=== PATIENT | female | born 1965 | race American Indian/Alaskan Native ===

== ENCOUNTER 2018-07-25 11:00 | Inpatient (IN) | payer MEDICAID ==
[2018-07-25] MEDS ORDERED: Sodium Chloride 0.9% 1,000 ML IV ONE (11:22)
[2018-07-25] MEDS ORDERED: Piperacillin/Tazobact 3.375 GM in Sodium Chloride 100 ML IVPB STA (12:41)
[2018-07-25 12:50] LABS: VENOUS BLOOD GAS BASE EXCESS -8.4 mmol/L (0.0-2.0); VENOUS BLOOD GAS PCO2 31 mmHg (40-60); VENOUS BLOOD GAS PO2 57 mm/Hg (30-55); VENOUS BLOOD PH 7.33 (7.32-7.43)
[2018-07-25 13:03] LABS: BASO % 0.2 % (0.0-2.0); EOS % 0.2 % (0.0-4.0); HEMOGLOBIN 9.3 g/dL (11.0-16.0); LYMPH # 0.3 K/uL (1.0-4.3); LYMPH % 4.2 % (20.0-40.0); MEAN CORPUSCULAR HEMOGLOBIN 27.7 pg (27.0-31.0); MEAN CORPUSCULAR HGB CONC 32.6 g/dL (33.0-37.0); MEAN PLATELET VOLUME 8.9 fL (7.2-11.7); MONO # 0.2 K/uL (0.0-0.8); MONO % 2.6 % (0.0-10.0); NEUT # 6.1 K/uL (1.8-7.0); NEUT % 92.8 % (50.0-75.0); NRBC % 0.1 % (0.0-2.0); PLATELET COUNT 266 K/uL (130-400); RBC 3.33 Mil/uL (3.80-5.20); RED CELL DISTRIBUTION WIDTH 15.1 % (11.5-14.5); WHITE BLOOD COUNT 6.5 K/uL (4.8-10.8)
--- NOTE | 2018-07-25 13:04 | C.PDOC ---
History Of Present Illness 52 yo female w/PMHx of uncontrolled DM, PVD, diabetic neuropathy, Left foot toe amputation, chr. foot diabetic ulcer BIBA for evaluation of cold sx associated with dry cough, fever, increase pain in left foot developed for past few days. Pt is poor historian, unable to give more info on current illness. Pt sts, " supposed to be in [place] in [facility], had recently Left foot surgery, but decided to try to live with my daughter here in [place]". Pt unable to recall hx of med. allergy " I dont remember". AT present time, pt appears not in any apparent distress, occasional dry cough noted Time Seen by Provider: 07/25/18 11:11 Chief Complaint (Nursing): Abnormal Skin Integrity History Per: Patient, EMS Past Medical History Reviewed: Historical Data, Nursing Documentation, Vital Signs Vital Signs: Last Vital Signs Temp 101.6 F H 07/25/18 11:20 Pulse 120 H 07/25/18 11:20 Resp 18 07/25/18 11:20 BP 149/54 L 07/25/18 11:20 Pulse Ox 98 07/25/18 11:20 - Medical History PMH: CHF, Diabetes, HTN Other PMH: Obese, PVD, diabtic neuropathy Family History: States: No Known Family Hx - Social History Hx Alcohol Use: No Hx Substance Use: No - Immunization History Hx Tetanus Toxoid Vaccination: No Hx Influenza Vaccination: No Hx Pneumococcal Vaccination: No Review Of Systems Except As Marked, All Systems Reviewed And Found Negative. Constitutional: Positive for: Fever, Malaise ENT: Positive for: Nose Discharge, Nose Congestion Cardiovascular: Negative for: Chest Pain Respiratory: Positive for: Cough. Negative for: Shortness of Breath, Wheezing Gastrointestinal: Negative for: Nausea, Vomiting, Abdominal Pain, Diarrhea Musculoskeletal: Positive for: Foot Pain Skin: Positive for: Lesions Neurological: Negative for: Altered Mental Status Physical Exam - Physical Exam Appears: Non-toxic, Other (in pain, occasional dry cough noted) Skin: Normal Color, Warm, Dry, No Rash Eye(s): bilateral: PERRL Nose: No Flaring, No Discharge Oral Mucosa: Moist, No Drooling Throat: No Erythema Neck: Trachea Midline, Supple Cardiovascular: No Murmur, No JVD Respiratory: No Decreased Breath Sounds, No Accessory Muscle Use, No Stridor, No Wheezing Gastrointestinal/Abdominal: Soft, No Tenderness, No Distention, No Guarding Back: No CVA Tenderness Extremity: Tenderness (B/L lower legs), Calf Tenderness (L>R), Other (Left foot: 1st toe amputation with open wound, (+) odor, purulent discahrge. Mod diffuse edema around medial aspect foot.) Neurological/Psych: Oriented x3, Normal Speech ED Course And Treatment - Laboratory Results Result Diagrams: 07/25/18 12:54 07/25/18 12:54 Lab Results: pO2 57 mm/Hg (30-55) H 07/25/18 12:40 VBG pH 7.33 (7.32-7.43) 07/25/18 12:40 VBG pCO2 31 mmHg (40-60) L 07/25/18 12:40 VBG HCO3 18.1 mmol/L 07/25/18 12:40 VBG Total CO2 17.3 mmol/L (22-28) L 07/25/18 12:40 VBG O2 Sat (Calc) 89.9 % (40-65) H 07/25/18 12:40 VBG Base Excess -8.4 mmol/L (0.0-2.0) L 07/25/18 12:40 VBG Potassium 3.7 mmol/L (3.6-5.2) 07/25/18 12:40 Sodium 139.0 mmol/l (132-148) 07/25/18 12:40 Chloride 105.0 mmol/L (98-107) 07/25/18 12:40 Glucose 415 mg/dl (65-105) H* 07/25/18 12:40 Lactate 2.6 mmol/L (0.7-2.1) H 07/25/18 12:40 Crit Value Called To ponce Joyce 07/25/18 12:40 Crit Value Called By rt Kelly 07/25/18 12:40 Crit Value Read Back Y 07/25/18 12:40 Blood Gas Notified Time 1249 07/25/18 12:40 Lab Interpretation: Abnormal ECG: Interpreted By Me, Viewed By Me Interpretation Of ECG: SR@95/min, NAD, no acute T wave or ST-T changes O2 Sat by Pulse Oximetry: 98 Pulse Ox Interpretation: Normal - Radiology CXR: Read By Radiologist CXR Interpretation: Yes: Cardiomegaly Progress Note: At 12:41 code sepsis. After pt's med assessment, rosk and benefits review, Pt will not benefit from fluids loading as per sepsis protocol, pt has multiple comorbidities including CHF. Pt was eval by machine pecan picker , rec. tele admission. Podiatry consul called, pt was seen by resident, additional imagings ordered. Case discussed with , adission arranged. ID consults with . Pt remained stable during the ED evaluation Critical Care Time - Critical Care Note Total Time (in mins): 120 Documented critical care: time excludes all time spent performing seperately billable procedures. Disposition - Disposition Disposition: HOSPITALIZED Disposition Time: 15:30 Condition: SERIOUS - Clinical Impression Clinical Impression: Sepsis, Open wound, Cellulitis, Uncontrolled diabetes mellitus
[2018-07-25 13:12] LABS: INR 1.2; PROTHROMBIN TIME 13.6 SECONDS (9.7-12.2)
[2018-07-25 13:29] LABS: B-TYPE NATRIURETIC PEPTIDE 1560 pg/mL (0-900)
[2018-07-25 13:35] LABS: BANDS 19 % (0-2); LYMPHOCYTE 4 % (20-40); MONOCYTE 2 % (0-10); NEUTROPHIL 75 % (50-75); TOTAL CELLS COUNTED 100
[2018-07-25 13:35] LABS: ABG ALLEN TEST POS; ARTERIAL BLOOD GAS HCO3 17.2 mmol/L (21-28); ARTERIAL BLOOD GAS O2 SAT 98.9 % (95-98); ARTERIAL BLOOD GAS PCO2 24 mm/Hg (35-45); ARTERIAL BLOOD GAS PH 7.36 (7.35-7.45); ARTERIAL BLOOD GAS PO2 86 mm/Hg (80-100); ARTERIAL BLOOD GAS TCO2 14.3 mmol/L (22-28)
--- NOTE | 2018-07-25 13:35 | RAD ---
Date of service: 07/25/2018 HISTORY: Sepsis Patient COMPARISON: No prior. FINDINGS: LUNGS: No consolidation. PLEURA: No significant pleural effusion identified, no pneumothorax apparent. CARDIOVASCULAR: There is presence of aortic atherosclerotic faint calcification on x-ray. Mild cardiomegaly mild pulmonary vascular congestion-likely accentuated with shallow lung volumes. OSSEOUS STRUCTURES: Thoracic spondylosis. Bilateral shoulder arthrosis VISUALIZED UPPER ABDOMEN: Normal. OTHER FINDINGS: None. IMPRESSION: No consolidative infiltrate. Mild cardiomegaly and mild pulmonary venous congestion suspect
[2018-07-25 13:36] LABS: ANISOCYTOSIS SLIGHT; PLATELET ESTIMATE NORMAL (NORMAL)
[2018-07-25 13:37] LABS: GIANT PLATELETS PRESENT; HYPOCHROMIC SLIGHT; LARGE PLATELETS PRESENT
[2018-07-25 13:45] LABS: ALB/GLOB RATIO 0.8 (1.0-2.1); ALBUMIN 3.3 g/dL (3.5-5.0); ALT/SGPT 7 U/L (9-52); AST/SGOT 13 U/L (14-36); BLOOD UREA NITROGEN 15 mg/dL (7-17); CALCIUM 8.5 mg/dl (8.6-10.4); GFR NON-AFRICAN AMERICAN 58
--- NOTE | 2018-07-25 14:24 | CP.PCM.CON ---
<Brant Sofia - Last Filed: 07/25/18 16:01> History of Present Illness - History of Present Illness History of Present Illness: Podiatry Consult Note: Dr. Fox 52 year old female patient with PMHx of DM, HTN was seen and evaluated at bedside for left foot infected wound. Patient reports that she recently moved from [place] to [place] because her daughter bought a new house here. Patient states that she has been following up for the left foot infection at [facility] and in [facility] for many years. Patient reports that she was almost healed and was transferred to a fpc before she was asked to move to [place]. States that since then she lost to follow up and her foot became worst. Patient states that she was receiving abx at the fpc (Doxycycline) and was feeling a lot better at the time. Patient states that she decided to come to the ED today because she has been feeling very sick and nauseous. Patient states that she had vomiting episodes few times before coming to the hospital. Reports that she may have had a fever as well. Patient denies of having any pain but states that she noticed a lot of drainage from the foot and foul smell. Patient denies of having any other pedal complains at this time. PMHx: DM, HTN PSHx: Left hallux amputation Allergies: Vancomycin SHx: Denies smoking, EtOH or illicit drug usage Review of Systems - Constitutional Constitutional: As Per HPI Past Patient History - Infectious Disease Hx of Infectious Diseases: None - Past Social History Smoking Status: Never Smoked - CARDIAC Hx Hypertension: Yes - ENDOCRINE/METABOLIC Hx Diabetes Mellitus Type 2: Yes - PSYCHIATRIC Hx Substance Use: No - SURGICAL HISTORY Hx Surgeries: Yes Other/Comment: Left foot metatarsal amputatio one year ago from date 07/25/2018. Patient unable to provide all information. - ANESTHESIA Hx Anesthesia: Yes Hx Anesthesia Reactions: No Hx Malignant Hyperthermia: No Meds Allergies/Adverse Reactions: Allergies Allergy/AdvReac Type Severity Reaction Status Date / Time iodine Allergy Intermediate Verified 07/25/18 15:53 vancomycin Allergy Intermediate Verified 07/25/18 11:18 - Medications Medications: Current Medications Acetaminophen (Tylenol 325mg Tab) 975 mg PO ONCE PRN PRN Reason: Fever >100.4 F Last Admin: 07/25/18 11:31 Dose: 975 mg Physical Exam - Constitutional Appears: Well, Non-toxic, No Acute Distress - Extremities Exam Additional comments: Bilateral LE exam: VASC: DP/PT pulses are palpable 2/4, Cap refill time: < 3 sec to digit 4 and 5, Temp gradient: warm to cool from proximal to distal on the right and warm to warm on the left, diffuse non-pitting edema noticed distal to the mid leg on the left DERM: open fissure plantar medial aspect of the 2nd digit which probes down to the level of the bone, active purulent drainage with bubbles noted, senait-fissure maceration, open wound at the level of the PIPJ of the 2nd digit with grannular wound base, probe to bone, 2nd digit appears contracted, no active drainage from the 2nd digit wound, 2nd digit does not show sign of necrosis but shows maceration with non-pitting edema and localized erythema, severe malodor present from the site NEURO: Protective sensation grossly intact ORTHO: no pain on palpation of the wound, no pain on palpation during deep palpation, MMT: 5/5 in all 4 direction at the ankle joint - Neurological Exam Neurological exam: Alert, Oriented x3 - Psychiatric Exam Psychiatric exam: Normal Affect, Normal Mood Results - Vital Signs Recent Vital Signs: Last Vital Signs Temp 100.3 F H 07/25/18 13:54 Pulse 83 07/25/18 13:48 Resp 22 07/25/18 13:48 BP 108/63 07/25/18 13:48 Pulse Ox 97 07/25/18 13:48 - Labs Result Diagrams: 07/25/18 12:54 07/25/18 12:54 Labs: Laboratory Results - last 24 hr 07/25/18 07/25/18 07/25/18 11:14 11:53 12:40 WBC RBC Hgb Hct MCV MCH MCHC RDW Plt Count MPV Neut % (Auto) Lymph % (Auto) Dickenson % (Auto) Eos % (Auto) Baso % (Auto) Neut # (Auto) Lymph # (Auto) Dickenson # (Auto) Eos # (Auto) Baso # (Auto) Neutrophils % (Manual) Band Neutrophils % Lymphocytes % (Manual) Monocytes % (Manual) Platelet Estimate Plt Clumps, EDTA Large Platelets Giant Platelets Hypochromasia (manual) Anisocytosis (manual) PT INR APTT Puncture Site pCO2 pO2 57 H HCO3 ABG pH ABG Total CO2 ABG O2 Saturation ABG Base Excess Josias Test ABG Potassium VBG pH 7.33 VBG pCO2 31 L VBG HCO3 18.1 VBG Total CO2 17.3 L VBG O2 Sat (Calc) 89.9 H VBG Base Excess -8.4 L VBG Potassium 3.7 A-a O2 Difference Respiratory Index Sodium 139.0 Chloride 105.0 Glucose 415 H* Lactate 2.6 H FiO2 Crit Value Called To ponce Joyce Crit Value Called By Danielle finley rt Crit Value Read Back Y Blood Gas Notified Time 1249 Potassium Carbon Dioxide Anion Gap BUN Creatinine Est GFR ( Amer) Est GFR (Non-Af Amer) POC Glucose (mg/dL) > 500 H* Random Glucose Calcium Phosphorus Magnesium Total Bilirubin AST ALT Alkaline Phosphatase Troponin I NT-Pro-B Natriuret Pep Total Protein Albumin Globulin Albumin/Globulin Ratio Arterial Blood Potassium Venous Blood Potassium 3.7 Influenza Typ A,B (EIA) Negative for flu a/b 07/25/18 07/25/18 07/25/18 12:54 12:54 12:54 WBC 6.5 RBC 3.33 L Hgb 9.3 L Hct 28.3 L MCV 85.0 MCH 27.7 MCHC 32.6 L RDW 15.1 H Plt Count 266 MPV 8.9 Neut % (Auto) 92.8 H Lymph % (Auto) 4.2 L Dickenson % (Auto) 2.6 Eos % (Auto) 0.2 Baso % (Auto) 0.2 Neut # (Auto) 6.1 Lymph # (Auto) 0.3 L Dickenson # (Auto) 0.2 Eos # (Auto) 0.0 Baso # (Auto) 0.0 Neutrophils % (Manual) 75 Band Neutrophils % 19 H* Lymphocytes % (Manual) 4 L Monocytes % (Manual) 2 Platelet Estimate Normal Plt Clumps, EDTA Lobster Fisherman Large Platelets Present Giant Platelets Present Hypochromasia (manual) Slight Anisocytosis (manual) Slight PT 13.6 H INR 1.2 APTT 26 Puncture Site pCO2 pO2 HCO3 ABG pH ABG Total CO2 ABG O2 Saturation ABG Base Excess Josias Test ABG Potassium VBG pH VBG pCO2 VBG HCO3 VBG Total CO2 VBG O2 Sat (Calc) VBG Base Excess VBG Potassium A-a O2 Difference Respiratory Index Sodium 133 Chloride 99 Glucose Lactate FiO2 Crit Value Called To Crit Value Called By Crit Value Read Back Blood Gas Notified Time Potassium 3.7 Carbon Dioxide 19 L Anion Gap 18 BUN 15 Creatinine 1.0 Est GFR ( Amer) > 60 Est GFR (Non-Af Amer) 58 POC Glucose (mg/dL) Random Glucose 471 H* Calcium 8.5 L Phosphorus 2.9 Magnesium 1.4 L Total Bilirubin 0.5 AST 13 L ALT 7 L Alkaline Phosphatase 143 H Troponin I < 0.0120 NT-Pro-B Natriuret Pep 1560 H Total Protein 7.2 Albumin 3.3 L Globulin 3.9 Albumin/Globulin Ratio 0.8 L Arterial Blood Potassium Venous Blood Potassium Influenza Typ A,B (EIA) 07/25/18 13:30 WBC RBC Hgb Hct MCV MCH MCHC RDW Plt Count MPV Neut % (Auto) Lymph % (Auto) Dickenson % (Auto) Eos % (Auto) Baso % (Auto) Neut # (Auto) Lymph # (Auto) Dickenson # (Auto) Eos # (Auto) Baso # (Auto) Neutrophils % (Manual) Band Neutrophils % Lymphocytes % (Manual) Monocytes % (Manual) Platelet Estimate Plt Clumps, EDTA Large Platelets Giant Platelets Hypochromasia (manual) Anisocytosis (manual) PT INR APTT Puncture Site Rradial pCO2 24 L pO2 86 HCO3 17.2 L ABG pH 7.36 ABG Total CO2 14.3 L ABG O2 Saturation 98.9 H ABG Base Excess -9.9 L Josias Test Pos ABG Potassium 2.7 L VBG pH VBG pCO2 VBG HCO3 VBG Total CO2 VBG O2 Sat (Calc) VBG Base Excess VBG Potassium A-a O2 Difference 34.0 Respiratory Index 0.4 Sodium 142.0 Chloride 113.0 H Glucose 357 H Lactate 1.1 FiO2 21.0 Crit Value Called To Crit Value Called By Crit Value Read Back Blood Gas Notified Time Potassium Carbon Dioxide Anion Gap BUN Creatinine Est GFR ( Amer) Est GFR (Non-Af Amer) POC Glucose (mg/dL) Random Glucose Calcium Phosphorus Magnesium Total Bilirubin AST ALT Alkaline Phosphatase Troponin I NT-Pro-B Natriuret Pep Total Protein Albumin Globulin Albumin/Globulin Ratio Arterial Blood Potassium 2.7 L Venous Blood Potassium Influenza Typ A,B (EIA) Assessment & Plan - Assessment and Plan (Free Text) Assessment: 52 year old female with PMHx of DM, HTN was evaluated for left foot infected 2nd digit with possible underlying soft tissue emphysema and OM Plan: Patient seen and evaluated at bedside Discussed plan with attending Dr. Fox Labs vitals and charts reviewed - afebrile, positive leukocytosis - ESR, CRP - pending - meets SIRS criteria with possible sepsis Left foot, ankle and tib-fib x-rays ordered - pending Bedside I&D performed - expressed approx. 10 cc of purulent drainage, performed until fresh bleeding noted Wound dressed with betadine, DSD Wound culture taken - pending ID consult - Dr. Davila, recs appreciated - IV abx as per ID Pain management as per primary Podiatry plans for I&D of the left foot with possible 2nd ray amputation - tomorrow 7:30 am Please keep patient NPO starting midnight Hold anti-coag Thank you for the podiatry consult and allowing to take part in patient care Podiatry to follow patient while in-house - Date & Time Date: 07/25/18 Time: 14:42 <Eddy Fox - Last Filed: 07/25/18 22:07> Meds - Medications Medications: Current Medications Acetaminophen (Tylenol 325mg Tab) 975 mg PO ONCE PRN PRN Reason: Fever >100.4 F Last Admin: 07/25/18 11:31 Dose: 975 mg Acetaminophen (Tylenol 325mg Tab) 650 mg PO Q6 PRN PRN Reason: Fever >100.4 F Albuterol/Ipratropium (Duoneb 3 Mg/0.5 Mg (3 Ml) Ud) 3 ml INH RQ6 PRN PRN Reason: Shortness of Breath Dextrose (Dextrose 50% Inj) 0 ml IV STAT PRN; Protocol PRN Reason: Hypoglycemia Protocol Dextrose (Glutose 15) 0 gm PO ONCE PRN; Protocol PRN Reason: Hypoglycemia Protocol Furosemide (Lasix) 20 mg PO DAILY JAMAR Gabapentin (Neurontin) 300 mg PO BID JAMAR Last Admin: 07/25/18 21:08 Dose: Not Given Glucagon (Glucagen Diagnostic Kit) 0 mg IM STAT PRN; Protocol PRN Reason: Hypoglycemia Protocol Dextrose (Dextrose 5% In Water 1000 Ml) 1,000 mls @ 0 mls/hr IV .Q0M PRN; Protocol PRN Reason: Hypoglycemia Protocol Meropenem 1 gm/ Sodium (Chloride) 100 mls @ 100 mls/hr IVPB Q8H JAMAR; Protocol Doxycycline Hyclate 100 mg/ (Sodium Chloride) 100 mls @ 100 mls/hr IVPB Q12H JAMAR; Protocol Insulin Glargine (Lantus) 20 unit SC HS [facility] Last Admin: 07/25/18 22:03 Dose: 20 unit Insulin Human Regular (Novolin R) 0 unit SC ACHS JAMAR; Protocol Last Admin: 07/25/18 19:00 Dose: Not Given Lactobacillus Acidophilus (Lactobacillus) 1 cap PO TID [facility] Last Admin: 07/25/18 21:08 Dose: Not Given Lisinopril (Zestril) 5 mg PO DAILY [facility] Magnesium Hydroxide (Milk Of Magnesia) 30 ml PO ONCE ONE Stop: 07/25/18 21:53 Oxycodone/Acetaminophen (Percocet 5/325 Mg Tab) 1 tab PO Q6H PRN PRN Reason: Pain, severe (8-10) Stop: 07/28/18 18:15 Pneumococcal Polyvalent Vaccine (Pneumovax 23 Vaccine) 0.5 ml IM .ONCE ONE Stop: 07/27/18 19:13 Rosuvastatin Calcium (Crestor) 2.5 mg PO HS [facility] Results - Vital Signs Recent Vital Signs: Last Vital Signs Temp 99.8 F H 07/25/18 17:45 Pulse 92 H 07/25/18 17:45 Resp 20 07/25/18 17:45 BP 118/54 L 07/25/18 17:45 Pulse Ox 98 07/25/18 18:10 - Labs Result Diagrams: 07/25/18 12:54 07/25/18 12:54 Labs: Laboratory Results - last 24 hr 07/25/18 07/25/18 07/25/18 11:14 11:53 12:40 WBC RBC Hgb Hct MCV MCH MCHC RDW Plt Count MPV Neut % (Auto) Lymph % (Auto) Dickenson % (Auto) Eos % (Auto) Baso % (Auto) Neut # (Auto) Lymph # (Auto) Dickenson # (Auto) Eos # (Auto) Baso # (Auto) Neutrophils % (Manual) Band Neutrophils % Lymphocytes % (Manual) Monocytes % (Manual) Platelet Estimate Plt Clumps, EDTA Large Platelets Giant Platelets Hypochromasia (manual) Anisocytosis (manual) ESR PT INR APTT Puncture Site pCO2 pO2 57 H HCO3 ABG pH ABG Total CO2 ABG O2 Saturation ABG Base Excess Josias Test ABG Potassium VBG pH 7.33 VBG pCO2 31 L VBG HCO3 18.1 VBG Total CO2 17.3 L VBG O2 Sat (Calc) 89.9 H VBG Base Excess -8.4 L VBG Potassium 3.7 A-a O2 Difference Respiratory Index Sodium 139.0 Chloride 105.0 Glucose 415 H* Lactate 2.6 H FiO2 Crit Value Called To ponce Joyce Crit Value Called By rt Kelly Crit Value Read Back Y Blood Gas Notified Time 1249 Potassium Carbon Dioxide Anion Gap BUN Creatinine Est GFR ( Amer) Est GFR (Non-Af Amer) POC Glucose (mg/dL) > 500 H* Random Glucose Calcium Phosphorus Magnesium Total Bilirubin AST ALT Alkaline Phosphatase Troponin I C-Reactive Protein C-React Prot High Sens NT-Pro-B Natriuret Pep Total Protein Albumin Globulin Albumin/Globulin Ratio Procalcitonin Arterial Blood Potassium Venous Blood Potassium 3.7 Influenza Typ A,B (EIA) Negative for flu a/b 07/25/18 07/25/18 07/25/18 12:54 12:54 12:54 WBC 6.5 RBC 3.33 L Hgb 9.3 L Hct 28.3 L MCV 85.0 MCH 27.7 MCHC 32.6 L RDW 15.1 H Plt Count 266 MPV 8.9 Neut % (Auto) 92.8 H Lymph % (Auto) 4.2 L Dickenson % (Auto) 2.6 Eos % (Auto) 0.2 Baso % (Auto) 0.2 Neut # (Auto) 6.1 Lymph # (Auto) 0.3 L Dickenson # (Auto) 0.2 Eos # (Auto) 0.0 Baso # (Auto) 0.0 Neutrophils % (Manual) 75 Band Neutrophils % 19 H* Lymphocytes % (Manual) 4 L Monocytes % (Manual) 2 Platelet Estimate Normal Plt Clumps, EDTA L[place]ster Fisherman Large Platelets Present Giant Platelets Present Hypochromasia (manual) Slight Anisocytosis (manual) Slight ESR PT 13.6 H INR 1.2 APTT 26 Puncture Site pCO2 pO2 HCO3 ABG pH ABG Total CO2 ABG O2 Saturation ABG Base Excess Josias Test ABG Potassium VBG pH VBG pCO2 VBG HCO3 VBG Total CO2 VBG O2 Sat (Calc) VBG Base Excess VBG Potassium A-a O2 Difference Respiratory Index Sodium 133 Chloride 99 Glucose Lactate FiO2 Crit Value Called To Crit Value Called By Crit Value Read Back Blood Gas Notified Time Potassium 3.7 Carbon Dioxide 19 L Anion Gap 18 BUN 15 Creatinine 1.0 Est GFR ( Amer) > 60 Est GFR (Non-Af Amer) 58 POC Glucose (mg/dL) Random Glucose 471 H* Calcium 8.5 L Phosphorus 2.9 Magnesium 1.4 L Total Bilirubin 0.5 AST 13 L ALT 7 L Alkaline Phosphatase 143 H Troponin I < 0.0120 C-Reactive Protein C-React Prot High Sens NT-Pro-B Natriuret Pep 1560 H Total Protein 7.2 Albumin 3.3 L Globulin 3.9 Albumin/Globulin Ratio 0.8 L Procalcitonin Arterial Blood Potassium Venous Blood Potassium Influenza Typ A,B (EIA) 07/25/18 07/25/18 07/25/18 13:30 16:42 16:42 WBC RBC Hgb Hct MCV MCH MCHC RDW Plt Count MPV Neut % (Auto) Lymph % (Auto) Dickenson % (Auto) Eos % (Auto) Baso % (Auto) Neut # (Auto) Lymph # (Auto) Dickenson # (Auto) Eos # (Auto) Baso # (Auto) Neutrophils % (Manual) Band Neutrophils % Lymphocytes % (Manual) Monocytes % (Manual) Platelet Estimate Plt Clumps, EDTA Large Platelets Giant Platelets Hypochromasia (manual) Anisocytosis (manual) ESR 98 H PT INR APTT Puncture Site Rradial pCO2 24 L pO2 86 HCO3 17.2 L ABG pH 7.36 ABG Total CO2 14.3 L ABG O2 Saturation 98.9 H ABG Base Excess -9.9 L Josias Test Pos ABG Potassium 2.7 L VBG pH VBG pCO2 VBG HCO3 VBG Total CO2 VBG O2 Sat (Calc) VBG Base Excess VBG Potassium A-a O2 Difference 34.0 Respiratory Index 0.4 Sodium 142.0 Chloride 113.0 H Glucose 357 H Lactate 1.1 FiO2 21.0 Crit Value Called To Crit Value Called By Crit Value Read Back Blood Gas Notified Time Potassium Carbon Dioxide Anion Gap BUN Creatinine Est GFR ( Amer) Est GFR (Non-Af Amer) POC Glucose (mg/dL) Random Glucose Calcium Phosphorus Magnesium Total Bilirubin AST ALT Alkaline Phosphatase Troponin I C-Reactive Protein C-React Prot High Sens NT-Pro-B Natriuret Pep Total Protein Albumin Globulin Albumin/Globulin Ratio Procalcitonin 167.52 H Arterial Blood Potassium 2.7 L Venous Blood Potassium Influenza Typ A,B (EIA) 07/25/18 07/25/18 07/25/18 16:42 16:42 18:35 WBC RBC Hgb Hct MCV MCH MCHC RDW Plt Count MPV Neut % (Auto) Lymph % (Auto) Dickenson % (Auto) Eos % (Auto) Baso % (Auto) Neut # (Auto) Lymph # (Auto) Dickenson # (Auto) Eos # (Auto) Baso # (Auto) Neutrophils % (Manual) Band Neutrophils % Lymphocytes % (Manual) Monocytes % (Manual) Platelet Estimate Plt Clumps, EDTA Large Platelets Giant Platelets Hypochromasia (manual) Anisocytosis (manual) ESR PT INR APTT Puncture Site pCO2 pO2 HCO3 ABG pH ABG Total CO2 ABG O2 Saturation ABG Base Excess Josias Test ABG Potassium VBG pH VBG pCO2 VBG HCO3 VBG Total CO2 VBG O2 Sat (Calc) VBG Base Excess VBG Potassium A-a O2 Difference Respiratory Index Sodium Chloride Glucose Lactate FiO2 Crit Value Called To Crit Value Called By Crit Value Read Back Blood Gas Notified Time Potassium Carbon Dioxide Anion Gap BUN Creatinine Est GFR ( Amer) Est GFR (Non-Af Amer) POC Glucose (mg/dL) > 500 H* Random Glucose Calcium Phosphorus Magnesium Total Bilirubin AST ALT Alkaline Phosphatase Troponin I C-Reactive Protein 218.80 H C-React Prot High Sens > 15.00 H NT-Pro-B Natriuret Pep Total Protein Albumin Globulin Albumin/Globulin Ratio Procalcitonin Arterial Blood Potassium Venous Blood Potassium Influenza Typ A,B (EIA) 07/25/18 07/25/18 18:37 21:21 WBC RBC Hgb Hct MCV MCH MCHC RDW Plt Count MPV Neut % (Auto) Lymph % (Auto) Dickenson % (Auto) Eos % (Auto) Baso % (Auto) Neut # (Auto) Lymph # (Auto) Dickenson # (Auto) Eos # (Auto) Baso # (Auto) Neutrophils % (Manual) Band Neutrophils % Lymphocytes % (Manual) Monocytes % (Manual) Platelet Estimate Plt Clumps, EDTA Large Platelets Giant Platelets Hypochromasia (manual) Anisocytosis (manual) ESR PT INR APTT Puncture Site pCO2 pO2 HCO3 ABG pH ABG Total CO2 ABG O2 Saturation ABG Base Excess Josias Test ABG Potassium VBG pH VBG pCO2 VBG HCO3 VBG Total CO2 VBG O2 Sat (Calc) VBG Base Excess VBG Potassium A-a O2 Difference Respiratory Index Sodium Chloride Glucose Lactate FiO2 Crit Value Called To Crit Value Called By Crit Value Read Back Blood Gas Notified Time Potassium Carbon Dioxide Anion Gap BUN Creatinine Est GFR ( Amer) Est GFR (Non-Af Amer) POC Glucose (mg/dL) > 500 H* 459 H* Random Glucose Calcium Phosphorus Magnesium Total Bilirubin AST ALT Alkaline Phosphatase Troponin I C-Reactive Protein C-React Prot High Sens NT-Pro-B Natriuret Pep Total Protein Albumin Globulin Albumin/Globulin Ratio Procalcitonin Arterial Blood Potassium Venous Blood Potassium Influenza Typ A,B (EIA) Assessment & Plan - Assessment and Plan (Free Text) Plan: seen at bedside this PM .discussed need for amputation of toe 2 left with wale dailey of infection . /Dr Marky Fox
--- NOTE | 2018-07-25 15:10 | RAD ---
Date of service: 07/25/2018 PROCEDURE: Radiographs of the left tibia and fibula. HISTORY: pain, swelling COMPARISON: None available. TECHNIQUE: Frontal and lateral views obtained. FINDINGS: BONES: No fracture or destructive lesion. JOINT SPACES: Unremarkable. OTHER FINDINGS: None. IMPRESSION: Unremarkable radiographs of the left tibia and fibula.
--- NOTE | 2018-07-25 15:10 | RAD ---
Date of service: 07/25/2018 PROCEDURE: Left Foot Radiographs. HISTORY: edema, pain COMPARISON: None. FINDINGS: BONES: Findings related to prior resection distal 1st metatarsal. Amputation at the level of the proximal phalanx 5th digit. Ventral ulceration medial aspect of the left foot distally. Suggestion of air within the soft tissues. In the absence of recent surgical history gas-forming organism should be considered. JOINTS: Degenerative changes at the level of the tarsal bones. Small plantar calcaneal spur. Small talar exostosis. Degenerative changes talar calcaneal joint. SOFT TISSUES: Normal. OTHER FINDINGS: None. IMPRESSION: Soft tissue findings medial aspect of the left foot distally at the site of prior resection. Please see report for additional details, findings an observations.
--- NOTE | 2018-07-25 15:12 | RAD ---
Date of service: 07/25/2018 PROCEDURE: Left Ankle Radiographs. HISTORY: r/o gas COMPARISON: None available. FINDINGS: BONES: Cortical irregularity medial aspect of the left tibia midshaft region. The finding is marked on the study for review. This scalloped appearance suggests sequela of prior infection or trauma. No evidence of acute osteomyelitis. JOINTS: Normal. No osteoarthritis. Ankle mortise maintained. Talar dome intact SOFT TISSUES: Normal. OTHER FINDINGS: None. IMPRESSION: Presumed chronic changes midshaft left tibia.
[2018-07-25] MEDS ORDERED: Lactated Ringer's 1,000 ML ONE (15:28)
[2018-07-25] MEDS ORDERED: Sodium Chloride 0.9% 1,000 ML ONE (15:28)
[2018-07-25] MEDS ORDERED: Piperacillin/Tazobact 3.375 gm 100 ML IVPB ONE (15:29)
--- NOTE | 2018-07-25 15:52 | CP.PCM.CON ---
<William Mitchell - Last Filed: 07/25/18 18:23> History of Present Illness - History of Present Illness History of Present Illness: 52 year old female, with PMHx of HTN, IDDM, Diabetic retinopathy, and previous hx of toe amputation, who presented to the ED for complaint of fever, chills, diarrhea, nausea, and vomiting for the past five days.Patient also complains of a cough but unable to produce sputum. Symptoms have been persistent for the past several days. Patient states she came to the ED because she could no longer take it. Patient states she recently moved in with her daughter in [place] after living in an assisted living facility. When discussing her insulin, patient states "I have been guessing" how much insulin she draws from syringe because she is unable to see. Patient denies chest pain or abdominal pain, SOB. Patient states she is producing urine & bowel movements without any issues PMHx: IDDM, Diabetic Retinopathy, HTN PSHx: Left toe amputation Allergies: Vancomycin, iodine Medications: per EMR Social Hx: Patient denies alcohol, tobacco, or illicit drug use. Patient now lives with daughter in [place]. Patient previously lived in assisted living facility in [place] prior to moving to [place]. Review of Systems - Constitutional Constitutional: Chills, Fever. absent: Fatigue, Headache - EENT Ears: absent: Decreased Hearing, Dizziness Nose/Mouth/Throat: absent: Dysphagia - Cardiovascular Cardiovascular: absent: Chest Pain, Chest Pain at Rest - Respiratory Respiratory: absent: Dyspnea, Hemoptysis, Stridor - Gastrointestinal Gastrointestinal: absent: Belching, Bloating - Genitourinary Genitourinary: absent: Hematuria, Pyuria, Nocturia - Neurological Neurological: absent: Abnormal Hearing, Behavioral Changes - Psychiatric Psychiatric: absent: Confusion, Depression Past Patient History - Infectious Disease Hx of Infectious Diseases: None - Past Social History Smoking Status: Never Smoked - CARDIAC Hx Hypertension: Yes - ENDOCRINE/METABOLIC Hx Diabetes Mellitus Type 2: Yes - PSYCHIATRIC Hx Substance Use: No - SURGICAL HISTORY Hx Surgeries: Yes Other/Comment: Left foot metatarsal amputatio one year ago from date 07/25/2018. Patient unable to provide all information. - ANESTHESIA Hx Anesthesia: Yes Hx Anesthesia Reactions: No Hx Malignant Hyperthermia: No Meds Allergies/Adverse Reactions: Allergies Allergy/AdvReac Type Severity Reaction Status Date / Time iodine Allergy Intermediate Verified 07/25/18 15:53 vancomycin Allergy Intermediate Verified 07/25/18 11:18 - Medications Medications: Current Medications Acetaminophen (Tylenol 325mg Tab) 975 mg PO ONCE PRN PRN Reason: Fever >100.4 F Last Admin: 07/25/18 11:31 Dose: 975 mg Results - Vital Signs Recent Vital Signs: Last Vital Signs Temp 100.3 F H 07/25/18 13:54 Pulse 83 07/25/18 13:48 Resp 22 07/25/18 13:48 BP 108/63 07/25/18 13:48 Pulse Ox 97 07/25/18 13:48 - Labs Result Diagrams: 07/25/18 12:54 07/25/18 12:54 Labs: Laboratory Results - last 24 hr 07/25/18 07/25/18 07/25/18 11:14 11:53 12:40 WBC RBC Hgb Hct MCV MCH MCHC RDW Plt Count MPV Neut % (Auto) Lymph % (Auto) Weber % (Auto) Eos % (Auto) Baso % (Auto) Neut # (Auto) Lymph # (Auto) Weber # (Auto) Eos # (Auto) Baso # (Auto) Neutrophils % (Manual) Band Neutrophils % Lymphocytes % (Manual) Monocytes % (Manual) Platelet Estimate Plt Clumps, EDTA Large Platelets Giant Platelets Hypochromasia (manual) Anisocytosis (manual) PT INR APTT Puncture Site pCO2 pO2 57 H HCO3 ABG pH ABG Total CO2 ABG O2 Saturation ABG Base Excess Josias Test ABG Potassium VBG pH 7.33 VBG pCO2 31 L VBG HCO3 18.1 VBG Total CO2 17.3 L VBG O2 Sat (Calc) 89.9 H VBG Base Excess -8.4 L VBG Potassium 3.7 A-a O2 Difference Respiratory Index Sodium 139.0 Chloride 105.0 Glucose 415 H* Lactate 2.6 H FiO2 Crit Value Called To ponce Joyce Crit Value Called By Danielle finley rt Crit Value Read Back Y Blood Gas Notified Time 1249 Potassium Carbon Dioxide Anion Gap BUN Creatinine Est GFR ( Amer) Est GFR (Non-Af Amer) POC Glucose (mg/dL) > 500 H* Random Glucose Calcium Phosphorus Magnesium Total Bilirubin AST ALT Alkaline Phosphatase Troponin I NT-Pro-B Natriuret Pep Total Protein Albumin Globulin Albumin/Globulin Ratio Arterial Blood Potassium Venous Blood Potassium 3.7 Influenza Typ A,B (EIA) Negative for flu a/b 07/25/18 07/25/18 07/25/18 12:54 12:54 12:54 WBC 6.5 RBC 3.33 L Hgb 9.3 L Hct 28.3 L MCV 85.0 MCH 27.7 MCHC 32.6 L RDW 15.1 H Plt Count 266 MPV 8.9 Neut % (Auto) 92.8 H Lymph % (Auto) 4.2 L Weber % (Auto) 2.6 Eos % (Auto) 0.2 Baso % (Auto) 0.2 Neut # (Auto) 6.1 Lymph # (Auto) 0.3 L Weber # (Auto) 0.2 Eos # (Auto) 0.0 Baso # (Auto) 0.0 Neutrophils % (Manual) 75 Band Neutrophils % 19 H* Lymphocytes % (Manual) 4 L Monocytes % (Manual) 2 Platelet Estimate Normal Plt Clumps, EDTA [employer] Large Platelets Present Giant Platelets Present Hypochromasia (manual) Slight Anisocytosis (manual) Slight PT 13.6 H INR 1.2 APTT 26 Puncture Site pCO2 pO2 HCO3 ABG pH ABG Total CO2 ABG O2 Saturation ABG Base Excess Josias Test ABG Potassium VBG pH VBG pCO2 VBG HCO3 VBG Total CO2 VBG O2 Sat (Calc) VBG Base Excess VBG Potassium A-a O2 Difference Respiratory Index Sodium 133 Chloride 99 Glucose Lactate FiO2 Crit Value Called To Crit Value Called By Crit Value Read Back Blood Gas Notified Time Potassium 3.7 Carbon Dioxide 19 L Anion Gap 18 BUN 15 Creatinine 1.0 Est GFR ( Amer) > 60 Est GFR (Non-Af Amer) 58 POC Glucose (mg/dL) Random Glucose 471 H* Calcium 8.5 L Phosphorus 2.9 Magnesium 1.4 L Total Bilirubin 0.5 AST 13 L ALT 7 L Alkaline Phosphatase 143 H Troponin I < 0.0120 NT-Pro-B Natriuret Pep 1560 H Total Protein 7.2 Albumin 3.3 L Globulin 3.9 Albumin/Globulin Ratio 0.8 L Arterial Blood Potassium Venous Blood Potassium Influenza Typ A,B (EIA) 07/25/18 13:30 WBC RBC Hgb Hct MCV MCH MCHC RDW Plt Count MPV Neut % (Auto) Lymph % (Auto) Weber % (Auto) Eos % (Auto) Baso % (Auto) Neut # (Auto) Lymph # (Auto) Weber # (Auto) Eos # (Auto) Baso # (Auto) Neutrophils % (Manual) Band Neutrophils % Lymphocytes % (Manual) Monocytes % (Manual) Platelet Estimate Plt Clumps, EDTA Large Platelets Giant Platelets Hypochromasia (manual) Anisocytosis (manual) PT INR APTT Puncture Site Rradial pCO2 24 L pO2 86 HCO3 17.2 L ABG pH 7.36 ABG Total CO2 14.3 L ABG O2 Saturation 98.9 H ABG Base Excess -9.9 L Josias Test Pos ABG Potassium 2.7 L VBG pH VBG pCO2 VBG HCO3 VBG Total CO2 VBG O2 Sat (Calc) VBG Base Excess VBG Potassium A-a O2 Difference 34.0 Respiratory Index 0.4 Sodium 142.0 Chloride 113.0 H Glucose 357 H Lactate 1.1 FiO2 21.0 Crit Value Called To Crit Value Called By Crit Value Read Back Blood Gas Notified Time Potassium Carbon Dioxide Anion Gap BUN Creatinine Est GFR ( Amer) Est GFR (Non-Af Amer) POC Glucose (mg/dL) Random Glucose Calcium Phosphorus Magnesium Total Bilirubin AST ALT Alkaline Phosphatase Troponin I NT-Pro-B Natriuret Pep Total Protein Albumin Globulin Albumin/Globulin Ratio Arterial Blood Potassium 2.7 L Venous Blood Potassium Influenza Typ A,B (EIA) Assessment & Plan - Assessment and Plan (Free Text) Assessment: Patient is a 52 year old female, with PMHx of HTN, IDDM, Diabetic Retinopathy, and previous hx of toe amputation, who presented to the ED for complaints of fever, chills, diarrhea, nausea, and vomiting secondary to sepsis. Patient was evaluated for admission to ICU. Patient is resting comfortably and talking in complete sentences. Vitals remain stable in ED and lactate is down trending. - Patient is stable to be admitted to floor. - Please contact ICU if re-evaluation needed. Plan: - Patient is stable to be admitted to floor. - Please contact ICU if re-evaluation needed. <Azul Sofia - Last Filed: 07/26/18 06:13> Meds - Medications Medications: Current Medications Acetaminophen (Tylenol 325mg Tab) 975 mg PO ONCE PRN PRN Reason: Fever >100.4 F Last Admin: 07/25/18 11:31 Dose: 975 mg Acetaminophen (Tylenol 325mg Tab) 650 mg PO Q6 PRN PRN Reason: Fever >100.4 F Albuterol/Ipratropium (Duoneb 3 Mg/0.5 Mg (3 Ml) Ud) 3 ml INH RQ6 PRN PRN Reason: Shortness of Breath Dextrose (Dextrose 50% Inj) 0 ml IV STAT PRN; Protocol PRN Reason: Hypoglycemia Protocol Dextrose (Glutose 15) 0 gm PO ONCE PRN; Protocol PRN Reason: Hypoglycemia Protocol Furosemide (Lasix) 20 mg PO DAILY [facility] Gabapentin (Neurontin) 300 mg PO BID [facility] Last Admin: 07/25/18 21:08 Dose: Not Given Glucagon (Glucagen Diagnostic Kit) 0 mg IM STAT PRN; Protocol PRN Reason: Hypoglycemia Protocol Dextrose (Dextrose 5% In Water 1000 Ml) 1,000 mls @ 0 mls/hr IV .Q0M PRN; Protocol PRN Reason: Hypoglycemia Protocol Meropenem 1 gm/ Sodium (Chloride) 100 mls @ 100 mls/hr IVPB Q8H [facility]; Protocol Last Admin: 07/26/18 06:10 Dose: 100 mls/hr Doxycycline Hyclate 100 mg/ (Sodium Chloride) 100 mls @ 100 mls/hr IVPB Q12H [facility]; Protocol Last Admin: 07/26/18 00:05 Dose: 100 mls/hr Insulin Glargine (Lantus) 20 unit SC HS [facility] Last Admin: 07/25/18 22:03 Dose: 20 unit Insulin Human Regular (Novolin R) 0 unit SC ACHS [facility]; Protocol Last Admin: 07/25/18 22:06 Dose: 4 unit Lactobacillus Acidophilus (Lactobacillus) 1 cap PO TID [facility] Last Admin: 07/25/18 21:08 Dose: Not Given Lisinopril (Zestril) 5 mg PO DAILY [facility] Oxycodone/Acetaminophen (Percocet 5/325 Mg Tab) 1 tab PO Q6H PRN PRN Reason: Pain, severe (8-10) Stop: 07/28/18 18:15 Pneumococcal Polyvalent Vaccine (Pneumovax 23 Vaccine) 0.5 ml IM .ONCE ONE Stop: 07/27/18 19:13 Rosuvastatin Calcium (Crestor) 2.5 mg PO HS [facility] Last Admin: 07/25/18 22:55 Dose: Not Given Results - Vital Signs Recent Vital Signs: Last Vital Signs Temp 98.5 F 07/25/18 23:05 Pulse 79 07/26/18 01:00 Resp 20 07/25/18 23:05 BP 105/57 L 07/25/18 23:05 Pulse Ox 93 L 07/25/18 23:05 - Labs Result Diagrams: 07/25/18 12:54 07/25/18 12:54 Labs: Laboratory Results - last 24 hr 07/25/18 07/25/18 07/25/18 11:14 11:53 12:40 WBC RBC Hgb Hct MCV MCH MCHC RDW Plt Count MPV Neut % (Auto) Lymph % (Auto) Weber % (Auto) Eos % (Auto) Baso % (Auto) Neut # (Auto) Lymph # (Auto) Weber # (Auto) Eos # (Auto) Baso # (Auto) Neutrophils % (Manual) Band Neutrophils % Lymphocytes % (Manual) Monocytes % (Manual) Platelet Estimate Plt Clumps, EDTA Large Platelets Giant Platelets Hypochromasia (manual) Anisocytosis (manual) ESR PT INR APTT Puncture Site pCO2 pO2 57 H HCO3 ABG pH ABG Total CO2 ABG O2 Saturation ABG Base Excess Josias Test ABG Potassium VBG pH 7.33 VBG pCO2 31 L VBG HCO3 18.1 VBG Total CO2 17.3 L VBG O2 Sat (Calc) 89.9 H VBG Base Excess -8.4 L VBG Potassium 3.7 A-a O2 Difference Respiratory Index Sodium 139.0 Chloride 105.0 Glucose 415 H* Lactate 2.6 H FiO2 Crit Value Called To ponce Joyce Crit Value Called By rt Kelly Crit Value Read Back Y Blood Gas Notified Time 1249 Potassium Carbon Dioxide Anion Gap BUN Creatinine Est GFR ( Amer) Est GFR (Non-Af Amer) POC Glucose (mg/dL) > 500 H* Random Glucose Calcium Phosphorus Magnesium Total Bilirubin AST ALT Alkaline Phosphatase Troponin I C-Reactive Protein C-React Prot High Sens NT-Pro-B Natriuret Pep Total Protein Albumin Globulin Albumin/Globulin Ratio Procalcitonin Arterial Blood Potassium Venous Blood Potassium 3.7 Urine Color Urine Clarity Urine pH Ur Specific Loraine Urine Protein Urine Glucose (UA) Urine Ketones Urine Blood Urine Nitrate Urine Bilirubin Urine Urobilinogen Ur Leukocyte Esterase Urine WBC (Auto) Urine RBC (Auto) Ur Squamous Epith Cells Urine Bacteria Hyaline Casts Influenza Typ A,B (EIA) Negative for flu a/b 07/25/18 07/25/18 07/25/18 12:54 12:54 12:54 WBC 6.5 RBC 3.33 L Hgb 9.3 L Hct 28.3 L MCV 85.0 MCH 27.7 MCHC 32.6 L RDW 15.1 H Plt Count 266 MPV 8.9 Neut % (Auto) 92.8 H Lymph % (Auto) 4.2 L Weber % (Auto) 2.6 Eos % (Auto) 0.2 Baso % (Auto) 0.2 Neut # (Auto) 6.1 Lymph # (Auto) 0.3 L Weber # (Auto) 0.2 Eos # (Auto) 0.0 Baso # (Auto) 0.0 Neutrophils % (Manual) 75 Band Neutrophils % 19 H* Lymphocytes % (Manual) 4 L Monocytes % (Manual) 2 Platelet Estimate Normal Plt Clumps, EDTA [employer]er Large Platelets Present Giant Platelets Present Hypochromasia (manual) Slight Anisocytosis (manual) Slight ESR PT 13.6 H INR 1.2 APTT 26 Puncture Site pCO2 pO2 HCO3 ABG pH ABG Total CO2 ABG O2 Saturation ABG Base Excess Josias Test ABG Potassium VBG pH VBG pCO2 VBG HCO3 VBG Total CO2 VBG O2 Sat (Calc) VBG Base Excess VBG Potassium A-a O2 Difference Respiratory Index Sodium 133 Chloride 99 Glucose Lactate FiO2 Crit Value Called To Crit Value Called By Crit Value Read Back Blood Gas Notified Time Potassium 3.7 Carbon Dioxide 19 L Anion Gap 18 BUN 15 Creatinine 1.0 Est GFR ( Amer) > 60 Est GFR (Non-Af Amer) 58 POC Glucose (mg/dL) Random Glucose 471 H* Calcium 8.5 L Phosphorus 2.9 Magnesium 1.4 L Total Bilirubin 0.5 AST 13 L ALT 7 L Alkaline Phosphatase 143 H Troponin I < 0.0120 C-Reactive Protein C-React Prot High Sens NT-Pro-B Natriuret Pep 1560 H Total Protein 7.2 Albumin 3.3 L Globulin 3.9 Albumin/Globulin Ratio 0.8 L Procalcitonin Arterial Blood Potassium Venous Blood Potassium Urine Color Urine Clarity Urine pH Ur Specific Loraine Urine Protein Urine Glucose (UA) Urine Ketones Urine Blood Urine Nitrate Urine Bilirubin Urine Urobilinogen Ur Leukocyte Esterase Urine WBC (Auto) Urine RBC (Auto) Ur Squamous Epith Cells Urine Bacteria Hyaline Casts Influenza Typ A,B (EIA) 07/25/18 07/25/18 07/25/18 13:30 16:42 16:42 WBC RBC Hgb Hct MCV MCH MCHC RDW Plt Count MPV Neut % (Auto) Lymph % (Auto) Weber % (Auto) Eos % (Auto) Baso % (Auto) Neut # (Auto) Lymph # (Auto) Weber # (Auto) Eos # (Auto) Baso # (Auto) Neutrophils % (Manual) Band Neutrophils % Lymphocytes % (Manual) Monocytes % (Manual) Platelet Estimate Plt Clumps, EDTA Large Platelets Giant Platelets Hypochromasia (manual) Anisocytosis (manual) ESR 98 H PT INR APTT Puncture Site Rradial pCO2 24 L pO2 86 HCO3 17.2 L ABG pH 7.36 ABG Total CO2 14.3 L ABG O2 Saturation 98.9 H ABG Base Excess -9.9 L Josias Test Pos ABG Potassium 2.7 L VBG pH VBG pCO2 VBG HCO3 VBG Total CO2 VBG O2 Sat (Calc) VBG Base Excess VBG Potassium A-a O2 Difference 34.0 Respiratory Index 0.4 Sodium 142.0 Chloride 113.0 H Glucose 357 H Lactate 1.1 FiO2 21.0 Crit Value Called To Crit Value Called By Crit Value Read Back Blood Gas Notified Time Potassium Carbon Dioxide Anion Gap BUN Creatinine Est GFR ( Amer) Est GFR (Non-Af Amer) POC Glucose (mg/dL) Random Glucose Calcium Phosphorus Magnesium Total Bilirubin AST ALT Alkaline Phosphatase Troponin I C-Reactive Protein C-React Prot High Sens NT-Pro-B Natriuret Pep Total Protein Albumin Globulin Albumin/Globulin Ratio Procalcitonin 167.52 H Arterial Blood Potassium 2.7 L Venous Blood Potassium Urine Color Urine Clarity Urine pH Ur Specific Loraine Urine Protein Urine Glucose (UA) Urine Ketones Urine Blood Urine Nitrate Urine Bilirubin Urine Urobilinogen Ur Leukocyte Esterase Urine WBC (Auto) Urine RBC (Auto) Ur Squamous Epith Cells Urine Bacteria Hyaline Casts Influenza Typ A,B (EIA) 07/25/18 07/25/18 07/25/18 16:42 16:42 18:35 WBC RBC Hgb Hct MCV MCH MCHC RDW Plt Count MPV Neut % (Auto) Lymph % (Auto) Weber % (Auto) Eos % (Auto) Baso % (Auto) Neut # (Auto) Lymph # (Auto) Weber # (Auto) Eos # (Auto) Baso # (Auto) Neutrophils % (Manual) Band Neutrophils % Lymphocytes % (Manual) Monocytes % (Manual) Platelet Estimate Plt Clumps, EDTA Large Platelets Giant Platelets Hypochromasia (manual) Anisocytosis (manual) ESR PT INR APTT Puncture Site pCO2 pO2 HCO3 ABG pH ABG Total CO2 ABG O2 Saturation ABG Base Excess Josias Test ABG Potassium VBG pH VBG pCO2 VBG HCO3 VBG Total CO2 VBG O2 Sat (Calc) VBG Base Excess VBG Potassium A-a O2 Difference Respiratory Index Sodium Chloride Glucose Lactate FiO2 Crit Value Called To Crit Value Called By Crit Value Read Back Blood Gas Notified Time Potassium Carbon Dioxide Anion Gap BUN Creatinine Est GFR ( Amer) Est GFR (Non-Af Amer) POC Glucose (mg/dL) > 500 H* Random Glucose Calcium Phosphorus Magnesium Total Bilirubin AST ALT Alkaline Phosphatase Troponin I C-Reactive Protein 218.80 H C-React Prot High Sens > 15.00 H NT-Pro-B Natriuret Pep Total Protein Albumin Globulin Albumin/Globulin Ratio Procalcitonin Arterial Blood Potassium Venous Blood Potassium Urine Color Urine Clarity Urine pH Ur Specific Loraine Urine Protein Urine Glucose (UA) Urine Ketones Urine Blood Urine Nitrate Urine Bilirubin Urine Urobilinogen Ur Leukocyte Esterase Urine WBC (Auto) Urine RBC (Auto) Ur Squamous Epith Cells Urine Bacteria Hyaline Casts Influenza Typ A,B (EIA) 07/25/18 07/25/18 07/25/18 18:37 21:21 22:55 WBC RBC Hgb Hct MCV MCH MCHC RDW Plt Count MPV Neut % (Auto) Lymph % (Auto) Weber % (Auto) Eos % (Auto) Baso % (Auto) Neut # (Auto) Lymph # (Auto) Weber # (Auto) Eos # (Auto) Baso # (Auto) Neutrophils % (Manual) Band Neutrophils % Lymphocytes % (Manual) Monocytes % (Manual) Platelet Estimate Plt Clumps, EDTA Large Platelets Giant Platelets Hypochromasia (manual) Anisocytosis (manual) ESR PT INR APTT Puncture Site pCO2 pO2 HCO3 ABG pH ABG Total CO2 ABG O2 Saturation ABG Base Excess Josias Test ABG Potassium VBG pH VBG pCO2 VBG HCO3 VBG Total CO2 VBG O2 Sat (Calc) VBG Base Excess VBG Potassium A-a O2 Difference Respiratory Index Sodium Chloride Glucose Lactate FiO2 Crit Value Called To Crit Value Called By Crit Value Read Back Blood Gas Notified Time Potassium Carbon Dioxide Anion Gap BUN Creatinine Est GFR ( Amer) Est GFR (Non-Af Amer) POC Glucose (mg/dL) > 500 H* 459 H* 484 H* Random Glucose Calcium Phosphorus Magnesium Total Bilirubin AST ALT Alkaline Phosphatase Troponin I C-Reactive Protein C-React Prot High Sens NT-Pro-B Natriuret Pep Total Protein Albumin Globulin Albumin/Globulin Ratio Procalcitonin Arterial Blood Potassium Venous Blood Potassium Urine Color Urine Clarity Urine pH Ur Specific Loraine Urine Protein Urine Glucose (UA) Urine Ketones Urine Blood Urine Nitrate Urine Bilirubin Urine Urobilinogen Ur Leukocyte Esterase Urine WBC (Auto) Urine RBC (Auto) Ur Squamous Epith Cells Urine Bacteria Hyaline Casts Influenza Typ A,B (EIA) 07/26/18 07/26/18 00:34 02:15 WBC RBC Hgb Hct MCV MCH MCHC RDW Plt Count MPV Neut % (Auto) Lymph % (Auto) Weber % (Auto) Eos % (Auto) Baso % (Auto) Neut # (Auto) Lymph # (Auto) Weber # (Auto) Eos # (Auto) Baso # (Auto) Neutrophils % (Manual) Band Neutrophils % Lymphocytes % (Manual) Monocytes % (Manual) Platelet Estimate Plt Clumps, EDTA Large Platelets Giant Platelets Hypochromasia (manual) Anisocytosis (manual) ESR PT INR APTT Puncture Site pCO2 pO2 HCO3 ABG pH ABG Total CO2 ABG O2 Saturation ABG Base Excess Josias Test ABG Potassium VBG pH VBG pCO2 VBG HCO3 VBG Total CO2 VBG O2 Sat (Calc) VBG Base Excess VBG Potassium A-a O2 Difference Respiratory Index Sodium Chloride Glucose Lactate FiO2 Crit Value Called To Crit Value Called By Crit Value Read Back Blood Gas Notified Time Potassium Carbon Dioxide Anion Gap BUN Creatinine Est GFR ( Amer) Est GFR (Non-Af Amer) POC Glucose (mg/dL) 458 H* Random Glucose Calcium Phosphorus Magnesium Total Bilirubin AST ALT Alkaline Phosphatase Troponin I C-Reactive Protein C-React Prot High Sens NT-Pro-B Natriuret Pep Total Protein Albumin Globulin Albumin/Globulin Ratio Procalcitonin Arterial Blood Potassium Venous Blood Potassium Urine Color Yellow Urine Clarity Hazy Urine pH 5.0 Ur Specific Loraine 1.020 Urine Protein 1+ H Urine Glucose (UA) 3+ H Urine Ketones 1+ H Urine Blood Negative Urine Nitrate Negative Urine Bilirubin Negative Urine Urobilinogen Normal Ur Leukocyte Esterase 1+ H Urine WBC (Auto) 11 H Urine RBC (Auto) 3 Ur Squamous Epith Cells 4 Urine Bacteria Rare Hyaline Casts 3-5 H Influenza Typ A,B (EIA) Assessment & Plan - Assessment and Plan (Free Text) Plan: -Severe advanced diabetic retinopathy -Diabetic neruopathy -LEft lower foot soft tissue infection/r/o osteo: continue abx as per ID -Lactic normalized -Patient remains hemodynamically stable -Please call ICU if patient's clinical status worsens. - Date & Time Date: 07/25/18 Time: 19:00
[2018-07-25] MEDS ORDERED: DiphenhydrAMINE 50 mg/ml Inj IVP STA (16:01)
[2018-07-25] MEDS ORDERED: DiphenhydrAMINE 50 mg/ml Inj ONE (16:32)
[2018-07-25] MEDS ORDERED: Dextrose 50% SYRINGE Inj (50 ml) IV PRN (16:57)
[2018-07-25] MEDS ORDERED: Glucagon Recombinant 1 mg Inj IM PRN (16:57)
[2018-07-25] MEDS ORDERED: Albuterol-Ipratrop 3 mg / 0.5 (3 ml) UD INH PRN (17:12)
--- NOTE | 2018-07-25 17:41 | CP.PCM.HP ---
History of Present Illness - History of Present Illness History of Present Illness: 52 year old female with past medical history of diabetes type II, HTN, blindness (complete - left eye; partial right eye) who presented to the ER for a left foot infection. Patient states she recently moved from [place] to [place] because her daughter bought a new house here. She was previously living in [place] where she was being treated for a left foot infection at [facility] and in [facility] for many years. Patient reports that she was almost healed and was transferred to a intermediate before she was asked to move to [place] by her daughter. States that since then she was lost to follow up and her foot became worst in the past 5 days. Patient states she was previously receiving Doxycycline at the intermediate and was feeling a lot better at the time. Patient states she decided to come to the ER today because she has been having fever, chills, nausea, vomiting and her foot was starting to smell and was starting to drain yellow fluid. P atient states it is hard for her to take care of herself as because she cannot see very well and her daughter is not home all the time to help her. 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 Patient states she is originally from [place] but has moved in with her daughter for the past 2 weeks. Present on Admission - Present on Admission Any Indicators Present on Admission: Yes History of Uncontrolled Diabetes: Yes Decubitus Ulcer Present: Yes Review of Systems - Constitutional Constitutional: Chills, Fever - Cardiovascular Cardiovascular: absent: Chest Pain, Dyspnea, Palpitations - Gastrointestinal Gastrointestinal: Nausea, Vomiting. absent: Abdominal Pain, Constipation, Diarrhea - Genitourinary Genitourinary: absent: Dysuria - Musculoskeletal Musculoskeletal: Other (left le pain ) Past Patient History - Infectious Disease Hx of Infectious Diseases: None - Past Social History Smoking Status: Never Smoked - CARDIAC Hx Congestive Heart Failure: Yes Hx Hypertension: Yes - ENDOCRINE/METABOLIC Hx Diabetes Mellitus Type 2: Yes - PSYCHIATRIC Hx Substance Use: No - SURGICAL HISTORY Hx Surgeries: Yes Other/Comment: Left foot metatarsal amputatio one year ago from date 07/25/2018. Patient unable to provide all information. - ANESTHESIA Hx Anesthesia: Yes Hx Anesthesia Reactions: No Hx Malignant Hyperthermia: No Meds Allergies/Adverse Reactions: Allergies Allergy/AdvReac Type Severity Reaction Status Date / Time iodine Allergy Intermediate Verified 07/25/18 15:53 vancomycin Allergy Intermediate Verified 07/25/18 11:18 Physical Exam - Constitutional Appears: No Acute Distress, Chronically Ill - Head Exam Head Exam: ATRAUMATIC, NORMAL INSPECTION - Eye Exam Additional comments: complete - left eye; partial right eye - Respiratory Exam Respiratory Exam: Clear to Auscultation Bilateral, NORMAL BREATHING PATTERN - Cardiovascular Exam Cardiovascular Exam: REGULAR RHYTHM, +S1, +S2 - GI/Abdominal Exam GI & Abdominal Exam: Normal Bowel Sounds, Soft. absent: Tenderness - Extremities Exam Additional comments: dressing clean/dry - left foot - Neurological Exam Neurological exam: Alert, Oriented x3 - Psychiatric Exam Psychiatric exam: Anxious Results - Vital Signs Recent Vital Signs: Last Vital Signs Temp 100.3 F H 07/25/18 13:54 Pulse 83 07/25/18 13:48 Resp 22 07/25/18 13:48 BP 108/63 07/25/18 13:48 Pulse Ox 98 07/25/18 17:37 - Labs Result Diagrams: 07/25/18 12:54 07/25/18 12:54 Labs: Laboratory Results - last 24 hr 07/25/18 07/25/18 07/25/18 11:14 11:53 12:40 WBC RBC Hgb Hct MCV MCH MCHC RDW Plt Count MPV Neut % (Auto) Lymph % (Auto) Bay % (Auto) Eos % (Auto) Baso % (Auto) Neut # (Auto) Lymph # (Auto) Bay # (Auto) Eos # (Auto) Baso # (Auto) Neutrophils % (Manual) Band Neutrophils % Lymphocytes % (Manual) Monocytes % (Manual) Platelet Estimate Plt Clumps, EDTA Large Platelets Giant Platelets Hypochromasia (manual) Anisocytosis (manual) PT INR APTT Puncture Site pCO2 pO2 57 H HCO3 ABG pH ABG Total CO2 ABG O2 Saturation ABG Base Excess Josias Test ABG Potassium VBG pH 7.33 VBG pCO2 31 L VBG HCO3 18.1 VBG Total CO2 17.3 L VBG O2 Sat (Calc) 89.9 H VBG Base Excess -8.4 L VBG Potassium 3.7 A-a O2 Difference Respiratory Index Sodium 139.0 Chloride 105.0 Glucose 415 H* Lactate 2.6 H FiO2 Crit Value Called To ponce Joyce Crit Value Called By Danielle finley rt Crit Value Read Back Y Blood Gas Notified Time 1249 Potassium Carbon Dioxide Anion Gap BUN Creatinine Est GFR ( Amer) Est GFR (Non-Af Amer) POC Glucose (mg/dL) > 500 H* Random Glucose Calcium Phosphorus Magnesium Total Bilirubin AST ALT Alkaline Phosphatase Troponin I C-React Prot High Sens NT-Pro-B Natriuret Pep Total Protein Albumin Globulin Albumin/Globulin Ratio Procalcitonin Arterial Blood Potassium Venous Blood Potassium 3.7 Influenza Typ A,B (EIA) Negative for flu a/b 07/25/18 07/25/18 07/25/18 12:54 12:54 12:54 WBC 6.5 RBC 3.33 L Hgb 9.3 L Hct 28.3 L MCV 85.0 MCH 27.7 MCHC 32.6 L RDW 15.1 H Plt Count 266 MPV 8.9 Neut % (Auto) 92.8 H Lymph % (Auto) 4.2 L Bay % (Auto) 2.6 Eos % (Auto) 0.2 Baso % (Auto) 0.2 Neut # (Auto) 6.1 Lymph # (Auto) 0.3 L Bay # (Auto) 0.2 Eos # (Auto) 0.0 Baso # (Auto) 0.0 Neutrophils % (Manual) 75 Band Neutrophils % 19 H* Lymphocytes % (Manual) 4 L Monocytes % (Manual) 2 Platelet Estimate Normal Plt Clumps, EDTA Seaming Machine Operator Large Platelets Present Giant Platelets Present Hypochromasia (manual) Slight Anisocytosis (manual) Slight PT 13.6 H INR 1.2 APTT 26 Puncture Site pCO2 pO2 HCO3 ABG pH ABG Total CO2 ABG O2 Saturation ABG Base Excess Josias Test ABG Potassium VBG pH VBG pCO2 VBG HCO3 VBG Total CO2 VBG O2 Sat (Calc) VBG Base Excess VBG Potassium A-a O2 Difference Respiratory Index Sodium 133 Chloride 99 Glucose Lactate FiO2 Crit Value Called To Crit Value Called By Crit Value Read Back Blood Gas Notified Time Potassium 3.7 Carbon Dioxide 19 L Anion Gap 18 BUN 15 Creatinine 1.0 Est GFR ( Amer) > 60 Est GFR (Non-Af Amer) 58 POC Glucose (mg/dL) Random Glucose 471 H* Calcium 8.5 L Phosphorus 2.9 Magnesium 1.4 L Total Bilirubin 0.5 AST 13 L ALT 7 L Alkaline Phosphatase 143 H Troponin I < 0.0120 C-React Prot High Sens NT-Pro-B Natriuret Pep 1560 H Total Protein 7.2 Albumin 3.3 L Globulin 3.9 Albumin/Globulin Ratio 0.8 L Procalcitonin Arterial Blood Potassium Venous Blood Potassium Influenza Typ A,B (EIA) 07/25/18 07/25/18 07/25/18 13:30 16:42 16:42 WBC RBC Hgb Hct MCV MCH MCHC RDW Plt Count MPV Neut % (Auto) Lymph % (Auto) Bay % (Auto) Eos % (Auto) Baso % (Auto) Neut # (Auto) Lymph # (Auto) Bay # (Auto) Eos # (Auto) Baso # (Auto) Neutrophils % (Manual) Band Neutrophils % Lymphocytes % (Manual) Monocytes % (Manual) Platelet Estimate Plt Clumps, EDTA Large Platelets Giant Platelets Hypochromasia (manual) Anisocytosis (manual) PT INR APTT Puncture Site Rradial pCO2 24 L pO2 86 HCO3 17.2 L ABG pH 7.36 ABG Total CO2 14.3 L ABG O2 Saturation 98.9 H ABG Base Excess -9.9 L Josias Test Pos ABG Potassium 2.7 L VBG pH VBG pCO2 VBG HCO3 VBG Total CO2 VBG O2 Sat (Calc) VBG Base Excess VBG Potassium A-a O2 Difference 34.0 Respiratory Index 0.4 Sodium 142.0 Chloride 113.0 H Glucose 357 H Lactate 1.1 FiO2 21.0 Crit Value Called To Crit Value Called By Crit Value Read Back Blood Gas Notified Time Potassium Carbon Dioxide Anion Gap BUN Creatinine Est GFR ( Amer) Est GFR (Non-Af Amer) POC Glucose (mg/dL) Random Glucose Calcium Phosphorus Magnesium Total Bilirubin AST ALT Alkaline Phosphatase Troponin I C-React Prot High Sens > 15.00 H NT-Pro-B Natriuret Pep Total Protein Albumin Globulin Albumin/Globulin Ratio Procalcitonin 167.52 H Arterial Blood Potassium 2.7 L Venous Blood Potassium Influenza Typ A,B (EIA) Assessment & Plan - Assessment and Plan (Free Text) Assessment: Left foot 2nd digit Infection/SIRS/Bandemia - Podiatry Consult: Dr. Fox --> help appreciated * bedside I & D was performed by podiatry * Podiatry plans for I&D of the left foot with possible 2nd ray amputation - tomorrow 7:30 am * Please keep patient NPO starting midnight - ID Consult: Dr. Davila --> help appreciated * Patient was given dose of Zosyn and Clindamycin in the ER * PICC line was placed 07/25/18 - ICU was consulted --> help appreciated - Bands 19; ESR 98; Lactate 2.6; Influenza negative - f/u wound, blood and urine culture - Medications * Tylenol prn - fever * Percocet q6prn for pain - Images: * Foot Xray: Findings related to prior resection distal 1st metatarsal. Amputation at the level of the proximal phalanx 5th digit. Ventral ulceration medial aspect of the left foot distally. Suggestion of air within the soft tissues. In the absence of recent surgical history gas-forming organism should be considered. * Ankle Xray: Presumed chronic changes midshaft left tibia. * Tibia/Fibula Xray: Unremarkable radiographs of the left tibia and fibula. * f/u LE venous doppler * f/u Lower Extremity MRI Elevated proBNP - proBNP: 1560 - Trop: negative - Chest Xray: No consolidative infiltrate. Mild cardiomegaly and mild pulmonary venous congestion suspect - f/u ECHO - Possible cardiac eval - Medications: * Lasix 20mg IV given once * Lasix 20mg po daily History of Diabetes - f/u hA1c and Lipid Panel - Medications: * ACHS - high * Lantus 20units SC HS * Lisinopril 5mg po daily * Crestor 2.5mg po HS - Hypoglycemia Protocol - Accuchecks History of HTN - Continue Lisinopril 5mg po daily History of Neuropathy - Continue Gabapentin 300mg po bid Prophylaxis - Physical Therapy - Anti-coagulation - hold - Podiatry plans for I&D of the left foot with possible 2nd ray amputation - tomorrow 7:30 am - Lactobacillus 1 cap po tid Case discussed with Dr. Kaushik Reyes PGY-2
[2018-07-25] MEDS ORDERED: Oxycodone/Acetaminophen 5/325 mg Tab PO PRN (18:14)
[2018-07-25] MEDS: (Novolin R) Insulin Human Regular 100 units/ml vial SC SCH ×3 (18:55→22:06)
--- NOTE | 2018-07-25 18:58 | CP.PCM.CON ---
History of Present Illness - History of Present Illness History of Present Illness: 52 year old female patient admitted for left foot infected wound s/p I & D in the ER by Dr Sofia Patient states that she has been following up for the left foot infection at [facility] and in [facility] for many years. Patient reports that she was almost healed and was transferred to a fpc before she was asked to move to [place]. States that since then she lost to follow up and her foot became worst. Patient states that she was receiving abx at the fpc (Doxycycline) She states that she noticed a lot of drainage from the foot and foul smell as well as nausea Referred for ID eval and antibiotic management PMHx: DM, HTN PSHx: Left hallux amputation ? OM left foot Allergies: Vancomycin SHx: Denies smoking, EtOH or illicit drug usage Review of Systems - Review of Systems All systems: reviewed and no additional remarkable complaints except - Constitutional Constitutional: As Per HPI - EENT Eyes: absent: As Per HPI, Blind Spots, Blurred Vision, Change in Vision, Decreased Night Vision, Diplopia, Discharge, Dry Eye, Exophthalmos, Floaters, Irritation, Itchy Eyes, Loss of Peripheral Vision, Pain, Photophobia, Requires Corrective Lenses, Sees Flashes, Spots in Vision, Tunnel Vision, Other Visual Disturbances, Loss of Vision, Other Ears: absent: As Per HPI, Decreased Hearing, Ear Discharge, Ear Pain, Tinnitus, Abnormal Hearing, Disequilibrium, Dizziness, Other Nose/Mouth/Throat: absent: As Per HPI, Epistaxis, Nasal Congestion, Nasal Discharge, Nasal Obstruction, Nasal Trauma, Nose Pain, Post Nasal Drip, Sinus Pain, Sinus Pressure, Bleeding Gums, Change in Voice, Dental Pain, Dry Mouth, Dysphagia, Halitosis, Hoarsness, Lip Swelling, Mouth Lesions, Mouth Pain, Odynophagia, Sore Throat, Throat Swelling, Tongue Swelling, Facial Pain, Neck Pain, Neck Mass, Other - Breasts Breasts: absent: As Per HPI, Change in Shape, Mass, Pain, Nipple Discharge, Nipple Inversion, Skin Changes, Swelling, Other - Cardiovascular Cardiovascular: absent: As Per HPI, Acrocyanosis, Chest Pain, Chest Pain at Rest, Chest Pain with Activity, Claudication, Diaphoresis, Dyspnea, Dyspnea on Exertion, Edema, Irregular Heart Rhythm, Pain Radiating to Arm/Neck/Jaw, Leg Edema, Leg Ulcers, Lightheadedness, Orthopnea, Palpitations, Paroxysmal Noct urnal Dyspnea, Pedal Edema, Radiating Pain, Rapid Heart Rate, Slow Heart Rate, Syncope, Other - Respiratory Respiratory: absent: As Per HPI, Cough, Dyspnea, Hemoptysis, Dyspnea on Exertion, Wheezing, Snoring, Stridor, Pain on Inspiration, Chest Congestion, Excessive Mucous Production, Change in Mucous Color, Pain with Coughing, Other - Gastrointestinal Gastrointestinal: As Per HPI - Genitourinary Genitourinary: absent: As Per HPI, Change in Urinary Stream, Difficulty Urinating, Dysuria, Flank Pain, Hematuria, Pyuria, Nocturia, Urinary Incontinence, Urinary Frequency, Urinary Hesitance, Urinary Urgency, Voiding Freq/Small Amts, Freq UTI, Hx Renal/Bladder Calculi, Hx /Renal Surgery, Bladder Distension, Other - Reproductive: Female Reproductive:Female: absent: As Per HPI, Amenorrhea, Amenorrhea/ Control, Currently Menstual, Cycle <21 Days, Cycle >35 Days, Cycle Variable, Menses 1-7 Days, Menses >/= 8 Days, Menses Variable, Cycle > 4 Weeks Between, No Menses for 6 Months, Heavy Menses, Light Menses, Normal Menses, Spotting Between Cycles, S/P Hysterectomy, Menopausal, Post Menopausal, Premenarche, Abnormal Vaginal Bleeding, Dysmenorrhea, Dyspareunia, Genital Lesions, Genital Pruritis, Pelvic Pain, Prolapse Symptoms, Sexual Dysfunction, Vaginal Discharge, Vaginal Dryness, Vaginal Odor, Vaginal Pruritis, Other - Menstruation Menstruation: absent: As Per HPI, Amenorrhea, Amenorrhea/ Control, Currently Menstual, Cycle <21 Days, Cycle >35 Days, Cycle Variable, Menses 1-7 Days, Menses >/= 8 Days, Menses Variable, Cycle > 4 Weeks Between, No Menses for 6 Months, Heavy Menses, Light Menses, Normal Menses, Spotting Between Cycles, S/P Hysterectomy, Menopausal, Post Menopausal, Premenarche, Abnormal Vaginal Bleeding, Dysmenorrhea, Other - Musculoskeletal Musculoskeletal: As Per HPI - Integumentary Integumentary: As Per HPI, Skin Pain, Wounds - Neurological Neurological: As Per HPI - Psychiatric Psychiatric: absent: As Per HPI, Abnormal Sleep Pattern, Anhedonia, Anxiety, Auditory Hallucinations, Behavioral Changes, Change in Appetite, Change in Libido, Confusion, Depression, Difficulty Concentrating, Hallucinations, Homicidal Ideation, Hopelessness, Irritability, Memory Loss, Mood Swings, Panic Attacks, Paranoia, Suicidal Ideation, Visual Hallucinations, Tactile Hallucinations, Other - Endocrine Endocrine: As Per HPI - Hematologic/Lymphatic Hematologic: absent: As Per HPI, Easy Bleeding, Easy Bruising, Lymphadenopathy, Other Past Patient History - Infectious Disease Hx of Infectious Diseases: None - Past Social History Smoking Status: Never Smoked - CARDIAC Hx Congestive Heart Failure: Yes Hx Hypertension: Yes - ENDOCRINE/METABOLIC Hx Diabetes Mellitus Type 2: Yes - PSYCHIATRIC Hx Substance Use: No - SURGICAL HISTORY Hx Surgeries: Yes Other/Comment: Left foot metatarsal amputatio one year ago from date 07/25/2018. Patient unable to provide all information. - ANESTHESIA Hx Anesthesia: Yes Hx Anesthesia Reactions: No Hx Malignant Hyperthermia: No Meds Allergies/Adverse Reactions: Allergies Allergy/AdvReac Type Severity Reaction Status Date / Time iodine Allergy Intermediate Verified 07/25/18 15:53 vancomycin Allergy Intermediate Verified 07/25/18 11:18 - Medications Medications: Current Medications Acetaminophen (Tylenol 325mg Tab) 975 mg PO ONCE PRN PRN Reason: Fever >100.4 F Last Admin: 07/25/18 11:31 Dose: 975 mg Acetaminophen (Tylenol 325mg Tab) 650 mg PO Q6 PRN PRN Reason: Fever >100.4 F Albuterol/Ipratropium (Duoneb 3 Mg/0.5 Mg (3 Ml) Ud) 3 ml INH RQ6 PRN PRN Reason: Shortness of Breath Dextrose (Dextrose 50% Inj) 0 ml IV STAT PRN; Protocol PRN Reason: Hypoglycemia Protocol Dextrose (Glutose 15) 0 gm PO ONCE PRN; Protocol PRN Reason: Hypoglycemia Protocol Furosemide (Lasix) 20 mg PO DAILY [facility] Gabapentin (Neurontin) 300 mg PO BID [facility] Glucagon (Glucagen Diagnostic Kit) 0 mg IM STAT PRN; Protocol PRN Reason: Hypoglycemia Protocol Dextrose (Dextrose 5% In Water 1000 Ml) 1,000 mls @ 0 mls/hr IV .Q0M PRN; Protocol PRN Reason: Hypoglycemia Protocol Magnesium Sulfate 1 gm/ Sodium (Chloride) 102 mls @ 204 mls/hr IV Q30M [facility] Stop: 07/25/18 18:59 Insulin Glargine (Lantus) 20 unit SC HS [facility] Insulin Human Regular (Novolin R) [address] [facility]; Protocol Lactobacillus Acidophilus (Lactobacillus) 1 cap PO TID [facility] Lisinopril (Zestril) 5 mg PO DAILY [facility] Oxycodone/Acetaminophen (Percocet 5/325 Mg Tab) 1 tab PO Q6H PRN PRN Reason: Pain, severe (8-10) Stop: 07/28/18 18:15 Rosuvastatin Calcium (Crestor) 2.5 mg PO HS [facility] Physical Exam - Constitutional Appears: No Acute Distress, Chronically Ill - Head Exam Head Exam: ATRAUMATIC, NORMAL INSPECTION, NORMOCEPHALIC - Eye Exam Eye Exam: EOMI, Normal appearance, PERRL Pupil Exam: NORMAL ACCOMODATION, PERRL - ENT Exam ENT Exam: Mucous Membranes Moist, Normal Exam - Neck Exam Neck exam: Positive for: Normal Inspection - Respiratory Exam Respiratory Exam: Clear to Auscultation Bilateral, NORMAL BREATHING PATTERN - Cardiovascular Exam Cardiovascular Exam: REGULAR RHYTHM - GI/Abdominal Exam GI & Abdominal Exam: Normal Bowel Sounds, Soft. absent: Tenderness - Rectal Exam Rectal Exam: Deferred - Exam Exam: NORMAL INSPECTION - Extremities Exam Extremities exam: Negative for: normal inspection Additional comments: Bilateral LE exam: VASC: DP/PT pulses are palpable 2/4, Cap refill time: < 3 sec to digit 4 and 5, Temp gradient: warm to cool from proximal to distal on the right and warm to warm on the left, diffuse non-pitting edema noticed distal to the mid leg on the left DERM: open fissure plantar medial aspect of the 2nd digit which probes down to the level of the bone, active purulent drainage with bubbles noted, senait-fissure maceration, open wound at the level of the PIPJ of the 2nd digit with grannular wound base, probe to bone, 2nd digit appears contracted, no active drainage from the 2nd digit wound, 2nd digit does not show sign of necrosis but shows maceration with non-pitting edema and localized erythema, severe malodor present from the site NEURO: Protective sensation grossly intact ORTHO: no pain on palpation of the wound, no pain on palpation during deep palpation, MMT: 5/5 in all 4 direction at the ankle joint - Back Exam Back exam: NORMAL INSPECTION - Neurological Exam Neurological exam: Alert, CN II-XII Intact, Normal Gait, Oriented x3, Reflexes Normal - Psychiatric Exam Psychiatric exam: Normal Affect, Normal Mood - Skin Skin Exam: Dry, Intact, Normal Color, Warm Results - Vital Signs Recent Vital Signs: Last Vital Signs Temp 100.3 F H 07/25/18 13:54 Pulse 92 H 07/25/18 17:45 Resp 20 07/25/18 17:45 BP 118/54 L 07/25/18 17:45 Pulse Ox 98 07/25/18 18:10 - Labs Result Diagrams: 07/25/18 12:54 07/25/18 12:54 Labs: Laboratory Results - last 24 hr 07/25/18 07/25/18 07/25/18 11:14 11:53 12:40 WBC RBC Hgb Hct MCV MCH MCHC RDW Plt Count MPV Neut % (Auto) Lymph % (Auto) Grant % (Auto) Eos % (Auto) Baso % (Auto) Neut # (Auto) Lymph # (Auto) Grant # (Auto) Eos # (Auto) Baso # (Auto) Neutrophils % (Manual) Band Neutrophils % Lymphocytes % (Manual) Monocytes % (Manual) Platelet Estimate Plt Clumps, EDTA Large Platelets Giant Platelets Hypochromasia (manual) Anisocytosis (manual) ESR PT INR APTT Puncture Site pCO2 pO2 57 H HCO3 ABG pH ABG Total CO2 ABG O2 Saturation ABG Base Excess Josias Test ABG Potassium VBG pH 7.33 VBG pCO2 31 L VBG HCO3 18.1 VBG Total CO2 17.3 L VBG O2 Sat (Calc) 89.9 H VBG Base Excess -8.4 L VBG Potassium 3.7 A-a O2 Difference Respiratory Index Sodium 139.0 Chloride 105.0 Glucose 415 H* Lactate 2.6 H FiO2 Crit Value Called To ponce Joyce Crit Value Called By Danielle finley rt Crit Value Read Back Y Blood Gas Notified Time 1249 Potassium Carbon Dioxide Anion Gap BUN Creatinine Est GFR ( Amer) Est GFR (Non-Af Amer) POC Glucose (mg/dL) > 500 H* Random Glucose Calcium Phosphorus Magnesium Total Bilirubin AST ALT Alkaline Phosphatase Troponin I C-Reactive Protein C-React Prot High Sens NT-Pro-B Natriuret Pep Total Protein Albumin Globulin Albumin/Globulin Ratio Procalcitonin Arterial Blood Potassium Venous Blood Potassium 3.7 Influenza Typ A,B (EIA) Negative for flu a/b 07/25/18 07/25/18 07/25/18 12:54 12:54 12:54 WBC 6.5 RBC 3.33 L Hgb 9.3 L Hct 28.3 L MCV 85.0 MCH 27.7 MCHC 32.6 L RDW 15.1 H Plt Count 266 MPV 8.9 Neut % (Auto) 92.8 H Lymph % (Auto) 4.2 L Grant % (Auto) 2.6 Eos % (Auto) 0.2 Baso % (Auto) 0.2 Neut # (Auto) 6.1 Lymph # (Auto) 0.3 L Grant # (Auto) 0.2 Eos # (Auto) 0.0 Baso # (Auto) 0.0 Neutrophils % (Manual) 75 Band Neutrophils % 19 H* Lymphocytes % (Manual) 4 L Monocytes % (Manual) 2 Platelet Estimate Normal Plt Clumps, EDTA Technical Maintenance Technician Large Platelets Present Giant Platelets Present Hypochromasia (manual) Slight Anisocytosis (manual) Slight ESR PT 13.6 H INR 1.2 APTT 26 Puncture Site pCO2 pO2 HCO3 ABG pH ABG Total CO2 ABG O2 Saturation ABG Base Excess Josias Test ABG Potassium VBG pH VBG pCO2 VBG HCO3 VBG Total CO2 VBG O2 Sat (Calc) VBG Base Excess VBG Potassium A-a O2 Difference Respiratory Index Sodium 133 Chloride 99 Glucose Lactate FiO2 Crit Value Called To Crit Value Called By Crit Value Read Back Blood Gas Notified Time Potassium 3.7 Carbon Dioxide 19 L Anion Gap 18 BUN 15 Creatinine 1.0 Est GFR ( Amer) > 60 Est GFR (Non-Af Amer) 58 POC Glucose (mg/dL) Random Glucose 471 H* Calcium 8.5 L Phosphorus 2.9 Magnesium 1.4 L Total Bilirubin 0.5 AST 13 L ALT 7 L Alkaline Phosphatase 143 H Troponin I < 0.0120 C-Reactive Protein C-React Prot High Sens NT-Pro-B Natriuret Pep 1560 H Total Protein 7.2 Albumin 3.3 L Globulin 3.9 Albumin/Globulin Ratio 0.8 L Procalcitonin Arterial Blood Potassium Venous Blood Potassium Influenza Typ A,B (EIA) 07/25/18 07/25/18 07/25/18 13:30 16:42 16:42 WBC RBC Hgb Hct MCV MCH MCHC RDW Plt Count MPV Neut % (Auto) Lymph % (Auto) Grant % (Auto) Eos % (Auto) Baso % (Auto) Neut # (Auto) Lymph # (Auto) Grant # (Auto) Eos # (Auto) Baso # (Auto) Neutrophils % (Manual) Band Neutrophils % Lymphocytes % (Manual) Monocytes % (Manual) Platelet Estimate Plt Clumps, EDTA Large Platelets Giant Platelets Hypochromasia (manual) Anisocytosis (manual) ESR 98 H PT INR APTT Puncture Site Rradial pCO2 24 L pO2 86 HCO3 17.2 L ABG pH 7.36 ABG Total CO2 14.3 L ABG O2 Saturation 98.9 H ABG Base Excess -9.9 L Josias Test Pos ABG Potassium 2.7 L VBG pH VBG pCO2 VBG HCO3 VBG Total CO2 VBG O2 Sat (Calc) VBG Base Excess VBG Potassium A-a O2 Difference 34.0 Respiratory Index 0.4 Sodium 142.0 Chloride 113.0 H Glucose 357 H Lactate 1.1 FiO2 21.0 Crit Value Called To Crit Value Called By Crit Value Read Back Blood Gas Notified Time Potassium Carbon Dioxide Anion Gap BUN Creatinine Est GFR ( Amer) Est GFR (Non-Af Amer) POC Glucose (mg/dL) Random Glucose Calcium Phosphorus Magnesium Total Bilirubin AST ALT Alkaline Phosphatase Troponin I C-Reactive Protein C-React Prot High Sens NT-Pro-B Natriuret Pep Total Protein Albumin Globulin Albumin/Globulin Ratio Procalcitonin 167.52 H Arterial Blood Potassium 2.7 L Venous Blood Potassium Influenza Typ A,B (EIA) 07/25/18 07/25/18 07/25/18 16:42 16:42 18:35 WBC RBC Hgb Hct MCV MCH MCHC RDW Plt Count MPV Neut % (Auto) Lymph % (Auto) Grant % (Auto) Eos % (Auto) Baso % (Auto) Neut # (Auto) Lymph # (Auto) Grant # (Auto) Eos # (Auto) Baso # (Auto) Neutrophils % (Manual) Band Neutrophils % Lymphocytes % (Manual) Monocytes % (Manual) Platelet Estimate Plt Clumps, EDTA Large Platelets Giant Platelets Hypochromasia (manual) Anisocytosis (manual) ESR PT INR APTT Puncture Site pCO2 pO2 HCO3 ABG pH ABG Total CO2 ABG O2 Saturation ABG Base Excess Josias Test ABG Potassium VBG pH VBG pCO2 VBG HCO3 VBG Total CO2 VBG O2 Sat (Calc) VBG Base Excess VBG Potassium A-a O2 Difference Respiratory Index Sodium Chloride Glucose Lactate FiO2 Crit Value Called To Crit Value Called By Crit Value Read Back Blood Gas Notified Time Potassium Carbon Dioxide Anion Gap BUN Creatinine Est GFR ( Amer) Est GFR (Non-Af Amer) POC Glucose (mg/dL) > 500 H* Random Glucose Calcium Phosphorus Magnesium Total Bilirubin AST ALT Alkaline Phosphatase Troponin I C-Reactive Protein 218.80 H C-React Prot High Sens > 15.00 H NT-Pro-B Natriuret Pep Total Protein Albumin Globulin Albumin/Globulin Ratio Procalcitonin Arterial Blood Potassium Venous Blood Potassium Influenza Typ A,B (EIA) 07/25/18 18:37 WBC RBC Hgb Hct MCV MCH MCHC RDW Plt Count MPV Neut % (Auto) Lymph % (Auto) Grant % (Auto) Eos % (Auto) Baso % (Auto) Neut # (Auto) Lymph # (Auto) Grant # (Auto) Eos # (Auto) Baso # (Auto) Neutrophils % (Manual) Band Neutrophils % Lymphocytes % (Manual) Monocytes % (Manual) Platelet Estimate Plt Clumps, EDTA Large Platelets Giant Platelets Hypochromasia (manual) Anisocytosis (manual) ESR PT INR APTT Puncture Site pCO2 pO2 HCO3 ABG pH ABG Total CO2 ABG O2 Saturation ABG Base Excess Josias Test ABG Potassium VBG pH VBG pCO2 VBG HCO3 VBG Total CO2 VBG O2 Sat (Calc) VBG Base Excess VBG Potassium A-a O2 Difference Respiratory Index Sodium Chloride Glucose Lactate FiO2 Crit Value Called To Crit Value Called By Crit Value Read Back Blood Gas Notified Time Potassium Carbon Dioxide Anion Gap BUN Creatinine Est GFR ( Amer) Est GFR (Non-Af Amer) POC Glucose (mg/dL) > 500 H* Random Glucose Calcium Phosphorus Magnesium Total Bilirubin AST ALT Alkaline Phosphatase Troponin I C-Reactive Protein C-React Prot High Sens NT-Pro-B Natriuret Pep Total Protein Albumin Globulin Albumin/Globulin Ratio Procalcitonin Arterial Blood Potassium Venous Blood Potassium Influenza Typ A,B (EIA) Assessment & Plan (1) Cellulitis Status: Acute (2) Open wound Status: Acute (3) Sepsis Status: Acute (4) Uncontrolled diabetes mellitus Status: Acute (5) Osteomyelitis of foot, left, acute Status: Acute (6) Osteomyelitis of foot Status: Acute (7) Osteomyelitis of left foot Status: Acute - Assessment and Plan (Free Text) Assessment: s/p I & D left foot wound probes to bone needs vascular eval , MRI, possible OR debridement cultures sent by Dr Chucho Sofia IV antibiotics started
[2018-07-25] MEDS ORDERED: Meropenem 1 GM in Sodium Chloride 0.9% 100 ML IVPB SCH (20:00)
[2018-07-25] MEDS: Lactobacillus Acidophilus 500 MU Cap PO SCH (21:08)
[2018-07-25] MEDS ORDERED: Magnesium Hydroxide Susp 30 ml UD PO ONE (21:52)
[2018-07-25] MEDS ORDERED: (Novolin R) Insulin Human Regular 100 units/ml vial SC SCH (22:00)
[2018-07-25] MEDS ORDERED: (Lantus) Insulin Glargine, Recombinant SC SCH (22:00)
[2018-07-25] MEDS: (Lantus) Insulin Glargine, Recombinant SC SCH (22:03)
--- NOTE | 2018-07-25 22:11 | CP.PCM.PN ---
Subjective - Date & Time of Evaluation Date of Evaluation: 07/25/18 Time of Evaluation: 22:07 - Subjective Subjective: Pt seen at bedside this PM . Foot evaluated and explained to patient need for amputation of toe 2 left with drainage of infection . Patient understands severity of condition . To OR in AM . Objective - Vital Signs/Intake and Output Vital Signs (last 24 hours): Temp Pulse Resp BP Pulse Ox 99.8 F H 92 H 20 118/54 L 98 07/25/18 17:45 07/25/18 17:45 07/25/18 17:45 07/25/18 17:45 07/25/18 18:10 - Medications Medications: Current Medications Acetaminophen (Tylenol 325mg Tab) 975 mg PO ONCE PRN PRN Reason: Fever >100.4 F Last Admin: 07/25/18 11:31 Dose: 975 mg Acetaminophen (Tylenol 325mg Tab) 650 mg PO Q6 PRN PRN Reason: Fever >100.4 F Albuterol/Ipratropium (Duoneb 3 Mg/0.5 Mg (3 Ml) Ud) 3 ml INH RQ6 PRN PRN Reason: Shortness of Breath Dextrose (Dextrose 50% Inj) 0 ml IV STAT PRN; Protocol PRN Reason: Hypoglycemia Protocol Dextrose (Glutose 15) 0 gm PO ONCE PRN; Protocol PRN Reason: Hypoglycemia Protocol Furosemide (Lasix) 20 mg PO DAILY [facility] Gabapentin (Neurontin) 300 mg PO BID [facility] Last Admin: 07/25/18 21:08 Dose: Not Given Glucagon (Glucagen Diagnostic Kit) 0 mg IM STAT PRN; Protocol PRN Reason: Hypoglycemia Protocol Dextrose (Dextrose 5% In Water 1000 Ml) 1,000 mls @ 0 mls/hr IV .Q0M PRN; Protocol PRN Reason: Hypoglycemia Protocol Meropenem 1 gm/ Sodium (Chloride) 100 mls @ 100 mls/hr IVPB Q8H [facility]; Protocol Doxycycline Hyclate 100 mg/ (Sodium Chloride) 100 mls @ 100 mls/hr IVPB Q12H [facility]; Protocol Insulin Glargine (Lantus) 20 unit SC HS [facility] Last Admin: 07/25/18 22:03 Dose: 20 unit Insulin Human Regular (Novolin R) 0 unit SC [facility]; Protocol Last Admin: 07/25/18 22:06 Dose: 4 unit Lactobacillus Acidophilus (Lactobacillus) 1 cap PO TID [facility] Last Admin: 07/25/18 21:08 Dose: Not Given Lisinopril (Zestril) 5 mg PO DAILY [facility] Magnesium Hydroxide (Milk Of Magnesia) 30 ml PO ONCE ONE Stop: 07/25/18 21:53 Oxycodone/Acetaminophen (Percocet 5/325 Mg Tab) 1 tab PO Q6H PRN PRN Reason: Pain, severe (8-10) Stop: 07/28/18 18:15 Pneumococcal Polyvalent Vaccine (Pneumovax 23 Vaccine) 0.5 ml IM .ONCE ONE Stop: 07/27/18 19:13 Rosuvastatin Calcium (Crestor) 2.5 mg PO HS [facility] - Labs Labs: 07/25/18 12:54 07/25/18 12:54 PT 13.6 SECONDS (9.7-12.2) H 07/25/18 12:54 INR 1.2 07/25/18 12:54 APTT 26 SECONDS (21-34) 07/25/18 12:54
[2018-07-25] MEDS: Rosuvastatin Calcium 2.5 mg Tab PO SCH ×2 (22:46→22:55)
[2018-07-25] MEDS: Meropenem 1 GM in Sodium Chloride 0.9% 100 ML IVPB SCH (23:05)
[2018-07-26 00:47] LABS: SQUAMOUS EPITHIAL 4 /hpf (0-5); URINE BACTERIA RARE (<OCC); URINE BILIRUBIN NEGATIVE (NEGATIVE); URINE BLOOD NEGATIVE (NEGATIVE); URINE CLARITY Hazy (Clear); URINE COLOR Yellow (YELLOW); URINE GLUCOSE (UA) 3+ mg/dL (Normal); URINE LEUKOCYTE ESTERASE 1+ Leu/uL (Negative); URINE PROTEIN 1+ mg/dL (NEGATIVE); URINE UROBILINOGEN NORMAL mg/dL (0.2-1.0)
[2018-07-26] MEDS ORDERED: (Novolog) Insulin Aspart, Recombinant 100 u/ml 10 ml vial SC ONE (02:52)
[2018-07-26] MEDS: Meropenem 1 GM in Sodium Chloride 0.9% 100 ML IVPB SCH ×3 (06:10→22:07)
[2018-07-26 06:43] LABS: ALB/GLOB RATIO 0.8 (1.0-2.1); ALBUMIN 2.8 g/dL (3.5-5.0); ALT/SGPT 7 U/L (9-52); AST/SGOT 13 U/L (14-36); BLOOD UREA NITROGEN 16 mg/dL (7-17); CALCIUM 8.1 mg/dl (8.6-10.4); GFR NON-AFRICAN AMERICAN 58; HDL CHOLESTEROL 16 mg/dL (30-70)
[2018-07-26 06:55] LABS: LDL CHOLESTEROL 62 mg/dL (0-129)
[2018-07-26 07:29] LABS: BASO # 0.1 K/uL (0.0-0.2); BASO % 0.9 % (0.0-2.0); EOS # 0.2 K/uL (0.0-0.7); EOS % 2.6 % (0.0-4.0); HEMOGLOBIN 8.7 g/dL (11.0-16.0); LYMPH # 1.3 K/uL (1.0-4.3); LYMPH % 17.7 % (20.0-40.0); MEAN CELL VOLUME 83.8 fL (81.0-99.0); MEAN CORPUSCULAR HEMOGLOBIN 26.8 pg (27.0-31.0); MEAN PLATELET VOLUME 9.1 fL (7.2-11.7); MONO # 0.8 K/uL (0.0-0.8); MONO % 10.7 % (0.0-10.0); NEUT % 68.1 % (50.0-75.0); RBC 3.25 Mil/uL (3.80-5.20); RED CELL DISTRIBUTION WIDTH 15.4 % (11.5-14.5); WHITE BLOOD COUNT 7.3 K/uL (4.8-10.8)
[2018-07-26] MEDS ORDERED: Lidocaine Hydrochloride 10 ML INJ ONE (07:40)
[2018-07-26] MEDS ORDERED: Bupivacaine HCl 0.5% PF (10 ml) Inj ONE (07:40)
[2018-07-26] MEDS ORDERED: ceFAZolin 1 gm in NS 0 GM/0 ML BAG IVPB ONE (07:40)
[2018-07-26] MEDS ORDERED: Propofol 10 mg/ml Inj (20 ML) ONE (07:41)
[2018-07-26] MEDS ORDERED: Midazolam 2 MG/2 ML VIAL ONE (07:41)
[2018-07-26] MEDS ORDERED: Bacitracin 500 Units/gm Oint Foilpak UD ONE (07:41)
[2018-07-26] MEDS ORDERED: Lidocaine Hydrochloride 5 ML INJ ONE (07:42)
[2018-07-26] MEDS: (Novolin R) Insulin Human Regular 100 units/ml vial SC SCH ×2 (07:53→13:28)
--- NOTE | 2018-07-26 08:38 | CP.PCM.PN ---
Subjective - Date & Time of Evaluation Date of Evaluation: 07/26/18 Time of Evaluation: 08:23 - Subjective Subjective: Podiatry Progress Note: Dr. Fox 52 year old female patient with PMHx of DM, HTN was seen and evaluated at bedside for left foot 2nd toe infected wound. Patient surgery postponed today because of high blood sugar. Patient states that yesterday night she was better and less sick. She denies any overnight acute events. She denies any other pedal complaint overnight. SHe denies any overnight F/N/V/C/CP or SOB Objective - Vital Signs/Intake and Output Vital Signs (last 24 hours): Temp Pulse Resp BP Pulse Ox 98.5 F 79 20 105/57 L 93 L 07/25/18 23:05 07/26/18 01:00 07/25/18 23:05 07/25/18 23:05 07/25/18 23:05 Intake and Output: 07/26/18 07/26/18 06:59 18:59 Intake Total 100 Balance 100 - Medications Medications: Current Medications Acetaminophen (Tylenol 325mg Tab) 975 mg PO ONCE PRN PRN Reason: Fever >100.4 F Last Admin: 07/25/18 11:31 Dose: 975 mg Acetaminophen (Tylenol 325mg Tab) 650 mg PO Q6 PRN PRN Reason: Fever >100.4 F Albuterol/Ipratropium (Duoneb 3 Mg/0.5 Mg (3 Ml) Ud) 3 ml INH RQ6 PRN PRN Reason: Shortness of Breath Dextrose (Dextrose 50% Inj) 0 ml IV STAT PRN; Protocol PRN Reason: Hypoglycemia Protocol Dextrose (Glutose 15) 0 gm PO ONCE PRN; Protocol PRN Reason: Hypoglycemia Protocol Furosemide (Lasix) 20 mg PO DAILY [facility] Gabapentin (Neurontin) 300 mg PO BID [facility] Last Admin: 07/25/18 21:08 Dose: Not Given Glucagon (Glucagen Diagnostic Kit) 0 mg IM STAT PRN; Protocol PRN Reason: Hypoglycemia Protocol Dextrose (Dextrose 5% In Water 1000 Ml) 1,000 mls @ 0 mls/hr IV .Q0M PRN; Protocol PRN Reason: Hypoglycemia Protocol Meropenem 1 gm/ Sodium (Chloride) 100 mls @ 100 mls/hr IVPB Q8H [facility]; Protocol Last Admin: 07/26/18 06:10 Dose: 100 mls/hr Doxycycline Hyclate 100 mg/ (Sodium Chloride) 100 mls @ 100 mls/hr IVPB Q12H [facility]; Protocol Last Admin: 07/26/18 00:05 Dose: 100 mls/hr Insulin Glargine (Lantus) 20 unit SC [facility] Last Admin: 07/25/18 22:03 Dose: 20 unit Insulin Human Regular (Novolin R) 0 unit SC ACHS [facility]; Protocol Last Admin: 07/26/18 07:53 Dose: 8 unit Lactobacillus Acidophilus (Lactobacillus) 1 cap PO TID [facility] Last Admin: 07/25/18 21:08 Dose: Not Given Lisinopril (Zestril) 5 mg PO DAILY [facility] Oxycodone/Acetaminophen (Percocet 5/325 Mg Tab) 1 tab PO Q6H PRN PRN Reason: Pain, severe (8-10) Stop: 07/28/18 18:15 Pneumococcal Polyvalent Vaccine (Pneumovax 23 Vaccine) 0.5 ml IM .ONCE ONE Stop: 07/27/18 19:13 Rosuvastatin Calcium (Crestor) 2.5 mg PO [facility] Last Admin: 07/25/18 22:55 Dose: Not Given - Labs Labs: 07/26/18 06:22 07/26/18 06:22 PT 13.6 SECONDS (9.7-12.2) H 07/25/18 12:54 INR 1.2 07/25/18 12:54 APTT 26 SECONDS (21-34) 07/25/18 12:54 - Head Exam Head Exam: ATRAUMATIC, NORMOCEPHALIC - Extremities Exam Additional comments: Bilateral LE exam: VASC: DP/PT pulses are palpable 2/4, Cap refill time: < 3 sec to digit 4 and 5, Temp gradient: warm to cool from proximal to distal on the right and warm to warm on the left, diffuse non-pitting edema noticed distal to the mid leg on the left DERM: open fissure plantar medial aspect of the 2nd digit which probes down to the level of the bone, active purulent drainage with bubbles noted, senait-fissure maceration, open wound at the level of the PIPJ of the 2nd digit with grannular wound base, probe to bone, 2nd digit appears contracted, no active drainage from the 2nd digit wound, 2nd digit does not show sign of necrosis but shows maceration with non-pitting edema and localized erythema, severe malodor present from the site NEURO: Protective sensation grossly intact ORTHO: no pain on palpation of the wound, no pain on palpation during deep palpation, MMT: 5/5 in all 4 direction at the ankle joint - Neurological Exam Neurological Exam: Alert, Awake, Oriented x3 Assessment and Plan - Assessment and Plan (Free Text) Assessment: 52 year old female patient seen and evaluated for left foot infected 2nd digit with possible underlying soft tissue emphysema and OM Plan: Patient seen and evaluated at bedside Discussed plan with attending Dr. Fox Labs vitals and charts reviewed - Afebrile, No leukocytosis - ESR: 98, CRP: 218 - Patient meets SIRS criteria with possible sepsis Left foot X-ray: 2nd digits soft tissue swelling and emphysema Left Ankle X-ray: NO OM, No gas in the tissues Left tib-fib X-rays: Unremarcable X-ray Wound dressed with xeroform, DSD Patient surgery postponed today because of high blood sugar and test. Wound culture taken - pending ID consult - Dr. Davila, recs appreciated - Continue IV abx as per ID Continue pain management as per primary Podiatry plans for I&D of the left foot with possible 2nd ray amputation - tomorrow 8:00 am Please keep patient NPO starting midnight Hold anti-coag Podiatry will continue to follow up the patient while in-house
--- NOTE | 2018-07-26 10:17 | CP.PCM.PN ---
Subjective - Date & Time of Evaluation Date of Evaluation: 07/26/18 Time of Evaluation: 10:15 - Subjective Subjective: Ramy Jacobsen PGY1 Progress Note for Dr. Faulkner Objective - Vital Signs/Intake and Output Vital Signs (last 24 hours): Temp Pulse Resp BP Pulse Ox 98.5 F 79 20 105/57 L 93 L 07/25/18 23:05 07/26/18 01:00 07/25/18 23:05 07/25/18 23:05 07/25/18 23:05 Intake and Output: 07/26/18 07/26/18 06:59 18:59 Intake Total 100 Balance 100 - Medications Medications: Current Medications Acetaminophen (Tylenol 325mg Tab) 975 mg PO ONCE PRN PRN Reason: Fever >100.4 F Last Admin: 07/25/18 11:31 Dose: 975 mg Acetaminophen (Tylenol 325mg Tab) 650 mg PO Q6 PRN PRN Reason: Fever >100.4 F Albuterol/Ipratropium (Duoneb 3 Mg/0.5 Mg (3 Ml) Ud) 3 ml INH RQ6 PRN PRN Reason: Shortness of Breath Dextrose (Dextrose 50% Inj) 0 ml IV STAT PRN; Protocol PRN Reason: Hypoglycemia Protocol Dextrose (Glutose 15) 0 gm PO ONCE PRN; Protocol PRN Reason: Hypoglycemia Protocol Furosemide (Lasix) 20 mg PO DAILY JAMAR Gabapentin (Neurontin) 300 mg PO BID JAMAR Last Admin: 07/25/18 21:08 Dose: Not Given Glucagon (Glucagen Diagnostic Kit) 0 mg IM STAT PRN; Protocol PRN Reason: Hypoglycemia Protocol Heparin Sodium (Porcine) (Heparin) 5,000 units SC Q12 JAMAR Stop: 07/26/18 22:00 Dextrose (Dextrose 5% In Water 1000 Ml) 1,000 mls @ 0 mls/hr IV .Q0M PRN; Protocol PRN Reason: Hypoglycemia Protocol Meropenem 1 gm/ Sodium (Chloride) 100 mls @ 100 mls/hr IVPB Q8H JAMAR; Protocol Last Admin: 07/26/18 06:10 Dose: 100 mls/hr Doxycycline Hyclate 100 mg/ (Sodium Chloride) 100 mls @ 100 mls/hr IVPB Q12H [facility]AM[facility]; Protocol Last Admin: 07/26/18 00:05 Dose: 100 mls/hr Insulin Glargine (Lantus) 20 unit SC [facility] Last Admin: 07/25/18 22:03 Dose: 20 unit Insulin Human Regular (Novolin R) 0 unit SC [facility]; Protocol Last Admin: 07/26/18 07:53 Dose: 8 unit Lactobacillus Acidophilus (Lactobacillus) 1 cap PO TID [facility] Last Admin: 07/25/18 21:08 Dose: Not Given Lisinopril (Zestril) 5 mg PO DAILY [facility] Oxycodone/Acetaminophen (Percocet 5/325 Mg Tab) 1 tab PO Q6H PRN PRN Reason: Pain, severe (8-10) Stop: 07/28/18 18:15 Pneumococcal Polyvalent Vaccine (Pneumovax 23 Vaccine) 0.5 ml IM .ONCE ONE Stop: 07/27/18 19:13 Rosuvastatin Calcium (Crestor) 2.5 mg PO [facility] Last Admin: 07/25/18 22:55 Dose: Not Given - Labs Labs: 07/26/18 06:22 07/26/18 06:22 PT 13.6 SECONDS (9.7-12.2) H 07/25/18 12:54 INR 1.2 07/25/18 12:54 APTT 26 SECONDS (21-34) 07/25/18 12:54 - Additional Findings Additional findings: - Constitutional Appears: No Acute Distress, Chronically Ill - Head Exam Head Exam: ATRAUMATIC, NORMAL INSPECTION - Eye Exam Additional comments: complete - left eye; partial right eye - Respiratory Exam Respiratory Exam: Clear to Auscultation Bilateral, NORMAL BREATHING PATTERN - Cardiovascular Exam Cardiovascular Exam: REGULAR RHYTHM, +S1, +S2 - GI/Abdominal Exam GI & Abdominal Exam: Normal Bowel Sounds, Soft. absent: Tenderness - Extremities Exam Additional comments: dressing clean/dry - left foot - Neurological Exam Neurological exam: Alert, Oriented x3 - Psychiatric Exam Psychiatric exam: Anxious Assessment and Plan - Assessment and Plan (Free Text) Plan: Left foot 2nd digit Infection/SIRS/Bandemia - Podiatry Consult: Dr. Fox --> help appreciated * bedside I & D was performed by podiatry * Podiatry plans for I&D of the left foot with possible 2nd ray amputation - tomorrow 8:30 am * Please keep patient NPO starting midnight - ID Consult: Dr. Mangia --> help appreciated * Merem 1g IV q8h * PICC line was placed 07/25/18 - ICU was consulted --> help appreciated - Bands 19; ESR 98; CRP 218; Lactate 2.6; Influenza negative - Wound Cx: Gram + cocci, Gram - kenyatta - BCx negative to date - UCx negative to date - Medications * Tylenol prn - fever * Percocet q6prn for pain - Images: * Foot Xray: Findings related to prior resection distal 1st metatarsal. Amputation at the level of the proximal phalanx 5th digit. Ventral ulceration medial aspect of the left foot distally. Suggestion of air within the soft tissues. In the absence of recent surgical history gas-forming organism should be considered. * Ankle Xray: Presumed chronic changes midshaft left tibia. * Tibia/Fibula Xray: Unremarkable radiographs of the left tibia and fibula. * LE venous doppler: pt refused * f/u Lower Extremity MRI Elevated proBNP - proBNP: 1560 - Trop: negative - Chest Xray: No consolidative infiltrate. Mild cardiomegaly and mild pulmonary venous congestion suspect - ECHO: mild concentric LVH with normal EF of 65-70%, mild TR - Medications: * Lasix 20mg po daily History of Diabetes - f/u hA1c - Lipid panel: elevated TG, low HDL - Medications: * Novolin 70/30u SC BID * Lantus 20units SC HS * Lisinopril 5mg po daily * Crestor 2.5mg po HS - Hypoglycemia Protocol - Accuchecks History of HTN - Continue Lisinopril 5mg po daily History of Neuropathy - Continue Gabapentin 300mg po bid Prophylaxis - Physical Therapy - Anti-coagulation - hold - Podiatry plans for I&D of the left foot with possible 2nd ray amputation - tomorrow 8:30 am - Lactobacillus 1 cap po tid Case discussed with Dr. Faulkner
--- NOTE | 2018-07-26 10:58 | CARD ---
APPROVED REPORT Date of service: 07/25/2018 EKG Measurement Heart [id number] <Conclusion> Normal sinus rhythm Normal ECG
--- NOTE | 2018-07-26 12:13 | CARD ---
APPROVED REPORT Date of service: 07/26/2018 EXAM: Two-dimensional and M-mode echocardiogram with Doppler and color Doppler. INDICATION fever RISK FACTORS Hypertension Diabetes 2D DIMENSIONS IVSd1.3 (0.7-1.1cm)LVDd3.2 (3.9-5.9cm) PWd1.1 (0.7-1.1cm)LVDs2.2 (2.5-4.0cm) FS (%) 33.4 %LVEF (%)63.4 (>50%) M-Mode DIMENSIONS Left Atrium (MM)3.31 (2.5-4.0cm)IVSd1.17 (0.7-1.1cm) Aortic Root2.84 (2.2-3.7cm)LVDd4.45 (4.0-5.6cm) Aortic Cusp Exc.1.97 (1.5-2.0cm)PWd0.78 (0.7-1.1cm) FS (%) 42 %LVDs2.58 (2.0-3.8cm) LVEF (%)73 (>50%) Mitral Valve MV E Hsorucjn15.4cm/sMV A Rxfnodnb28.9cm/sE/A ratio1.0 TDI Lateral E' Peak V7.13cm/sMedial E' Peak V7.97cm/sE/Lateral E'12.4 E/Medial E'11.1 Tricuspid Valve TR Peak Urvpqedd594vf/sTR Peak Gr.28vqJlTJJO50rjUw <Conclusion> tds. poor window. normal size la,lv & ra rv. mild concnetric lvh with normal lvef of 65-70%. normal diastolic function. normal aortic,mitral,tv & pv. mild tr with normal pulmonary systolic pressures of 24 mm of hg. small posterior pericardial effusion. normal size aortic root. normal size ivc.
[2018-07-26] MEDS: Lactobacillus Acidophilus 500 MU Cap PO SCH ×3 (12:35→17:46)
[2018-07-26] MEDS: (Novolin 70/30) NPH/Regular 70/30 Units/ml 10 ml vial SC SCH (17:43)
--- NOTE | 2018-07-26 17:55 | CP.PCM.PN ---
Subjective - Date & Time of Evaluation Date of Evaluation: 07/26/18 Time of Evaluation: 09:00 - Subjective Subjective: drainage less s/p I & D await cultures for OR in am Objective - Vital Signs/Intake and Output Vital Signs (last 24 hours): Temp Pulse Resp BP Pulse Ox 98.6 F 98 H 20 113/62 95 07/26/18 15:53 07/26/18 15:53 07/26/18 15:53 07/26/18 15:53 07/26/18 15:53 Intake and Output: 07/26/18 07/26/18 06:59 18:59 Intake Total 100 Balance 100 - Medications Medications: Current Medications Acetaminophen (Tylenol 325mg Tab) 975 mg PO ONCE PRN PRN Reason: Fever >100.4 F Last Admin: 07/25/18 11:31 Dose: 975 mg Acetaminophen (Tylenol 325mg Tab) 650 mg PO Q6 PRN PRN Reason: Fever >100.4 F Last Admin: 07/26/18 12:25 Dose: 650 mg Albuterol/Ipratropium (Duoneb 3 Mg/0.5 Mg (3 Ml) Ud) 3 ml INH RQ6 PRN PRN Reason: Shortness of Breath Dextrose (Dextrose 50% Inj) 0 ml IV STAT PRN; Protocol PRN Reason: Hypoglycemia Protocol Dextrose (Glutose 15) 0 gm PO ONCE PRN; Protocol PRN Reason: Hypoglycemia Protocol Furosemide (Lasix) 20 mg PO DAILY [facility] Last Admin: 07/26/18 12:38 Dose: Not Given Gabapentin (Neurontin) 300 mg PO BID JAMAR Last Admin: 07/26/18 17:43 Dose: 300 mg Glucagon (Glucagen Diagnostic Kit) 0 mg IM STAT PRN; Protocol PRN Reason: Hypoglycemia Protocol Heparin Sodium (Porcine) (Heparin) 5,000 units SC Q12 JAMAR Stop: 07/26/18 22:00 Last Admin: 07/26/18 12:35 Dose: Not Given Dextrose (Dextrose 5% In Water 1000 Ml) 1,000 mls @ 0 mls/hr IV .Q0M PRN; Protocol PRN Reason: Hypoglycemia Protocol Meropenem 1 gm/ Sodium (Chloride) 100 mls @ 100 mls/hr IVPB Q8H JAMAR; Protocol Last Admin: 07/26/18 14:13 Dose: 100 mls/hr Doxycycline Hyclate 100 mg/ (Sodium Chloride) 100 mls @ 100 mls/hr IVPB Q12H [facility]; Protocol Last Admin: 07/26/18 12:37 Dose: 100 mls/hr Insulin Glargine (Lantus) 20 unit SC HS [facility] Last Admin: 07/25/18 22:03 Dose: 20 unit Insulin Human Isoph/Insulin Regular (Novolin 70/30 (70/30 Units/Ml) 10 Ml) 20 units SC BIDAC [facility] Last Admin: 07/26/18 17:43 Dose: 20 units Lactobacillus Acidophilus (Lactobacillus) 1 cap PO TID [facility] Last Admin: 07/26/18 17:46 Dose: 1 cap Lisinopril (Zestril) 5 mg PO DAILY [facility] Last Admin: 07/26/18 12:36 Dose: Not Given Oxycodone/Acetaminophen (Percocet 5/325 Mg Tab) 1 tab PO Q6H PRN PRN Reason: Pain, severe (8-10) Stop: 07/28/18 18:15 Pneumococcal Polyvalent Vaccine (Pneumovax 23 Vaccine) 0.5 ml IM .ONCE ONE Stop: 07/27/18 19:13 Rosuvastatin Calcium (Crestor) 2.[address] [facility] Last Admin: 07/25/18 22:55 Dose: Not Given - Labs Labs: 07/26/18 06:22 07/26/18 06:22 PT 13.6 SECONDS (9.7-12.2) H 07/25/18 12:54 INR 1.2 07/25/18 12:54 APTT 26 SECONDS (21-34) 07/25/18 12:54 - Constitutional Appears: Non-toxic, Chronically Ill - Head Exam Head Exam: NORMOCEPHALIC - Eye Exam Eye Exam: absent: Scleral icterus - ENT Exam ENT Exam: Mucous Membranes Dry - Neck Exam Neck Exam: absent: Lymphadenopathy - Respiratory Exam Respiratory Exam: Decreased Breath Sounds, Clear to Ausculation Bilateral - Cardiovascular Exam Cardiovascular Exam: REGULAR RHYTHM - GI/Abdominal Exam GI & Abdominal Exam: Distended, Soft - Rectal Exam Rectal Exam: Deferred - Exam Exam: NORMAL INSPECTION - Extremities Exam Extremities Exam: Pedal Edema. absent: Calf Tenderness - Back Exam Back Exam: absent: CVA tenderness (L), CVA tenderness (R), paraspinal tenderness - Neurological Exam Neurological Exam: Alert, Awake, CN II-XII Intact, Oriented x3 - Psychiatric Exam Psychiatric exam: Normal Mood - Skin Skin Exam: Dry Assessment and Plan (1) Cellulitis Status: Acute (2) Open wound Status: Acute (3) Sepsis Status: Acute (4) Uncontrolled diabetes mellitus Status: Acute (5) Osteomyelitis of foot, left, acute Status: Acute (6) Osteomyelitis of foot Status: Acute (7) Osteomyelitis of left foot Status: Acute - Assessment and Plan (Free Text) Assessment: cont rx for OM
[2018-07-26] MEDS ORDERED: (Novolin 70/30) NPH/Regular 70/30 Units/ml 10 ml vial SC STA (21:31)
[2018-07-26] MEDS: (Lantus) Insulin Glargine, Recombinant SC SCH (22:04)
[2018-07-26] MEDS: Rosuvastatin Calcium 2.5 mg Tab PO SCH (22:08)
[2018-07-26] MEDS: Miconazole 100 MG Vaginal Supp VG SCH (22:36)
[2018-07-27] MEDS: Meropenem 1 GM in Sodium Chloride 0.9% 100 ML IVPB SCH ×3 (06:14→22:04)
--- NOTE | 2018-07-27 07:47 | CP.PCM.PN ---
Subjective - Date & Time of Evaluation Date of Evaluation: 07/27/18 Time of Evaluation: 13:38 - Subjective Subjective: PGY1 Medicine progress note for Dr. Quevedo's service Pt was seen and examined at bedside. Pt is resting comfortably, eating lunch. She continues to complain of vaginal itchiness and a cough nonproductive. She also complains of bilateral lower extremity itchiness. She is s/p Left second ray amputation this morning. She denies chest pain, abdominal pain, n/v/d. Pain is well controlled. Objective - Vital Signs/Intake and Output Vital Signs (last 24 hours): Temp Pulse Resp BP Pulse Ox 99.3 F 81 18 131/76 94 L 07/26/18 23:17 07/27/18 01:00 07/26/18 23:17 07/26/18 23:17 07/26/18 23:17 Intake and Output: 07/27/18 07/27/18 06:59 18:59 Intake Total 0 Balance 0 - Medications Medications: Current Medications Acetaminophen (Tylenol 325mg Tab) 975 mg PO ONCE PRN PRN Reason: Fever >100.4 F Last Admin: 07/25/18 11:31 Dose: 975 mg Acetaminophen (Tylenol 325mg Tab) 650 mg PO Q6 PRN PRN Reason: Fever >100.4 F Last Admin: 07/26/18 22:06 Dose: 650 mg Albuterol/Ipratropium (Duoneb 3 Mg/0.5 Mg (3 Ml) Ud) 3 ml INH RQ6 PRN PRN Reason: Shortness of Breath Dextrose (Dextrose 50% Inj) 0 ml IV STAT PRN; Protocol PRN Reason: Hypoglycemia Protocol Dextrose (Glutose 15) 0 gm PO ONCE PRN; Protocol PRN Reason: Hypoglycemia Protocol Furosemide (Lasix) 20 mg PO DAILY [facility] Last Admin: 07/26/18 12:38 Dose: Not Given Gabapentin (Neurontin) 300 mg PO BID [facility] Last Admin: 07/26/18 17:43 Dose: 300 mg Glucagon (Glucagen Diagnostic Kit) 0 mg IM STAT PRN; Protocol PRN Reason: Hypoglycemia Protocol Dextrose (Dextrose 5% In Water 1000 Ml) 1,000 mls @ 0 mls/hr IV .Q0M PRN; Protocol PRN Reason: Hypoglycemia Protocol Meropenem 1 gm/ Sodium (Chloride) 100 mls @ 100 mls/hr IVPB Q8H [facility]; Protocol Last Admin: 07/27/18 06:14 Dose: 100 mls/hr Doxycycline Hyclate 100 mg/ (Sodium Chloride) 100 mls @ 100 mls/hr IVPB Q12H [facility]; Protocol Last Admin: 07/27/18 00:24 Dose: 100 mls/hr Insulin Glargine (Lantus) 20 unit SC HS [facility] Last Admin: 07/26/18 22:04 Dose: 20 unit Insulin Human Isoph/Insulin Regular (Novolin 70/30 (70/30 Units/Ml) 10 Ml) 20 units SC BIDAC [facility] Last Admin: 07/26/18 17:43 Dose: 20 units Lactobacillus Acidophilus (Lactobacillus) 1 cap PO TID [facility] Last Admin: 07/26/18 17:46 Dose: 1 cap Lisinopril (Zestril) 5 mg PO DAILY [facility] Last Admin: 07/26/18 12:36 Dose: Not Given Miconazole (Monistat 7 Vag Suppository) 100 mg [facility] Last Admin: 07/26/18 22:36 Dose: 100 mg Oxycodone/Acetaminophen (Percocet 5/325 Mg Tab) 1 tab PO Q6H PRN PRN Reason: Pain, severe (8-10) Stop: 07/28/18 18:15 Pneumococcal Polyvalent Vaccine (Pneumovax 23 Vaccine) 0.5 ml IM .ONCE ONE Stop: 07/27/18 19:13 Rosuvastatin Calcium (Crestor) 2.5 mg PO [facility] Last Admin: 07/26/18 22:08 Dose: Not Given - Labs Labs: 07/26/18 06:22 07/26/18 06:22 PT 13.6 SECONDS (9.7-12.2) H 07/25/18 12:54 INR 1.2 07/25/18 12:54 APTT 26 SECONDS (21-34) 07/25/18 12:54 - Skin Skin Exam: Rash (dark rash to lower extremities) - Additional Findings Additional findings: - Constitutional Appears: No Acute Distress, Chronically Ill - Head Exam Head Exam: ATRAUMATIC, NORMAL INSPECTION - Eye Exam Additional comments: complete - left eye; partial right eye - Respiratory Exam Respiratory Exam: Clear to Auscultation Bilateral, NORMAL BREATHING PATTERN, no wheezing, no stridor. - Cardiovascular Exam Cardiovascular Exam: REGULAR RHYTHM, +S1, +S2 - GI/Abdominal Exam GI & Abdominal Exam: Normal Bowel Sounds, Soft. absent: Tenderness - Extremities Exam Additional comments: Left foot is s/p 2nd ray amputation. Dressing is clean, dry, intact, no edema in the lower extremity. No active bleeding. - Neurological Exam Neurological exam: Alert, Oriented x3 - Psychiatric Exam Psychiatric exam: Anxious. Normal affect. Assessment and Plan - Assessment and Plan (Free Text) Assessment: POD#0 s/p Left 2nd ray amputation due to left foot 2nd digit osteomyelitis - Podiatry Consult: Dr. Fox --> help appreciated - ID Consult: Dr. Davila --> help appreciated * Merrem 1g IV q8h * PICC line was placed 07/25/18 * Doxycycline 100 mg IVPB q12 - ICU was consulted --> help appreciated - Bands 19; ESR 98; CRP 218; Lactate 2.6; Influenza negative - Left foot wound culture shows proteus mirabilis, beta hemolytic strep b - BCx negative to date - UCx shows erma negative kenyatta On Merrem already - Medications * Tylenol prn - fever * Percocet q6prn for pain - Images: * Foot Xray: Findings related to prior resection distal 1st metatarsal. Amputation at the level of the proximal phalanx 5th digit. Ventral ulceration medial aspect of the left foot distally. Suggestion of air within the soft tissues. In the absence of recent surgical history gas-forming organism should be considered. * Ankle Xray: Presumed chronic changes midshaft left tibia. * Tibia/Fibula Xray: Unremarkable radiographs of the left tibia and fibula. * LE venous doppler: pt refused * F/u lower extremity MRI Elevated proBNP - proBNP: 1560 - Trop: negative - Chest Xray: No consolidative infiltrate. Mild cardiomegaly and mild pulmonary venous congestion suspect - ECHO: mild concentric LVH with normal EF of 65-70%, mild TR - Medications: * Lasix 20mg po daily History of Diabetes - f/u HgbA1c - Lipid panel: elevated TG, low HDL - Medications: * Novolin 70/30 20u SC BID * Lantus 20units SC HS * Lisinopril 5mg po daily * Crestor 2.5mg po HS - Hypoglycemia Protocol - Accuchecks Vaginal itching - Miconazole 100 mg VG HS [facility] to lower extremities - Clomitrazole cream to affected areas BID History of HTN - Continue Lisinopril 5mg po daily History of Neuropathy - Continue Gabapentin 300mg po bid Prophylaxis - Physical Therapy - Anti-coagulation - Lactobacillus 1 cap po tid Case discussed with Dr. Kaushik Beavers PGY1
--- NOTE | 2018-07-27 07:50 | CP.PCM.PN ---
Subjective - Date & Time of Evaluation Date of Evaluation: 07/27/18 Time of Evaluation: 07:49 - Subjective Subjective: Podiatry progress note - Dr. Fox Patient seen and evaluated preoperatively at bedside with Dr. Fox. NPO status confirmed. States she is in pain Objective - Vital Signs/Intake and Output Vital Signs (last 24 hours): Temp Pulse Resp BP Pulse Ox 99.3 F 81 18 131/76 94 L 07/26/18 23:17 07/27/18 01:00 07/26/18 23:17 07/26/18 23:17 07/26/18 23:17 Intake and Output: 07/27/18 07/27/18 06:59 18:59 Intake Total 0 Balance 0 - Medications Medications: Current Medications Acetaminophen (Tylenol 325mg Tab) 975 mg PO ONCE PRN PRN Reason: Fever >100.4 F Last Admin: 07/25/18 11:31 Dose: 975 mg Acetaminophen (Tylenol 325mg Tab) 650 mg PO Q6 PRN PRN Reason: Fever >100.4 F Last Admin: 07/26/18 22:06 Dose: 650 mg Albuterol/Ipratropium (Duoneb 3 Mg/0.5 Mg (3 Ml) Ud) 3 ml INH RQ6 PRN PRN Reason: Shortness of Breath Dextrose (Dextrose 50% Inj) 0 ml IV STAT PRN; Protocol PRN Reason: Hypoglycemia Protocol Dextrose (Glutose 15) 0 gm PO ONCE PRN; Protocol PRN Reason: Hypoglycemia Protocol Furosemide (Lasix) 20 mg PO DAILY [facility] Last Admin: 07/26/18 12:38 Dose: Not Given Gabapentin (Neurontin) 300 mg PO BID [facility] Last Admin: 07/26/18 17:43 Dose: 300 mg Glucagon (Glucagen Diagnostic Kit) 0 mg IM STAT PRN; Protocol PRN Reason: Hypoglycemia Protocol Dextrose (Dextrose 5% In Water 1000 Ml) 1,000 mls @ 0 mls/hr IV .Q0M PRN; Protocol PRN Reason: Hypoglycemia Protocol Meropenem 1 gm/ Sodium (Chloride) 100 mls @ 100 mls/hr IVPB Q8H [facility]; Protocol Last Admin: 07/27/18 06:14 Dose: 100 mls/hr Doxycycline Hyclate 100 mg/ (Sodium Chloride) 100 mls @ 100 mls/hr IVPB Q12H [facility]; Protocol Last Admin: 07/27/18 00:24 Dose: 100 mls/hr Insulin Glargine (Lantus) 20 unit SC HS [facility] Last Admin: 07/26/18 22:04 Dose: 20 unit Insulin Human Isoph/Insulin Regular (Novolin 70/30 (70/30 Units/Ml) 10 Ml) 20 units SC BIDAC [facility] Last Admin: 07/26/18 17:43 Dose: 20 units Lactobacillus Acidophilus (Lactobacillus) 1 cap PO TID [facility] Last Admin: 07/26/18 17:46 Dose: 1 cap Lisinopril (Zestril) 5 mg PO DAILY [facility] Last Admin: 07/26/18 12:36 Dose: Not Given Miconazole (Monistat 7 Vag Suppository) 100 mg VG [facility] Last Admin: 07/26/18 22:36 Dose: 100 mg Oxycodone/Acetaminophen (Percocet 5/325 Mg Tab) 1 tab PO Q6H PRN PRN Reason: Pain, severe (8-10) Stop: 07/28/18 18:15 Pneumococcal Polyvalent Vaccine (Pneumovax 23 Vaccine) 0.5 ml IM .ONCE ONE Stop: 07/27/18 19:13 Rosuvastatin Calcium (Crestor) 2.5 mg PO [facility] Last Admin: 07/26/18 22:08 Dose: Not Given - Labs Labs: 07/26/18 06:22 07/26/18 06:22 PT 13.6 SECONDS (9.7-12.2) H 07/25/18 12:54 INR 1.2 07/25/18 12:54 APTT 26 SECONDS (21-34) 07/25/18 12:54
[2018-07-27] MEDS: (Novolin 70/30) NPH/Regular 70/30 Units/ml 10 ml vial SC SCH ×2 (07:56→18:27)
[2018-07-27] MEDS ORDERED: Propofol 10 mg/ml Inj (20 ML) ONE (08:05)
[2018-07-27] MEDS ORDERED: Midazolam 2 MG/2 ML VIAL ONE (08:05)
[2018-07-27] MEDS ORDERED: Bupivacaine HCl 0.5% PF (10 ml) Inj ONE (08:25)
[2018-07-27] MEDS ORDERED: Lidocaine 2% MPF (5 ml) Inj ONE (08:25)
[2018-07-27] MEDS ORDERED: HYDROmorphone 0.5 mg/0.5 ml ISec IVP PRN (09:29)
--- NOTE | 2018-07-27 09:32 | PCM.SURG1 ---
Surgeon's Initial Post Op Note - Surgeon's Notes Surgeon: Dr. Fox DPM [employer] Unit Leader: Dr. Alston PGY1 Type of Anesthesia: General LMA, Local Pre-Operative Diagnosis: Left foot second digit osteomyelitis and gas gangrene Operative Findings: see dictation. 3-0 nylon, 1" plain packing, DSD, coban, NICOLE. 20cc 1:1 lidocaine 2% plain, 0.5% marcaine plain Post-Operative Diagnosis: same Operation Performed: left partial second ray amputation Specimen/Specimens Removed: left second digit and second metatarsal head Estimated Blood Loss: EBL {In ML}: 30 Blood Products Given: N/A Drains Used: No Drains Post-Op Condition: Good Date of Surgery/Procedure: 07/27/18 Time of Surgery/Procedure: 09:32
[2018-07-27] MEDS ORDERED: Oxycodone/Acetaminophen 5/325 mg Tab PO PRN ×2 (09:33)
[2018-07-27] MEDS: DiphenhydrAMINE 50 mg/ml Inj IVP ONE ×2 (10:20→10:53)
[2018-07-27] MEDS: Lactobacillus Acidophilus 500 MU Cap PO SCH ×3 (10:54→18:28)
[2018-07-27 12:28] LABS: BASO % 0.5 % (0.0-2.0); EOS # 0.2 K/uL (0.0-0.7); EOS % 2.2 % (0.0-4.0); HEMOGLOBIN 8.8 g/dL (11.0-16.0); LYMPH # 1.4 K/uL (1.0-4.3); LYMPH % 20.5 % (20.0-40.0); MEAN CELL VOLUME 83.2 fL (81.0-99.0); MEAN CORPUSCULAR HEMOGLOBIN 26.9 pg (27.0-31.0); MEAN CORPUSCULAR HGB CONC 32.4 g/dL (33.0-37.0); MEAN PLATELET VOLUME 8.8 fL (7.2-11.7); MONO # 0.9 K/uL (0.0-0.8); MONO % 13.5 % (0.0-10.0); NEUT # 4.3 K/uL (1.8-7.0); NEUT % 63.3 % (50.0-75.0); RBC 3.27 Mil/uL (3.80-5.20); RED CELL DISTRIBUTION WIDTH 15.5 % (11.5-14.5); WHITE BLOOD COUNT 6.8 K/uL (4.8-10.8)
[2018-07-27 12:52] LABS: ALB/GLOB RATIO 0.8 (1.0-2.1); ALT/SGPT 10 U/L (9-52); AST/SGOT 16 U/L (14-36); BLOOD UREA NITROGEN 14 mg/dL (7-17); CALCIUM 8.4 mg/dl (8.6-10.4); GFR NON-AFRICAN AMERICAN > 60
[2018-07-27] MEDS ORDERED: Pneumococcal 23-Valent Vaccine IM ONE (19:12)
[2018-07-27] MEDS: Clotrimazole 1% Cream(30 gm) TOP SCH (20:05)
[2018-07-27] MEDS: (Lantus) Insulin Glargine, Recombinant SC SCH (22:04)
[2018-07-27] MEDS: Miconazole 100 MG Vaginal Supp VG SCH (22:11)
[2018-07-27] MEDS: Rosuvastatin Calcium 2.5 mg Tab PO SCH (22:23)
[2018-07-28] MEDS: Meropenem 1 GM in Sodium Chloride 0.9% 100 ML IVPB SCH ×3 (06:31→22:09)
[2018-07-28 07:31] LABS: BASO % 0.5 % (0.0-2.0); EOS # 0.1 K/uL (0.0-0.7); EOS % 2.1 % (0.0-4.0); HEMOGLOBIN 8.6 g/dL (11.0-16.0); LYMPH # 1.3 K/uL (1.0-4.3); LYMPH % 20.7 % (20.0-40.0); MEAN CELL VOLUME 84.4 fL (81.0-99.0); MEAN CORPUSCULAR HEMOGLOBIN 27.1 pg (27.0-31.0); MEAN CORPUSCULAR HGB CONC 32.1 g/dL (33.0-37.0); MEAN PLATELET VOLUME 8.8 fL (7.2-11.7); MONO # 0.8 K/uL (0.0-0.8); NEUT # 4.1 K/uL (1.8-7.0); NEUT % 63.7 % (50.0-75.0); NRBC % 0.1 % (0.0-2.0); RBC 3.18 Mil/uL (3.80-5.20); RED CELL DISTRIBUTION WIDTH 15.6 % (11.5-14.5); WHITE BLOOD COUNT 6.4 K/uL (4.8-10.8)
[2018-07-28 08:07] LABS: ALB/GLOB RATIO 0.8 (1.0-2.1); ALBUMIN 2.7 g/dL (3.5-5.0); ALT/SGPT 13 U/L (9-52); AST/SGOT 15 U/L (14-36); BLOOD UREA NITROGEN 17 mg/dL (7-17); CALCIUM 8.2 mg/dl (8.6-10.4); GFR NON-AFRICAN AMERICAN > 60
[2018-07-28] MEDS: Clotrimazole 1% Cream(30 gm) TOP SCH ×2 (09:24→17:35)
[2018-07-28] MEDS: Lactobacillus Acidophilus 500 MU Cap PO SCH ×3 (09:25→17:34)
[2018-07-28] MEDS: (Novolin 70/30) NPH/Regular 70/30 Units/ml 10 ml vial SC SCH ×2 (09:25→17:35)
--- NOTE | 2018-07-28 12:57 | RAD ---
Date of service: 07/28/2018 HISTORY: confirm placement of midline COMPARISON: Comparison is made to the previous study dated 07/25/2018 FINDINGS: LUNGS: No active pulmonary disease. PLEURA: No significant pleural effusion identified, no pneumothorax apparent. CARDIOVASCULAR: No aortic atherosclerotic calcification present. Normal cardiac size. No pulmonary vascular congestion. OSSEOUS STRUCTURES: No significant abnormalities. VISUALIZED UPPER ABDOMEN: Normal. OTHER FINDINGS: There is venous catheter extending to the midportion of the right arm IMPRESSION: Venous catheter ext with the tip at the mid portion of the right arm. No significant interval change in the lungs.
--- NOTE | 2018-07-28 15:01 | CP.PCM.PN ---
Subjective - Date & Time of Evaluation Date of Evaluation: 07/28/18 Time of Evaluation: 09:35 - Subjective Subjective: PGY1 Medicine progress note for Dr. Faulkner's service Pt was seen and examined at bedside. Reports improvement of vaginal and lower extremity itchiness. POD1 of left 2nd ray amputation. Foot pain is well controlled. Complaining of rigth midline IV access being uncomfortably. She denies chest pain, abdominal pain, n/v/d. Pain is well controlled. Objective - Vital Signs/Intake and Output Vital Signs (last 24 hours): Temp Pulse Resp BP Pulse Ox 98.0 F 86 18 140/69 100 07/28/18 07:00 07/28/18 07:00 07/28/18 07:00 07/28/18 09:25 07/28/18 07:00 Intake and Output: 07/28/18 07/28/18 06:59 18:59 Intake Total 400 Balance 400 - Medications Medications: Current Medications Acetaminophen (Tylenol 325mg Tab) 975 mg PO ONCE PRN PRN Reason: Fever >100.4 F Last Admin: 07/25/18 11:31 Dose: 975 mg Acetaminophen (Tylenol 325mg Tab) 650 mg PO Q6 PRN PRN Reason: Fever >100.4 F Last Admin: 07/28/18 01:32 Dose: 650 mg Albuterol/Ipratropium (Duoneb 3 Mg/0.5 Mg (3 Ml) Ud) 3 ml INH RQ6 PRN PRN Reason: Shortness of Breath Clotrimazole (Lotrimin 1%) 0 gm TOP BID [facility] Last Admin: 07/28/18 09:24 Dose: 1 appl Dextrose (Dextrose 50% Inj) 0 ml IV STAT PRN; Protocol PRN Reason: Hypoglycemia Protocol Dextrose (Glutose 15) 0 gm PO ONCE PRN; Protocol PRN Reason: Hypoglycemia Protocol Famotidine (Pepcid) 20 mg PO DAILY [facility] Last Admin: 07/28/18 12:57 Dose: 20 mg Furosemide (Lasix) 20 mg PO DAILY [facility] Last Admin: 07/28/18 09:25 Dose: 20 mg Gabapentin (Neurontin) 300 mg PO BID [facility] Last Admin: 07/28/18 09:25 Dose: 300 mg Glucagon (Glucagen Diagnostic Kit) 0 mg IM STAT PRN; Protocol PRN Reason: Hypoglycemia Protocol Dextrose (Dextrose 5% In Water 1000 Ml) 1,000 mls @ 0 mls/hr IV .Q0M PRN; Protocol PRN Reason: Hypoglycemia Protocol Meropenem 1 gm/ Sodium (Chloride) 100 mls @ 100 mls/hr IVPB Q8H [facility]; Protocol Last Admin: 07/28/18 14:36 Dose: 100 mls/hr Doxycycline Hyclate 100 mg/ (Sodium Chloride) 100 mls @ 100 mls/hr IVPB Q12H [facility]; Protocol Last Admin: 07/28/18 12:57 Dose: 100 mls/hr Insulin Glargine (Lantus) 20 unit SC HS [facility] Last Admin: 07/27/18 22:04 Dose: 20 unit Insulin Human Isoph/Insulin Regular (Novolin 70/30 (70/30 Units/Ml) 10 Ml) 20 units SC BIDAC [facility] Last Admin: 07/28/18 09:25 Dose: 20 units Lactobacillus Acidophilus (Lactobacillus) 1 cap PO TID [facility] Last Admin: 07/28/18 13:00 Dose: 1 cap Lisinopril (Zestril) 5 mg PO DAILY [facility] Last Admin: 07/28/18 09:25 Dose: 5 mg Miconazole (Monistat 7 Vag Suppository) 100 mg VG [facility] Last Admin: 07/27/18 22:11 Dose: 100 mg Oxycodone/Acetaminophen (Percocet 5/325 Mg Tab) 1 tab PO Q6H PRN PRN Reason: Pain, severe (8-10) Stop: 07/28/18 18:15 Last Admin: 07/28/18 02:51 Dose: 1 tab Oxycodone/Acetaminophen (Percocet 5/325 Mg Tab) 1 tab PO Q4H PRN PRN Reason: Pain, moderate (4-7) Stop: 07/30/18 09:34 Oxycodone/Acetaminophen (Percocet 5/325 Mg Tab) 2 tab PO Q4H PRN PRN Reason: Pain, severe (8-10) Stop: 07/30/18 09:34 Pneumococcal Polyvalent Vaccine (Pneumovax 23 Vaccine) 0.5 ml IM .ONCE ONE Stop: 07/29/18 10:01 Rosuvastatin Calcium (Crestor) 2.5 mg PO [facility] Last Admin: 07/27/18 22:23 Dose: Not Given Senna/Docusate Sodium (Senokot S 50 Mg-8.6 Mg) 1 tab PO BID [facility] - Labs Labs: 07/28/18 07:18 07/28/18 07:18 PT 13.6 SECONDS (9.7-12.2) H 07/25/18 12:54 INR 1.2 07/25/18 12:54 APTT 26 SECONDS (21-34) 07/25/18 12:54 - Additional Findings Additional findings: - Additional Findings Additional findings: - Constitutional Appears: No Acute Distress, Chronically Ill - Head Exam Head Exam: ATRAUMATIC, NORMAL INSPECTION - Eye Exam Additional comments: complete - left eye; partial right eye - Respiratory Exam Respiratory Exam: Clear to Auscultation Bilateral, NORMAL BREATHING PATTERN, no wheezing, no stridor. - Cardiovascular Exam Cardiovascular Exam: REGULAR RHYTHM, +S1, +S2 - GI/Abdominal Exam GI & Abdominal Exam: Normal Bowel Sounds, Soft. absent: Tenderness - Extremities Exam Right midline seems to be leaking. Additional comments: Left foot is s/p 2nd ray amputation. Dressing is clean, dry, intact, no edema in the lower extremity. No active bleeding. - Neurological Exam Neurological exam: Alert, Oriented x3 - Psychiatric Exam Psychiatric exam: Anxious. Normal affect. - Skin Skin Exam: Rash (dark rash to lower extremities) Assessment and Plan - Assessment and Plan (Free Text) Assessment: 52 year old female with past medical history of diabetes type II, HTN, blindness (complete - left eye; partial right eye) who presented to the ER for a left foot infection. Underwent left second toe ray amputation on 07/27/18. Plan: POD#1 s/p Left 2nd ray amputation due to left foot 2nd digit osteomyelitis - Podiatry Consult: Dr. Fox --> help appreciated - ID Consult: Dr. Davila --> help appreciated * Merrem 1g IV q8h * Right midline was placed 07/25/18 * Leaking today, will be removed and PIV will run medications/abx needed * Doxycycline 100 mg IVPB q12 - ICU was consulted --> help appreciated - Bands 19; ESR 98; CRP 218; Lactate 2.6; Influenza negative - Left foot wound culture shows proteus mirabilis, beta hemolytic strep b - BCx negative to date - UCx shows erma negative kenyatta On Merrem already - Medications * Tylenol prn - fever * Percocet q6prn for pain - Images: * Foot Xray: Findings related to prior resection distal 1st metatarsal. Amputation at the level of the proximal phalanx 5th digit. Ventral ulceration medial aspect of the left foot distally. Suggestion of air within the soft tissues. In the absence of recent surgical history gas-forming organism should be considered. * Ankle Xray: Presumed chronic changes midshaft left tibia. * Tibia/Fibula Xray: Unremarkable radiographs of the left tibia and fibula. * LE venous doppler: pt refused * F/u lower extremity MRI - Bandemia/leukocytosis resolved Elevated proBNP - proBNP: 1560 - Trop: negative - Chest Xray: No consolidative infiltrate. Mild cardiomegaly and mild pulmonary venous congestion suspect - ECHO: mild concentric LVH with normal EF of 65-70%, mild TR - Medications: * Lasix 20mg po daily History of Diabetes - f/u HgbA1c - Lipid panel: elevated TG, low HDL - Medications: * Novolin 70/30 20u SC BID * Lantus 20units SC HS * Lisinopril 5mg po daily * Crestor 2.5mg po HS - Hypoglycemia Protocol - Accuchecks Vaginal itching - Miconazole 100 mg VG [facility] to lower extremities - Clomitrazole cream to affected areas BID History of HTN - Continue Lisinopril 5mg po daily History of Neuropathy - Continue Gabapentin 300mg po bid Prophylaxis - Physical Therapy - Anti-coagulation - Lactobacillus 1 cap po tid, Seneleni pepciarmida Case discussed with Dr. Kaushik Beavers PGY1
--- NOTE | 2018-07-28 16:39 | CP.PCM.PN ---
Subjective - Date & Time of Evaluation Date of Evaluation: 07/28/18 Time of Evaluation: 10:00 - Subjective Subjective: comfortable s/p 2nd ray amputation left foot for gangrene Objective - Vital Signs/Intake and Output Vital Signs (last 24 hours): Temp Pulse Resp BP Pulse Ox 98.1 F 78 18 155/78 H 97 07/28/18 15:19 07/28/18 15:19 07/28/18 15:19 07/28/18 15:19 07/28/18 15:19 Intake and Output: 07/28/18 07/28/18 06:59 18:59 Intake Total 400 Balance 400 - Medications Medications: Current Medications Acetaminophen (Tylenol 325mg Tab) 975 mg PO ONCE PRN PRN Reason: Fever >100.4 F Last Admin: 07/25/18 11:31 Dose: 975 mg Acetaminophen (Tylenol 325mg Tab) 650 mg PO Q6 PRN PRN Reason: Fever >100.4 F Last Admin: 07/28/18 01:32 Dose: 650 mg Albuterol/Ipratropium (Duoneb 3 Mg/0.5 Mg (3 Ml) Ud) 3 ml INH RQ6 PRN PRN Reason: Shortness of Breath Clotrimazole (Lotrimin 1%) 0 gm TOP BID [facility] Last Admin: 07/28/18 09:24 Dose: 1 appl Dextrose (Dextrose 50% Inj) 0 ml IV STAT PRN; Protocol PRN Reason: Hypoglycemia Protocol Dextrose (Glutose 15) 0 gm PO ONCE PRN; Protocol PRN Reason: Hypoglycemia Protocol Famotidine (Pepcid) 20 mg PO DAILY [facility] Last Admin: 07/28/18 12:57 Dose: 20 mg Furosemide (Lasix) 20 mg PO DAILY [facility] Last Admin: 07/28/18 09:25 Dose: 20 mg Gabapentin (Neurontin) 300 mg PO BID [facility] Last Admin: 07/28/18 09:25 Dose: 300 mg Glucagon (Glucagen Diagnostic Kit) 0 mg IM STAT PRN; Protocol PRN Reason: Hypoglycemia Protocol Dextrose (Dextrose 5% In Water 1000 Ml) 1,000 mls @ 0 mls/hr IV .Q0M PRN; Protocol PRN Reason: Hypoglycemia Protocol Meropenem 1 gm/ Sodium (Chloride) 100 mls @ 100 mls/hr IVPB Q8H [facility]; Protocol Last Admin: 07/28/18 14:36 Dose: 100 mls/hr Doxycycline Hyclate 100 mg/ (Sodium Chloride) 100 mls @ 100 mls/hr IVPB Q12H [facility]; Protocol Last Admin: 07/28/18 12:57 Dose: 100 mls/hr Insulin Glargine (Lantus) 20 unit SC HS [facility] Last Admin: 07/27/18 22:04 Dose: 20 unit Insulin Human Isoph/Insulin Regular (Novolin 70/30 (70/30 Units/Ml) 10 Ml) 20 units SC BIDAC [facility] Last Admin: 07/28/18 09:25 Dose: 20 units Lactobacillus Acidophilus (Lactobacillus) 1 cap PO TID [facility] Last Admin: 07/28/18 13:00 Dose: 1 cap Lisinopril (Zestril) 5 mg PO DAILY [facility] Last Admin: 07/28/18 09:25 Dose: 5 mg Miconazole (Monistat 7 Vag Suppository) 100 mg VG [facility] Last Admin: 07/27/18 22:11 Dose: 100 mg Oxycodone/Acetaminophen (Percocet 5/325 Mg Tab) 1 tab PO Q6H PRN PRN Reason: Pain, severe (8-10) Stop: 07/28/18 18:15 Last Admin: 07/28/18 02:51 Dose: 1 tab Oxycodone/Acetaminophen (Percocet 5/325 Mg Tab) 1 tab PO Q4H PRN PRN Reason: Pain, moderate (4-7) Stop: 07/30/18 09:34 Oxycodone/Acetaminophen (Percocet 5/325 Mg Tab) 2 tab PO Q4H PRN PRN Reason: Pain, severe (8-10) Stop: 07/30/18 09:34 Pneumococcal Polyvalent Vaccine (Pneumovax 23 Vaccine) 0.5 ml IM .ONCE ONE Stop: 07/29/18 10:01 Rosuvastatin Calcium (Crestor) 2.5 mg PO [facility] Last Admin: 07/27/18 22:23 Dose: Not Given Senna/Docusate Sodium (Senokot S 50 Mg-8.6 Mg) 1 tab PO BID [facility] - Labs Labs: 07/28/18 07:18 07/28/18 07:18 PT 13.6 SECONDS (9.7-12.2) H 07/25/18 12:54 INR 1.2 07/25/18 12:54 APTT 26 SECONDS (21-34) 07/25/18 12:54 - Constitutional Appears: Well - Head Exam Head Exam: ATRAUMATIC, NORMAL INSPECTION, NORMOCEPHALIC - Eye Exam Eye Exam: EOMI, Normal appearance, PERRL Pupil Exam: NORMAL ACCOMODATION, PERRL - ENT Exam ENT Exam: Mucous Membranes Moist, Normal Exam - Neck Exam Neck Exam: Full ROM, Normal Inspection. absent: Lymphadenopathy - Respiratory Exam Respiratory Exam: Clear to Ausculation Bilateral, NORMAL BREATHING PATTERN - Cardiovascular Exam Cardiovascular Exam: REGULAR RHYTHM, +S1, +S2. absent: Murmur - GI/Abdominal Exam GI & Abdominal Exam: Soft, Normal Bowel Sounds. absent: Tenderness - Rectal Exam Rectal Exam: Deferred - Exam Exam: NORMAL INSPECTION - Extremities Exam Extremities Exam: Full ROM, Normal Capillary Refill, Normal Inspection. absent: Joint Swelling, Pedal Edema Additional comments: left foot dressing in place - Back Exam Back Exam: NORMAL INSPECTION - Neurological Exam Neurological Exam: Alert, Awake, CN II-XII Intact, Normal Gait, Oriented x3 - Psychiatric Exam Psychiatric exam: Normal Affect, Normal Mood - Skin Skin Exam: Dry, Intact, Normal Color, Warm Assessment and Plan (1) Cellulitis Status: Acute (2) Open wound Status: Acute (3) Sepsis Status: Acute (4) Uncontrolled diabetes mellitus Status: Acute (5) Osteomyelitis of foot, left, acute Status: Acute (6) Osteomyelitis of foot Status: Acute (7) Osteomyelitis of left foot Status: Acute (8) Gangrene of left foot Status: Acute - Assessment and Plan (Free Text) Assessment: s/po second ray amp left foot- secondary to OM/ Gangrene will need intermediate IV antibiotic rx await final cultures
[2018-07-28] MEDS: Docusate-Senna 50 mg-8.6 mg Tab PO SCH (17:34)
--- NOTE | 2018-07-28 18:43 | MRI ---
Date of service: 07/26/2018 PROCEDURE: MRI of the left foot without contrast HISTORY: left forefoot possible abscess/OM COMPARISON: Comparison is made to the previous x-ray of the left foot dated 07/25/2018 TECHNIQUE: Axial coronal and sagittal MRI images of the left foot were obtained without IV contrast administration. FINDINGS: The study is limited degraded by motion artifact and lack of IV contrast administration. The patient is status post amputation through the distal portion of the 1st metatarsal bone. And a beautician of the 5th digit through the proximal portion of the proximal phalanx. There are abnormal signal and cortical destruction noted in distal 2nd metatarsal bone associated with diffuse bone marrow edema at 2nd metatarsal bone. There are also foci of bone marrow edema noted at the distal portion of the 1st metatarsal bone and at the distal head of the 3rd metatarsal bone. There is diffuse bone marrow edema and cortical destruction also noted in the 2nd toe. Diffuse soft tissue edema and inflammatory changes noted. Findings suggestive of acute osteomyelitis involving mainly the distal portion of the 2nd metatarsal bone and the 2nd toe. There is suspicious for 1.4 centimeter fluid collection at the plantar aspect adjacent to the 2nd metatarsal phalangeal joint may represent abscess formation. There is also cortical erosion at the normal signal at the base of the proximal phalanx of the 3rd toe also suspicious for osteomyelitis. Diffuse abnormal signal in the soft tissue at the mid and distal left foot suggestive of edema and inflammatory changes. IMPRESSION: Findings consistent with acute osteomyelitis involving the distal 2nd metatarsal bone and the 2nd toe and air early developing osteomyelitis at the base of the 3rd toe proximal phalanx and possible at the distal head of the 3rd metatarsal bone. 1.4 centimeter fluid collection dorsal to the 2nd metatarsophalangeal joint suspicious for possible abscess formation. Preliminary report contains concordant findings was submitted by [facility] Radiology.
--- NOTE | 2018-07-28 20:03 | CP.PCM.PN ---
Subjective - Date & Time of Evaluation Date of Evaluation: 07/28/18 Time of Evaluation: 20:00 - Subjective Subjective: Podiatry progress note - Dr. Fox 52F POD 1 left foot second digit amputation seen and evaluated at bedside this AM. Resting comfortably. Reports mild back pain but has no pain to the left foot at this time. Denies n/v/f/c/sob/cp and has no other acute complaints. Objective - Vital Signs/Intake and Output Vital Signs (last 24 hours): Temp Pulse Resp BP Pulse Ox 98.1 F 78 18 155/78 H 97 07/28/18 15:19 07/28/18 15:19 07/28/18 15:19 07/28/18 15:19 07/28/18 15:19 Intake and Output: 07/28/18 07/29/18 18:59 06:59 Intake Total 400 Balance 400 - Medications Medications: Current Medications Acetaminophen (Tylenol 325mg Tab) 975 mg PO ONCE PRN PRN Reason: Fever >100.4 F Last Admin: 07/25/18 11:31 Dose: 975 mg Acetaminophen (Tylenol 325mg Tab) 650 mg PO Q6 PRN PRN Reason: Fever >100.4 F Last Admin: 07/28/18 17:34 Dose: 650 mg Albuterol/Ipratropium (Duoneb 3 Mg/0.5 Mg (3 Ml) Ud) 3 ml INH RQ6 PRN PRN Reason: Shortness of Breath Clotrimazole (Lotrimin 1%) 0 gm TOP BID [facility] Last Admin: 07/28/18 17:35 Dose: 1 appl Dextrose (Dextrose 50% Inj) 0 ml IV STAT PRN; Protocol PRN Reason: Hypoglycemia Protocol Dextrose (Glutose 15) 0 gm PO ONCE PRN; Protocol PRN Reason: Hypoglycemia Protocol Famotidine (Pepcid) 20 mg PO DAILY [facility] Last Admin: 07/28/18 12:57 Dose: 20 mg Furosemide (Lasix) 20 mg PO DAILY [facility] Last Admin: 07/28/18 09:25 Dose: 20 mg Gabapentin (Neurontin) 300 mg PO BID [facility] Last Admin: 07/28/18 17:34 Dose: 300 mg Glucagon (Glucagen Diagnostic Kit) 0 mg IM STAT PRN; Protocol PRN Reason: Hypoglycemia Protocol Dextrose (Dextrose 5% In Water 1000 Ml) 1,000 mls @ 0 mls/hr IV .Q0M PRN; Protocol PRN Reason: Hypoglycemia Protocol Meropenem 1 gm/ Sodium (Chloride) 100 mls @ 100 mls/hr IVPB Q8H [facility]; Protocol Last Admin: 07/28/18 14:36 Dose: 100 mls/hr Doxycycline Hyclate 100 mg/ (Sodium Chloride) 100 mls @ 100 mls/hr IVPB Q12H [facility]; Protocol Last Admin: 07/28/18 12:57 Dose: 100 mls/hr Insulin Glargine (Lantus) 20 unit SC HS [facility] Last Admin: 07/27/18 22:04 Dose: 20 unit Insulin Human Isoph/Insulin Regular (Novolin 70/30 (70/30 Units/Ml) 10 Ml) 20 units SC BIDAC [facility] Last Admin: 07/28/18 17:35 Dose: 20 units Lactobacillus Acidophilus (Lactobacillus) 1 cap PO TID [facility] Last Admin: 07/28/18 17:34 Dose: 1 cap Lisinopril (Zestril) 5 mg PO DAILY [facility] Last Admin: 07/28/18 09:25 Dose: 5 mg Miconazole (Monistat 7 Vag Suppository) 100 mg VG [facility] Last Admin: 07/27/18 22:11 Dose: 100 mg Oxycodone/Acetaminophen (Percocet 5/325 Mg Tab) 1 tab PO Q4H PRN PRN Reason: Pain, moderate (4-7) Stop: 07/30/18 09:34 Oxycodone/Acetaminophen (Percocet 5/325 Mg Tab) 2 tab PO Q4H PRN PRN Reason: Pain, severe (8-10) Stop: 07/30/18 09:34 Pneumococcal Polyvalent Vaccine (Pneumovax 23 Vaccine) 0.5 ml IM .ONCE ONE Stop: 07/29/18 10:01 Rosuvastatin Calcium (Crestor) 2.5 mg PO [facility] Last Admin: 07/27/18 22:23 Dose: Not Given Senna/Docusate Sodium (Senokot S 50 Mg-8.6 Mg) 1 tab PO BID [facility] Last Admin: 07/28/18 17:34 Dose: 1 tab - Labs Labs: 07/28/18 07:18 07/28/18 07:18 PT 13.6 SECONDS (9.7-12.2) H 07/25/18 12:54 INR 1.2 07/25/18 12:54 APTT 26 SECONDS (21-34) 07/25/18 12:54 - Constitutional Appears: Non-toxic - Head Exam Head Exam: NORMOCEPHALIC - Extremities Exam Additional comments: LLE focused VASC: DP/PT pulses are palpable, cap refill time: < 3 sec to digit 4 and 5, Temp gradient warm to cool, diffuse non-pitting edema noticed distal to the mid leg DERM: surgical site exhibits normal healing, sutures intact, packing in place, n o pus or purulent discharge appreciated, mild sanguinous drainage, no evidence of gangrene or infection at other digits or rest of foot ORTHO: no pain on palpation of the surgical site NEURO: gross and protective sensation mildly diminished - Neurological Exam Neurological Exam: Alert, Awake, Oriented x3 - Psychiatric Exam Psychiatric exam: Normal Affect, Normal Mood Assessment and Plan - Assessment and Plan (Free Text) Assessment: 52F POD 1 left second ray partial amputation Plan: Patient seen and evaluated Discussed in detail with Dr. Fox Afebrile, absent leukocytosis Dressing taken down, site cleansed with sterile saline, packing advanced Redressed with saline wet to dry, DSD, and NICOLE wrap Continue to monitor labs Meds per medicine team Dr. Davila on consult - recs appreciated Will continue to follow Further recs per Dr. Fox
[2018-07-28] MEDS: Miconazole 100 MG Vaginal Supp VG SCH (22:08)
[2018-07-28] MEDS: (Lantus) Insulin Glargine, Recombinant SC SCH (22:08)
[2018-07-28] MEDS: Rosuvastatin Calcium 2.5 mg Tab PO SCH (22:10)
[2018-07-28] MEDS ORDERED: Magnesium Hydroxide Susp 30 ml UD PO ONE (22:22)
[2018-07-28] MEDS ORDERED: guaiFENesin DM 100 mg-10 mg/5 ml UD PO ONE (22:23)
[2018-07-29] MEDS: Meropenem 1 GM in Sodium Chloride 0.9% 100 ML IVPB SCH ×2 (06:57→15:55)
[2018-07-29 07:11] LABS: BASO % 0.5 % (0.0-2.0); EOS # 0.1 K/uL (0.0-0.7); EOS % 2.6 % (0.0-4.0); LYMPH # 1.9 K/uL (1.0-4.3); LYMPH % 33.9 % (20.0-40.0); MEAN CELL VOLUME 83.5 fL (81.0-99.0); MEAN CORPUSCULAR HEMOGLOBIN 27.2 pg (27.0-31.0); MEAN CORPUSCULAR HGB CONC 32.6 g/dL (33.0-37.0); MEAN PLATELET VOLUME 8.4 fL (7.2-11.7); MONO # 0.7 K/uL (0.0-0.8); NEUT # 2.9 K/uL (1.8-7.0); NRBC % 0.1 % (0.0-2.0); RBC 3.3 Mil/uL (3.80-5.20); RED CELL DISTRIBUTION WIDTH 15.4 % (11.5-14.5); WHITE BLOOD COUNT 5.7 K/uL (4.8-10.8)
[2018-07-29 07:53] LABS: ALB/GLOB RATIO 0.8 (1.0-2.1); ALT/SGPT 8 U/L (9-52); AST/SGOT 18 U/L (14-36); BLOOD UREA NITROGEN 19 mg/dL (7-17); CALCIUM 8.8 mg/dl (8.6-10.4); GFR NON-AFRICAN AMERICAN 58
[2018-07-29] MEDS: Lactobacillus Acidophilus 500 MU Cap PO SCH ×3 (09:25→17:52)
[2018-07-29] MEDS: Docusate-Senna 50 mg-8.6 mg Tab PO SCH ×2 (09:27→17:53)
[2018-07-29] MEDS: (Novolin 70/30) NPH/Regular 70/30 Units/ml 10 ml vial SC SCH ×2 (09:27→17:51)
[2018-07-29] MEDS: Clotrimazole 1% Cream(30 gm) TOP SCH ×2 (09:27→17:52)
[2018-07-29] MEDS ORDERED: Simethicone 80 mg Chewtab PO PRN (10:00)
[2018-07-29] MEDS ORDERED: Magnesium Hydroxide Susp 30 ml UD PO PRN (10:00)
[2018-07-29] MEDS ORDERED: Pneumococcal 23-Valent Vaccine IM ONE (10:00)
--- NOTE | 2018-07-29 13:11 | PCM.PSYCH ---
Initial Psychiatric Evaluation - Initial Psychiatric Evaluation Type of Admission: Voluntary Chief Complaint (in patient's own words): "I have pain" History of Present Illness and Precipitating Events: Full note to follow Called her daughter Ceci - no one picked up. Called her sister Fatoumata, she denied MR or known psychiatric illness but said that she was "child like" and "odd" sometimes. She denies that the patient had fixed irrational beliefs (delusions) or talk to herself etc. but she was an anxious woman and wouldn't follow meds and orders sometimes. Patient is a 52 year old female that is single, has two children (ages 26 and 30), currently lives in a house with her 26 year old daughter, has completed her education up to the 11th grade level, and is currently receiving disability benefits due to her DM. Patient was brought to the ED on 07/25 and admitted to [facility] for management of left foot infection. Psychiatry was consulted on 07/29 for assessment of patient mental status. At the time of examination, patient feels very anxious; she goes on to explain that she feels like everything, with respect to her medical conditions, in her life has begun to pile up and that she wants to run away from it all. She also feels anxious about her cough, as she feels that it interrupts her flow of speech and makes her unable to convey her thoughts accurately to other. Additionally she makes note that her visual impairment and her current living arrangements make it difficult for her to properly take her medications and use the bathroom on her own. She denies illicit drug use. She denies alcohol use. She denies suicidal ideation, homicidal ideation, auditory hallucinations, and visual hallucinations. 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 PsychHx: Denies Psych Hospitalizations: Denies PsychFMHx: Denies Medications: Gabapentin 300mg BID, Lisinopril 5mg PO QD, Percocet Q6 PRN, Florcastor 1 cap TID, Insulin Allergies: Vancomycin and Iodine Current Medications: Active Medications Generic Name Dose Route Start Last Admin Trade Name Freq PRN Reason Stop Dose Admin Acetaminophen 975 mg 07/25/18 11:19 07/29/18 05:31 Tylenol 325mg Tab PO 975 mg ONCE PRN Administration Fever >100.4 F Acetaminophen 650 mg 07/25/18 16:55 07/28/18 17:34 Tylenol 325mg Tab PO 650 mg Q6 PRN Administration Fever >100.4 F Albuterol/Ipratropium 3 ml 07/25/18 17:12 Duoneb 3 Mg/0.5 Mg (3 Ml) Ud INH RQ6 PRN Shortness of Breath Clotrimazole 0 gm 07/27/18 19:30 07/29/18 09:27 Lotrimin 1% TOP 1 appl BID JAMAR Administration Dextrose 0 ml 07/25/18 16:57 Dextrose 50% Inj IV STAT PRN Hypoglycemia Protocol Protocol Dextrose 0 gm 07/25/18 16:57 Glutose 15 PO ONCE PRN Hypoglycemia Protocol Protocol Famotidine 20 mg 07/28/18 11:00 07/29/18 09:25 Pepcid PO 20 mg DAILY JAMAR Administration Furosemide 20 mg 07/26/18 10:00 07/29/18 09:25 Lasix PO 20 mg DAILY JAMAR Administration Gabapentin 300 mg 07/25/18 18:00 07/29/18 09:25 Neurontin PO 300 mg BID JAMAR Administration Glucagon 0 mg 07/25/18 16:57 Glucagen Diagnostic Kit IM STAT PRN Hypoglycemia Protocol Protocol Guaifenesin/Dextromethorphan 5 ml 07/29/18 08:30 Robitussin Dm PO Q4H PRN Cough Dextrose 1,000 mls @ 0 mls/hr 07/25/18 16:57 Dextrose 5% In Water 1000 Ml IV .Q0M PRN Hypoglycemia Protocol Protocol Per Protocol Meropenem 1 gm/ Sodium 100 mls @ 100 mls/hr 07/25/18 23:00 07/29/18 06:57 Chloride IVPB 100 mls/hr Q8H JAMAR Administration Protocol Doxycycline Hyclate 100 mg/ 100 mls @ 100 mls/hr 07/26/18 00:00 07/29/18 12:11 Sodium Chloride IVPB 100 mls/hr Q12H JAMAR Administration Protocol Insulin Glargine 20 unit 07/25/18 22:00 07/28/18 22:08 Lantus SC 20 unit HS JAMAR Administration Insulin Human Isoph/Insulin Regular 20 units 07/26/18 16:30 07/29/18 09:27 Novolin 70/30 (70/30 Units/Ml) 10 Ml SC 20 units BIDAC JAMAR Administration Lactobacillus Acidophilus 1 cap 02/14/19 19:00 07/29/18 09:25 Lactobacillus PO 1 cap TID JAMAR Administration Lisinopril 5 mg 07/26/18 10:00 07/29/18 09:26 Zestril PO 5 mg DAILY JAMAR Administration Magnesium Hydroxide 30 ml 07/29/18 10:00 Milk Of Magnesia PO BID PRN Constipation Miconazole 100 mg 07/26/18 22:00 07/28/18 22:08 Monistat 7 Vag Suppository VG 100 mg HS JAMAR Administration Oxycodone/Acetaminophen 1 tab 07/27/18 09:33 Percocet 5/325 Mg Tab PO 07/30/18 09:34 Q4H PRN Pain, moderate (4-7) Oxycodone/Acetaminophen 2 tab 07/27/18 09:33 Percocet 5/325 Mg Tab PO 07/30/18 09:34 Q4H PRN Pain, severe (8-10) Rosuvastatin Calcium 2.5 mg 07/25/18 22:00 07/28/18 22:10 Crestor PO Not Given HS JAMAR Senna/Docusate Sodium 1 tab 07/28/18 11:00 07/29/18 09:27 Senokot S 50 Mg-8.6 Mg PO 1 tab BID JAMAR Administration Simethicone 80 mg 07/29/18 10:00 07/29/18 09:25 Mylicon Chew Tab PO 80 mg BID PRN Administration GI distress Past Psychiatric History - Past Psychiatric History Previous Treatment History: None Pertinent Medical Hx (Current Medical&Sleep Prob, Allergies): Allergies Allergy/AdvReac Type Severity Reaction Status Date / Time iodine Allergy Intermediate Verified 07/25/18 15:53 vancomycin Allergy Intermediate Verified 07/25/18 11:18 DiphenhydrAMINE [Benadryl] 50 mg PO BID 07/25/18 Gabapentin [Neurontin] 300 mg PO BID 07/25/18 Lactobacillus Acidophilus [Bacid Acidophilus] 1 cap PO TID 07/25/18 Lisinopril [Zestril] 5 mg PO DAILY 07/25/18 oxyCODONE/Acetaminophen [Percocet 5/325 mg Tab] 1 ea PO Q6H 07/25/18 Review of Systems - Psychiatric Psychiatric: Abnormal Sleep Pattern, Anxiety, Behavioral Changes, Difficulty Concentrating. absent: Auditory Hallucinations, Depression, Homicidal Ideation, Suicidal Ideation, Visual Hallucinations Mental Status Examination - Personal Presentation Personal Presentation: Looks stated age - Affect Affect: Broad - Motor Activity Motor Activity: Calm - Reliability in Providing Information Reliability in Providing Information: Good - Speech Speech: Disorganized Additional comments: + Pressured speech - Mood Mood: Neutral - Formal Thought Process Formal Thought Process: No Impairment - Obsessions/Compulsions Obsessions: No Compulsions: No - Cognitive Functions Orientation: Person, Place, Situation, Time Sensorium: Alert Attention/Concentration: Attentive Abstract Thinking: Mongo Estimate of Intelligence: Below average Judgement: Intact, as evidence by: Insight regarding need for hospitalization Memory: Recent intact, as evidence by: Ability to recall events of the day - Risk Risk: Diminished functioning - Strength & Assets Inventory Strength & Assets Inventory: Family support, Cooperative - Limitations Limitations: Other DSM 5 DX - DSM 5 DSM 5 Diagnosis: Adjustment Disorder with anxiety r/o schizoid personality r/o Other mood d/o - Recommended/Plan of Treatment Treatment Recommendations and Plan of Treatment: No need for psychiatric meds PRN Trazadone for sleep Support and psychoed 33 min
--- NOTE | 2018-07-29 13:46 | CP.PCM.PN ---
Subjective - Date & Time of Evaluation Date of Evaluation: 07/29/18 Time of Evaluation: 10:00 - Subjective Subjective: events noted IV rx in progress Objective - Vital Signs/Intake and Output Vital Signs (last 24 hours): Temp Pulse Resp BP Pulse Ox 98.1 F 89 20 126/60 97 07/29/18 07:00 07/29/18 07:00 07/29/18 07:00 07/29/18 09:25 07/29/18 07:00 - Medications Medications: Current Medications Acetaminophen (Tylenol 325mg Tab) 975 mg PO ONCE PRN PRN Reason: Fever >100.4 F Last Admin: 07/29/18 05:31 Dose: 975 mg Acetaminophen (Tylenol 325mg Tab) 650 mg PO Q6 PRN PRN Reason: Fever >100.4 F Last Admin: 07/28/18 17:34 Dose: 650 mg Albuterol/Ipratropium (Duoneb 3 Mg/0.5 Mg (3 Ml) Ud) 3 ml INH RQ6 PRN PRN Reason: Shortness of Breath Clotrimazole (Lotrimin 1%) 0 gm TOP BID [facility] Last Admin: 07/29/18 09:27 Dose: 1 appl Dextrose (Dextrose 50% Inj) 0 ml IV STAT PRN; Protocol PRN Reason: Hypoglycemia Protocol Dextrose (Glutose 15) 0 gm PO ONCE PRN; Protocol PRN Reason: Hypoglycemia Protocol Famotidine (Pepcid) 20 mg PO DAILY [facility] Last Admin: 07/29/18 09:25 Dose: 20 mg Furosemide (Lasix) 20 mg PO DAILY [facility] Last Admin: 07/29/18 09:25 Dose: 20 mg Gabapentin (Neurontin) 300 mg PO BID [facility] Last Admin: 07/29/18 09:25 Dose: 300 mg Glucagon (Glucagen Diagnostic Kit) 0 mg IM STAT PRN; Protocol PRN Reason: Hypoglycemia Protocol Guaifenesin/Dextromethorphan (Robitussin Dm) 5 ml PO Q4H PRN PRN Reason: Cough Dextrose (Dextrose 5% In Water 1000 Ml) 1,000 mls @ 0 mls/hr IV .Q0M PRN; Protocol PRN Reason: Hypoglycemia Protocol Meropenem 1 gm/ Sodium (Chloride) 100 mls @ 100 mls/hr IVPB Q8H JAMAR; Protocol Last Admin: 07/29/18 06:57 Dose: 100 mls/hr Doxycycline Hyclate 100 mg/ (Sodium Chloride) 100 mls @ 100 mls/hr IVPB Q12H [facility]; Protocol Last Admin: 07/29/18 12:11 Dose: 100 mls/hr Insulin Glargine (Lantus) 20 unit SC [facility] Last Admin: 07/28/18 22:08 Dose: 20 unit Insulin Human Isoph/Insulin Regular (Novolin 70/30 (70/30 Units/Ml) 10 Ml) 20 units SC BIDAC [facility] Last Admin: 07/29/18 09:27 Dose: 20 units Lactobacillus Acidophilus (Lactobacillus) 1 cap PO TID [facility] Last Admin: 07/29/18 09:25 Dose: 1 cap Lisinopril (Zestril) 5 mg PO DAILY [facility] Last Admin: 07/29/18 09:26 Dose: 5 mg Magnesium Hydroxide (Milk Of Magnesia) 30 ml PO BID PRN PRN Reason: Constipation Miconazole (Monistat 7 Vag Suppository) 100 mg VG [facility] Last Admin: 07/28/18 22:08 Dose: 100 mg Oxycodone/Acetaminophen (Percocet 5/325 Mg Tab) 1 tab PO Q4H PRN PRN Reason: Pain, moderate (4-7) Stop: 07/30/18 09:34 Oxycodone/Acetaminophen (Percocet 5/325 Mg Tab) 2 tab PO Q4H PRN PRN Reason: Pain, severe (8-10) Stop: 07/30/18 09:34 Rosuvastatin Calcium (Crestor) 2.5 mg PO [facility] Last Admin: 07/28/18 22:10 Dose: Not Given Senna/Docusate Sodium (Senokot S 50 Mg-8.6 Mg) 1 tab PO BID [facility] Last Admin: 07/29/18 09:27 Dose: 1 tab Simethicone (Mylicon Chew Tab) 80 mg PO BID PRN PRN Reason: GI distress Last Admin: 07/29/18 09:25 Dose: 80 mg - Labs Labs: 07/29/18 07:05 07/29/18 07:05 PT 13.6 SECONDS (9.7-12.2) H 07/25/18 12:54 INR 1.2 07/25/18 12:54 APTT 26 SECONDS (21-34) 07/25/18 12:54 - Constitutional Appears: Well - Head Exam Head Exam: ATRAUMATIC, NORMAL INSPECTION, NORMOCEPHALIC - Eye Exam Eye Exam: EOMI, Normal appearance, PERRL Pupil Exam: NORMAL ACCOMODATION, PERRL - ENT Exam ENT Exam: Mucous Membranes Moist, Normal Exam - Neck Exam Neck Exam: Full ROM, Normal Inspection. absent: Lymphadenopathy - Respiratory Exam Respiratory Exam: Clear to Ausculation Bilateral, NORMAL BREATHING PATTERN - Cardiovascular Exam Cardiovascular Exam: REGULAR RHYTHM, +S1, +S2. absent: Murmur - GI/Abdominal Exam GI & Abdominal Exam: Soft, Normal Bowel Sounds. absent: Tenderness - Rectal Exam Rectal Exam: NORMAL INSPECTION - Exam Exam: Circumcision, NORMAL INSPECTION External exam: NORMAL EXTERNAL EXAM Speculum exam: NORMAL SPECULUM EXAM Bimanual exam: NORMAL BIMANUAL EXAM - Extremities Exam Extremities Exam: Full ROM, Pedal Edema. absent: Joint Swelling, Normal Inspection Additional comments: left toot dressing in place - Back Exam Back Exam: NORMAL INSPECTION - Neurological Exam Neurological Exam: Alert, Awake, CN II-XII Intact, Normal Gait, Oriented x3 - Psychiatric Exam Psychiatric exam: Normal Affect, Normal Mood - Skin Skin Exam: Dry, Intact, Normal Color, Warm Assessment and Plan (1) Cellulitis Status: Acute (2) Open wound Status: Acute (3) Sepsis Status: Acute (4) Uncontrolled diabetes mellitus Status: Acute (5) Osteomyelitis of foot, left, acute Status: Acute (6) Osteomyelitis of foot Status: Acute (7) Osteomyelitis of left foot Status: Acute (8) Gangrene of left foot Status: Acute - Assessment and Plan (Free Text) Assessment: s/p second ray resection / gangrene likely needs prison iv rx
--- NOTE | 2018-07-29 15:10 | CP.PCM.PN ---
Subjective - Date & Time of Evaluation Date of Evaluation: 07/29/18 Time of Evaluation: 15:07 - Subjective Subjective: Ramy Jacobsen PGY1 Progress Note for Dr. Faulkner Patient was examined at bedside this morning. She says she has gas in her stomach and has not yet passed a bowel movement. She denies fever, chills, shortness of breath, abdominal pain, nausea, vomiting, dysuria, diarrhea. Objective - Vital Signs/Intake and Output Vital Signs (last 24 hours): Temp Pulse Resp BP Pulse Ox 98.1 F 89 20 126/60 97 07/29/18 07:00 07/29/18 07:00 07/29/18 07:00 07/29/18 09:25 07/29/18 07:00 - Medications Medications: Current Medications Acetaminophen (Tylenol 325mg Tab) 975 mg PO ONCE PRN PRN Reason: Fever >100.4 F Last Admin: 07/29/18 05:31 Dose: 975 mg Acetaminophen (Tylenol 325mg Tab) 650 mg PO Q6 PRN PRN Reason: Fever >100.4 F Last Admin: 07/28/18 17:34 Dose: 650 mg Albuterol/Ipratropium (Duoneb 3 Mg/0.5 Mg (3 Ml) Ud) 3 ml INH RQ6 PRN PRN Reason: Shortness of Breath Clotrimazole (Lotrimin 1%) 0 gm TOP BID [facility] Last Admin: 07/29/18 09:27 Dose: 1 appl Dextrose (Dextrose 50% Inj) 0 ml IV STAT PRN; Protocol PRN Reason: Hypoglycemia Protocol Dextrose (Glutose 15) 0 gm PO ONCE PRN; Protocol PRN Reason: Hypoglycemia Protocol Famotidine (Pepcid) 20 mg PO DAILY [facility] Last Admin: 07/29/18 09:25 Dose: 20 mg Furosemide (Lasix) 20 mg PO DAILY [facility] Last Admin: 07/29/18 09:25 Dose: 20 mg Gabapentin (Neurontin) 300 mg PO BID [facility] Last Admin: 07/29/18 09:25 Dose: 300 mg Glucagon (Glucagen Diagnostic Kit) 0 mg IM STAT PRN; Protocol PRN Reason: Hypoglycemia Protocol Guaifenesin/Dextromethorphan (Robitussin Dm) 5 ml PO Q4H PRN PRN Reason: Cough Dextrose (Dextrose 5% In Water 1000 Ml) 1,000 mls @ 0 mls/hr IV .Q0M PRN; Protocol PRN Reason: Hypoglycemia Protocol Meropenem 1 gm/ Sodium (Chloride) 100 mls @ 100 mls/hr IVPB Q8H [facility]; Protocol Last Admin: 07/29/18 06:57 Dose: 100 mls/hr Doxycycline Hyclate 100 mg/ (Sodium Chloride) 100 mls @ 100 mls/hr IVPB Q12H [facility]; Protocol Last Admin: 07/29/18 12:11 Dose: 100 mls/hr Insulin Glargine (Lantus) 20 unit SC HS [facility] Last Admin: 07/28/18 22:08 Dose: 20 unit Insulin Human Isoph/Insulin Regular (Novolin 70/30 (70/30 Units/Ml) 10 Ml) 20 units SC BIDAC [facility] Last Admin: 07/29/18 09:27 Dose: 20 units Lactobacillus Acidophilus (Lactobacillus) 1 cap PO TID [facility] Last Admin: 07/29/18 09:25 Dose: 1 cap Lisinopril (Zestril) 5 mg PO DAILY [facility] Last Admin: 07/29/18 09:26 Dose: 5 mg Magnesium Hydroxide (Milk Of Magnesia) 30 ml PO BID PRN PRN Reason: Constipation Miconazole (Monistat 7 Vag Suppository) 100 mg VG [facility] Last Admin: 07/28/18 22:08 Dose: 100 mg Oxycodone/Acetaminophen (Percocet 5/325 Mg Tab) 1 tab PO Q4H PRN PRN Reason: Pain, moderate (4-7) Stop: 07/30/18 09:34 Oxycodone/Acetaminophen (Percocet 5/325 Mg Tab) 2 tab PO Q4H PRN PRN Reason: Pain, severe (8-10) Stop: 07/30/18 09:34 Rosuvastatin Calcium (Crestor) 2.5 mg PO [facility] Last Admin: 07/28/18 22:10 Dose: Not Given Senna/Docusate Sodium (Senokot S 50 Mg-8.6 Mg) 1 tab PO BID [facility] Last Admin: 07/29/18 09:27 Dose: 1 tab Simethicone (Mylicon Chew Tab) 80 mg PO BID PRN PRN Reason: GI distress Last Admin: 07/29/18 09:25 Dose: 80 mg - Labs Labs: 07/29/18 07:05 07/29/18 07:05 PT 13.6 SECONDS (9.7-12.2) H 07/25/18 12:54 INR 1.2 07/25/18 12:54 APTT 26 SECONDS (21-34) 07/25/18 12:54 - Additional Findings Additional findings: - Constitutional Appears: No Acute Distress, Chronically Ill - Head Exam Head Exam: ATRAUMATIC, NORMAL INSPECTION - Eye Exam Additional comments: complete - left eye; partial right eye - Respiratory Exam Respiratory Exam: Clear to Auscultation Bilateral, NORMAL BREATHING PATTERN, no wheezing, no stridor. - Cardiovascular Exam Cardiovascular Exam: REGULAR RHYTHM, +S1, +S2 - GI/Abdominal Exam GI & Abdominal Exam: Normal Bowel Sounds, Soft. absent: Tenderness - Extremities Exam Right midline seems to be leaking. Additional comments: Left foot is s/p 2nd ray amputation. Dressing is clean, dry, intact, no edema in the lower extremity. No active bleeding. - Neurological Exam Neurological exam: Alert, Oriented x3 - Psychiatric Exam Psychiatric exam: Anxious. Normal affect. - Skin Skin Exam: Rash (dark rash to lower extremities) Assessment and Plan - Assessment and Plan (Free Text) Assessment: 52 year old female with past medical history of diabetes type II, HTN, blindness (complete - left eye; partial right eye) who presented to the ER for a left foot infection. Underwent left second toe ray amputation on 07/27/18. 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 Fox --> help appreciated - ID Consult: Dr. Davila --> help appreciated * Merrem 1g IV q8h * Doxycycline 100 mg IVPB q12 * PICC line ordered, need consent from daughter Ceci (number in physical chart) * abx recs upon d/c: Rocephin 1g IV q2h and Doxy 100mg IVP q12h x 6 weeks - ICU was consulted --> help appreciated - Left foot wound culture shows beta hemolytic strep b sensitive to ampicilin, PCN, vanco - BCx negative to date - UCx shows erma negative kenyatta On Merrem already - Medications * Tylenol prn - fever * Percocet q6prn for pain - Images: * Foot Xray: Findings related to prior resection distal 1st metatarsal. Amputation at the level of the proximal phalanx 5th digit. Ventral ulceration medial aspect of the left foot distally. Suggestion of air within the soft tissues. In the absence of recent surgical history gas-forming organism should be considered. * Ankle Xray: Presumed chronic changes midshaft left tibia. * Tibia/Fibula Xray: Unremarkable radiographs of the left tibia and fibula. * LE venous doppler: pt refused - Bandemia/leukocytosis resolved Elevated proBNP - proBNP: 1560 - Trop: negative - Chest Xray: No consolidative infiltrate. Mild cardiomegaly and mild pulmonary venous congestion suspect - ECHO: mild concentric LVH with normal EF of 65-70%, mild TR - Medications: * Lasix 20mg po daily History of Diabetes - HgbA1c 14 - Lipid panel: elevated TG, low HDL - Medications: * Novolin 70/30 20u SC BID * Lantus 20units SC HS * Lisinopril 5mg po daily * Crestor 2.5mg po HS - Hypoglycemia Protocol - Accuchecks Vaginal itching - Miconazole 100 mg VG HS Haleigh to lower extremities - Clomitrazole cream to affected areas BID History of HTN - Continue Lisinopril 5mg po daily History of Neuropathy - Continue Gabapentin 300mg po bid Prophylaxis - Physical Therapy - Anti-coagulation - Lactobacillus 1 cap po tid, Senjuan jose knowles - Simethicone Dispo: Patient medically stable for d/c. Requiring CASTRO placement for IV antibiotics. Patient requests going back to [facility]. Case discussed with Dr. Faulknre
[2018-07-29] MEDS: guaiFENesin DM 100 mg-10 mg/5 ml UD PO PRN ×2 (16:21→21:48)
[2018-07-29] MEDS: Miconazole 100 MG Vaginal Supp VG SCH ×2 (21:46→23:50)
[2018-07-29] MEDS: (Lantus) Insulin Glargine, Recombinant SC SCH (21:46)
[2018-07-29] MEDS: Rosuvastatin Calcium 2.5 mg Tab PO SCH (21:47)
--- NOTE | 2018-07-29 22:38 | CP.PCM.PN ---
Subjective - Date & Time of Evaluation Date of Evaluation: 07/29/18 Time of Evaluation: 10:00 - Subjective Subjective: Podiatry progress note - Dr. Fox 52F seen and evaluated POD#2 left foot partial 2nd ray amputation. Patient reports pain in left foot well controlled. No new lower extremity complaints. Dressing clean/dry/intact. Denies n/v/f/d/c/sob/de leon/cp. Objective - Vital Signs/Intake and Output Vital Signs (last 24 hours): Temp Pulse Resp BP Pulse Ox 98.1 F 88 20 143/73 97 07/29/18 16:23 07/29/18 16:23 07/29/18 16:23 07/29/18 16:23 07/29/18 16:23 - Medications Medications: Current Medications Acetaminophen (Tylenol 325mg Tab) 975 mg PO ONCE PRN PRN Reason: Fever >100.4 F Last Admin: 07/29/18 05:31 Dose: 975 mg Acetaminophen (Tylenol 325mg Tab) 650 mg PO Q6 PRN PRN Reason: Pain, moderate (4-7) Last Admin: 07/29/18 16:21 Dose: 650 mg Albuterol/Ipratropium (Duoneb 3 Mg/0.5 Mg (3 Ml) Ud) 3 ml INH RQ6 PRN PRN Reason: Shortness of Breath Clotrimazole (Lotrimin 1%) 0 gm TOP BID [facility] Last Admin: 07/29/18 17:52 Dose: 1 appl Dextrose (Dextrose 50% Inj) 0 ml IV STAT PRN; Protocol PRN Reason: Hypoglycemia Protocol Dextrose (Glutose 15) 0 gm PO ONCE PRN; Protocol PRN Reason: Hypoglycemia Protocol Famotidine (Pepcid) 20 mg PO DAILY [facility] Last Admin: 07/29/18 09:25 Dose: 20 mg Furosemide (Lasix) 20 mg PO DAILY [facility] Last Admin: 07/29/18 09:25 Dose: 20 mg Gabapentin (Neurontin) 300 mg PO BID [facility] Last Admin: 07/29/18 17:51 Dose: 300 mg Glucagon (Glucagen Diagnostic Kit) 0 mg IM STAT PRN; Protocol PRN Reason: Hypoglycemia Protocol Guaifenesin/Dextromethorphan (Robitussin Dm) 5 ml PO Q4H PRN PRN Reason: Cough Last Admin: 07/29/18 21:48 Dose: 5 ml Dextrose (Dextrose 5% In Water 1000 Ml) 1,000 mls @ 0 mls/hr IV .Q0M PRN; Protocol PRN Reason: Hypoglycemia Protocol Meropenem 1 gm/ Sodium (Chloride) 100 mls @ 100 mls/hr IVPB Q8H [facility]; Protocol Last Admin: 07/29/18 15:55 Dose: 100 mls/hr Doxycycline Hyclate 100 mg/ (Sodium Chloride) 100 mls @ 100 mls/hr IVPB Q12H [facility]; Protocol Last Admin: 07/29/18 12:11 Dose: 100 mls/hr Insulin Glargine (Lantus) 20 unit SC [facility] Last Admin: 07/29/18 21:46 Dose: 20 unit Insulin Human Isoph/Insulin Regular (Novolin 70/30 (70/30 Units/Ml) 10 Ml) 20 units SC BIDAC [facility] Last Admin: 07/29/18 17:51 Dose: 20 units Lactobacillus Acidophilus (Lactobacillus) 1 cap PO TID [facility] Last Admin: 07/29/18 17:52 Dose: 1 cap Lisinopril (Zestril) 5 mg PO DAILY [facility] Last Admin: 07/29/18 09:26 Dose: 5 mg Magnesium Hydroxide (Milk Of Magnesia) 30 ml PO BID PRN PRN Reason: Constipation Last Admin: 07/29/18 16:21 Dose: 30 ml Miconazole (Monistat 7 Vag Suppository) 100 mg VG [facility] Last Admin: 07/29/18 21:46 Dose: 100 mg Oxycodone/Acetaminophen (Percocet 5/325 Mg Tab) 1 tab PO Q4H PRN PRN Reason: Pain, moderate (4-7) Stop: 07/30/18 09:34 Oxycodone/Acetaminophen (Percocet 5/325 Mg Tab) 2 tab PO Q4H PRN PRN Reason: Pain, severe (8-10) Stop: 07/30/18 09:34 Rosuvastatin Calcium (Crestor) 2.5 mg PO [facility] Last Admin: 07/29/18 21:47 Dose: Not Given Senna/Docusate Sodium (Senokot S 50 Mg-8.6 Mg) 1 tab PO BID [facility] Last Admin: 07/29/18 17:53 Dose: 1 tab Simethicone (Mylicon Chew Tab) 80 mg PO BID PRN PRN Reason: GI distress Last Admin: 07/29/18 09:25 Dose: 80 mg - Labs Labs: 07/29/18 07:05 07/29/18 07:05 PT 13.6 SECONDS (9.7-12.2) H 07/25/18 12:54 INR 1.2 07/25/18 12:54 APTT 26 SECONDS (21-34) 07/25/18 12:54 - Constitutional Appears: Non-toxic, No Acute Distress - Extremities Exam Additional comments: LLE focused VASC: DP/PT pulses are palpable, cap refill time: < 3 sec to digit 4 and 5, Temp gradient warm to cool, diffuse non-pitting edema noticed distal to the mid leg DERM: surgical site exhibits normal healing, sutures intact, packing in place, no pus or purulent discharge appreciated, mild sanguinous drainage, no evidence of gangrene or infection at other digits or rest of foot ORTHO: no pain on palpation of the surgical site NEURO: gross and protective sensation mildly diminished - Neurological Exam Neurological Exam: Alert, Awake, Oriented x3 - Psychiatric Exam Psychiatric exam: Normal Affect, Normal Mood Assessment and Plan - Assessment and Plan (Free Text) Assessment: 52F POD 2 left second ray partial amputation Plan: Patient seen and evaluated alongside attending, Dr. Fox Afebrile, absent leukocytosis Continue local wound care: packing d/c, saline wet to dry, DSD Activity: PWB left heel; surgical shoe ordered Continue abx per ID - likely needs oil heaterman abx Recommending CASTRO for continued abx/physical therapy Podiatry will continue to follow
[2018-07-30] MEDS: Meropenem 1 GM in Sodium Chloride 0.9% 100 ML IVPB SCH ×4 (07:38→22:27)
[2018-07-30] MEDS: (Novolin 70/30) NPH/Regular 70/30 Units/ml 10 ml vial SC SCH ×2 (07:41→18:21)
[2018-07-30] MEDS ORDERED: Magnesium Hydroxide Susp 30 ml UD PO PRN (07:46)
[2018-07-30] MEDS: Lactobacillus Acidophilus 500 MU Cap PO SCH ×3 (09:22→18:21)
[2018-07-30] MEDS: Bisacodyl 5mg EC Tab PO SCH (09:22)
[2018-07-30] MEDS: Docusate-Senna 50 mg-8.6 mg Tab PO SCH ×2 (09:23→18:24)
[2018-07-30] MEDS: Clotrimazole 1% Cream(30 gm) TOP SCH ×2 (09:24→22:29)
--- NOTE | 2018-07-30 12:27 | CP.PCM.PN ---
Subjective - Date & Time of Evaluation Date of Evaluation: 07/30/18 Time of Evaluation: 09:00 - Subjective Subjective: comfortable s/p 2nd ray amputation left foot for gangrene Objective - Vital Signs/Intake and Output Vital Signs (last 24 hours): Temp Pulse Resp BP Pulse Ox 98.1 F 100 H 20 144/77 100 07/30/18 08:00 07/30/18 08:00 07/30/18 08:00 07/30/18 09:22 07/30/18 08:00 - Medications Medications: Current Medications Acetaminophen (Tylenol 325mg Tab) 975 mg PO ONCE PRN PRN Reason: Fever >100.4 F Last Admin: 07/30/18 07:43 Dose: 975 mg Acetaminophen (Tylenol 325mg Tab) 650 mg PO Q6 PRN PRN Reason: Pain, moderate (4-7) Last Admin: 07/29/18 16:21 Dose: 650 mg Albuterol/Ipratropium (Duoneb 3 Mg/0.5 Mg (3 Ml) Ud) 3 ml INH RQ6 PRN PRN Reason: Shortness of Breath Bisacodyl (Dulcolax) 10 mg PO DAILY [facility] Last Admin: 07/30/18 09:22 Dose: 10 mg Clotrimazole (Lotrimin 1%) 0 gm TOP BID [facility] Last Admin: 07/30/18 09:24 Dose: 1 appl Dextrose (Dextrose 50% Inj) 0 ml IV STAT PRN; Protocol PRN Reason: Hypoglycemia Protocol Dextrose (Glutose 15) 0 gm PO ONCE PRN; Protocol PRN Reason: Hypoglycemia Protocol Famotidine (Pepcid) 20 mg PO DAILY [facility] Last Admin: 07/30/18 09:22 Dose: 20 mg Furosemide (Lasix) 20 mg PO DAILY [facility] Last Admin: 07/30/18 09:22 Dose: 20 mg Gabapentin (Neurontin) 300 mg PO BID [facility] Last Admin: 07/30/18 09:22 Dose: 300 mg Glucagon (Glucagen Diagnostic Kit) 0 mg IM STAT PRN; Protocol PRN Reason: Hypoglycemia Protocol Guaifenesin/Dextromethorphan (Robitussin Dm) 5 ml PO Q4H PRN PRN Reason: Cough Last Admin: 07/29/18 21:48 Dose: 5 ml Dextrose (Dextrose 5% In Water 1000 Ml) 1,000 mls @ 0 mls/hr IV .Q0M PRN; Protocol PRN Reason: Hypoglycemia Protocol Meropenem 1 gm/ Sodium (Chloride) 100 mls @ 100 mls/hr IVPB Q8H [facility]; Protocol Last Admin: 07/30/18 07:38 Dose: 100 mls/hr Doxycycline Hyclate 100 mg/ (Sodium Chloride) 100 mls @ 100 mls/hr IVPB Q12H [facility]; Protocol Last Admin: 07/30/18 11:11 Dose: 100 mls/hr Insulin Glargine (Lantus) 20 unit SC HS [facility] Last Admin: 07/29/18 21:46 Dose: 20 unit Insulin Human Isoph/Insulin Regular (Novolin 70/30 (70/30 Units/Ml) 10 Ml) 20 units SC BIDAC [facility] Last Admin: 07/30/18 07:41 Dose: 20 units Lactobacillus Acidophilus (Lactobacillus) 1 cap PO TID [facility] Last Admin: 07/30/18 09:22 Dose: 1 cap Lisinopril (Zestril) 5 mg PO DAILY [facility] Last Admin: 07/30/18 09:22 Dose: 5 mg Magnesium Hydroxide (Milk Of Magnesia) 60 ml PO BID PRN PRN Reason: Constipation Miconazole (Monistat 7 Vag Suppository) 100 mg VG [facility] Last Admin: 07/29/18 23:50 Dose: Not Given Pneumococcal Polyvalent Vaccine (Pneumovax 23 Vaccine) 0.5 ml IM .ONCE ONE Stop: 07/31/18 10:01 Rosuvastatin Calcium (Crestor) 2.5 mg PO [facility] Last Admin: 07/29/18 21:47 Dose: Not Given Senna/Docusate Sodium (Senokot S 50 Mg-8.6 Mg) 2 tab PO BID [facility] Last Admin: 07/30/18 09:23 Dose: 2 tab Simethicone (Mylicon Chew Tab) 80 mg PO Q4H PRN PRN Reason: GI distress - Labs Labs: 07/29/18 07:05 07/29/18 07:05 PT 13.6 SECONDS (9.7-12.2) H 07/25/18 12:54 INR 1.2 07/25/18 12:54 APTT 26 SECONDS (21-34) 07/25/18 12:54 - Constitutional Appears: Non-toxic, Chronically Ill - Head Exam Head Exam: NORMOCEPHALIC - Eye Exam Eye Exam: absent: Scleral icterus - ENT Exam ENT Exam: Mucous Membranes Dry - Neck Exam Neck Exam: absent: Lymphadenopathy - Respiratory Exam Respiratory Exam: Decreased Breath Sounds - Cardiovascular Exam Cardiovascular Exam: REGULAR RHYTHM - GI/Abdominal Exam GI & Abdominal Exam: Distended, Soft. absent: Tenderness - Rectal Exam Rectal Exam: Deferred - Exam Exam: NORMAL INSPECTION - Extremities Exam Extremities Exam: absent: Pedal Edema - Back Exam Back Exam: absent: CVA tenderness (L), CVA tenderness (R) - Neurological Exam Neurological Exam: Alert, Awake, Oriented x3 - Psychiatric Exam Psychiatric exam: Normal Mood - Skin Skin Exam: Dry Assessment and Plan (1) Cellulitis Status: Acute (2) Open wound Status: Acute (3) Sepsis Status: Acute (4) Uncontrolled diabetes mellitus Status: Acute (5) Osteomyelitis of foot, left, acute Status: Acute (6) Osteomyelitis of foot Status: Acute (7) Osteomyelitis of left foot Status: Acute (8) Gangrene of left foot Status: Acute - Assessment and Plan (Free Text) Assessment: comfortable s/p 2nd ray amputation left foot for gangrene Plan: rx as OM
[2018-07-30] MEDS: guaiFENesin DM 100 mg-10 mg/5 ml UD PO PRN (12:36)
--- NOTE | 2018-07-30 13:34 | CP.PCM.PN ---
Subjective - Date & Time of Evaluation Date of Evaluation: 07/30/18 Time of Evaluation: 13:27 - Subjective Subjective: Genefra Chuyadela PGY1 Progress Note for Dr. Faulkner Pt was examined at bedside this morning. She reports continuation of the feeling of gas in her abdomen and denies any bowel movements yet. She denies fever, chills, nausea, vomiting, shortness of breath, chest pain. Objective - Vital Signs/Intake and Output Vital Signs (last 24 hours): Temp Pulse Resp BP Pulse Ox 98.1 F 100 H 20 144/77 100 07/30/18 08:00 07/30/18 08:00 07/30/18 08:00 07/30/18 09:22 07/30/18 08:00 - Medications Medications: Current Medications Acetaminophen (Tylenol 325mg Tab) 975 mg PO ONCE PRN PRN Reason: Fever >100.4 F Last Admin: 07/30/18 07:43 Dose: 975 mg Acetaminophen (Tylenol 325mg Tab) 650 mg PO Q6 PRN PRN Reason: Pain, moderate (4-7) Last Admin: 07/29/18 16:21 Dose: 650 mg Albuterol/Ipratropium (Duoneb 3 Mg/0.5 Mg (3 Ml) Ud) 3 ml INH RQ6 PRN PRN Reason: Shortness of Breath Bisacodyl (Dulcolax) 10 mg PO DAILY [facility] Last Admin: 07/30/18 09:22 Dose: 10 mg Clotrimazole (Lotrimin 1%) 0 gm TOP BID [facility] Last Admin: 07/30/18 09:24 Dose: 1 appl Dextrose (Dextrose 50% Inj) 0 ml IV STAT PRN; Protocol PRN Reason: Hypoglycemia Protocol Dextrose (Glutose 15) 0 gm PO ONCE PRN; Protocol PRN Reason: Hypoglycemia Protocol Famotidine (Pepcid) 20 mg PO DAILY [facility] Last Admin: 07/30/18 09:22 Dose: 20 mg Furosemide (Lasix) 20 mg PO DAILY [facility] Last Admin: 07/30/18 09:22 Dose: 20 mg Gabapentin (Neurontin) 300 mg PO BID [facility] Last Admin: 07/30/18 09:22 Dose: 300 mg Glucagon (Glucagen Diagnostic Kit) 0 mg IM STAT PRN; Protocol PRN Reason: Hypoglycemia Protocol Guaifenesin/Dextromethorphan (Robitussin Dm) 5 ml PO Q4H PRN PRN Reason: Cough Last Admin: 07/30/18 12:36 Dose: 5 ml Dextrose (Dextrose 5% In Water 1000 Ml) 1,000 mls @ 0 mls/hr IV .Q0M PRN; Protocol PRN Reason: Hypoglycemia Protocol Meropenem 1 gm/ Sodium (Chloride) 100 mls @ 100 mls/hr IVPB Q8H [facility]; Protocol Last Admin: 07/30/18 07:38 Dose: 100 mls/hr Doxycycline Hyclate 100 mg/ (Sodium Chloride) 100 mls @ 100 mls/hr IVPB Q12H [facility]; Protocol Last Admin: 07/30/18 11:11 Dose: 100 mls/hr Insulin Glargine (Lantus) 20 unit SC [facility] Last Admin: 07/29/18 21:46 Dose: 20 unit Insulin Human Isoph/Insulin Regular (Novolin 70/30 (70/30 Units/Ml) 10 Ml) 20 units SC BIDAC [facility] Last Admin: 07/30/18 07:41 Dose: 20 units Lactobacillus Acidophilus (Lactobacillus) 1 cap PO TID [facility] Last Admin: 07/30/18 09:22 Dose: 1 cap Lisinopril (Zestril) 5 mg PO DAILY [facility] Last Admin: 07/30/18 09:22 Dose: 5 mg Magnesium Hydroxide (Milk Of Magnesia) 60 ml PO BID PRN PRN Reason: Constipation Miconazole (Monistat 7 Vag Suppository) 100 mg VG [facility] Last Admin: 07/29/18 23:50 Dose: Not Given Pneumococcal Polyvalent Vaccine (Pneumovax 23 Vaccine) 0.5 ml IM .ONCE ONE Stop: 07/31/18 10:01 Rosuvastatin Calcium (Crestor) 2.5 mg PO [facility] Last Admin: 07/29/18 21:47 Dose: Not Given Senna/Docusate Sodium (Senokot S 50 Mg-8.6 Mg) 2 tab PO BID [facility] Last Admin: 07/30/18 09:23 Dose: 2 tab Simethicone (Mylicon Chew Tab) 80 mg PO Q4H PRN PRN Reason: GI distress - Labs Labs: 07/29/18 07:05 07/29/18 07:05 PT 13.6 SECONDS (9.7-12.2) H 07/25/18 12:54 INR 1.2 07/25/18 12:54 APTT 26 SECONDS (21-34) 07/25/18 12:54 - Additional Findings Additional findings: - Constitutional Appears: No Acute Distress, Chronically Ill - Head Exam Head Exam: ATRAUMATIC, NORMAL INSPECTION - Eye Exam Additional comments: complete - left eye; partial right eye - Respiratory Exam Respiratory Exam: Clear to Auscultation Bilateral, NORMAL BREATHING PATTERN, no wheezing, no stridor. - Cardiovascular Exam Cardiovascular Exam: REGULAR RHYTHM, +S1, +S2 - GI/Abdominal Exam GI & Abdominal Exam: Normal Bowel Sounds, Soft. absent: Tenderness - Extremities Exam Right midline seems to be leaking. Additional comments: Left foot is s/p 2nd ray amputation. Dressing is clean, dry, intact, no edema in the lower extremity. No active bleeding. - Neurological Exam Neurological exam: Alert, Oriented x3 - Psychiatric Exam Psychiatric exam: Anxious. Normal affect. - Skin Skin Exam: Rash (dark rash to lower extremities) Assessment and Plan - Assessment and Plan (Free Text) Assessment: 52 year old female with past medical history of diabetes type II, HTN, blindness (complete - left eye; partial right eye) who presented to the ER for a left foot infection. Underwent left second toe ray amputation on 07/27/18. 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 Fox --> help appreciated - ID Consult: Dr. Davila --> help appreciated * Merrem 1g IV q8h * Doxycycline 100 mg IVPB q12 * PICC line ordered, need consent from daughter Ceci [phone] * abx recs upon d/c: Rocephin 1g IV q2h and Doxy 100mg IVP q12h x 6 weeks - ICU was consulted --> help appreciated - Left foot wound culture shows beta hemolytic strep b sensitive to ampicilin, PCN, vanco - BCx negative to date - UCx shows erma negative kenyatta On Merem - Medications * Tylenol prn - fever * Percocet q6prn for pain - Images: * Foot Xray: Findings related to prior resection distal 1st metatarsal. Amputation at the level of the proximal phalanx 5th digit. Ventral ulceration medial aspect of the left foot distally. Suggestion of air within the soft tissues. In the absence of recent surgical history gas-forming organism should be considered. * Ankle Xray: Presumed chronic changes midshaft left tibia. * Tibia/Fibula Xray: Unremarkable radiographs of the left tibia and fibula. * LE venous doppler: pt refused - Bandemia/leukocytosis resolved Elevated proBNP - proBNP: 1560 - Trop: negative - Chest Xray: No consolidative infiltrate. Mild cardiomegaly and mild pulmonary venous congestion suspect - ECHO: mild concentric LVH with normal EF of 65-70%, mild TR - Medications: * Lasix 20mg po daily History of Diabetes - HgbA1c 14 - Lipid panel: elevated TG, low HDL - Medications: * Novolin 70/30 20u SC BID * Lantus 20units SC HS * Lisinopril 5mg po daily * Crestor 2.5mg po HS - Hypoglycemia Protocol - Accuchecks Vaginal itching - Miconazole 100 mg VG [facility] to lower extremities - Clomitrazole cream to affected areas BID History of HTN - Continue Lisinopril 5mg po daily History of Neuropathy - Continue Gabapentin 300mg po bid Prophylaxis - Physical Therapy: recommending CASTRO - Anti-coagulation - Lactobacillus 1 cap po tid, Sennakot, pepcid, Simethicone Dispo: Patient medically stable for d/c. Requiring CASTRO placement for IV antibiotics. Patient requests going back to [facility]. Case discussed with Dr. Faulkner
[2018-07-30] MEDS ORDERED: Magnesium Citrate Oral SOL (300 ml) PO ONE (14:15)
--- NOTE | 2018-07-30 16:42 | RAD ---
Date of service: 07/30/2018 HISTORY: patient with cough and throat tightness COMPARISON: 07/28/2018. FINDINGS: LUNGS: The lungs are well inflated. There is mild pulmonary venous congestion. No focal consolidation. PLEURA: No pleural effusions or pneumothorax. CARDIOVASCULAR: There is mild cardiomegaly. No aortic atherosclerotic calcifications present. OSSEOUS STRUCTURES: Within normal limits for the patient's age. VISUALIZED UPPER ABDOMEN: Normal. OTHER FINDINGS: None. IMPRESSION: No active pulmonary disease.
[2018-07-30] MEDS: (Lantus) Insulin Glargine, Recombinant SC SCH (21:36)
[2018-07-30] MEDS: Miconazole 100 MG Vaginal Supp VG SCH (21:36)
[2018-07-30] MEDS: Rosuvastatin Calcium 2.5 mg Tab PO SCH (21:36)
[2018-07-31] MEDS: Meropenem 1 GM in Sodium Chloride 0.9% 100 ML IVPB SCH ×3 (06:13→22:17)
[2018-07-31 07:00] LABS: BASO # 0.1 K/uL (0.0-0.2); BASO % 1.7 % (0.0-2.0); EOS # 0.1 K/uL (0.0-0.7); EOS % 2.7 % (0.0-4.0); HEMOGLOBIN 8.5 g/dL (11.0-16.0); LYMPH % 19.6 % (20.0-40.0); MEAN CORPUSCULAR HEMOGLOBIN 27.2 pg (27.0-31.0); MEAN CORPUSCULAR HGB CONC 33.2 g/dL (33.0-37.0); MEAN PLATELET VOLUME 8.3 fL (7.2-11.7); MONO # 0.7 K/uL (0.0-0.8); MONO % 13.4 % (0.0-10.0); NEUT # 3.1 K/uL (1.8-7.0); NEUT % 62.6 % (50.0-75.0); NRBC % 0.1 % (0.0-2.0); RBC 3.11 Mil/uL (3.80-5.20); RED CELL DISTRIBUTION WIDTH 15.5 % (11.5-14.5); WHITE BLOOD COUNT 4.9 K/uL (4.8-10.8)
[2018-07-31 07:38] LABS: ALB/GLOB RATIO 0.8 (1.0-2.1); ALBUMIN 3.1 g/dL (3.5-5.0); ALT/SGPT 12 U/L (9-52); AST/SGOT 26 U/L (14-36); BLOOD UREA NITROGEN 20 mg/dL (7-17); CALCIUM 8.8 mg/dl (8.6-10.4); GFR NON-AFRICAN AMERICAN > 60
[2018-07-31 08:02] LABS: HEPATITIS B SURFACE AG Negative (NEGATIVE)
[2018-07-31 08:07] LABS: HEPATITIS A IGM NEGATIVE (NEGATIVE); HEPATITIS B CORE AB NEGATIVE (NEGATIVE)
[2018-07-31 08:19] LABS: HEPATITIS C ANTIBODY NEGATIVE (NEGATIVE)
[2018-07-31] MEDS: (Novolin 70/30) NPH/Regular 70/30 Units/ml 10 ml vial SC SCH ×2 (08:30→17:26)
--- NOTE | 2018-07-31 09:29 | CP.PCM.PN ---
Subjective - Date & Time of Evaluation Date of Evaluation: 07/30/18 Time of Evaluation: 12:00 - Subjective Subjective: Podiatry progress note - Dr. Fox 52F seen and evaluated POD#3 left foot partial 2nd ray amputation. Patient states she worked with physical therapy today, tolerated well and was able to ambulate without significant issues. No new lower extremity complaints. Dressing clean/dry/intact. Denies n/v/f/d/c/sob/de leon/cp. Objective - Vital Signs/Intake and Output Vital Signs (last 24 hours): Temp Pulse Resp BP Pulse Ox 97.6 F 98 H 20 141/73 95 07/31/18 07:00 07/31/18 07:00 07/31/18 07:00 07/31/18 07:00 07/31/18 07:00 - Medications Medications: Current Medications Acetaminophen (Tylenol 325mg Tab) 975 mg PO ONCE PRN PRN Reason: Fever >100.4 F Last Admin: 07/30/18 07:43 Dose: 975 mg Acetaminophen (Tylenol 325mg Tab) 650 mg PO Q6 PRN PRN Reason: Pain, moderate (4-7) Last Admin: 07/31/18 06:18 Dose: 650 mg Albuterol/Ipratropium (Duoneb 3 Mg/0.5 Mg (3 Ml) Ud) 3 ml INH RQ6 PRN PRN Reason: Shortness of Breath Alprazolam (Xanax) 0.5 mg PO TID PRN PRN Reason: Anxiety Bisacodyl (Dulcolax) 10 mg PO DAILY [facility] Last Admin: 07/30/18 09:22 Dose: 10 mg Clotrimazole (Lotrimin 1%) 0 gm TOP BID [facility] Last Admin: 07/30/18 22:29 Dose: 1 appl Dextrose (Dextrose 50% Inj) 0 ml IV STAT PRN; Protocol PRN Reason: Hypoglycemia Protocol Dextrose (Glutose 15) 0 gm PO ONCE PRN; Protocol PRN Reason: Hypoglycemia Protocol Famotidine (Pepcid) 20 mg PO DAILY [facility] Last Admin: 07/30/18 09:22 Dose: 20 mg Furosemide (Lasix) 20 mg PO DAILY [facility] Last Admin: 07/30/18 09:22 Dose: 20 mg Gabapentin (Neurontin) 300 mg PO BID [facility] Last Admin: 07/30/18 18:21 Dose: 300 mg Glucagon (Glucagen Diagnostic Kit) 0 mg IM STAT PRN; Protocol PRN Reason: Hypoglycemia Protocol Guaifenesin (Mucinex La) 600 mg PO BID [facility] Guaifenesin/Dextromethorphan (Robitussin Dm) 5 ml PO Q4H PRN PRN Reason: Cough Last Admin: 07/30/18 12:36 Dose: 5 ml Dextrose (Dextrose 5% In Water 1000 Ml) 1,000 mls @ 0 mls/hr IV .Q0M PRN; Protocol PRN Reason: Hypoglycemia Protocol Meropenem 1 gm/ Sodium (Chloride) 100 mls @ 100 mls/hr IVPB Q8H [facility]; Protocol Last Admin: 07/31/18 06:13 Dose: 100 mls/hr Doxycycline Hyclate 100 mg/ (Sodium Chloride) 100 mls @ 100 mls/hr IVPB Q12H [facility]; Protocol Last Admin: 07/30/18 23:59 Dose: 100 mls/hr Insulin Glargine (Lantus) 20 unit SC [facility] Last Admin: 07/30/18 21:36 Dose: Not Given Insulin Human Isoph/Insulin Regular (Novolin 70/30 (70/30 Units/Ml) 10 Ml) 20 units SC BIDAC [facility] Last Admin: 07/30/18 18:21 Dose: 20 units Lactobacillus Acidophilus (Lactobacillus) 1 cap PO TID [facility] Last Admin: 07/30/18 18:21 Dose: 1 cap Lisinopril (Zestril) 5 mg PO DAILY [facility] Last Admin: 07/30/18 09:22 Dose: 5 mg Magnesium Hydroxide (Milk Of Magnesia) 60 ml PO BID PRN PRN Reason: Constipation Miconazole (Monistat 7 Vag Suppository) 100 mg VG [facility] Last Admin: 07/30/18 21:36 Dose: Not Given Pneumococcal Polyvalent Vaccine (Pneumovax 23 Vaccine) 0.5 ml IM .ONCE ONE Stop: 07/31/18 10:01 Rosuvastatin Calcium (Crestor) 2.5 mg PO [facility] Last Admin: 07/30/18 21:36 Dose: Not Given Senna/Docusate Sodium (Senokot S 50 Mg-8.6 Mg) 2 tab PO BID [facility] Last Admin: 07/30/18 18:24 Dose: Not Given Simethicone (Mylicon Chew Tab) 80 mg PO Q4H PRN PRN Reason: GI distress - Labs Labs: 07/31/18 06:54 07/31/18 06:54 PT 13.6 SECONDS (9.7-12.2) H 07/25/18 12:54 INR 1.2 07/25/18 12:54 APTT 26 SECONDS (21-34) 07/25/18 12:54 - Constitutional Appears: Non-toxic, No Acute Distress - Extremities Exam Additional comments: LLE focused VASC: DP/PT pulses are palpable, cap refill time: < 3 sec to digit 4 and 5, Temp gradient warm to cool, diffuse non-pitting edema noticed distal to the mid leg DERM: surgical site exhibits normal healing, sutures intact, no pus or purulent discharge appreciated, mild sanguinous drainage, no evidence of gangrene or infection at other digits or rest of foot ORTHO: no pain on palpation of the surgical site NEURO: gross and protective sensation mildly diminished - Neurological Exam Neurological Exam: Alert, Awake, Oriented x3 - Psychiatric Exam Psychiatric exam: Anxious Assessment and Plan - Assessment and Plan (Free Text) Assessment: 52F POD3 left second ray partial amputation Plan: Patient seen and evaluated Discussed with attending, Dr. Fox Continue local wound care: saline wet to dry, DSD Activity: PWB left heel; surgical shoe ordered Continue PT/OT Continue abx per ID - likely needs assisted abx Recommending [facility]STR[facility] for continued abx/physical therapy Podiatry will continue to follow
[2018-07-31] MEDS: guaiFENesin 600 mg ER Tab PO SCH ×2 (09:48→17:41)
[2018-07-31] MEDS: Lactobacillus Acidophilus 500 MU Cap PO SCH ×3 (09:48→17:25)
[2018-07-31] MEDS: Clotrimazole 1% Cream(30 gm) TOP SCH ×2 (09:50→17:40)
[2018-07-31] MEDS: Bisacodyl 5mg EC Tab PO SCH (09:50)
[2018-07-31] MEDS: guaiFENesin DM 100 mg-10 mg/5 ml UD PO PRN (09:50)
[2018-07-31] MEDS: Docusate-Senna 50 mg-8.6 mg Tab PO SCH ×2 (09:51→17:25)
[2018-07-31] MEDS ORDERED: Pneumococcal 23-Valent Vaccine IM ONE (10:00)
--- NOTE | 2018-07-31 12:19 | CP.PCM.PN ---
Subjective - Date & Time of Evaluation Date of Evaluation: 07/31/18 Time of Evaluation: 12:19 - Subjective Subjective: Podiatry progress note - Dr. Fox 52F seen and evaluated POD#4 left foot partial 2nd ray amputation. No new lower extremity complaints per patient. Denies n/v/f/d/c/sob/de leon/cp. Patient had BM overnight. Objective - Vital Signs/Intake and Output Vital Signs (last 24 hours): Temp Pulse Resp BP Pulse Ox 97.6 F 90 20 124/66 95 07/31/18 07:00 07/31/18 09:54 07/31/18 07:00 07/31/18 09:54 07/31/18 07:00 - Medications Medications: Current Medications Acetaminophen (Tylenol 325mg Tab) 975 mg PO ONCE PRN PRN Reason: Fever >100.4 F Last Admin: 07/30/18 07:43 Dose: 975 mg Acetaminophen (Tylenol 325mg Tab) 650 mg PO Q6 PRN PRN Reason: Pain, moderate (4-7) Last Admin: 07/31/18 06:18 Dose: 650 mg Albuterol/Ipratropium (Duoneb 3 Mg/0.5 Mg (3 Ml) Ud) 3 ml INH RQ6 PRN PRN Reason: Shortness of Breath Alprazolam (Xanax) 0.5 mg PO TID PRN PRN Reason: Anxiety Bisacodyl (Dulcolax) 10 mg PO DAILY [facility] Last Admin: 07/31/18 09:50 Dose: Not Given Clotrimazole (Lotrimin 1%) 0 gm TOP BID [facility] Last Admin: 07/31/18 09:50 Dose: 1 appl Dextrose (Dextrose 50% Inj) 0 ml IV STAT PRN; Protocol PRN Reason: Hypoglycemia Protocol Dextrose (Glutose 15) 0 gm PO ONCE PRN; Protocol PRN Reason: Hypoglycemia Protocol Famotidine (Pepcid) 20 mg PO DAILY [facility] Last Admin: 07/31/18 09:50 Dose: 20 mg Furosemide (Lasix) 20 mg PO DAILY [facility] Last Admin: 07/31/18 09:49 Dose: 20 mg Gabapentin (Neurontin) 300 mg PO BID [facility] Last Admin: 07/31/18 09:48 Dose: 300 mg Glucagon (Glucagen Diagnostic Kit) 0 mg IM STAT PRN; Protocol PRN Reason: Hypoglycemia Protocol Guaifenesin (Mucinex La) 600 mg PO BID [facility] Last Admin: 07/31/18 09:48 Dose: 600 mg Guaifenesin/Dextromethorphan (Robitussin Dm) 5 ml PO Q4H PRN PRN Reason: Cough Last Admin: 07/31/18 09:50 Dose: 5 ml Dextrose (Dextrose 5% In Water 1000 Ml) 1,000 mls @ 0 mls/hr IV .Q0M PRN; Protocol PRN Reason: Hypoglycemia Protocol Meropenem 1 gm/ Sodium (Chloride) 100 mls @ 100 mls/hr IVPB Q8H [facility]; Protocol Last Admin: 07/31/18 06:13 Dose: 100 mls/hr Doxycycline Hyclate 100 mg/ (Sodium Chloride) 100 mls @ 100 mls/hr IVPB Q12H [facility]; Protocol Last Admin: 07/30/18 23:59 Dose: 100 mls/hr Insulin Glargine (Lantus) 20 unit SC [facility] Last Admin: 07/30/18 21:36 Dose: Not Given Insulin Human Isoph/Insulin Regular (Novolin 70/30 (70/30 Units/Ml) 10 Ml) 20 units SC BIDAC [facility] Last Admin: 07/31/18 08:30 Dose: Not Given Lactobacillus Acidophilus (Lactobacillus) 1 cap PO TID [facility] Last Admin: 07/31/18 09:48 Dose: Not Given Lisinopril (Zestril) 5 mg PO DAILY [facility] Last Admin: 07/31/18 09:48 Dose: 5 mg Magnesium Hydroxide (Milk Of Magnesia) 60 ml PO BID PRN PRN Reason: Constipation Miconazole (Monistat 7 Vag Suppository) 100 mg VG [facility] Last Admin: 07/30/18 21:36 Dose: Not Given Rosuvastatin Calcium (Crestor) 2.5 mg PO [facility] Last Admin: 07/30/18 21:36 Dose: Not Given Senna/Docusate Sodium (Senokot S 50 Mg-8.6 Mg) 2 tab PO BID [facility] Last Admin: 07/31/18 09:51 Dose: Not Given Simethicone (Mylicon Chew Tab) 80 mg PO Q4H PRN PRN Reason: GI distress - Labs Labs: 07/31/18 06:54 07/31/18 06:54 PT 13.6 SECONDS (9.7-12.2) H 07/25/18 12:54 INR 1.2 07/25/18 12:54 APTT 26 SECONDS (21-34) 07/25/18 12:54 - Constitutional Appears: Non-toxic - Extremities Exam Additional comments: LLE focused VASC: DP/PT pulses are palpable, cap refill time: < 3 sec to digit 4 and 5, Temp gradient warm to cool, diffuse non-pitting edema noticed distal to the mid leg DERM: surgical site exhibits normal healing, sutures intact, no pus or purulent discharge appreciated, mild sanguinous drainage, no evidence of gangrene or infection at other digits or rest of foot ORTHO: no pain on palpation of the surgical site NEURO: gross and protective sensation mildly diminished - Neurological Exam Neurological Exam: Alert, Awake, Oriented x3 - Psychiatric Exam Psychiatric exam: Normal Affect, Normal Mood Assessment and Plan - Assessment and Plan (Free Text) Assessment: 52F POD4 left second ray partial amputation (DOS 07/27/18) Plan: Patient seen and evaluated alongside attending, Dr. Fox Afebrile, WBC 4.9 L foot intra-op WCx (07/27): Beta hemolytic Strep group B Intra-op pathology: acute OM Continue local wound care: saline wet to dry, DSD Activity: PWB left heel; surgical shoe ordered Continue PT/OT Continue abx per ID - likely needs group home abx Recommending [facility]STR[facility] for continued abx/physical therapy - pending placement per social work Podiatry will continue to follow
--- NOTE | 2018-07-31 13:34 | CP.PCM.PN ---
Subjective - Date & Time of Evaluation Date of Evaluation: 07/31/18 Time of Evaluation: 13:30 - Subjective Subjective: Genefra Jacobsen PGY1 Progress Note for Dr. Faulkner Pt was examined at bedside this morning. She reports resolution of her abdominal pain and constipation. She was able to have adequate bowel movements last night. She reports continuation of her cough. Objective - Vital Signs/Intake and Output Vital Signs (last 24 hours): Temp Pulse Resp BP Pulse Ox 97.6 F 90 20 124/66 95 07/31/18 07:00 07/31/18 09:54 07/31/18 07:00 07/31/18 09:54 07/31/18 07:00 - Medications Medications: Current Medications Acetaminophen (Tylenol 325mg Tab) 975 mg PO ONCE PRN PRN Reason: Fever >100.4 F Last Admin: 07/30/18 07:43 Dose: 975 mg Acetaminophen (Tylenol 325mg Tab) 650 mg PO Q6 PRN PRN Reason: Pain, moderate (4-7) Last Admin: 07/31/18 06:18 Dose: 650 mg Albuterol/Ipratropium (Duoneb 3 Mg/0.5 Mg (3 Ml) Ud) 3 ml INH RQ6 PRN PRN Reason: Shortness of Breath Alprazolam (Xanax) 0.5 mg PO TID PRN PRN Reason: Anxiety Bisacodyl (Dulcolax) 10 mg PO DAILY [facility] Last Admin: 07/31/18 09:50 Dose: Not Given Clotrimazole (Lotrimin 1%) 0 gm TOP BID [facility] Last Admin: 07/31/18 09:50 Dose: 1 appl Dextrose (Dextrose 50% Inj) 0 ml IV STAT PRN; Protocol PRN Reason: Hypoglycemia Protocol Dextrose (Glutose 15) 0 gm PO ONCE PRN; Protocol PRN Reason: Hypoglycemia Protocol Famotidine (Pepcid) 20 mg PO DAILY [facility] Last Admin: 07/31/18 09:50 Dose: 20 mg Furosemide (Lasix) 20 mg PO DAILY [facility] Last Admin: 07/31/18 09:49 Dose: 20 mg Gabapentin (Neurontin) 300 mg PO BID [facility] Last Admin: 07/31/18 09:48 Dose: 300 mg Glucagon (Glucagen Diagnostic Kit) 0 mg IM STAT PRN; Protocol PRN Reason: Hypoglycemia Protocol Guaifenesin (Mucinex La) 600 mg PO BID [facility] Last Admin: 07/31/18 09:48 Dose: 600 mg Guaifenesin/Dextromethorphan (Robitussin Dm) 5 ml PO Q4H PRN PRN Reason: Cough Last Admin: 07/31/18 09:50 Dose: 5 ml Heparin Sodium (Porcine) (Heparin) 5,000 units SC Q8 JAMAR Dextrose (Dextrose 5% In Water 1000 Ml) 1,000 mls @ 0 mls/hr IV .Q0M PRN; Protocol PRN Reason: Hypoglycemia Protocol Meropenem 1 gm/ Sodium (Chloride) 100 mls @ 100 mls/hr IVPB Q8H [facility]; Protocol Last Admin: 07/31/18 06:13 Dose: 100 mls/hr Doxycycline Hyclate 100 mg/ (Sodium Chloride) 100 mls @ 100 mls/hr IVPB Q12H [facility]; Protocol Last Admin: 07/30/18 23:59 Dose: 100 mls/hr Insulin Glargine (Lantus) 20 unit SC HS [facility] Last Admin: 07/30/18 21:36 Dose: Not Given Insulin Human Isoph/Insulin Regular (Novolin 70/30 (70/30 Units/Ml) 10 Ml) 20 units SC BIDAC [facility] Last Admin: 07/31/18 08:30 Dose: Not Given Lactobacillus Acidophilus (Lactobacillus) 1 cap PO TID [facility] Last Admin: 07/31/18 09:48 Dose: Not Given Lisinopril (Zestril) 5 mg PO DAILY [facility] Last Admin: 07/31/18 09:48 Dose: 5 mg Magnesium Hydroxide (Milk Of Magnesia) 60 ml PO BID PRN PRN Reason: Constipation Miconazole (Monistat 7 Vag Suppository) 100 mg VG HS [facility] Last Admin: 07/30/18 21:36 Dose: Not Given Rosuvastatin Calcium (Crestor) 2.5 mg PO HS [facility] Last Admin: 07/30/18 21:36 Dose: Not Given Senna/Docusate Sodium (Senokot S 50 Mg-8.6 Mg) 2 tab PO BID [facility] Last Admin: 07/31/18 09:51 Dose: Not Given Simethicone (Mylicon Chew Tab) 80 mg PO Q4H PRN PRN Reason: GI distress - Labs Labs: 07/31/18 06:54 07/31/18 06:54 PT 13.6 SECONDS (9.7-12.2) H 07/25/18 12:54 INR 1.2 07/25/18 12:54 APTT 26 SECONDS (21-34) 07/25/18 12:54 - Additional Findings Additional findings: - Constitutional Appears: No Acute Distress, Chronically Ill - Head Exam Head Exam: ATRAUMATIC, NORMAL INSPECTION - Eye Exam Additional comments: complete - left eye; partial right eye - Respiratory Exam Respiratory Exam: Clear to Auscultation Bilateral, NORMAL BREATHING PATTERN, no wheezing, no stridor. - Cardiovascular Exam Cardiovascular Exam: REGULAR RHYTHM, +S1, +S2 - GI/Abdominal Exam GI & Abdominal Exam: Normal Bowel Sounds, Soft. absent: Tenderness - Extremities Exam Right midline seems to be leaking. Additional comments: Left foot is s/p 2nd ray amputation. Dressing is clean, dry, intact, no edema in the lower extremity. No active bleeding. - Neurological Exam Neurological exam: Alert, Oriented x3 - Psychiatric Exam Psychiatric exam: Anxious. Normal affect. - Skin Skin Exam: Rash (dark rash to lower extremities) Assessment and Plan - Assessment and Plan (Free Text) Assessment: 52 year old female with past medical history of diabetes type II, HTN, blindness (complete - left eye; partial right eye) who presented to the ER for a left foot infection. Underwent left second toe ray amputation on 07/27/18. Patient is hemodynamically stable for d/c to [facility], however patient is not agreeing to PICC line at this time. 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 Fox --> help appreciated - ID Consult: Dr. Davila --> help appreciated * Merrem 1g IV q8h * Doxycycline 100 mg IVPB q12 * PICC line ordered, need consent from daughter Ceci [phone]. Daughter not responding today. * abx recs upon d/c: Rocephin 1g IV q2h and Doxy 100mg IVP q12h x 6 weeks - ICU was consulted --> help appreciated - Left foot wound culture shows beta hemolytic strep b sensitive to ampicilin, PCN, vanco - BCx negative to date - UCx shows erma negative kenyatta On Merem - Medications * Tylenol prn - fever * Percocet q6prn for pain - Images: * Foot Xray: Findings related to prior resection distal 1st metatarsal. Amputation at the level of the proximal phalanx 5th digit. Ventral ulceration medial aspect of the left foot distally. Suggestion of air within the soft tissues. In the absence of recent surgical history gas-forming organism should be considered. * Ankle Xray: Presumed chronic changes midshaft left tibia. * Tibia/Fibula Xray: Unremarkable radiographs of the left tibia and fibula. * LE venous doppler: pt refused - Bandemia/leukocytosis resolved Elevated proBNP - proBNP: 1560 - Trop: negative - Chest Xray: No consolidative infiltrate. Mild cardiomegaly and mild pulmonary venous congestion suspect - ECHO: mild concentric LVH with normal EF of 65-70%, mild TR - Medications: * Lasix 20mg po daily History of Diabetes - HgbA1c 14 - Lipid panel: elevated TG, low HDL - Medications: * Novolin 70/30 20u SC BID * Lantus 20units SC HS * Lisinopril 5mg po daily * Crestor 2.5mg po HS - Hypoglycemia Protocol - Accuchecks Vaginal itching - Miconazole 100 mg VG HS Haleigh to lower extremities - Clomitrazole cream to affected areas BID History of HTN - Continue Lisinopril 5mg po daily History of Neuropathy - Continue Gabapentin 300mg po bid Prophylaxis - Physical Therapy: recommending CASTRO - Anti-coagulation - Lactobacillus 1 cap po tid, Sennakot, pepcid, Simethicone Dispo: Patient medically stable for d/c. Requiring CASTRO placement for IV antibiotics. Explained to patient that she requires PICC line for CASTRO placement. Patient refusing PICC line at this time. Patient prefers to receive IV antibiotics at [facility] where previously treated. Explained to patient that she has right to follow care there. Case discussed with Dr. Faulkner
--- NOTE | 2018-07-31 13:54 | CP.PCM.PN ---
Subjective - Date & Time of Evaluation Date of Evaluation: 07/31/18 Time of Evaluation: 09:00 - Subjective Subjective: seen on rounds amp site first 2 digits without pus Objective - Vital Signs/Intake and Output Vital Signs (last 24 hours): Temp Pulse Resp BP Pulse Ox 97.6 F 90 20 124/66 95 07/31/18 07:00 07/31/18 09:54 07/31/18 07:00 07/31/18 09:54 07/31/18 07:00 - Medications Medications: Current Medications Acetaminophen (Tylenol 325mg Tab) 975 mg PO ONCE PRN PRN Reason: Fever >100.4 F Last Admin: 07/30/18 07:43 Dose: 975 mg Acetaminophen (Tylenol 325mg Tab) 650 mg PO Q6 PRN PRN Reason: Pain, moderate (4-7) Last Admin: 07/31/18 06:18 Dose: 650 mg Albuterol/Ipratropium (Duoneb 3 Mg/0.5 Mg (3 Ml) Ud) 3 ml INH RQ6 PRN PRN Reason: Shortness of Breath Alprazolam (Xanax) 0.5 mg PO TID PRN PRN Reason: Anxiety Bisacodyl (Dulcolax) 10 mg PO DAILY [facility] Last Admin: 07/31/18 09:50 Dose: Not Given Clotrimazole (Lotrimin 1%) 0 gm TOP BID [facility] Last Admin: 07/31/18 09:50 Dose: 1 appl Dextrose (Dextrose 50% Inj) 0 ml IV STAT PRN; Protocol PRN Reason: Hypoglycemia Protocol Dextrose (Glutose 15) 0 gm PO ONCE PRN; Protocol PRN Reason: Hypoglycemia Protocol Famotidine (Pepcid) 20 mg PO DAILY [facility] Last Admin: 07/31/18 09:50 Dose: 20 mg Furosemide (Lasix) 20 mg PO DAILY [facility] Last Admin: 07/31/18 09:49 Dose: 20 mg Gabapentin (Neurontin) 300 mg PO BID [facility] Last Admin: 07/31/18 09:48 Dose: 300 mg Glucagon (Glucagen Diagnostic Kit) 0 mg IM STAT PRN; Protocol PRN Reason: Hypoglycemia Protocol Guaifenesin (Mucinex La) 600 mg PO BID [facility] Last Admin: 07/31/18 09:48 Dose: 600 mg Guaifenesin/Dextromethorphan (Robitussin Dm) 5 ml PO Q4H PRN PRN Reason: Cough Last Admin: 07/31/18 09:50 Dose: 5 ml Heparin Sodium (Porcine) (Heparin) 5,000 units SC Q8 [facility] Last Admin: 07/31/18 13:44 Dose: Not Given Dextrose (Dextrose 5% In Water 1000 Ml) 1,000 mls @ 0 mls/hr IV .Q0M PRN; Protocol PRN Reason: Hypoglycemia Protocol Meropenem 1 gm/ Sodium (Chloride) 100 mls @ 100 mls/hr IVPB Q8H [facility]; Protocol Last Admin: 07/31/18 06:13 Dose: 100 mls/hr Doxycycline Hyclate 100 mg/ (Sodium Chloride) 100 mls @ 100 mls/hr IVPB Q12H [facility]; Protocol Last Admin: 07/31/18 12:40 Dose: 100 mls/hr Insulin Glargine (Lantus) 20 unit SC [facility] Last Admin: 07/30/18 21:36 Dose: Not Given Insulin Human Isoph/Insulin Regular (Novolin 70/30 (70/30 Units/Ml) 10 Ml) 20 units SC BIDAC [facility] Last Admin: 07/31/18 08:30 Dose: Not Given Lactobacillus Acidophilus (Lactobacillus) 1 cap PO TID [facility] Last Admin: 07/31/18 13:40 Dose: 1 cap Lisinopril (Zestril) 5 mg PO DAILY [facility] Last Admin: 07/31/18 09:48 Dose: 5 mg Magnesium Hydroxide (Milk Of Magnesia) 60 ml PO BID PRN PRN Reason: Constipation Miconazole (Monistat 7 Vag Suppository) 100 mg VG [facility] Last Admin: 07/30/18 21:36 Dose: Not Given Rosuvastatin Calcium (Crestor) 2.5 mg PO HS [facility] Last Admin: 07/30/18 21:36 Dose: Not Given Senna/Docusate Sodium (Senokot S 50 Mg-8.6 Mg) 2 tab PO BID [facility] Last Admin: 07/31/18 09:51 Dose: Not Given Simethicone (Mylicon Chew Tab) 80 mg PO Q4H PRN PRN Reason: GI distress - Labs Labs: 07/31/18 06:54 07/31/18 06:54 PT 13.6 SECONDS (9.7-12.2) H 07/25/18 12:54 INR 1.2 07/25/18 12:54 APTT 26 SECONDS (21-34) 07/25/18 12:54 - Constitutional Appears: Well - Head Exam Head Exam: ATRAUMATIC, NORMAL INSPECTION, NORMOCEPHALIC - Eye Exam Eye Exam: EOMI, Normal appearance, PERRL Pupil Exam: NORMAL ACCOMODATION, PERRL - ENT Exam ENT Exam: Mucous Membranes Moist, Normal Exam - Neck Exam Neck Exam: Full ROM, Normal Inspection. absent: Lymphadenopathy - Respiratory Exam Respiratory Exam: Clear to Ausculation Bilateral, NORMAL BREATHING PATTERN - Cardiovascular Exam Cardiovascular Exam: REGULAR RHYTHM, +S1, +S2. absent: Murmur - GI/Abdominal Exam GI & Abdominal Exam: Soft, Normal Bowel Sounds. absent: Tenderness - Rectal Exam Rectal Exam: Deferred - Exam Exam: NORMAL INSPECTION - Extremities Exam Extremities Exam: Full ROM, Normal Capillary Refill, Normal Inspection. absent: Joint Swelling, Pedal Edema - Back Exam Back Exam: NORMAL INSPECTION - Neurological Exam Neurological Exam: Alert, Awake, CN II-XII Intact, Normal Gait, Oriented x3 - Psychiatric Exam Psychiatric exam: Normal Affect, Normal Mood - Skin Skin Exam: Dry, Intact, Normal Color, Warm Assessment and Plan (1) Cellulitis Status: Acute (2) Open wound Status: Acute (3) Sepsis Status: Acute (4) Uncontrolled diabetes mellitus Status: Acute (5) Osteomyelitis of foot, left, acute Status: Acute (6) Osteomyelitis of foot Status: Acute (7) Osteomyelitis of left foot Status: Acute (8) Gangrene of left foot Status: Acute
--- NOTE | 2018-07-31 16:20 | OP ---
PROCEDURE DATE: 07/27/2018 SURGEON: Eddy Fox DPM [employer] DRESSMAKER: Shane Alston, PGY-1. ANESTHESIA: General LMA with local. 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 POSTOPERATIVE DIAGNOSIS: Left foot second digit osteomyelitis with gas gangrene. NAME OF PROCEDURE: Left partial second ray amputation. INDICATIONS: The patient is a 52-year-old female with the above diagnosis. The patient has exhausted all conservative treatment at this time and now requires surgical intervention. The patient signed a consent after careful explanation of risks, benefits, complications, and alternatives for the procedure. No guarantees were given nor implied. NPO status was confirmed prior to taking the patient to the OR. PREPARATION: The patient was brought into the operating room and placed on the operating room table in a supine position. Timeout was performed for identification of the correct patient and procedure. The patient received a total of 20 mL of 1:1 mix of lidocaine 2% plain and 0.5% Marcaine plain in a digital block fashion as well as proximally towards the metatarsal base at the left second digit. The left foot was then prepped and draped in the normal sterile manner, and the procedure began. No tourniquet was used during this procedure. DESCRIPTION OF PROCEDURE: Attention was directed to the dorsal aspect of the left second digit, where fish-mouth circumferential incision was made extending from the dorsal aspect of the second metatarsal head distally and plantarly around the second digit using a #15 blade. Incision was extended down to subcutaneous layers to the level of bone. Using a bone clamp to stabilize the toe, the second digit was then disarticulated from the further level of the MPJ. All bones and soft tissues were sent for pathology at this time as well as deep wound cultures were taken at this time. Incision was extended down to the level of the second metatarsal midshaft dorsally, and the metatarsal head was resected to the level of solid bone. We then copiously irrigated the wound with sterile saline using a pulse lavage. The surgical site was closed dorsally over the metatarsal using 3-0 nylon, and the distal surgical site was left open and packed with 0.5-inch plain packing and dressed with 4 x 4 gauze, abdominal pads, and Kerlix as well as Coban and Hadley bandage. POSTOPERATIVE CONDITION: The patient tolerated the local anesthesia and procedure well, and was escorted to the recovery room with neurovascular status intact to the left foot. The patient is to remain nonweightbearing at this time. The patient will remain in the hospital and podiatry will continue to follow. The patient is to follow up in the wound center with Dr. Fox within 1 week of discharge. Shane Alston MD Eddy Fox DPM [facility]
[2018-07-31] MEDS: (Lantus) Insulin Glargine, Recombinant SC SCH (22:14)
[2018-07-31] MEDS: Rosuvastatin Calcium 2.5 mg Tab PO SCH (22:16)
[2018-07-31] MEDS: Miconazole 100 MG Vaginal Supp VG SCH (22:24)
[2018-08-01] MEDS: Meropenem 1 GM in Sodium Chloride 0.9% 100 ML IVPB SCH ×3 (06:23→22:00)
[2018-08-01] MEDS: (Novolin 70/30) NPH/Regular 70/30 Units/ml 10 ml vial SC SCH ×2 (07:30→17:38)
[2018-08-01 08:14] LABS: ALB/GLOB RATIO 0.8 (1.0-2.1); ALBUMIN 3.1 g/dL (3.5-5.0); ALT/SGPT 12 U/L (9-52); AST/SGOT 31 U/L (14-36); BASO % 0.5 % (0.0-2.0); BLOOD UREA NITROGEN 20 mg/dL (7-17); CALCIUM 8.7 mg/dl (8.6-10.4); EOS # 0.1 K/uL (0.0-0.7); EOS % 3.8 % (0.0-4.0); GFR NON-AFRICAN AMERICAN > 60; HEMOGLOBIN 8.8 g/dL (11.0-16.0); LYMPH # 1.2 K/uL (1.0-4.3); LYMPH % 33.1 % (20.0-40.0); MEAN CELL VOLUME 83.6 fL (81.0-99.0); MEAN CORPUSCULAR HEMOGLOBIN 27.5 pg (27.0-31.0); MEAN CORPUSCULAR HGB CONC 32.9 g/dL (33.0-37.0); MEAN PLATELET VOLUME 8.2 fL (7.2-11.7); MONO # 0.5 K/uL (0.0-0.8); MONO % 13.9 % (0.0-10.0); NEUT # 1.8 K/uL (1.8-7.0); NEUT % 48.7 % (50.0-75.0); NRBC % 0.1 % (0.0-2.0); RBC 3.21 Mil/uL (3.80-5.20); RED CELL DISTRIBUTION WIDTH 15.4 % (11.5-14.5); WHITE BLOOD COUNT 3.6 K/uL (4.8-10.8)
[2018-08-01] MEDS: Lactobacillus Acidophilus 500 MU Cap PO SCH ×3 (09:44→17:38)
[2018-08-01] MEDS: Docusate-Senna 50 mg-8.6 mg Tab PO SCH ×2 (09:44→17:52)
[2018-08-01] MEDS: Bisacodyl 5mg EC Tab PO SCH (09:44)
[2018-08-01] MEDS: guaiFENesin 600 mg ER Tab PO SCH ×2 (09:44→17:38)
[2018-08-01] MEDS: Clotrimazole 1% Cream(30 gm) TOP SCH ×2 (10:00→17:38)
--- NOTE | 2018-08-01 10:50 | CP.PCM.PN ---
Subjective - Date & Time of Evaluation Date of Evaluation: 08/01/18 Time of Evaluation: 10:50 - Subjective Subjective: Podiatry progress note - Dr. Fox 52F seen and evaluated POD#5 left foot partial 2nd ray amputation. No new lower extremity complaints. Denies n/v/f/d/c/sob/de leon/cp. Awaiting CASTRO placement Objective - Vital Signs/Intake and Output Vital Signs (last 24 hours): Temp Pulse Resp BP Pulse Ox 98 F 92 H 20 143/65 97 08/01/18 08:00 08/01/18 09:48 08/01/18 08:00 08/01/18 09:48 08/01/18 08:00 - Medications Medications: Current Medications Acetaminophen (Tylenol 325mg Tab) 975 mg PO ONCE PRN PRN Reason: Fever >100.4 F Last Admin: 07/30/18 07:43 Dose: 975 mg Acetaminophen (Tylenol 325mg Tab) 650 mg PO Q6 PRN PRN Reason: Pain, moderate (4-7) Last Admin: 08/01/18 00:57 Dose: 650 mg Albuterol/Ipratropium (Duoneb 3 Mg/0.5 Mg (3 Ml) Ud) 3 ml INH RQ6 PRN PRN Reason: Shortness of Breath Alprazolam (Xanax) 0.5 mg PO TID PRN PRN Reason: Anxiety Last Admin: 08/01/18 00:59 Dose: 0.5 mg Bisacodyl (Dulcolax) 10 mg PO DAILY [facility] Last Admin: 08/01/18 09:44 Dose: 10 mg Clotrimazole (Lotrimin 1%) 0 gm TOP BID [facility] Last Admin: 07/31/18 17:40 Dose: 1 appl Dextrose (Dextrose 50% Inj) 0 ml IV STAT PRN; Protocol PRN Reason: Hypoglycemia Protocol Dextrose (Glutose 15) 0 gm PO ONCE PRN; Protocol PRN Reason: Hypoglycemia Protocol Famotidine (Pepcid) 20 mg PO DAILY [facility] Last Admin: 08/01/18 09:44 Dose: 20 mg Furosemide (Lasix) 20 mg PO DAILY [facility] Last Admin: 08/01/18 09:44 Dose: 20 mg Gabapentin (Neurontin) 300 mg PO BID [facility] Last Admin: 08/01/18 09:44 Dose: 300 mg Glucagon (Glucagen Diagnostic Kit) 0 mg IM STAT PRN; Protocol PRN Reason: Hypoglycemia Protocol Guaifenesin (Mucinex La) 600 mg PO BID [facility] Last Admin: 08/01/18 09:44 Dose: 600 mg Guaifenesin/Dextromethorphan (Robitussin Dm) 5 ml PO Q4H PRN PRN Reason: Cough Last Admin: 07/31/18 09:50 Dose: 5 ml Heparin Sodium (Porcine) (Heparin) 5,000 units SC Q8 [facility] Last Admin: 08/01/18 06:22 Dose: Not Given Dextrose (Dextrose 5% In Water 1000 Ml) 1,000 mls @ 0 mls/hr IV .Q0M PRN; Protocol PRN Reason: Hypoglycemia Protocol Meropenem 1 gm/ Sodium (Chloride) 100 mls @ 100 mls/hr IVPB Q8H [facility]; Protocol Last Admin: 08/01/18 06:23 Dose: 100 mls/hr Doxycycline Hyclate 100 mg/ (Sodium Chloride) 100 mls @ 100 mls/hr IVPB Q12H [facility]; Protocol Last Admin: 07/31/18 23:58 Dose: 100 mls/hr Insulin Glargine (Lantus) 20 unit SC HS [facility] Last Admin: 07/31/18 22:14 Dose: 20 unit Insulin Human Isoph/Insulin Regular (Novolin 70/30 (70/30 Units/Ml) 10 Ml) 20 units SC BIDAC [facility] Last Admin: 07/31/18 17:26 Dose: 20 units Lactobacillus Acidophilus (Lactobacillus) 1 cap PO TID [facility] Last Admin: 08/01/18 09:44 Dose: 1 cap Lisinopril (Zestril) 5 mg PO DAILY [facility] Last Admin: 08/01/18 09:45 Dose: 5 mg Magnesium Hydroxide (Milk Of Magnesia) 60 ml PO BID PRN PRN Reason: Constipation Miconazole (Monistat 7 Vag Suppository) 100 mg VG [facility] Last Admin: 07/31/18 22:24 Dose: Not Given Rosuvastatin Calcium (Crestor) 2.5 mg PO HS [facility] Last Admin: 07/31/18 22:16 Dose: Not Given Senna/Docusate Sodium (Senokot S 50 Mg-8.6 Mg) 2 tab PO BID [facility] Last Admin: 07/31/18 17:25 Dose: 2 tab Simethicone (Mylicon Chew Tab) 80 mg PO Q4H PRN PRN Reason: GI distress - Labs Labs: 08/01/18 07:53 08/01/18 07:53 PT 13.6 SECONDS (9.7-12.2) H 07/25/18 12:54 INR 1.2 07/25/18 12:54 APTT 26 SECONDS (21-34) 07/25/18 12:54 - Constitutional Appears: Non-toxic - Extremities Exam Additional comments: LLE focused VASC: DP/PT pulses are palpable, cap refill time: < 3 sec to digit 4 and 5, Temp gradient warm to cool, diffuse non-pitting edema noted- improving DERM: surgical site exhibits normal healing, sutures intact, no pus or purulent discharge appreciated, mild serosanguinous drainage ORTHO: no pain on palpation present NEURO: gross and protective sensation absent - Neurological Exam Neurological Exam: Alert, Awake, Oriented x3 - Psychiatric Exam Psychiatric exam: Anxious Assessment and Plan - Assessment and Plan (Free Text) Assessment: 52F POD#5 left second ray partial amputation (DOS 07/27/18) Plan: Patient seen and evaluated Discussed with attending, Dr. Fox Afebrile, WBC 3.6 L foot intra-op WCx (07/27): Beta hemolytic Strep group B Intra-op pathology: acute OM Continue local wound care: saline wet to dry, DSD, NICOLE Activity: PWB left heel; surgical shoe ordered Continue PT/OT Continue abx per ID - continue abx for 6-8 weeks Recommending CASTRO for continued abx/physical therapy - pending placement per social work Podiatry will continue to follow
[2018-08-01] MEDS: Simethicone 80 mg Chewtab PO PRN (12:17)
--- NOTE | 2018-08-01 12:32 | RAD ---
Chest x-ray single frontal view HISTORY: Left PICC line. COMPARISON: 07/30/2018 Findings: Left PICC line with tip extending to the junction of the right SVC/axillary vein. No evidence of postprocedure pneumothorax. Moderate venous congestion. Right hilar prominence. Top normal heart size. Impression: Left PICC line with tip extending to the junction of the right SVC/axillary vein. No evidence of postprocedure pneumothorax.
--- NOTE | 2018-08-01 13:28 | CP.PCM.PN ---
Subjective - Date & Time of Evaluation Date of Evaluation: 08/01/18 Time of Evaluation: 13:24 - Subjective Subjective: Ramy Jacobsen PGY1 Progress Note for Dr. Faulkner Patient was examined at bedside this morning. She reports adequate bowel movements. She reports continuation of her cough which she says is improving with Mucinex. Objective - Vital Signs/Intake and Output Vital Signs (last 24 hours): Temp Pulse Resp BP Pulse Ox 98 F 92 H 20 143/65 97 08/01/18 08:00 08/01/18 09:48 08/01/18 08:00 08/01/18 09:48 08/01/18 08:00 - Medications Medications: Current Medications Acetaminophen (Tylenol 325mg Tab) 975 mg PO ONCE PRN PRN Reason: Fever >100.4 F Last Admin: 07/30/18 07:43 Dose: 975 mg Acetaminophen (Tylenol 325mg Tab) 650 mg PO Q6 PRN PRN Reason: Pain, moderate (4-7) Last Admin: 08/01/18 00:57 Dose: 650 mg Albuterol/Ipratropium (Duoneb 3 Mg/0.5 Mg (3 Ml) Ud) 3 ml INH RQ6 PRN PRN Reason: Shortness of Breath Alprazolam (Xanax) 0.5 mg PO TID PRN PRN Reason: Anxiety Last Admin: 08/01/18 00:59 Dose: 0.5 mg Bisacodyl (Dulcolax) 10 mg PO DAILY [facility] Last Admin: 08/01/18 09:44 Dose: 10 mg Clotrimazole (Lotrimin 1%) 0 gm TOP BID [facility] Last Admin: 07/31/18 17:40 Dose: 1 appl Dextrose (Dextrose 50% Inj) 0 ml IV STAT PRN; Protocol PRN Reason: Hypoglycemia Protocol Dextrose (Glutose 15) 0 gm PO ONCE PRN; Protocol PRN Reason: Hypoglycemia Protocol Famotidine (Pepcid) 20 mg PO DAILY [facility] Last Admin: 08/01/18 09:44 Dose: 20 mg Furosemide (Lasix) 20 mg PO DAILY [facility] Last Admin: 08/01/18 09:44 Dose: 20 mg Gabapentin (Neurontin) 300 mg PO BID [facility] Last Admin: 08/01/18 09:44 Dose: 300 mg Glucagon (Glucagen Diagnostic Kit) 0 mg IM STAT PRN; Protocol PRN Reason: Hypoglycemia Protocol Guaifenesin (Mucinex La) 600 mg PO BID [facility] Last Admin: 08/01/18 09:44 Dose: 600 mg Guaifenesin/Dextromethorphan (Robitussin Dm) 5 ml PO Q4H PRN PRN Reason: Cough Last Admin: 07/31/18 09:50 Dose: 5 ml Heparin Sodium (Porcine) (Heparin) 5,000 units SC Q8 [facility] Last Admin: 08/01/18 06:22 Dose: Not Given Dextrose (Dextrose 5% In Water 1000 Ml) 1,000 mls @ 0 mls/hr IV .Q0M PRN; Protocol PRN Reason: Hypoglycemia Protocol Meropenem 1 gm/ Sodium (Chloride) 100 mls @ 100 mls/hr IVPB Q8H [facility]; Protocol Last Admin: 08/01/18 06:23 Dose: 100 mls/hr Doxycycline Hyclate 100 mg/ (Sodium Chloride) 100 mls @ 100 mls/hr IVPB Q12H [facility]; Protocol Last Admin: 08/01/18 12:17 Dose: 100 mls/hr Insulin Glargine (Lantus) 20 unit SC HS [facility] Last Admin: 07/31/18 22:14 Dose: 20 unit Insulin Human Isoph/Insulin Regular (Novolin 70/30 (70/30 Units/Ml) 10 Ml) 20 units SC BIDAC [facility] Last Admin: 08/01/18 07:30 Dose: Not Given Lactobacillus Acidophilus (Lactobacillus) 1 cap PO TID [facility] Last Admin: 08/01/18 09:44 Dose: 1 cap Lisinopril (Zestril) 5 mg PO DAILY [facility] Last Admin: 08/01/18 09:45 Dose: 5 mg Magnesium Hydroxide (Milk Of Magnesia) 60 ml PO BID PRN PRN Reason: Constipation Miconazole (Monistat 7 Vag Suppository) 100 mg VG [facility] Last Admin: 07/31/18 22:24 Dose: Not Given Rosuvastatin Calcium (Crestor) 2.5 mg PO [facility] Last Admin: 07/31/18 22:16 Dose: Not Given Senna/Docusate Sodium (Senokot S 50 Mg-8.6 Mg) 2 tab PO BID [facility] Last Admin: 08/01/18 09:44 Dose: Not Given Simethicone (Mylicon Chew Tab) 80 mg PO Q4H PRN PRN Reason: GI distress Last Admin: 08/01/18 12:17 Dose: 80 mg - Labs Labs: 08/01/18 07:53 08/01/18 07:53 PT 13.6 SECONDS (9.7-12.2) H 07/25/18 12:54 INR 1.2 07/25/18 12:54 APTT 26 SECONDS (21-34) 07/25/18 12:54 - Extremities Exam Additional comments: LUE: swelling - Additional Findings Additional findings: - Constitutional Appears: No Acute Distress, Chronically Ill - Head Exam Head Exam: ATRAUMATIC, NORMAL INSPECTION - Eye Exam Additional comments: complete - left eye; partial right eye - Respiratory Exam Respiratory Exam: Clear to Auscultation Bilateral, NORMAL BREATHING PATTERN, no wheezing, no stridor. - Cardiovascular Exam Cardiovascular Exam: REGULAR RHYTHM, +S1, +S2 - GI/Abdominal Exam GI & Abdominal Exam: Normal Bowel Sounds, Soft. absent: Tenderness - Extremities Exam Right midline seems to be leaking. Additional comments: Left foot is s/p 2nd ray amputation. Dressing is clean, dry, intact, no edema in the lower extremity. No active bleeding. - Neurological Exam Neurological exam: Alert, Oriented x3 - Psychiatric Exam Psychiatric exam: Anxious. Normal affect. - Skin Skin Exam: Rash (dark rash to lower extremities) Assessment and Plan - Assessment and Plan (Free Text) Assessment: 52 year old female with past medical history of diabetes type II, HTN, blindness (complete - left eye; partial right eye) who presented to the ER for a left foot infection. Underwent left second toe ray amputation on 07/27/18. Patient is hemodynamically stable for d/c to [facility], currently has PICC line. 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 Fox --> help appreciated - ID Consult: Dr. Davila --> help appreciated * Merrem 1g IV q8h * Doxycycline 100 mg IVPB q12 * PICC line consented and inserted. * abx recs upon d/c: Rocephin 1g IV q2h and Doxy 100mg IVP q12h x 6 weeks - ICU was consulted --> help appreciated - Left foot wound culture shows beta hemolytic strep b sensitive to ampicilin, PCN, vanco - BCx negative to date - UCx shows erma negative kenyatta On Merem - Medications * Tylenol prn - fever * Percocet q6prn for pain - Images: * Foot Xray: Findings related to prior resection distal 1st metatarsal. Amputation at the level of the proximal phalanx 5th digit. Ventral ulceration medial aspect of the left foot distally. Suggestion of air within the soft tissues. In the absence of recent surgical history gas-forming organism should be considered. * Ankle Xray: Presumed chronic changes midshaft left tibia. * Tibia/Fibula Xray: Unremarkable radiographs of the left tibia and fibula. * LE venous doppler: pt refused - Bandemia/leukocytosis resolved LUE Swelling - f/u Doppler LUE Elevated proBNP - proBNP: 1560 - Trop: negative - Chest Xray: No consolidative infiltrate. Mild cardiomegaly and mild pulmonary venous congestion suspect - ECHO: mild concentric LVH with normal EF of 65-70%, mild TR - Medications: * Lasix 20mg po daily History of Diabetes - HgbA1c 14 - Lipid panel: elevated TG, low HDL - Medications: * Novolin 70/30 20u SC BID * Lantus 20units SC HS * Lisinopril 5mg po daily * Crestor 2.5mg po HS - Hypoglycemia Protocol - Accuchecks Vaginal itching - Miconazole 100 mg VG HS [facility] to lower extremities - Clomitrazole cream to affected areas BID History of HTN - Continue Lisinopril 5mg po daily History of Neuropathy - Continue Gabapentin 300mg po bid Prophylaxis - Physical Therapy: recommending CASTRO - Anti-coagulation - Lactobacillus 1 cap po tid, Sennakot, pepcid, Simethicone Dispo: Patient medically stable for d/c. Currently has PICC line in place. Requiring CASTRO placement for IV antibiotics. Case discussed with Dr. Faulkner
--- NOTE | 2018-08-01 13:45 | RAD ---
Date of service: 08/01/2018 HISTORY: Assess left PICC line COMPARISON: 08/01/2018. TECHNIQUE: Chest PA and lateral FINDINGS: LINES AND TUBES: The left PICC line terminates at the cavoatrial junction. LUNG AND PLEURA: The lungs are well inflated. There is mild pulmonary venous congestion. No pleural effusion or pneumothorax. HEART AND MEDIASTINUM: Mild cardiomegaly. No aortic atherosclerotic calcifications present. The hilar and mediastinal contours are within normal limits. SKELETAL STRUCTURES: The bony structures are within normal limits for the patient's age. VISUALIZED UPPER ABDOMEN: Normal. OTHER FINDINGS: None. IMPRESSION: Left PICC line terminates at the cavoatrial junction. No acute findings. No significant interval change.
--- NOTE | 2018-08-01 19:39 | CP.PCM.PN ---
Subjective - Date & Time of Evaluation Date of Evaluation: 08/01/18 Time of Evaluation: 09:00 - Subjective Subjective: events noted IV rx renewed Objective - Vital Signs/Intake and Output Vital Signs (last 24 hours): Temp Pulse Resp BP Pulse Ox 98.5 F 96 H 20 136/68 97 08/01/18 16:09 08/01/18 16:09 08/01/18 16:09 08/01/18 16:09 08/01/18 16:09 - Medications Medications: Current Medications Acetaminophen (Tylenol 325mg Tab) 975 mg PO ONCE PRN PRN Reason: Fever >100.4 F Last Admin: 07/30/18 07:43 Dose: 975 mg Acetaminophen (Tylenol 325mg Tab) 650 mg PO Q6 PRN PRN Reason: Pain, moderate (4-7) Last Admin: 08/01/18 00:57 Dose: 650 mg Albuterol/Ipratropium (Duoneb 3 Mg/0.5 Mg (3 Ml) Ud) 3 ml INH RQ6 PRN PRN Reason: Shortness of Breath Alprazolam (Xanax) 0.5 mg PO TID PRN PRN Reason: Anxiety Last Admin: 08/01/18 00:59 Dose: 0.5 mg Bisacodyl (Dulcolax) 10 mg PO DAILY [facility] Last Admin: 08/01/18 09:44 Dose: 10 mg Clotrimazole (Lotrimin 1%) 0 gm TOP BID [facility] Last Admin: 08/01/18 17:38 Dose: 1 appl Dextrose (Dextrose 50% Inj) 0 ml IV STAT PRN; Protocol PRN Reason: Hypoglycemia Protocol Dextrose (Glutose 15) 0 gm PO ONCE PRN; Protocol PRN Reason: Hypoglycemia Protocol Famotidine (Pepcid) 20 mg PO DAILY [facility] Last Admin: 08/01/18 09:44 Dose: 20 mg Furosemide (Lasix) 20 mg PO DAILY [facility] Last Admin: 08/01/18 09:44 Dose: 20 mg Gabapentin (Neurontin) 300 mg PO BID [facility] Last Admin: 08/01/18 17:38 Dose: 300 mg Glucagon (Glucagen Diagnostic Kit) 0 mg IM STAT PRN; Protocol PRN Reason: Hypoglycemia Protocol Guaifenesin (Mucinex La) 600 mg PO BID [facility] Last Admin: 08/01/18 17:38 Dose: 600 mg Guaifenesin/Dextromethorphan (Robitussin Dm) 5 ml PO Q4H PRN PRN Reason: Cough Last Admin: 07/31/18 09:50 Dose: 5 ml Heparin Sodium (Porcine) (Heparin) 5,000 units SC Q8 [facility] Last Admin: 08/01/18 13:51 Dose: Not Given Dextrose (Dextrose 5% In Water 1000 Ml) 1,000 mls @ 0 mls/hr IV .Q0M PRN; Protocol PRN Reason: Hypoglycemia Protocol Meropenem 1 gm/ Sodium (Chloride) 100 mls @ 100 mls/hr IVPB Q8H [facility]; Protocol Last Admin: 08/01/18 16:00 Dose: 100 mls/hr Doxycycline Hyclate 100 mg/ (Sodium Chloride) 100 mls @ 100 mls/hr IVPB Q12H [facility]; Protocol Last Admin: 08/01/18 12:17 Dose: 100 mls/hr Insulin Glargine (Lantus) 20 unit SC HS [facility] Last Admin: 07/31/18 22:14 Dose: 20 unit Insulin Human Isoph/Insulin Regular (Novolin 70/30 (70/30 Units/Ml) 10 Ml) 20 units SC BIDAC [facility] Last Admin: 08/01/18 17:38 Dose: 20 units Lactobacillus Acidophilus (Lactobacillus) 1 cap PO TID [facility] Last Admin: 08/01/18 17:38 Dose: 1 cap Lisinopril (Zestril) 5 mg PO DAILY [facility] Last Admin: 08/01/18 09:45 Dose: 5 mg Magnesium Hydroxide (Milk Of Magnesia) 60 ml PO BID PRN PRN Reason: Constipation Miconazole (Monistat 7 Vag Suppository) 100 mg VG [facility] Last Admin: 07/31/18 22:24 Dose: Not Given Rosuvastatin Calcium (Crestor) 2.5 mg PO [facility] Last Admin: 07/31/18 22:16 Dose: Not Given Senna/Docusate Sodium (Senokot S 50 Mg-8.6 Mg) 2 tab PO BID [facility] Last Admin: 08/01/18 17:52 Dose: Not Given Simethicone (Mylicon Chew Tab) 80 mg PO Q4H PRN PRN Reason: GI distress Last Admin: 08/01/18 12:17 Dose: 80 mg - Labs Labs: 08/01/18 07:53 08/01/18 07:53 PT 13.6 SECONDS (9.7-12.2) H 07/25/18 12:54 INR 1.2 07/25/18 12:54 APTT 26 SECONDS (21-34) 07/25/18 12:54 - Constitutional Appears: Well - Head Exam Head Exam: ATRAUMATIC, NORMAL INSPECTION, NORMOCEPHALIC - Eye Exam Eye Exam: EOMI, Normal appearance, PERRL Pupil Exam: NORMAL ACCOMODATION, PERRL - ENT Exam ENT Exam: Mucous Membranes Moist, Normal Exam - Neck Exam Neck Exam: Full ROM, Normal Inspection. absent: Lymphadenopathy - Respiratory Exam Respiratory Exam: Clear to Ausculation Bilateral, NORMAL BREATHING PATTERN - Cardiovascular Exam Cardiovascular Exam: REGULAR RHYTHM, +S1, +S2. absent: Murmur - GI/Abdominal Exam GI & Abdominal Exam: Soft, Normal Bowel Sounds. absent: Tenderness - Rectal Exam Rectal Exam: NORMAL INSPECTION - Exam Exam: Circumcision, NORMAL INSPECTION External exam: NORMAL EXTERNAL EXAM Speculum exam: NORMAL SPECULUM EXAM Bimanual exam: NORMAL BIMANUAL EXAM - Extremities Exam Extremities Exam: Full ROM, Pedal Edema. absent: Joint Swelling, Normal Capillary Refill, Normal Inspection, Tenderness Additional comments: right foot wound same - Back Exam Back Exam: NORMAL INSPECTION - Neurological Exam Neurological Exam: Alert, Awake, CN II-XII Intact, Normal Gait, Oriented x3 - Psychiatric Exam Psychiatric exam: Normal Affect, Normal Mood - Skin Skin Exam: Dry, Pallor Assessment and Plan (1) Cellulitis Status: Acute (2) Open wound Status: Acute (3) Sepsis Status: Acute (4) Uncontrolled diabetes mellitus Status: Acute (5) Osteomyelitis of foot, left, acute Status: Acute (6) Osteomyelitis of foot Status: Acute (7) Osteomyelitis of left foot Status: Acute (8) Gangrene of left foot Status: Acute - Assessment and Plan (Free Text) Assessment: cont iv rx for 6 -8 weeks
[2018-08-01] MEDS: (Lantus) Insulin Glargine, Recombinant SC SCH (21:50)
[2018-08-01] MEDS: Miconazole 100 MG Vaginal Supp VG SCH (21:51)
[2018-08-01] MEDS: Rosuvastatin Calcium 2.5 mg Tab PO SCH (22:01)
[2018-08-02] MEDS: Meropenem 1 GM in Sodium Chloride 0.9% 100 ML IVPB SCH ×3 (06:26→23:01)
[2018-08-02 06:31] LABS: BASO % 0.6 % (0.0-2.0); EOS # 0.1 K/uL (0.0-0.7); EOS % 2.7 % (0.0-4.0); HEMOGLOBIN 9.4 g/dL (11.0-16.0); LYMPH # 1.4 K/uL (1.0-4.3); LYMPH % 36.7 % (20.0-40.0); MEAN CELL VOLUME 83.1 fL (81.0-99.0); MEAN CORPUSCULAR HEMOGLOBIN 27.8 pg (27.0-31.0); MEAN CORPUSCULAR HGB CONC 33.4 g/dL (33.0-37.0); MEAN PLATELET VOLUME 8.2 fL (7.2-11.7); MONO # 0.5 K/uL (0.0-0.8); MONO % 14.7 % (0.0-10.0); NEUT # 1.7 K/uL (1.8-7.0); NEUT % 45.3 % (50.0-75.0); NRBC % 0.1 % (0.0-2.0); RBC 3.36 Mil/uL (3.80-5.20); RED CELL DISTRIBUTION WIDTH 15.7 % (11.5-14.5); WHITE BLOOD COUNT 3.7 K/uL (4.8-10.8)
[2018-08-02 06:40] LABS: ALB/GLOB RATIO 0.8 (1.0-2.1); ALBUMIN 3.1 g/dL (3.5-5.0); ALT/SGPT 7 U/L (9-52); AST/SGOT 27 U/L (14-36); BLOOD UREA NITROGEN 22 mg/dL (7-17); CALCIUM 8.8 mg/dl (8.6-10.4); GFR NON-AFRICAN AMERICAN > 60
[2018-08-02] MEDS: (Novolin 70/30) NPH/Regular 70/30 Units/ml 10 ml vial SC SCH ×2 (08:14→17:17)
[2018-08-02] MEDS: Lactobacillus Acidophilus 500 MU Cap PO SCH ×3 (09:12→17:18)
[2018-08-02] MEDS: Bisacodyl 5mg EC Tab PO SCH (09:13)
[2018-08-02] MEDS: guaiFENesin 600 mg ER Tab PO SCH ×2 (09:17→17:16)
[2018-08-02] MEDS: guaiFENesin DM 100 mg-10 mg/5 ml UD PO PRN (09:17)
--- NOTE | 2018-08-02 09:50 | CP.PCM.PN ---
Subjective - Date & Time of Evaluation Date of Evaluation: 08/02/18 Time of Evaluation: 09:46 - Subjective Subjective: Podiatry progress note - Dr. Fox 52F seen and evaluated POD#6 left foot partial 2nd ray amputation. No new lower extremity complaints. Denies n/v/f/d/c/sob/de leon/cp. Awaiting CASTRO placement Objective - Vital Signs/Intake and Output Vital Signs (last 24 hours): Temp Pulse Resp BP Pulse Ox 98.2 F 89 20 121/74 97 08/02/18 07:00 08/02/18 09:10 08/02/18 07:00 08/02/18 09:10 08/02/18 07:00 - Medications Medications: Current Medications Acetaminophen (Tylenol 325mg Tab) 975 mg PO ONCE PRN PRN Reason: Fever >100.4 F Last Admin: 07/30/18 07:43 Dose: 975 mg Acetaminophen (Tylenol 325mg Tab) 650 mg PO Q6 PRN PRN Reason: Pain, moderate (4-7) Last Admin: 08/02/18 09:12 Dose: 650 mg Albuterol/Ipratropium (Duoneb 3 Mg/0.5 Mg (3 Ml) Ud) 3 ml INH RQ6 PRN PRN Reason: Shortness of Breath Alprazolam (Xanax) 0.5 mg PO TID PRN PRN Reason: Anxiety Last Admin: 08/01/18 00:59 Dose: 0.5 mg Bisacodyl (Dulcolax) 10 mg PO DAILY [facility] Last Admin: 08/02/18 09:13 Dose: Not Given Clotrimazole (Lotrimin 1%) 0 gm TOP BID [facility] Last Admin: 08/01/18 17:38 Dose: 1 appl Dextrose (Dextrose 50% Inj) 0 ml IV STAT PRN; Protocol PRN Reason: Hypoglycemia Protocol Dextrose (Glutose 15) 0 gm PO ONCE PRN; Protocol PRN Reason: Hypoglycemia Protocol Famotidine (Pepcid) 20 mg PO DAILY [facility] Last Admin: 08/02/18 09:13 Dose: 20 mg Furosemide (Lasix) 20 mg PO DAILY [facility] Last Admin: 08/02/18 09:22 Dose: Not Given Gabapentin (Neurontin) 300 mg PO BID [facility] Last Admin: 08/02/18 09:12 Dose: 300 mg Glucagon (Glucagen Diagnostic Kit) 0 mg IM STAT PRN; Protocol PRN Reason: Hypoglycemia Protocol Guaifenesin (Mucinex La) 600 mg PO BID [facility] Last Admin: 08/02/18 09:17 Dose: 600 mg Guaifenesin/Dextromethorphan (Robitussin Dm) 5 ml PO Q4H PRN PRN Reason: Cough Last Admin: 08/02/18 09:17 Dose: 5 ml Heparin Sodium (Porcine) (Heparin) 5,000 units SC Q8 [facility] Last Admin: 08/02/18 06:29 Dose: Not Given Dextrose (Dextrose 5% In Water 1000 Ml) 1,000 mls @ 0 mls/hr IV .Q0M PRN; Protocol PRN Reason: Hypoglycemia Protocol Meropenem 1 gm/ Sodium (Chloride) 100 mls @ 100 mls/hr IVPB Q8H [facility]; Protocol Last Admin: 08/02/18 06:26 Dose: 100 mls/hr Doxycycline Hyclate 100 mg/ (Sodium Chloride) 100 mls @ 100 mls/hr IVPB Q12H [facility]; Protocol Last Admin: 08/02/18 00:06 Dose: 100 mls/hr Insulin Glargine (Lantus) 20 unit SC HS [facility] Last Admin: 08/01/18 21:50 Dose: 20 unit Insulin Human Isoph/Insulin Regular (Novolin 70/30 (70/30 Units/Ml) 10 Ml) 20 units SC BIDAC [facility] Last Admin: 08/02/18 08:14 Dose: 20 units Lactobacillus Acidophilus (Lactobacillus) 1 cap PO TID [facility] Last Admin: 08/02/18 09:12 Dose: Not Given Lisinopril (Zestril) 5 mg PO DAILY [facility] Last Admin: 08/01/18 09:45 Dose: 5 mg Magnesium Hydroxide (Milk Of Magnesia) 60 ml PO BID PRN PRN Reason: Constipation Miconazole (Monistat 7 Vag Suppository) 100 mg VG [facility] Last Admin: 08/01/18 21:51 Dose: Not Given Rosuvastatin Calcium (Crestor) 2.5 mg PO HS [facility] Last Admin: 08/01/18 22:01 Dose: Not Given Senna/Docusate Sodium (Senokot S 50 Mg-8.6 Mg) 2 tab PO BID [facility] Last Admin: 02/21/19 17:52 Dose: Not Given Simethicone (Mylicon Chew Tab) 80 mg PO Q4H PRN PRN Reason: GI distress Last Admin: 08/01/18 12:17 Dose: 80 mg - Labs Labs: 08/02/18 06:16 08/02/18 06:16 PT 13.6 SECONDS (9.7-12.2) H 07/25/18 12:54 INR 1.2 07/25/18 12:54 APTT 26 SECONDS (21-34) 07/25/18 12:54 - Constitutional Appears: Well, Non-toxic - Extremities Exam Additional comments: LLE focused VASC: DP/PT pulses are palpable, cap refill time: < 3 sec to digit 4 and 5, Temp gradient warm to cool, diffuse non-pitting edema noted- improving DERM: surgical site exhibits normal healing, sutures intact, no pus or purulent discharge appreciated, mild serosanguinous drainage wound noted on the distal aspect of the surgical site with fibrogranular base, no malodor ORTHO: no pain on palpation present NEURO: gross and protective sensation absent - Neurological Exam Neurological Exam: Alert, Oriented x3 Assessment and Plan - Assessment and Plan (Free Text) Assessment: 52F POD#6 left second ray partial amputation (DOS 07/27/18) Plan: Patient seen and evaluated Discussed with attending, Dr. Fox Afebrile, WBC 3.6 L foot intra-op WCx (07/27): Beta hemolytic Strep group B Intra-op pathology: acute OM Continue local wound care: saline wet to dry, DSD, NICOLE Activity: PWB left heel; surgical shoe ordered Continue PT/OT Continue abx per ID - continue abx for 6-8 weeks Recommending [facility] for continued abx/physical therapy - pending placement per social work stable for discharge to [facility] Podiatry will continue to follow
[2018-08-02] MEDS: Docusate-Senna 50 mg-8.6 mg Tab PO SCH ×2 (10:43→20:01)
[2018-08-02] MEDS: Clotrimazole 1% Cream(30 gm) TOP SCH ×2 (10:44→17:16)
--- NOTE | 2018-08-02 15:24 | CP.PCM.PN ---
<Ramy Jacobsen - Last Filed: 08/02/18 15:27> Subjective - Date & Time of Evaluation Date of Evaluation: 08/02/18 Time of Evaluation: 15:21 - Subjective Subjective: Ramy Jacobsen PGY1 Progress Note for Dr. Faulkner Patient reports continuation of her abdominal pain and constipation, however according to RN report patient had adequate stools that became watery and were dripping all over the floor on the way to the bathroom. Patient reports toleration of PICC line, denying fever, chills, chest pain, nausea, vomiting. She reports pain in the foot. Objective - Vital Signs/Intake and Output Vital Signs (last 24 hours): Temp Pulse Resp BP Pulse Ox 98.2 F 89 20 121/74 97 08/02/18 07:00 08/02/18 09:10 08/02/18 07:00 08/02/18 09:10 08/02/18 07:00 - Medications Medications: Current Medications Acetaminophen (Tylenol 325mg Tab) 975 mg PO ONCE PRN PRN Reason: Fever >100.4 F Last Admin: 07/30/18 07:43 Dose: 975 mg Acetaminophen (Tylenol 325mg Tab) 650 mg PO Q6 PRN PRN Reason: Pain, moderate (4-7) Last Admin: 08/02/18 09:12 Dose: 650 mg Albuterol/Ipratropium (Duoneb 3 Mg/0.5 Mg (3 Ml) Ud) 3 ml INH RQ6 PRN PRN Reason: Shortness of Breath Alprazolam (Xanax) 0.5 mg PO TID PRN PRN Reason: Anxiety Last Admin: 08/01/18 00:59 Dose: 0.5 mg Bisacodyl (Dulcolax) 10 mg PO DAILY [facility] Last Admin: 08/02/18 09:13 Dose: Not Given Clotrimazole (Lotrimin 1%) 0 gm TOP BID [facility] Last Admin: 08/02/18 10:44 Dose: Not Given Dextrose (Dextrose 50% Inj) 0 ml IV STAT PRN; Protocol PRN Reason: Hypoglycemia Protocol Dextrose (Glutose 15) 0 gm PO ONCE PRN; Protocol PRN Reason: Hypoglycemia Protocol Famotidine (Pepcid) 20 mg PO DAILY [facility] Last Admin: 08/02/18 09:13 Dose: 20 mg Furosemide (Lasix) 20 mg PO DAILY [facility] Last Admin: 08/02/18 09:22 Dose: Not Given Gabapentin (Neurontin) 300 mg PO BID [facility] Last Admin: 08/02/18 09:12 Dose: 300 mg Glucagon (Glucagen Diagnostic Kit) 0 mg IM STAT PRN; Protocol PRN Reason: Hypoglycemia Protocol Guaifenesin (Mucinex La) 600 mg PO BID [facility] Last Admin: 08/02/18 09:17 Dose: 600 mg Guaifenesin/Dextromethorphan (Robitussin Dm) 5 ml PO Q4H PRN PRN Reason: Cough Last Admin: 08/02/18 09:17 Dose: 5 ml Heparin Sodium (Porcine) (Heparin) 5,000 units SC Q8 [facility] Last Admin: 08/02/18 14:11 Dose: Not Given Dextrose (Dextrose 5% In Water 1000 Ml) 1,000 mls @ 0 mls/hr IV .Q0M PRN; Protocol PRN Reason: Hypoglycemia Protocol Meropenem 1 gm/ Sodium (Chloride) 100 mls @ 100 mls/hr IVPB Q8H [facility]; Protocol Last Admin: 08/02/18 14:07 Dose: 100 mls/hr Doxycycline Hyclate 100 mg/ (Sodium Chloride) 100 mls @ 100 mls/hr IVPB Q12H S ; Protocol Last Admin: 08/02/18 11:27 Dose: 100 mls/hr Insulin Glargine (Lantus) 20 unit SC HS [facility] Last Admin: 08/01/18 21:50 Dose: 20 unit Insulin Human Isoph/Insulin Regular (Novolin 70/30 (70/30 Units/Ml) 10 Ml) 20 units SC BIDAC [facility] Last Admin: 08/02/18 08:14 Dose: 20 units Lactobacillus Acidophilus (Lactobacillus) 1 cap PO TID [facility] Last Admin: 08/02/18 14:10 Dose: Not Given Lisinopril (Zestril) 5 mg PO DAILY [facility] Last Admin: 08/02/18 10:44 Dose: Not Given Magnesium Hydroxide (Milk Of Magnesia) 60 ml PO BID PRN PRN Reason: Constipation Miconazole (Monistat 7 Vag Suppository) 100 mg VG HS [facility] Last Admin: 08/01/18 21:51 Dose: Not Given Rosuvastatin Calcium (Crestor) 2.5 mg PO HS [facility] Last Admin: 08/01/18 22:01 Dose: Not Given Senna/Docusate Sodium (Senokot S 50 Mg-8.6 Mg) 2 tab PO BID [facility] Last Admin: 08/02/18 10:43 Dose: Not Given Simethicone (Mylicon Chew Tab) 80 mg PO Q4H PRN PRN Reason: GI distress Last Admin: 08/01/18 12:17 Dose: 80 mg - Labs Labs: 08/02/18 06:16 08/02/18 06:16 PT 13.6 SECONDS (9.7-12.2) H 07/25/18 12:54 INR 1.2 07/25/18 12:54 APTT 26 SECONDS (21-34) 07/25/18 12:54 - Additional Findings Additional findings: - Constitutional Appears: No Acute Distress, Chronically Ill - Head Exam Head Exam: ATRAUMATIC, NORMAL INSPECTION - Eye Exam Additional comments: complete - left eye; partial right eye - Respiratory Exam Respiratory Exam: Clear to Auscultation Bilateral, NORMAL BREATHING PATTERN, no wheezing, no stridor. - Cardiovascular Exam Cardiovascular Exam: REGULAR RHYTHM, +S1, +S2 - GI/Abdominal Exam GI & Abdominal Exam: Normal Bowel Sounds, Soft. absent: Tenderness - Extremities Exam Right midline seems to be leaking. Additional comments: Left foot is s/p 2nd ray amputation. Dressing is clean, dry, intact, no edema in the lower extremity. No active bleeding. - Neurological Exam Neurological exam: Alert, Oriented x3 - Psychiatric Exam Psychiatric exam: Anxious. Normal affect. - Skin Skin Exam: Rash (dark rash to lower extremities) Assessment and Plan - Assessment and Plan (Free Text) Assessment: 52 year old female with past medical history of diabetes type II, HTN, blindness (complete - left eye; partial right eye) who presented to the ER for a left foot infection. Underwent left second toe ray amputation on 07/27/18. Patient is hemodynamically stable for d/c to [facility] currently has PICC line. 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 Fox --> help appreciated - ID Consult: Dr. Davila --> help appreciated * Merrem 1g IV q8h * Doxycycline 100 mg IVPB q12 * PICC line consented and inserted. * abx recs upon d/c: Rocephin 1g IV q2h and Doxy 100mg IVP q12h x 6 weeks - ICU was consulted --> help appreciated - Left foot wound culture shows beta hemolytic strep b sensitive to ampicilin, PCN, vanco - BCx negative to date - UCx shows erma negative kenyatta On Merem - Medications * Tylenol prn moderate pain * Tramadol 25mg TID PRN severe pain - Images: * Foot Xray: Findings related to prior resection distal 1st metatarsal. Amputation at the level of the proximal phalanx 5th digit. Ventral ulceration medial aspect of the left foot distally. Suggestion of air within the soft tissues. In the absence of recent surgical history gas-forming organism should be considered. * Ankle Xray: Presumed chronic changes midshaft left tibia. * Tibia/Fibula Xray: Unremarkable radiographs of the left tibia and fibula. * LE venous doppler: pt refused - Bandemia/leukocytosis resolved LUE Swelling - Doppler LUE: phlebitis, f/u official report - Warm compresses to area Elevated proBNP - proBNP: 1560 - Trop: negative - Chest Xray: No consolidative infiltrate. Mild cardiomegaly and mild pulmonary venous congestion suspect - ECHO: mild concentric LVH with normal EF of 65-70%, mild TR - Medications: * Lasix 20mg po daily History of Diabetes - HgbA1c 14 - Lipid panel: elevated TG, low HDL - Medications: * Novolin 70/30 20u SC BID * Lantus 20units SC HS * Lisinopril 5mg po daily * Crestor 2.5mg po HS - Hypoglycemia Protocol - Accuchecks Vaginal itching - Miconazole 100 mg VG HS [facility] to lower extremities - Clomitrazole cream to affected areas BID History of HTN - Continue Lisinopril 5mg po daily History of Neuropathy - Continue Gabapentin 300mg po bid Prophylaxis - Physical Therapy: recommending CASTRO - Anti-coagulation - Lactobacillus 1 cap po tid, Senn[place], pepcid, Simethicone Dispo: Patient medically stable for d/c. Currently has PICC line in place. Requiring CASTRO placement or approval for infusion center for IV antibiotics. Must coordinate with daughter Ceci [phone] Faulkner <Salvatore Faulkner Jr. - Last Filed: 08/10/18 13:58> Objective - Vital Signs/Intake and Output Vital Signs (last 24 hours): Temp Pulse Resp BP Pulse Ox 97.5 F L 87 20 155/82 H 97 08/10/18 07:00 08/10/18 07:00 08/10/18 07:00 08/10/18 09:47 08/10/18 07:00 Intake and Output: 08/10/18 08/10/18 06:59 18:59 Intake Total 700 Balance 700 - Medications Medications: Current Medications Acetaminophen (Tylenol 325mg Tab) 975 mg PO ONCE PRN PRN Reason: Fever >100.4 F Last Admin: 07/30/18 07:43 Dose: 975 mg Acetaminophen (Tylenol 325mg Tab) 650 mg PO Q6 PRN PRN Reason: Pain, moderate (4-7) Last Admin: 08/09/18 21:30 Dose: 650 mg Alprazolam (Xanax) 0.5 mg PO TID PRN PRN Reason: Anxiety Last Admin: 08/01/18 00:59 Dose: 0.5 mg Artificial Tears (Artificial Tears) 0.3 ml OU Q4H PRN PRN Reason: Dry eyes Last Admin: 08/08/18 12:13 Dose: 1 drop Bisacodyl (Dulcolax) 10 mg PO DAILY [facility] Last Admin: 08/10/18 09:48 Dose: 10 mg Clotrimazole (Lotrimin 1%) 0 gm TOP BID [facility] Last Admin: 08/09/18 17:23 Dose: 1 appl Dextrose (Dextrose 50% Inj) 0 ml IV STAT PRN; Protocol PRN Reason: Hypoglycemia Protocol Dextrose (Glutose 15) 0 gm PO ONCE PRN; Protocol PRN Reason: Hypoglycemia Protocol Famotidine (Pepcid) 20 mg PO DAILY [facility] Last Admin: 08/10/18 09:47 Dose: 20 mg Furosemide (Lasix) 20 mg PO DAILY [facility] Last Admin: 08/10/18 09:47 Dose: 20 mg Gabapentin (Neurontin) 300 mg PO BID [facility] Last Admin: 08/10/18 09:47 Dose: 300 mg Glucagon (Glucagen Diagnostic Kit) 0 mg IM STAT PRN; Protocol PRN Reason: Hypoglycemia Protocol Guaifenesin (Mucinex La) 600 mg PO BID [facility] Last Admin: 08/10/18 09:47 Dose: 600 mg Guaifenesin/Dextromethorphan (Robitussin Dm) 5 ml PO Q4H PRN PRN Reason: Cough Last Admin: 08/02/18 09:17 Dose: 5 ml Heparin Sodium (Porcine) (Heparin) 5,000 units SC Q8 [facility] Last Admin: 08/09/18 21:32 Dose: Not Given Doxycycline Hyclate 100 mg/ (Sodium Chloride) 100 mls @ 100 mls/hr IVPB Q12H [facility]; Protocol Last Admin: 08/10/18 11:30 Dose: 100 mls/hr Meropenem 1 gm/ Sodium (Chloride) 100 mls @ 100 mls/hr IVPB Q8H [facility]; Protocol Last Admin: 08/10/18 09:49 Dose: 100 mls/hr Insulin Glargine (Lantus) 20 unit SC [facility] Last Admin: 08/09/18 21:32 Dose: Not Given Insulin Human Isoph/Insulin Regular (Novolin 70/30 (70/30 Units/Ml) 10 Ml) 20 units SC BIDAC [facility] Last Admin: 08/10/18 08:30 Dose: 20 units Lactobacillus Acidophilus (Lactobacillus) 1 cap PO TID [facility] Last Admin: 08/10/18 09:47 Dose: 1 cap Lisinopril (Zestril) 5 mg PO DAILY [facility] Last Admin: 08/10/18 09:47 Dose: 5 mg Magnesium Hydroxide (Milk Of Magnesia) 60 ml PO BID PRN PRN Reason: Constipation Miconazole (Monistat 7 Vag Suppository) 100 mg VG [facility] Last Admin: 08/09/18 22:33 Dose: Not Given Rosuvastatin Calcium (Crestor) 2.5 mg PO [facility] Last Admin: 08/09/18 21:32 Dose: Not Given Senna/Docusate Sodium (Senokot S 50 Mg-8.6 Mg) 2 tab PO BID [facility] Last Admin: 08/10/18 09:49 Dose: Not Given Simethicone (Mylicon Chew Tab) 80 mg PO Q4H PRN PRN Reason: GI distress Last Admin: 08/07/18 09:09 Dose: 80 mg Tramadol HCl (Ultram) 25 mg PO TID PRN PRN Reason: Pain, severe (8-10) Last Admin: 08/09/18 11:19 Dose: 25 mg - Labs Labs: 08/08/18 08:29 08/08/18 08:29 PT 13.6 SECONDS (9.7-12.2) H 07/25/18 12:54 INR 1.2 07/25/18 12:54 APTT 26 SECONDS (21-34) 07/25/18 12:54 Attending/Attestation - Attestation I have personally seen and examined this patient.: Yes I have fully participated in the care of the patient.: Yes I have reviewed all pertinent clinical information, including history, physical exam and plan: Yes Notes (Text): 08/10/18 13:58 Reviewed resident note findings and plan of care. Agree with plan of care and findings.
--- NOTE | 2018-08-02 17:07 | CP.PCM.PN ---
Subjective - Date & Time of Evaluation Date of Evaluation: 08/02/18 Time of Evaluation: 09:00 - Subjective Subjective: afebrile on IV rx no new complaints Objective - Vital Signs/Intake and Output Vital Signs (last 24 hours): Temp Pulse Resp BP Pulse Ox 98.0 F 86 20 154/77 H 98 08/02/18 16:00 08/02/18 16:00 08/02/18 16:00 08/02/18 16:00 08/02/18 16:00 - Medications Medications: Current Medications Acetaminophen (Tylenol 325mg Tab) 975 mg PO ONCE PRN PRN Reason: Fever >100.4 F Last Admin: 07/30/18 07:43 Dose: 975 mg Acetaminophen (Tylenol 325mg Tab) 650 mg PO Q6 PRN PRN Reason: Pain, moderate (4-7) Last Admin: 08/02/18 09:12 Dose: 650 mg Albuterol/Ipratropium (Duoneb 3 Mg/0.5 Mg (3 Ml) Ud) 3 ml INH RQ6 PRN PRN Reason: Shortness of Breath Alprazolam (Xanax) 0.5 mg PO TID PRN PRN Reason: Anxiety Last Admin: 08/01/18 00:59 Dose: 0.5 mg Bisacodyl (Dulcolax) 10 mg PO DAILY [facility] Last Admin: 08/02/18 09:13 Dose: Not Given Clotrimazole (Lotrimin 1%) 0 gm TOP BID [facility] Last Admin: 08/02/18 10:44 Dose: Not Given Dextrose (Dextrose 50% Inj) 0 ml IV STAT PRN; Protocol PRN Reason: Hypoglycemia Protocol Dextrose (Glutose 15) 0 gm PO ONCE PRN; Protocol PRN Reason: Hypoglycemia Protocol Famotidine (Pepcid) 20 mg PO DAILY [facility] Last Admin: 08/02/18 09:13 Dose: 20 mg Furosemide (Lasix) 20 mg PO DAILY [facility] Last Admin: 08/02/18 09:22 Dose: Not Given Gabapentin (Neurontin) 300 mg PO BID [facility] Last Admin: 08/02/18 09:12 Dose: 300 mg Glucagon (Glucagen Diagnostic Kit) 0 mg IM STAT PRN; Protocol PRN Reason: Hypoglycemia Protocol Guaifenesin (Mucinex La) 600 mg PO BID [facility] Last Admin: 08/02/18 09:17 Dose: 600 mg Guaifenesin/Dextromethorphan (Robitussin Dm) 5 ml PO Q4H PRN PRN Reason: Cough Last Admin: 08/02/18 09:17 Dose: 5 ml Heparin Sodium (Porcine) (Heparin) 5,000 units SC Q8 [facility] Last Admin: 08/02/18 14:11 Dose: Not Given Dextrose (Dextrose 5% In Water 1000 Ml) 1,000 mls @ 0 mls/hr IV .Q0M PRN; Protocol PRN Reason: Hypoglycemia Protocol Meropenem 1 gm/ Sodium (Chloride) 100 mls @ 100 mls/hr IVPB Q8H [facility]; Protocol Last Admin: 08/02/18 14:07 Dose: 100 mls/hr Doxycycline Hyclate 100 mg/ (Sodium Chloride) 100 mls @ 100 mls/hr IVPB Q12H [facility]; Protocol Last Admin: 08/02/18 11:27 Dose: 100 mls/hr Insulin Glargine (Lantus) 20 unit SC HS [facility] Last Admin: 08/01/18 21:50 Dose: 20 unit Insulin Human Isoph/Insulin Regular (Novolin 70/30 (70/30 Units/Ml) 10 Ml) 20 units SC BIDAC [facility] Last Admin: 08/02/18 08:14 Dose: 20 units Lactobacillus Acidophilus (Lactobacillus) 1 cap PO TID [facility] Last Admin: 08/02/18 14:10 Dose: Not Given Lisinopril (Zestril) 5 mg PO DAILY [facility] Last Admin: 08/02/18 10:44 Dose: Not Given Magnesium Hydroxide (Milk Of Magnesia) 60 ml PO BID PRN PRN Reason: Constipation Miconazole (Monistat 7 Vag Suppository) 100 mg VG [facility] Last Admin: 08/01/18 21:51 Dose: Not Given Rosuvastatin Calcium (Crestor) 2.5 mg PO [facility] Last Admin: 08/01/18 22:01 Dose: Not Given Senna/Docusate Sodium (Senokot S 50 Mg-8.6 Mg) 2 tab PO BID [facility] Last Admin: 08/02/18 10:43 Dose: Not Given Simethicone (Mylicon Chew Tab) 80 mg PO Q4H PRN PRN Reason: GI distress Last Admin: 08/01/18 12:17 Dose: 80 mg Tramadol HCl (Ultram) 25 mg PO TID PRN PRN Reason: Pain, severe (8-10) - Labs Labs: 08/02/18 06:16 08/02/18 06:16 PT 13.6 SECONDS (9.7-12.2) H 07/25/18 12:54 INR 1.2 07/25/18 12:54 APTT 26 SECONDS (21-34) 07/25/18 12:54 - Constitutional Appears: Well - Head Exam Head Exam: ATRAUMATIC, NORMAL INSPECTION, NORMOCEPHALIC - Eye Exam Eye Exam: EOMI, Normal appearance, PERRL Pupil Exam: NORMAL ACCOMODATION, PERRL - ENT Exam ENT Exam: Mucous Membranes Moist, Normal Exam - Neck Exam Neck Exam: Full ROM, Normal Inspection. absent: Lymphadenopathy - Respiratory Exam Respiratory Exam: Clear to Ausculation Bilateral, NORMAL BREATHING PATTERN - Cardiovascular Exam Cardiovascular Exam: REGULAR RHYTHM, +S1, +S2. absent: Murmur - GI/Abdominal Exam GI & Abdominal Exam: Soft, Normal Bowel Sounds. absent: Tenderness - Rectal Exam Rectal Exam: Deferred - Exam Exam: NORMAL INSPECTION - Extremities Exam Extremities Exam: Full ROM, Normal Capillary Refill, Normal Inspection. absent: Joint Swelling, Pedal Edema - Back Exam Back Exam: NORMAL INSPECTION - Neurological Exam Neurological Exam: Alert, Awake, CN II-XII Intact, Normal Gait, Oriented x3 - Psychiatric Exam Psychiatric exam: Normal Affect, Normal Mood - Skin Skin Exam: Dry, Intact, Normal Color, Warm Additional comments: left foot dressing in place Assessment and Plan (1) Cellulitis Status: Acute (2) Open wound Status: Acute (3) Sepsis Status: Acute (4) Uncontrolled diabetes mellitus Status: Acute (5) Osteomyelitis of foot, left, acute Status: Acute (6) Osteomyelitis of foot Status: Acute (7) Osteomyelitis of left foot Status: Acute (8) Gangrene of left foot Status: Acute - Assessment and Plan (Free Text) Assessment: cont rx for 6 weeks for OM
--- NOTE | 2018-08-02 17:12 | VASCLAB ---
Date of service: 08/02/2018 PROCEDURE: Left Upper Extremity Venous Duplex Exam HISTORY: suspected upper extremity thrombosis PRIORS: None. TECHNIQUE: Left upper extremity, internal jugular, subclavian, axillary, brachial, ulnar, radial, basilic and upper cephalic veins were evaluated. Flow was assessed with color Doppler, compressibility, assessment of phasic flow and augmentation response. Report prepared by Shawn Kemp, EDWARD, RVT FINDINGS: LEFT: 1. Internal Jugular: 1.1. Compressibility - Fully compressible: Thrombus - None : Flow - Phasic: Augmentation -Normal: Reflux - None. 2. Subclavian: 2.1. Compressibility - Fully compressible: Thrombus - None : Flow - Phasic: Augmentation -Normal: Reflux - None. 3. Axillary: 3.1. Compressibility - Fully compressible: Thrombus - None : Flow - Phasic: Augmentation -Normal: Reflux - None. 4. Brachial: 4.1. Compressibility - Fully compressible: Thrombus - None: Flow - Phasic: Augmentation -Normal: Reflux - None. 5. Ulnar: 5.1. Compressibility - Fully compressible: Thrombus - None: Flow - Phasic: Augmentation -Normal: Reflux - None. 6. Radial: 6.1. Compressibility - Fully compressible: Thrombus - None: Flow - Phasic: Augmentation - Normal: Reflux - None. 7. Cephalic: 7.1. Compressibility - Partial: Thrombus - Acute: Flow - Absent : Augmentation - None: Reflux - None. 8. Basilic: 8.1. Compressibility - Fully compressible: Thrombus - None: Flow - Phasic: Augmentation -Normal: Reflux - None. OTHER FINDINGS: Left: None. IMPRESSION: Left: Acute thrombosis of the left forearm cephalic vein with severe reduction of the venous return. No evidence of deep vein thrombosis of the left upper extremity with excellent venous flow. Normal valve function noted of the left side. Normal venous flow noted in the right internal jugular and right subclavian veins.
[2018-08-02] MEDS: Simethicone 80 mg Chewtab PO PRN (19:17)
[2018-08-02] MEDS: (Lantus) Insulin Glargine, Recombinant SC SCH (21:10)
[2018-08-02] MEDS: Rosuvastatin Calcium 2.5 mg Tab PO SCH (21:12)
[2018-08-02] MEDS: Miconazole 100 MG Vaginal Supp VG SCH (21:12)
--- NOTE | 2018-08-03 00:57 | CP.PCM.PN ---
Subjective - Date & Time of Evaluation Date of Evaluation: 08/03/18 Time of Evaluation: 00:54 - Subjective Subjective: PGY-1 Medicine Progress Note for Dr. Faulkner Patient seen and examined at bedside, in no acute distress. Patient continues to not wear surgical shoe upon ambulation per nursing, despite education and reinforcement. No fevers/chills, chest pain, palpitations, nausea/vomiting. Objective - Vital Signs/Intake and Output Vital Signs (last 24 hours): Temp Pulse Resp BP Pulse Ox 97.8 F 78 18 125/78 98 08/02/18 23:12 08/02/18 23:12 08/02/18 23:12 08/02/18 23:12 08/02/18 23:12 - Medications Medications: Current Medications Acetaminophen (Tylenol 325mg Tab) 975 mg PO ONCE PRN PRN Reason: Fever >100.4 F Last Admin: 07/30/18 07:43 Dose: 975 mg Acetaminophen (Tylenol 325mg Tab) 650 mg PO Q6 PRN PRN Reason: Pain, moderate (4-7) Last Admin: 08/02/18 17:33 Dose: 650 mg Albuterol/Ipratropium (Duoneb 3 Mg/0.5 Mg (3 Ml) Ud) 3 ml INH RQ6 PRN PRN Reason: Shortness of Breath Alprazolam (Xanax) 0.5 mg PO TID PRN PRN Reason: Anxiety Last Admin: 08/01/18 00:59 Dose: 0.5 mg Bisacodyl (Dulcolax) 10 mg PO DAILY [facility] Last Admin: 08/02/18 09:13 Dose: Not Given Clotrimazole (Lotrimin 1%) 0 gm TOP BID [facility] Last Admin: 08/02/18 17:16 Dose: 1 appl Dextrose (Dextrose 50% Inj) 0 ml IV STAT PRN; Protocol PRN Reason: Hypoglycemia Protocol Dextrose (Glutose 15) 0 gm PO ONCE PRN; Protocol PRN Reason: Hypoglycemia Protocol Famotidine (Pepcid) 20 mg PO DAILY [facility] Last Admin: 08/02/18 09:13 Dose: 20 mg Furosemide (Lasix) 20 mg PO DAILY [facility] Last Admin: 08/02/18 09:22 Dose: Not Given Gabapentin (Neurontin) 300 mg PO BID [facility] Last Admin: 08/02/18 17:16 Dose: 300 mg Glucagon (Glucagen Diagnostic Kit) 0 mg IM STAT PRN; Protocol PRN Reason: Hypoglycemia Protocol Guaifenesin (Mucinex La) 600 mg PO BID [facility] Last Admin: 08/02/18 17:16 Dose: 600 mg Guaifenesin/Dextromethorphan (Robitussin Dm) 5 ml PO Q4H PRN PRN Reason: Cough Last Admin: 08/02/18 09:17 Dose: 5 ml Heparin Sodium (Porcine) (Heparin) 5,000 units SC Q8 [facility] Last Admin: 08/02/18 21:11 Dose: Not Given Dextrose (Dextrose 5% In Water 1000 Ml) 1,000 mls @ 0 mls/hr IV .Q0M PRN; Protocol PRN Reason: Hypoglycemia Protocol Meropenem 1 gm/ Sodium (Chloride) 100 mls @ 100 mls/hr IVPB Q8H [facility]; Protocol Last Admin: 08/02/18 23:01 Dose: 100 mls/hr Doxycycline Hyclate 100 mg/ (Sodium Chloride) 100 mls @ 100 mls/hr IVPB Q12H [facility]; Protocol Last Admin: 08/02/18 23:54 Dose: 100 mls/hr Insulin Glargine (Lantus) 20 unit SC HS [facility] Last Admin: 08/02/18 21:10 Dose: 20 unit Insulin Human Isoph/Insulin Regular (Novolin 70/30 (70/30 Units/Ml) 10 Ml) 20 units SC BIDAC [facility] Last Admin: 08/02/18 17:17 Dose: 20 units Lactobacillus Acidophilus (Lactobacillus) 1 cap PO TID [facility] Last Admin: 08/02/18 17:18 Dose: Not Given Lisinopril (Zestril) 5 mg PO DAILY [facility] Last Admin: 08/02/18 10:44 Dose: Not Given Magnesium Hydroxide (Milk Of Magnesia) 60 ml PO BID PRN PRN Reason: Constipation Miconazole (Monistat 7 Vag Suppository) 100 mg [facility] Last Admin: 08/02/18 21:12 Dose: Not Given Rosuvastatin Calcium (Crestor) 2.5 mg PO HS [facility] Last Admin: 08/02/18 21:12 Dose: Not Given Senna/Docusate Sodium (Senokot S 50 Mg-8.6 Mg) 2 tab PO BID [facility] Last Admin: 08/02/18 20:01 Dose: Not Given Simethicone (Mylicon Chew Tab) 80 mg PO Q4H PRN PRN Reason: GI distress Last Admin: 08/02/18 19:17 Dose: 80 mg Tramadol HCl (Ultram) 25 mg PO TID PRN PRN Reason: Pain, severe (8-10) - Labs Labs: 08/02/18 06:16 08/02/18 06:16 PT 13.6 SECONDS (9.7-12.2) H 07/25/18 12:54 INR 1.2 07/25/18 12:54 APTT 26 SECONDS (21-34) 07/25/18 12:54 - Constitutional Appears: No Acute Distress, Chronically Ill - Head Exam Head Exam: ATRAUMATIC, NORMAL INSPECTION, NORMOCEPHALIC - Eye Exam Additional comments: complete - left eye; partial right eye - Respiratory Exam Respiratory Exam: Clear to Ausculation Bilateral, NORMAL BREATHING PATTERN. absent: Accessory Muscle Use, Rales, Rhonchi, Wheezes, Respiratory Distress, Stridor - Cardiovascular Exam Cardiovascular Exam: REGULAR RHYTHM, +S1, +S2 - GI/Abdominal Exam GI & Abdominal Exam: Soft, Normal Bowel Sounds. absent: Distended, Firm, Guarding, Rigid, Tenderness, Rebound - Extremities Exam Extremities Exam: Normal Capillary Refill Additional comments: Left foot is s/p 2nd ray amputation. Dressing is clean, dry, intact, no edema in the lower extremity. No active bleeding. - Neurological Exam Neurological Exam: Alert, Awake, Oriented x3 - Psychiatric Exam Psychiatric exam: Anxious - Skin Skin Exam: Dry, Intact, Rash, Warm Assessment and Plan - Assessment and Plan (Free Text) Assessment: 52 year old female with past medical history of diabetes type II, HTN, blindness (complete - left eye; partial right eye) who presented to the ER for a left foot infection. Underwent left second toe ray amputation on 07/27/18. Patient is hemodynamically stable for d/c to [facility], currently has PICC line. 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 Fox) appreciated -ID recs (Dr. Davila) appreciated * Merrem 1g IV q8h * Doxycycline 100 mg IVPB q12 * PICC line consented and inserted. * abx recs upon d/c: Rocephin 1g IV q2h and Doxy 100mg IVP q12h x 6 weeks -ICU recs appreciated -L foot wound culture: beta hemolytic strep b sensitive to ampicilin, PCN, vanco -BCx negative to date -UCx shows erma negative kenyatta On Merem -Tylenol prn moderate pain -Tramadol 25mg TID PRN severe pain - Images: * Foot Xray: Findings related to prior resection distal 1st metatarsal. Amputation at the level of the proximal phalanx 5th digit. Ventral ulceration medial aspect of the left foot distally. Suggestion of air within the soft tissues. In the absence of recent surgical history gas-forming organism should be considered. * Ankle Xray: Presumed chronic changes midshaft left tibia. * Tibia/Fibula Xray: Unremarkable radiographs of the left tibia and fibula. * LE venous doppler: pt refused LUE Swelling -Doppler LUE: phlebitis, f/u official report -Warm compresses to area Elevated proBNP -proBNP: 1560 -Trop: negative -CXR: No consolidative infiltrate. Mild cardiomegaly and mild pulmonary venous congestion suspect -ECHO: mild concentric LVH with normal EF of 65-70%, mild TR - c/w Lasix 20mg po daily DM -A1c: 14 -Novolin 70/30 20u SC BID -Lantus 20units SC HS - Hypoglycemia Protocol - Accuchecks ACHS Vaginal itching, improved -Miconazole 100 mg VG HS Haleigh to lower extremities -Clomitrazole cream to affected areas BID HTN -Lisinopril 5mg PO daily Peripheral Neuropathy -Gabapentin 300mg PO BID PPx, Diet, Disposition -DVT ppx: heparin -GI ppx: Lactobacillus 1 cap po tid, Sennakot, pepcid, Simethicone -PT recommending CASTRO Dispo: Patient medically stable for d/c. Currently has PICC line in place. Requiring CASTRO placement or approval for infusion center for IV antibiotics. Must coordinate with daughter Ceci [phone] Further recs as per Dr. Kaushik Woods DO, PGY-1
[2018-08-03] MEDS: Meropenem 1 GM in Sodium Chloride 0.9% 100 ML IVPB SCH ×3 (06:20→22:28)
[2018-08-03 07:18] LABS: BASO % 0.6 % (0.0-2.0); EOS # 0.1 K/uL (0.0-0.7); EOS % 2.9 % (0.0-4.0); HEMOGLOBIN 9.4 g/dL (11.0-16.0); LYMPH # 1.6 K/uL (1.0-4.3); LYMPH % 37.3 % (20.0-40.0); MEAN CELL VOLUME 83.5 fL (81.0-99.0); MEAN CORPUSCULAR HEMOGLOBIN 27.5 pg (27.0-31.0); MEAN PLATELET VOLUME 8.2 fL (7.2-11.7); MONO # 0.5 K/uL (0.0-0.8); MONO % 11.7 % (0.0-10.0); NEUT # 2.1 K/uL (1.8-7.0); NEUT % 47.5 % (50.0-75.0); RBC 3.43 Mil/uL (3.80-5.20); RED CELL DISTRIBUTION WIDTH 15.9 % (11.5-14.5); WHITE BLOOD COUNT 4.3 K/uL (4.8-10.8)
[2018-08-03 07:31] LABS: ALB/GLOB RATIO 0.8 (1.0-2.1); ALBUMIN 3.2 g/dL (3.5-5.0); ALT/SGPT 6 U/L (9-52); AST/SGOT 29 U/L (14-36); BLOOD UREA NITROGEN 21 mg/dL (7-17); CALCIUM 9.2 mg/dl (8.6-10.4); GFR NON-AFRICAN AMERICAN > 60
[2018-08-03] MEDS: (Novolin 70/30) NPH/Regular 70/30 Units/ml 10 ml vial SC SCH ×2 (07:57→16:34)
[2018-08-03] MEDS: Simethicone 80 mg Chewtab PO PRN (07:57)
[2018-08-03] MEDS: guaiFENesin 600 mg ER Tab PO SCH ×3 (09:31→18:15)
[2018-08-03] MEDS: Bisacodyl 5mg EC Tab PO SCH ×2 (09:32→09:38)
[2018-08-03] MEDS: Lactobacillus Acidophilus 500 MU Cap PO SCH ×4 (09:32→18:15)
[2018-08-03] MEDS: Docusate-Senna 50 mg-8.6 mg Tab PO SCH ×3 (09:32→18:16)
[2018-08-03] MEDS: Clotrimazole 1% Cream(30 gm) TOP SCH ×3 (09:33→18:15)
--- NOTE | 2018-08-03 13:50 | CP.PCM.PN ---
Subjective - Date & Time of Evaluation Date of Evaluation: 08/03/18 Time of Evaluation: 13:49 - Subjective Subjective: Podiatry progress note - Dr. Fox 52F seen and evaluated POD#7 left foot partial 2nd ray amputation. No new lower extremity complaints. Denies n/v/f/d/c/sob/de leon/cp. Awaiting CASTRO placement Objective - Vital Signs/Intake and Output Vital Signs (last 24 hours): Temp Pulse Resp BP Pulse Ox 98.9 F 83 25 H 145/83 95 08/03/18 07:50 08/03/18 09:31 08/03/18 07:50 08/03/18 09:32 08/03/18 07:50 - Medications Medications: Current Medications Acetaminophen (Tylenol 325mg Tab) 975 mg PO ONCE PRN PRN Reason: Fever >100.4 F Last Admin: 07/30/18 07:43 Dose: 975 mg Acetaminophen (Tylenol 325mg Tab) 650 mg PO Q6 PRN PRN Reason: Pain, moderate (4-7) Last Admin: 08/03/18 07:57 Dose: 650 mg Albuterol/Ipratropium (Duoneb 3 Mg/0.5 Mg (3 Ml) Ud) 3 ml INH RQ6 PRN PRN Reason: Shortness of Breath Alprazolam (Xanax) 0.5 mg PO TID PRN PRN Reason: Anxiety Last Admin: 08/01/18 00:59 Dose: 0.5 mg Bisacodyl (Dulcolax) 10 mg PO DAILY [facility] Last Admin: 08/03/18 09:38 Dose: Not Given Clotrimazole (Lotrimin 1%) 0 gm TOP BID [facility] Last Admin: 08/03/18 09:33 Dose: 1 appl Dextrose (Dextrose 50% Inj) 0 ml IV STAT PRN; Protocol PRN Reason: Hypoglycemia Protocol Dextrose (Glutose 15) 0 gm PO ONCE PRN; Protocol PRN Reason: Hypoglycemia Protocol Famotidine (Pepcid) 20 mg PO DAILY [facility] Last Admin: 08/03/18 09:32 Dose: 20 mg Furosemide (Lasix) 20 mg PO DAILY [facility] Last Admin: 08/03/18 09:32 Dose: 20 mg Gabapentin (Neurontin) 300 mg PO BID [facility] Last Admin: 08/03/18 09:31 Dose: 300 mg Glucagon (Glucagen Diagnostic Kit) 0 mg IM STAT PRN; Protocol PRN Reason: Hypoglycemia Protocol Guaifenesin (Mucinex La) 600 mg PO BID [facility] Last Admin: 08/03/18 09:31 Dose: 600 mg Guaifenesin/Dextromethorphan (Robitussin Dm) 5 ml PO Q4H PRN PRN Reason: Cough Last Admin: 08/02/18 09:17 Dose: 5 ml Heparin Sodium (Porcine) (Heparin) 5,000 units SC Q8 [facility] Last Admin: 08/03/18 06:21 Dose: Not Given Dextrose (Dextrose 5% In Water 1000 Ml) 1,000 mls @ 0 mls/hr IV .Q0M PRN; Protocol PRN Reason: Hypoglycemia Protocol Meropenem 1 gm/ Sodium (Chloride) 100 mls @ 100 mls/hr IVPB Q8H [facility]; Protocol Last Admin: 08/03/18 06:20 Dose: 100 mls/hr Doxycycline Hyclate 100 mg/ (Sodium Chloride) 100 mls @ 100 mls/hr IVPB Q12H [facility]; Protocol Last Admin: 08/03/18 12:15 Dose: 100 mls/hr Insulin Glargine (Lantus) 20 unit SC HS [facility] Last Admin: 08/02/18 21:10 Dose: 20 unit Insulin Human Isoph/Insulin Regular (Novolin 70/30 (70/30 Units/Ml) 10 Ml) 20 units SC BIDAC [facility] Last Admin: 08/03/18 07:57 Dose: 20 units Lactobacillus Acidophilus (Lactobacillus) 1 cap PO TID [facility] Last Admin: 08/03/18 09:32 Dose: 1 cap Lisinopril (Zestril) 5 mg PO DAILY [facility] Last Admin: 08/03/18 09:32 Dose: 5 mg Magnesium Hydroxide (Milk Of Magnesia) 60 ml PO BID PRN PRN Reason: Constipation Miconazole (Monistat 7 Vag Suppository) 100 mg [facility]G [facility] Last Admin: 08/02/18 21:12 Dose: Not Given Rosuvastatin Calcium (Crestor) 2.5 mg PO HS [facility] Last Admin: 08/02/18 21:12 Dose: Not Given Senna/Docusate Sodium (Senokot S 50 Mg-8.6 Mg) 2 tab PO BID [facility] Last Admin: 08/03/18 09:32 Dose: 2 tab Simethicone (Mylicon Chew Tab) 80 mg PO Q4H PRN PRN Reason: GI distress Last Admin: 08/03/18 07:57 Dose: 80 mg Tramadol HCl (Ultram) 25 mg PO TID PRN PRN Reason: Pain, severe (8-10) - Labs Labs: 08/03/18 07:07 08/03/18 07:07 PT 13.6 SECONDS (9.7-12.2) H 07/25/18 12:54 INR 1.2 07/25/18 12:54 APTT 26 SECONDS (21-34) 07/25/18 12:54 - Constitutional Appears: Well, Non-toxic - Head Exam Head Exam: ATRAUMATIC - Eye Exam Eye Exam: Normal appearance - Extremities Exam Additional comments: LLE focused VASC: DP/PT pulses are palpable, cap refill time: < 3 sec to digit 4 and 5, Temp gradient warm to cool, diffuse non-pitting edema noted- improving DERM: surgical site exhibits normal healing, sutures intact, no pus or purulent discharge appreciated, mild serosanguinous drainage wound noted on the distal aspect of the surgical site with fibrogranular base, no malodor ORTHO: no pain on palpation present NEURO: gross and protective sensation absent - Neurological Exam Neurological Exam: Alert, Awake, Oriented x3 Assessment and Plan - Assessment and Plan (Free Text) Assessment: 52F POD#7 left second ray partial amputation (DOS 07/27/18) Plan: Patient seen and evaluated Discussed with attending, Dr. Fox Afebrile, WBC 3.6 L foot intra-op WCx (07/27): Beta hemolytic Strep group B Intra-op pathology: acute OM Continue local wound care: saline wet to dry, DSD, NICOLE Activity: PWB left heel; surgical shoe ordered Continue PT/OT Continue abx per ID - continue abx for 6-8 weeks Recommending [facility] for continued abx/physical therapy - pending placement per social work stable for discharge to [facility] Podiatry will continue to follow
[2018-08-03] MEDS: Rosuvastatin Calcium 2.5 mg Tab PO SCH (21:39)
[2018-08-03] MEDS: (Lantus) Insulin Glargine, Recombinant SC SCH (22:03)
[2018-08-03] MEDS: Miconazole 100 MG Vaginal Supp VG SCH (22:05)
--- NOTE | 2018-08-04 06:26 | CP.PCM.PN ---
Subjective - Date & Time of Evaluation Date of Evaluation: 08/04/18 Time of Evaluation: 06:23 - Subjective Subjective: PGY-1 Medicine Progress Note for Dr. Faulkner Patient seen and examined at bedside, resting comfortably. No acute distress, no acute somatic complaints at this time. 12 pt ROS reviewed and otherwise negative. Objective - Vital Signs/Intake and Output Vital Signs (last 24 hours): Temp Pulse Resp BP Pulse Ox 97.8 F 81 16 148/70 100 08/03/18 22:00 08/03/18 22:00 08/03/18 22:00 08/03/18 22:00 08/03/18 15:10 Intake and Output: 08/03/18 08/04/18 18:59 06:59 Intake Total 640 100 Balance 640 100 - Medications Medications: Current Medications Acetaminophen (Tylenol 325mg Tab) 975 mg PO ONCE PRN PRN Reason: Fever >100.4 F Last Admin: 07/30/18 07:43 Dose: 975 mg Acetaminophen (Tylenol 325mg Tab) 650 mg PO Q6 PRN PRN Reason: Pain, moderate (4-7) Last Admin: 08/03/18 07:57 Dose: 650 mg Albuterol/Ipratropium (Duoneb 3 Mg/0.5 Mg (3 Ml) Ud) 3 ml INH RQ6 PRN PRN Reason: Shortness of Breath Alprazolam (Xanax) 0.5 mg PO TID PRN PRN Reason: Anxiety Last Admin: 08/01/18 00:59 Dose: 0.5 mg Bisacodyl (Dulcolax) 10 mg PO DAILY [facility] Last Admin: 08/03/18 09:38 Dose: Not Given Clotrimazole (Lotrimin 1%) 0 gm TOP BID [facility] Last Admin: 08/03/18 18:15 Dose: Not Given Dextrose (Dextrose 50% Inj) 0 ml IV STAT PRN; Protocol PRN Reason: Hypoglycemia Protocol Dextrose (Glutose 15) 0 gm PO ONCE PRN; Protocol PRN Reason: Hypoglycemia Protocol Famotidine (Pepcid) 20 mg PO DAILY [facility] Last Admin: 08/03/18 09:32 Dose: 20 mg Furosemide (Lasix) 20 mg PO DAILY [facility] Last Admin: 08/03/18 09:32 Dose: 20 mg Gabapentin (Neurontin) 300 mg PO BID [facility] Last Admin: 08/03/18 18:15 Dose: Not Given Glucagon (Glucagen Diagnostic Kit) 0 mg IM STAT PRN; Protocol PRN Reason: Hypoglycemia Protocol Guaifenesin (Mucinex La) 600 mg PO BID [facility] Last Admin: 08/03/18 18:15 Dose: Not Given Guaifenesin/Dextromethorphan (Robitussin Dm) 5 ml PO Q4H PRN PRN Reason: Cough Last Admin: 08/02/18 09:17 Dose: 5 ml Heparin Sodium (Porcine) (Heparin) 5,000 units SC Q8 [facility] Last Admin: 08/03/18 22:05 Dose: Not Given Dextrose (Dextrose 5% In Water 1000 Ml) 1,000 mls @ 0 mls/hr IV .Q0M PRN; Protocol PRN Reason: Hypoglycemia Protocol Meropenem 1 gm/ Sodium (Chloride) 100 mls @ 100 mls/hr IVPB Q8H [facility]; Protocol Last Admin: 08/03/18 22:28 Dose: 100 mls/hr Doxycycline Hyclate 100 mg/ (Sodium Chloride) 100 mls @ 100 mls/hr IVPB Q12H [facility]; Protocol Last Admin: 08/03/18 12:15 Dose: 100 mls/hr Insulin Glargine (Lantus) 20 unit SC HS [facility] Last Admin: 08/03/18 22:03 Dose: 20 unit Insulin Human Isoph/Insulin Regular (Novolin 70/30 (70/30 Units/Ml) 10 Ml) 20 units SC BIDAC [facility] Last Admin: 08/03/18 16:34 Dose: 20 units Lactobacillus Acidophilus (Lactobacillus) 1 cap PO TID [facility] Last Admin: 08/03/18 18:15 Dose: Not Given Lisinopril (Zestril) 5 mg PO DAILY [facility] Last Admin: 08/03/18 09:32 Dose: 5 mg Magnesium Hydroxide (Milk Of Magnesia) 60 ml PO BID PRN PRN Reason: Constipation Miconazole (Monistat 7 Vag Suppository) 100 mg [facility]G [facility] Last Admin: 08/03/18 22:05 Dose: Not Given Rosuvastatin Calcium (Crestor) 2.5 mg PO [facility] Last Admin: 08/03/18 21:39 Dose: Not Given Senna/Docusate Sodium (Senokot S 50 Mg-8.6 Mg) 2 tab PO BID [facility] Last Admin: 08/03/18 18:16 Dose: Not Given Simethicone (Mylicon Chew Tab) 80 mg PO Q4H PRN PRN Reason: GI distress Last Admin: 08/03/18 07:57 Dose: 80 mg Tramadol HCl (Ultram) 25 mg PO TID PRN PRN Reason: Pain, severe (8-10) - Labs Labs: 08/03/18 07:07 08/03/18 07:07 PT 13.6 SECONDS (9.7-12.2) H 07/25/18 12:54 INR 1.2 07/25/18 12:54 APTT 26 SECONDS (21-34) 07/25/18 12:54 - Constitutional Appears: No Acute Distress, Chronically Ill - Head Exam Head Exam: ATRAUMATIC, NORMAL INSPECTION, NORMOCEPHALIC - Eye Exam Additional comments: complete - left eye; partial right eye - Respiratory Exam Respiratory Exam: Clear to Ausculation Bilateral, NORMAL BREATHING PATTERN. absent: Accessory Muscle Use, Rales, Rhonchi, Wheezes, Respiratory Distress, Stridor - Cardiovascular Exam Cardiovascular Exam: REGULAR RHYTHM, +S1, +S2 - GI/Abdominal Exam GI & Abdominal Exam: Soft, Normal Bowel Sounds. absent: Distended, Firm, Guarding, Rigid, Tenderness, Organomegaly, Rebound - Extremities Exam Extremities Exam: Normal Capillary Refill Additional comments: Left foot is s/p 2nd ray amputation. Dressing is clean, dry, intact, no edema in the lower extremity. No active bleeding. - Neurological Exam Neurological Exam: Alert, Awake, Oriented x3 - Psychiatric Exam Psychiatric exam: Anxious - Skin Skin Exam: Dry, Intact, Warm Assessment and Plan - Assessment and Plan (Free Text) Assessment: 52 year old female with past medical history of diabetes type II, HTN, blindness (complete - left eye; partial right eye) who presented to the ER for a left foot infection. Underwent left second toe ray amputation on 07/27/18. Patient is hemodynamically stable for d/c to [facility], currently has PICC line. 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 Fox) appreciated -ID recs (Dr. Davila) appreciated * Merrem 1g IV q8h * Doxycycline 100 mg IVPB q12 * PICC line consented and inserted. * abx recs upon d/c: Rocephin 1g IV q2h and Doxy 100mg IVP q12h x 6 weeks -ICU recs appreciated -L foot wound culture: beta hemolytic strep b sensitive to ampicilin, PCN, vanco -BCx negative to date -UCx shows erma negative kenyatta On Merem -Tylenol prn moderate pain -Tramadol 25mg TID PRN severe pain - Images: * Foot Xray: Findings related to prior resection distal 1st metatarsal. Amputation at the level of the proximal phalanx 5th digit. Ventral ulceration medial aspect of the left foot distally. Suggestion of air within the soft tissues. In the absence of recent surgical history gas-forming organism should be considered. * Ankle Xray: Presumed chronic changes midshaft left tibia. * Tibia/Fibula Xray: Unremarkable radiographs of the left tibia and fibula. * LE venous doppler: pt refused LUE Swelling -Doppler LUE: phlebitis, f/u official report -Warm compresses to area Elevated proBNP -proBNP: 1560 -Trop: negative -CXR: No consolidative infiltrate. Mild cardiomegaly and mild pulmonary venous congestion suspect -ECHO: mild concentric LVH with normal EF of 65-70%, mild TR - c/w Lasix 20mg po daily DM -A1c: 14 -Novolin 70/30 20u SC BID -Lantus 20units SC HS - Hypoglycemia Protocol - Accuchecks ACHS Vaginal itching, improved -Miconazole 100 mg VG HS Haleigh to lower extremities -Clomitrazole cream to affected areas BID HTN -Lisinopril 5mg PO daily Peripheral Neuropathy -Gabapentin 300mg PO BID PPx, Diet, Disposition -DVT ppx: heparin -GI ppx: Lactobacillus 1 cap po tid, Sennakot, pepcid, Simethicone -PT recommending CASTRO Dispo: Patient medically stable for d/c. Currently has PICC line in place. Requiring CASTRO placement or approval for infusion center for IV antibiotics. Must coordinate with daughter Ceci [phone] Further recs as per Dr. Kaushik Woods DO, PGY-1
[2018-08-04] MEDS: Meropenem 1 GM in Sodium Chloride 0.9% 100 ML IVPB SCH ×3 (06:34→18:17)
[2018-08-04] MEDS: (Novolin 70/30) NPH/Regular 70/30 Units/ml 10 ml vial SC SCH ×2 (08:30→16:42)
[2018-08-04 08:31] LABS: BASO % 0.5 % (0.0-2.0); EOS # 0.1 K/uL (0.0-0.7); EOS % 2.1 % (0.0-4.0); HEMOGLOBIN 9.2 g/dL (11.0-16.0); LYMPH # 1.9 K/uL (1.0-4.3); LYMPH % 37.3 % (20.0-40.0); MEAN CELL VOLUME 83.2 fL (81.0-99.0); MEAN CORPUSCULAR HEMOGLOBIN 27.6 pg (27.0-31.0); MEAN CORPUSCULAR HGB CONC 33.1 g/dL (33.0-37.0); MEAN PLATELET VOLUME 8.3 fL (7.2-11.7); MONO # 0.5 K/uL (0.0-0.8); MONO % 9.1 % (0.0-10.0); NEUT # 2.6 K/uL (1.8-7.0); NRBC % 0.1 % (0.0-2.0); RBC 3.32 Mil/uL (3.80-5.20); RED CELL DISTRIBUTION WIDTH 15.8 % (11.5-14.5); WHITE BLOOD COUNT 5.1 K/uL (4.8-10.8)
[2018-08-04 08:41] LABS: ALB/GLOB RATIO 0.8 (1.0-2.1); ALBUMIN 3.4 g/dL (3.5-5.0); ALT/SGPT 7 U/L (9-52); AST/SGOT 28 U/L (14-36); BLOOD UREA NITROGEN 28 mg/dL (7-17); GFR NON-AFRICAN AMERICAN > 60
[2018-08-04] MEDS: Clotrimazole 1% Cream(30 gm) TOP SCH ×2 (10:47→21:28)
[2018-08-04] MEDS: Docusate-Senna 50 mg-8.6 mg Tab PO SCH ×2 (10:48→18:18)
[2018-08-04] MEDS: Lactobacillus Acidophilus 500 MU Cap PO SCH ×3 (10:53→18:18)
[2018-08-04] MEDS: guaiFENesin 600 mg ER Tab PO SCH ×2 (11:01→18:18)
[2018-08-04] MEDS: Bisacodyl 5mg EC Tab PO SCH (11:01)
--- NOTE | 2018-08-04 11:16 | CP.PCM.PN ---
Subjective - Date & Time of Evaluation Date of Evaluation: 08/04/18 Time of Evaluation: 11:15 - Subjective Subjective: Podiatry progress note - Dr. Fox 52F seen and evaluated POD#8 left foot partial 2nd ray amputation. No new lower extremity complaints. Denies n/v/f/d/c/sob/de leon/cp. Awaiting [facility] placement Objective - Vital Signs/Intake and Output Vital Signs (last 24 hours): Temp Pulse Resp BP Pulse Ox 98.0 F 81 16 140/77 100 08/04/18 08:41 08/03/18 22:00 08/03/18 22:00 08/04/18 11:00 08/03/18 15:10 Intake and Output: 08/04/18 08/04/18 06:59 18:59 Intake Total 100 Balance 100 - Medications Medications: Current Medications Acetaminophen (Tylenol 325mg Tab) 975 mg PO ONCE PRN PRN Reason: Fever >100.4 F Last Admin: 07/30/18 07:43 Dose: 975 mg Acetaminophen (Tylenol 325mg Tab) 650 mg PO Q6 PRN PRN Reason: Pain, moderate (4-7) Last Admin: 08/04/18 08:41 Dose: 650 mg Alprazolam (Xanax) 0.5 mg PO TID PRN PRN Reason: Anxiety Last Admin: 08/01/18 00:59 Dose: 0.5 mg Bisacodyl (Dulcolax) 10 mg PO DAILY [facility] Last Admin: 08/04/18 11:01 Dose: Not Given Clotrimazole (Lotrimin 1%) 0 gm TOP BID [facility] Last Admin: 08/04/18 10:47 Dose: 1 appl Dextrose (Dextrose 50% Inj) 0 ml IV STAT PRN; Protocol PRN Reason: Hypoglycemia Protocol Dextrose (Glutose 15) 0 gm PO ONCE PRN; Protocol PRN Reason: Hypoglycemia Protocol Famotidine (Pepcid) 20 mg PO DAILY [facility] Last Admin: 08/04/18 10:47 Dose: 20 mg Furosemide (Lasix) 20 mg PO DAILY [facility] Last Admin: 08/04/18 11:00 Dose: 20 mg Gabapentin (Neurontin) 300 mg PO BID [facility] Last Admin: 08/04/18 11:00 Dose: 300 mg Glucagon (Glucagen Diagnostic Kit) 0 mg IM STAT PRN; Protocol PRN Reason: Hypoglycemia Protocol Guaifenesin (Mucinex La) 600 mg PO BID [facility] Last Admin: 08/04/18 11:01 Dose: Not Given Guaifenesin/Dextromethorphan (Robitussin Dm) 5 ml PO Q4H PRN PRN Reason: Cough Last Admin: 08/02/18 09:17 Dose: 5 ml Heparin Sodium (Porcine) (Heparin) 5,000 units SC Q8 [facility] Last Admin: 08/04/18 06:34 Dose: Not Given Dextrose (Dextrose 5% In Water 1000 Ml) 1,000 mls @ 0 mls/hr IV .Q0M PRN; Protocol PRN Reason: Hypoglycemia Protocol Meropenem 1 gm/ Sodium (Chloride) 100 mls @ 100 mls/hr IVPB Q8H [facility]; Protocol Last Admin: 08/04/18 08:38 Dose: 100 mls/hr Doxycycline Hyclate 100 mg/ (Sodium Chloride) 100 mls @ 100 mls/hr IVPB Q12H [facility]; Protocol Last Admin: 08/03/18 12:15 Dose: 100 mls/hr Insulin Glargine (Lantus) 20 unit SC [facility] Last Admin: 08/03/18 22:03 Dose: 20 unit Insulin Human Isoph/Insulin Regular (Novolin 70/30 (70/30 Units/Ml) 10 Ml) 20 units SC BIDAC [facility] Last Admin: 08/04/18 08:30 Dose: 20 units Lactobacillus Acidophilus (Lactobacillus) 1 cap PO TID [facility] Last Admin: 08/04/18 10:53 Dose: 1 cap Lisinopril (Zestril) 5 mg PO DAILY [facility] Last Admin: 08/04/18 10:48 Dose: 5 mg Magnesium Hydroxide (Milk Of Magnesia) 60 ml PO BID PRN PRN Reason: Constipation Miconazole (Monistat 7 Vag Suppository) 100 mg VG [facility] Last Admin: 08/03/18 22:05 Dose: Not Given Rosuvastatin Calcium (Crestor) 2.5 mg PO [facility] Last Admin: 08/03/18 21:39 Dose: Not Given Senna/Docusate Sodium (Senokot S 50 Mg-8.6 Mg) 2 tab PO BID [facility] Last Admin: 08/04/18 10:48 Dose: 2 tab Simethicone (Mylicon Chew Tab) 80 mg PO Q4H PRN PRN Reason: GI distress Last Admin: 08/03/18 07:57 Dose: 80 mg Tramadol HCl (Ultram) 25 mg PO TID PRN PRN Reason: Pain, severe (8-10) - Labs Labs: 08/04/18 07:23 08/04/18 07:23 PT 13.6 SECONDS (9.7-12.2) H 07/25/18 12:54 INR 1.2 07/25/18 12:54 APTT 26 SECONDS (21-34) 07/25/18 12:54 - Constitutional Appears: Well, Non-toxic - Head Exam Head Exam: ATRAUMATIC - Extremities Exam Additional comments: LLE focused VASC: DP/PT pulses are palpable, cap refill time: < 3 sec to digit 4 and 5, Temp gradient warm to cool, diffuse non-pitting edema noted- improving DERM: surgical site exhibits normal healing, sutures intact, no pus or purulent discharge appreciated, mild serosanguinous drainage wound noted on the distal aspect of the surgical site with fibrogranular base, no malodor ORTHO: no pain on palpation present NEURO: gross and protective sensation absent - Neurological Exam Neurological Exam: Alert, Awake, Oriented x3 Assessment and Plan - Assessment and Plan (Free Text) Assessment: 52F POD#8 left second ray partial amputation (DOS 07/27/18) Plan: Patient seen and evaluated Discussed with attending, Dr. Fox Afebrile, absent leukocytosis L foot intra-op WCx (07/27): Beta hemolytic Strep group B Intra-op pathology: acute OM Continue local wound care: saline wet to dry, DSD, NICOLE Activity: PWB left heel; surgical shoe ordered Continue PT/OT Continue abx per ID - continue abx for 6-8 weeks Recommending [facility] for continued abx/physical therapy - pending placement per social work stable for discharge to [facility] Podiatry will continue to follow
[2018-08-04] MEDS: Tramadol 25 mg PO PRN (14:04)
--- NOTE | 2018-08-04 17:30 | CP.PCM.PN ---
Subjective - Date & Time of Evaluation Date of Evaluation: 08/04/18 Time of Evaluation: 09:00 - Subjective Subjective: comfortable NAD Objective - Vital Signs/Intake and Output Vital Signs (last 24 hours): Temp Pulse Resp BP Pulse Ox 98.5 F 83 20 150/83 96 08/04/18 16:00 08/04/18 16:00 08/04/18 16:00 08/04/18 16:00 08/04/18 16:00 Intake and Output: 08/04/18 08/04/18 06:59 18:59 Intake Total 100 300 Balance 100 300 - Medications Medications: Current Medications Acetaminophen (Tylenol 325mg Tab) 975 mg PO ONCE PRN PRN Reason: Fever >100.4 F Last Admin: 07/30/18 07:43 Dose: 975 mg Acetaminophen (Tylenol 325mg Tab) 650 mg PO Q6 PRN PRN Reason: Pain, moderate (4-7) Last Admin: 08/04/18 08:41 Dose: 650 mg Alprazolam (Xanax) 0.5 mg PO TID PRN PRN Reason: Anxiety Last Admin: 08/01/18 00:59 Dose: 0.5 mg Bisacodyl (Dulcolax) 10 mg PO DAILY [facility] Last Admin: 08/04/18 11:01 Dose: Not Given Clotrimazole (Lotrimin 1%) 0 gm TOP BID [facility] Last Admin: 08/04/18 10:47 Dose: 1 appl Dextrose (Dextrose 50% Inj) 0 ml IV STAT PRN; Protocol PRN Reason: Hypoglycemia Protocol Dextrose (Glutose 15) 0 gm PO ONCE PRN; Protocol PRN Reason: Hypoglycemia Protocol Famotidine (Pepcid) 20 mg PO DAILY [facility] Last Admin: 08/04/18 10:47 Dose: 20 mg Furosemide (Lasix) 20 mg PO DAILY [facility] Last Admin: 08/04/18 11:00 Dose: 20 mg Gabapentin (Neurontin) 300 mg PO BID [facility] Last Admin: 08/04/18 11:00 Dose: 300 mg Glucagon (Glucagen Diagnostic Kit) 0 mg IM STAT PRN; Protocol PRN Reason: Hypoglycemia Protocol Guaifenesin (Mucinex La) 600 mg PO BID [facility] Last Admin: 08/04/18 11:01 Dose: Not Given Guaifenesin/Dextromethorphan (Robitussin Dm) 5 ml PO Q4H PRN PRN Reason: Cough Last Admin: 08/02/18 09:17 Dose: 5 ml Heparin Sodium (Porcine) (Heparin) 5,000 units SC Q8 [facility] Last Admin: 08/04/18 14:08 Dose: Not Given Dextrose (Dextrose 5% In Water 1000 Ml) 1,000 mls @ 0 mls/hr IV .Q0M PRN; Protocol PRN Reason: Hypoglycemia Protocol Doxycycline Hyclate 100 mg/ (Sodium Chloride) 100 mls @ 100 mls/hr IVPB Q12H [facility]; Protocol Last Admin: 08/04/18 13:10 Dose: 100 mls/hr Meropenem 1 gm/ Sodium (Chloride) 100 mls @ 100 mls/hr IVPB Q8H [facility]; Protocol Insulin Glargine (Lantus) 20 unit SC [facility] Last Admin: 08/03/18 22:03 Dose: 20 unit Insulin Human Isoph/Insulin Regular (Novolin 70/30 (70/30 Units/Ml) 10 Ml) 20 units SC BIDAC [facility] Last Admin: 08/04/18 16:42 Dose: 20 units Lactobacillus Acidophilus (Lactobacillus) 1 cap PO TID [facility] Last Admin: 08/04/18 14:08 Dose: 1 cap Lisinopril (Zestril) 5 mg PO DAILY [facility] Last Admin: 08/04/18 10:48 Dose: 5 mg Magnesium Hydroxide (Milk Of Magnesia) 60 ml PO BID PRN PRN Reason: Constipation Miconazole (Monistat 7 Vag Suppository) 100 mg VG [facility] Last Admin: 08/03/18 22:05 Dose: Not Given Rosuvastatin Calcium (Crestor) 2.5 mg PO [facility] Last Admin: 08/03/18 21:39 Dose: Not Given Senna/Docusate Sodium (Senokot S 50 Mg-8.6 Mg) 2 tab PO BID [facility] Last Admin: 08/04/18 10:48 Dose: 2 tab Simethicone (Mylicon Chew Tab) 80 mg PO Q4H PRN PRN Reason: GI distress Last Admin: 08/03/18 07:57 Dose: 80 mg Tramadol HCl (Ultram) 25 mg PO TID PRN PRN Reason: Pain, severe (8-10) Last Admin: 08/04/18 14:04 Dose: 25 mg - Labs Labs: 08/04/18 07:23 08/04/18 07:23 PT 13.6 SECONDS (9.7-12.2) H 07/25/18 12:54 INR 1.2 07/25/18 12:54 APTT 26 SECONDS (21-34) 07/25/18 12:54 - Constitutional Appears: Well - Head Exam Head Exam: ATRAUMATIC, NORMAL INSPECTION, NORMOCEPHALIC - Eye Exam Eye Exam: EOMI, Normal appearance, PERRL Pupil Exam: NORMAL ACCOMODATION, PERRL - ENT Exam ENT Exam: Mucous Membranes Moist, Normal Exam - Neck Exam Neck Exam: Full ROM, Normal Inspection. absent: Lymphadenopathy - Respiratory Exam Respiratory Exam: Clear to Ausculation Bilateral, NORMAL BREATHING PATTERN - Cardiovascular Exam Cardiovascular Exam: REGULAR RHYTHM, +S1, +S2. absent: Murmur - GI/Abdominal Exam GI & Abdominal Exam: Soft, Normal Bowel Sounds. absent: Tenderness - Rectal Exam Rectal Exam: Deferred - Exam Exam: NORMAL INSPECTION - Extremities Exam Extremities Exam: Full ROM, Normal Capillary Refill, Normal Inspection. absent: Joint Swelling, Pedal Edema - Back Exam Back Exam: NORMAL INSPECTION - Neurological Exam Neurological Exam: Alert, Awake, CN II-XII Intact, Normal Gait, Oriented x3 - Psychiatric Exam Psychiatric exam: Normal Affect, Normal Mood - Skin Skin Exam: Dry, Intact Additional comments: wound and dressing left foot C.D/I Assessment and Plan (1) Cellulitis Status: Acute (2) Open wound Status: Acute (3) Sepsis Status: Acute (4) Uncontrolled diabetes mellitus Status: Acute (5) Osteomyelitis of foot, left, acute Status: Acute (6) Osteomyelitis of foot Status: Acute (7) Osteomyelitis of left foot Status: Acute (8) Gangrene of left foot Status: Acute - Assessment and Plan (Free Text) Assessment: cont rx for OM left foot
[2018-08-04] MEDS: Rosuvastatin Calcium 2.5 mg Tab PO SCH (21:27)
[2018-08-04] MEDS: Miconazole 100 MG Vaginal Supp VG SCH (21:28)
[2018-08-04] MEDS: (Lantus) Insulin Glargine, Recombinant SC SCH (21:32)
[2018-08-05] MEDS: Meropenem 1 GM in Sodium Chloride 0.9% 100 ML IVPB SCH ×3 (02:47→17:52)
[2018-08-05 08:23] LABS: BASO % 0.6 % (0.0-2.0); EOS # 0.1 K/uL (0.0-0.7); EOS % 1.5 % (0.0-4.0); HEMOGLOBIN 8.9 g/dL (11.0-16.0); LYMPH # 2.6 K/uL (1.0-4.3); LYMPH % 38.3 % (20.0-40.0); MEAN CELL VOLUME 83.5 fL (81.0-99.0); MEAN CORPUSCULAR HEMOGLOBIN 27.1 pg (27.0-31.0); MEAN CORPUSCULAR HGB CONC 32.4 g/dL (33.0-37.0); MEAN PLATELET VOLUME 8.7 fL (7.2-11.7); MONO # 0.4 K/uL (0.0-0.8); MONO % 5.4 % (0.0-10.0); NEUT # 3.7 K/uL (1.8-7.0); NEUT % 54.2 % (50.0-75.0); NRBC % 0.1 % (0.0-2.0); RBC 3.29 Mil/uL (3.80-5.20); RED CELL DISTRIBUTION WIDTH 16.1 % (11.5-14.5); WHITE BLOOD COUNT 6.8 K/uL (4.8-10.8)
[2018-08-05 08:33] LABS: ALB/GLOB RATIO 0.8 (1.0-2.1); ALBUMIN 3.5 g/dL (3.5-5.0); ALT/SGPT < 6 U/L (9-52); AST/SGOT 46 U/L (14-36); BLOOD UREA NITROGEN 27 mg/dL (7-17); CALCIUM 8.8 mg/dl (8.6-10.4); GFR NON-AFRICAN AMERICAN > 60
[2018-08-05] MEDS: Docusate-Senna 50 mg-8.6 mg Tab PO SCH ×2 (09:20→17:46)
[2018-08-05] MEDS: Clotrimazole 1% Cream(30 gm) TOP SCH ×2 (09:21→17:43)
[2018-08-05] MEDS: guaiFENesin 600 mg ER Tab PO SCH ×2 (09:22→17:45)
[2018-08-05] MEDS: Lactobacillus Acidophilus 500 MU Cap PO SCH ×3 (09:22→17:45)
[2018-08-05] MEDS: (Novolin 70/30) NPH/Regular 70/30 Units/ml 10 ml vial SC SCH ×2 (09:24→17:45)
[2018-08-05] MEDS: Bisacodyl 5mg EC Tab PO SCH (09:25)
--- NOTE | 2018-08-05 13:48 | CP.PCM.PN ---
Subjective - Date & Time of Evaluation Date of Evaluation: 08/05/18 Time of Evaluation: 13:41 - Subjective Subjective: Ramy Jacobsen PGY1 Progress Note for Dr. Faulkner Patient was examined at bedside. She reports feeling well. She denies fever, chills, chest pain, shortness of breath, abdominal pain, nausea, vomiting, diarrhea. Objective - Vital Signs/Intake and Output Vital Signs (last 24 hours): Temp Pulse Resp BP Pulse Ox 97.9 F 83 20 144/80 97 08/05/18 07:46 08/05/18 09:25 08/05/18 07:46 08/05/18 09:25 08/05/18 07:46 - Medications Medications: Current Medications Acetaminophen (Tylenol 325mg Tab) 975 mg PO ONCE PRN PRN Reason: Fever >100.4 F Last Admin: 07/30/18 07:43 Dose: 975 mg Acetaminophen (Tylenol 325mg Tab) 650 mg PO Q6 PRN PRN Reason: Pain, moderate (4-7) Last Admin: 08/04/18 08:41 Dose: 650 mg Alprazolam (Xanax) 0.5 mg PO TID PRN PRN Reason: Anxiety Last Admin: 08/01/18 00:59 Dose: 0.5 mg Bisacodyl (Dulcolax) 10 mg PO DAILY [facility] Last Admin: 08/05/18 09:25 Dose: Not Given Clotrimazole (Lotrimin 1%) 0 gm TOP BID [facility] Last Admin: 08/05/18 09:21 Dose: 1 appl Dextrose (Dextrose 50% Inj) 0 ml IV STAT PRN; Protocol PRN Reason: Hypoglycemia Protocol Dextrose (Glutose 15) 0 gm PO ONCE PRN; Protocol PRN Reason: Hypoglycemia Protocol Famotidine (Pepcid) 20 mg PO DAILY [facility] Last Admin: 08/05/18 09:21 Dose: 20 mg Furosemide (Lasix) 20 mg PO DAILY [facility] Last Admin: 08/05/18 09:23 Dose: 20 mg Gabapentin (Neurontin) 300 mg PO BID [facility] Last Admin: 08/05/18 09:23 Dose: 300 mg Glucagon (Glucagen Diagnostic Kit) 0 mg IM STAT PRN; Protocol PRN Reason: Hypoglycemia Protocol Guaifenesin (Mucinex La) 600 mg PO BID [facility] Last Admin: 08/05/18 09:22 Dose: 600 mg Guaifenesin/Dextromethorphan (Robitussin Dm) 5 ml PO Q4H PRN PRN Reason: Cough Last Admin: 08/02/18 09:17 Dose: 5 ml Heparin Sodium (Porcine) (Heparin) 5,000 units SC Q8 [facility] Last Admin: 08/05/18 13:14 Dose: Not Given Doxycycline Hyclate 100 mg/ (Sodium Chloride) 100 mls @ 100 mls/hr IVPB Q12H [facility]; Protocol Last Admin: 08/05/18 12:16 Dose: 100 mls/hr Meropenem 1 gm/ Sodium (Chloride) 100 mls @ 100 mls/hr IVPB Q8H [facility]; Protocol Last Admin: 08/05/18 09:27 Dose: 100 mls/hr Insulin Glargine (Lantus) 20 unit SC [facility] Last Admin: 08/04/18 21:32 Dose: 20 unit Insulin Human Isoph/Insulin Regular (Novolin 70/30 (70/30 Units/Ml) 10 Ml) 20 units SC BIDAC [facility] Last Admin: 08/05/18 09:24 Dose: 20 units Lactobacillus Acidophilus (Lactobacillus) 1 cap PO TID [facility] Last Admin: 08/05/18 13:13 Dose: 1 cap Lisinopril (Zestril) 5 mg PO DAILY [facility] Last Admin: 08/05/18 09:21 Dose: 5 mg Magnesium Hydroxide (Milk Of Magnesia) 60 ml PO BID PRN PRN Reason: Constipation Miconazole (Monistat 7 Vag Suppository) 100 mg VG [facility] Last Admin: 08/04/18 21:28 Dose: Not Given Rosuvastatin Calcium (Crestor) 2.5 mg PO [facility] Last Admin: 08/04/18 21:27 Dose: Not Given Senna/Docusate Sodium (Senokot S 50 Mg-8.6 Mg) 2 tab PO BID [facility] Last Admin: 08/05/18 09:20 Dose: Not Given Simethicone (Mylicon Chew Tab) 80 mg PO Q4H PRN PRN Reason: GI distress Last Admin: 08/03/18 07:57 Dose: 80 mg Tramadol HCl (Ultram) 25 mg PO TID PRN PRN Reason: Pain, severe (8-10) Last Admin: 08/04/18 14:04 Dose: 25 mg - Labs Labs: 08/05/18 08:05 08/05/18 08:05 PT 13.6 SECONDS (9.7-12.2) H 07/25/18 12:54 INR 1.2 07/25/18 12:54 APTT 26 SECONDS (21-34) 07/25/18 12:54 - Additional Findings Additional findings: - Constitutional Appears: No Acute Distress, Chronically Ill - Head Exam Head Exam: ATRAUMATIC, NORMAL INSPECTION - Eye Exam Additional comments: complete - left eye; partial right eye - Respiratory Exam Respiratory Exam: Clear to Auscultation Bilateral, NORMAL BREATHING PATTERN, no wheezing, no stridor. - Cardiovascular Exam Cardiovascular Exam: REGULAR RHYTHM, +S1, +S2 - GI/Abdominal Exam GI & Abdominal Exam: Normal Bowel Sounds, Soft. absent: Tenderness - Extremities Exam Right midline seems to be leaking. Additional comments: Left foot is s/p 2nd ray amputation. Dressing is clean, dry, intact, no edema in the lower extremity. No active bleeding. - Neurological Exam Neurological exam: Alert, Oriented x3 - Psychiatric Exam Psychiatric exam: Anxious. Normal affect. - Skin Skin Exam: Rash (dark rash to lower extremities) Assessment and Plan - Assessment and Plan (Free Text) Assessment: 52 year old female with past medical history of diabetes type II, HTN, blindness (complete - left eye; partial right eye) who presented to the ER for a left foot infection. Underwent left second toe ray amputation on 07/27/18. Patient is hemodynamically stable for d/c to [facility], currently has PICC line. 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 Fox --> help appreciated - ID Consult: Dr. Davila --> help appreciated * Merrem 1g IV q8h * Doxycycline 100 mg IVPB q12 * PICC line consented and inserted. * abx recs upon d/c: Rocephin 1g IV q2h and Doxy 100mg IVP q12h x 6 weeks - ICU was consulted --> help appreciated - Left foot wound culture shows beta hemolytic strep b sensitive to ampicilin, PCN, vanco - BCx negative to date - UCx shows erma negative kenyatta On Merem - Medications * Tylenol prn moderate pain * Tramadol 25mg TID PRN severe pain - Images: * Foot Xray: Findings related to prior resection distal 1st metatarsal. Amputation at the level of the proximal phalanx 5th digit. Ventral ulceration medial aspect of the left foot distally. Suggestion of air within the soft tissues. In the absence of recent surgical history gas-forming organism should be considered. * Ankle Xray: Presumed chronic changes midshaft left tibia. * Tibia/Fibula Xray: Unremarkable radiographs of the left tibia and fibula. * LE venous doppler: pt refused - Bandemia/leukocytosis resolved LUE Swelling - Doppler LUE: phlebitis, f/u official report - Warm compresses to area Elevated proBNP - proBNP: 1560 - Trop: negative - Chest Xray: No consolidative infiltrate. Mild cardiomegaly and mild pulmonary venous congestion suspect - ECHO: mild concentric LVH with normal EF of 65-70%, mild TR - Medications: * Lasix 20mg po daily History of Diabetes - HgbA1c 14 - Lipid panel: elevated TG, low HDL - Medications: * Novolin 70/30 20u SC BID * Lantus 20units SC HS * Lisinopril 5mg po daily * Crestor 2.5mg po HS - Hypoglycemia Protocol - Accuchecks Vaginal itching - Miconazole 100 mg VG [facility] to lower extremities - Clomitrazole cream to affected areas BID History of HTN - Continue Lisinopril 5mg po daily History of Neuropathy - Continue Gabapentin 300mg po bid Prophylaxis - Physical Therapy: recommending [facility] - Anti-coagulation - Lactobacillus 1 cap po tid, Sennakot, pepcid, Simethicone Dispo: Patient medically stable for d/c. Currently has PICC line in place. Rossi ent not accepted to [facility] or outpatient infusion center. Must coordinate with daughter Ceci [phone] to send back to [facility] for placement. Case discussed with Dr. Faulkner
[2018-08-05] MEDS: Simethicone 80 mg Chewtab PO PRN (17:44)
[2018-08-05] MEDS: (Lantus) Insulin Glargine, Recombinant SC SCH (21:38)
[2018-08-05] MEDS: Rosuvastatin Calcium 2.5 mg Tab PO SCH (21:38)
[2018-08-05] MEDS: Miconazole 100 MG Vaginal Supp VG SCH (21:38)
[2018-08-06] MEDS: Meropenem 1 GM in Sodium Chloride 0.9% 100 ML IVPB SCH ×3 (01:34→17:43)
[2018-08-06] MEDS: (Novolin 70/30) NPH/Regular 70/30 Units/ml 10 ml vial SC SCH ×2 (08:30→17:38)
[2018-08-06] MEDS: Docusate-Senna 50 mg-8.6 mg Tab PO SCH ×2 (09:52→17:50)
[2018-08-06] MEDS: guaiFENesin 600 mg ER Tab PO SCH ×2 (09:52→17:38)
[2018-08-06] MEDS: Lactobacillus Acidophilus 500 MU Cap PO SCH ×3 (09:53→17:50)
[2018-08-06] MEDS: Clotrimazole 1% Cream(30 gm) TOP SCH ×2 (09:53→17:44)
[2018-08-06] MEDS: Bisacodyl 5mg EC Tab PO SCH (09:54)
[2018-08-06] MEDS ORDERED: Lubricant Eye Drops UD OU PRN (14:28)
[2018-08-06] MEDS: Aritificial Tears (15ml) OU PRN (14:58)
--- NOTE | 2018-08-06 15:09 | CP.PCM.PN ---
<Ramy Jacobsen - Last Filed: 08/06/18 15:06> Subjective - Date & Time of Evaluation Date of Evaluation: 08/06/18 Time of Evaluation: 15:06 - Subjective Subjective: Ramy Jacobsen PGY1 Progress Note for Dr. Faulkner Pt was examined at bedside this morning. She reports improvement in her cough. She complains of worsening blurry vision today. Objective - Vital Signs/Intake and Output Vital Signs (last 24 hours): Temp Pulse Resp BP Pulse Ox 98.2 F 75 20 167/82 H 98 08/06/18 08:09 08/06/18 08:09 08/06/18 08:09 08/06/18 09:53 08/06/18 08:09 - Medications Medications: Current Medications Acetaminophen (Tylenol 325mg Tab) 975 mg PO ONCE PRN PRN Reason: Fever >100.4 F Last Admin: 07/30/18 07:43 Dose: 975 mg Acetaminophen (Tylenol 325mg Tab) 650 mg PO Q6 PRN PRN Reason: Pain, moderate (4-7) Last Admin: 08/06/18 14:57 Dose: 650 mg Alprazolam (Xanax) 0.5 mg PO TID PRN PRN Reason: Anxiety Last Admin: 08/01/18 00:59 Dose: 0.5 mg Artificial Tears (Artificial Tears) 0.3 ml OU Q4H PRN PRN Reason: Dry eyes Last Admin: 08/06/18 14:58 Dose: 1 drop Bisacodyl (Dulcolax) 10 mg PO DAILY [facility] Last Admin: 08/06/18 09:54 Dose: Not Given Clotrimazole (Lotrimin 1%) 0 gm TOP BID [facility] Last Admin: 08/06/18 09:53 Dose: 1 appl Dextrose (Dextrose 50% Inj) 0 ml IV STAT PRN; Protocol PRN Reason: Hypoglycemia Protocol Dextrose (Glutose 15) 0 gm PO ONCE PRN; Protocol PRN Reason: Hypoglycemia Protocol Famotidine (Pepcid) 20 mg PO DAILY [facility] Last Admin: 08/06/18 09:52 Dose: 20 mg Furosemide (Lasix) 20 mg PO DAILY [facility] Last Admin: 08/06/18 09:53 Dose: 20 mg Gabapentin (Neurontin) 300 mg PO BID [facility] Last Admin: 08/06/18 09:52 Dose: 300 mg Glucagon (Glucagen Diagnostic Kit) 0 mg IM STAT PRN; Protocol PRN Reason: Hypoglycemia Protocol Guaifenesin (Mucinex La) 600 mg PO BID [facility] Last Admin: 08/06/18 09:52 Dose: 600 mg Guaifenesin/Dextromethorphan (Robitussin Dm) 5 ml PO Q4H PRN PRN Reason: Cough Last Admin: 08/02/18 09:17 Dose: 5 ml Heparin Sodium (Porcine) (Heparin) 5,000 units SC Q8 [facility] Last Admin: 08/06/18 13:18 Dose: Not Given Doxycycline Hyclate 100 mg/ (Sodium Chloride) 100 mls @ 100 mls/hr IVPB Q12H [facility]; Protocol Last Admin: 08/06/18 12:52 Dose: 100 mls/hr Meropenem 1 gm/ Sodium (Chloride) 100 mls @ 100 mls/hr IVPB Q8H [facility]; Protocol Last Admin: 08/06/18 09:56 Dose: 100 mls/hr Insulin Glargine (Lantus) 20 unit SC HS [facility] Last Admin: 08/05/18 21:38 Dose: 20 unit Insulin Human Isoph/Insulin Regular (Novolin 70/30 (70/30 Units/Ml) 10 Ml) 20 units SC BIDAC [facility] Last Admin: 08/06/18 08:30 Dose: 20 units Lactobacillus Acidophilus (Lactobacillus) 1 cap PO TID [facility] Last Admin: 08/06/18 13:23 Dose: 1 cap Lisinopril (Zestril) 5 mg PO DAILY [facility] Last Admin: 08/06/18 09:52 Dose: 5 mg Magnesium Hydroxide (Milk Of Magnesia) 60 ml PO BID PRN PRN Reason: Constipation Miconazole (Monistat 7 Vag Suppository) 100 mg VG HS [facility] Last Admin: 08/05/18 21:38 Dose: Not Given Rosuvastatin Calcium (Crestor) 2.5 mg PO HS [facility] Last Admin: 08/05/18 21:38 Dose: Not Given Senna/Docusate Sodium (Senokot S 50 Mg-8.6 Mg) 2 tab PO BID [facility] Last Admin: 08/06/18 09:52 Dose: Not Given Simethicone (Mylicon Chew Tab) 80 mg PO Q4H PRN PRN Reason: GI distress Last Admin: 08/05/18 17:44 Dose: 80 mg Tramadol HCl (Ultram) 25 mg PO TID PRN PRN Reason: Pain, severe (8-10) Last Admin: 08/04/18 14:04 Dose: 25 mg - Labs Labs: 08/05/18 08:05 08/05/18 08:05 PT 13.6 SECONDS (9.7-12.2) H 07/25/18 12:54 INR 1.2 07/25/18 12:54 APTT 26 SECONDS (21-34) 07/25/18 12:54 - Additional Findings Additional findings: - Constitutional Appears: No Acute Distress, Chronically Ill - Head Exam Head Exam: ATRAUMATIC, NORMAL INSPECTION - Eye Exam Additional comments: complete - left eye; partial right eye - Respiratory Exam Respiratory Exam: Clear to Auscultation Bilateral, NORMAL BREATHING PATTERN, no wheezing, no stridor. - Cardiovascular Exam Cardiovascular Exam: REGULAR RHYTHM, +S1, +S2 - GI/Abdominal Exam GI & Abdominal Exam: Normal Bowel Sounds, Soft. absent: Tenderness - Extremities Exam Right midline seems to be leaking. Additional comments: Left foot is s/p 2nd ray amputation. Dressing is clean, dry, intact, no edema in the lower extremity. No active bleeding. - Neurological Exam Neurological exam: Alert, Oriented x3 - Psychiatric Exam Psychiatric exam: Anxious. Normal affect. - Skin Skin Exam: Rash (dark rash to lower extremities) Assessment and Plan - Assessment and Plan (Free Text) Assessment: 52 year old female with past medical history of diabetes type II, HTN, blindness (complete - left eye; partial right eye) who presented to the ER for a left foot infection. Underwent left second toe ray amputation on 07/27/18. Patient is hemodynamically stable for d/c to [facility], currently has PICC line. 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 Fox --> help appreciated - ID Consult: Dr. Davila --> help appreciated * Merem 1g IV q8h * Doxycycline 100 mg IVPB q12 * PICC line consented and inserted. * abx recs upon d/c: Rocephin 1g IV q2h and Doxy 100mg IVP q12h x 6 weeks - ICU was consulted --> help appreciated - Left foot wound culture shows beta hemolytic strep b sensitive to ampicilin, PCN, vanco - BCx negative to date - UCx shows erma negative kenyatta On Merem - Medications * Tylenol prn moderate pain * Tramadol 25mg TID PRN severe pain - Images: * Foot Xray: Findings related to prior resection distal 1st metatarsal. Amputation at the level of the proximal phalanx 5th digit. Ventral ulceration medial aspect of the left foot distally. Suggestion of air within the soft tissues. In the absence of recent surgical history gas-forming organism should be considered. * Ankle Xray: Presumed chronic changes midshaft left tibia. * Tibia/Fibula Xray: Unremarkable radiographs of the left tibia and fibula. * LE venous doppler: pt refused - Bandemia/leukocytosis resolved Elevated proBNP - proBNP: 1560 - Trop: negative - Chest Xray: No consolidative infiltrate. Mild cardiomegaly and mild pulmonary venous congestion suspect - ECHO: mild concentric LVH with normal EF of 65-70%, mild TR - Medications: * Lasix 20mg po daily History of Diabetes - HgbA1c 14 - Lipid panel: elevated TG, low HDL - Medications: * Novolin 70/30 20u SC BID * Lantus 20units SC HS * Lisinopril 5mg po daily * Crestor 2.5mg po HS - Hypoglycemia Protocol - Accuchecks Vaginal itching - Miconazole 100 mg VG HS [facility] to lower extremities - Clomitrazole cream to affected areas BID History of HTN - Continue Lisinopril 5mg po daily History of Neuropathy - Continue Gabapentin 300mg po bid Prophylaxis - Physical Therapy: recommending [facility] - Anti-coagulation - Lactobacillus 1 cap po tid, Senn[place]ot, pepcid, Simethicone Dispo: Patient medically stable for d/c. Currently has PICC line in place. Patient not accepted to [facility] or outpatient infusion center. Must coordinate with daughter Ceci [phone] to send back to [facility] for placement. Case discussed with Dr. Faulkner <Salvatore Faulkner Jr. - Last Filed: 08/10/18 13:53> Objective - Vital Signs/Intake and Output Vital Signs (last 24 hours): Temp Pulse Resp BP Pulse Ox 97.5 F L 87 20 155/82 H 97 08/10/18 07:00 08/10/18 07:00 08/10/18 07:00 08/10/18 09:47 08/10/18 07:00 Intake and Output: 08/10/18 08/10/18 06:59 18:59 Intake Total 700 Balance 700 - Medications Medications: Current Medications Acetaminophen (Tylenol 325mg Tab) 975 mg PO ONCE PRN PRN Reason: Fever >100.4 F Last Admin: 07/30/18 07:43 Dose: 975 mg Acetaminophen (Tylenol 325mg Tab) 650 mg PO Q6 PRN PRN Reason: Pain, moderate (4-7) Last Admin: 08/09/18 21:30 Dose: 650 mg Alprazolam (Xanax) 0.5 mg PO TID PRN PRN Reason: Anxiety Last Admin: 08/01/18 00:59 Dose: 0.5 mg Artificial Tears (Artificial Tears) 0.3 ml OU Q4H PRN PRN Reason: Dry eyes Last Admin: 08/08/18 12:13 Dose: 1 drop Bisacodyl (Dulcolax) 10 mg PO DAILY [facility] Last Admin: 08/10/18 09:48 Dose: 10 mg Clotrimazole (Lotrimin 1%) 0 gm TOP BID [facility] Last Admin: 08/09/18 17:23 Dose: 1 appl Dextrose (Dextrose 50% Inj) 0 ml IV STAT PRN; Protocol PRN Reason: Hypoglycemia Protocol Dextrose (Glutose 15) 0 gm PO ONCE PRN; Protocol PRN Reason: Hypoglycemia Protocol Famotidine (Pepcid) 20 mg PO DAILY [facility] Last Admin: 08/10/18 09:47 Dose: 20 mg Furosemide (Lasix) 20 mg PO DAILY [facility] Last Admin: 08/10/18 09:47 Dose: 20 mg Gabapentin (Neurontin) 300 mg PO BID [facility] Last Admin: 08/10/18 09:47 Dose: 300 mg Glucagon (Glucagen Diagnostic Kit) 0 mg IM STAT PRN; Protocol PRN Reason: Hypoglycemia Protocol Guaifenesin (Mucinex La) 600 mg PO BID [facility] Last Admin: 08/10/18 09:47 Dose: 600 mg Guaifenesin/Dextromethorphan (Robitussin Dm) 5 ml PO Q4H PRN PRN Reason: Cough Last Admin: 08/02/18 09:17 Dose: 5 ml Heparin Sodium (Porcine) (Heparin) 5,000 units SC Q8 [facility] Last Admin: 08/09/18 21:32 Dose: Not Given Doxycycline Hyclate 100 mg/ (Sodium Chloride) 100 mls @ 100 mls/hr IVPB Q12H [facility]; Protocol Last Admin: 08/10/18 11:30 Dose: 100 mls/hr Meropenem 1 gm/ Sodium (Chloride) 100 mls @ 100 mls/hr IVPB Q8H [facility]; Protocol Last Admin: 08/10/18 09:49 Dose: 100 mls/hr Insulin Glargine (Lantus) [address] [facility] Last Admin: 08/09/18 21:32 Dose: Not Given Insulin Human Isoph/Insulin Regular (Novolin 70/30 (70/30 Units/Ml) 10 Ml) 20 units SC BIDAC [facility] Last Admin: 08/10/18 08:30 Dose: 20 units Lactobacillus Acidophilus (Lactobacillus) 1 cap PO TID [facility] Last Admin: 08/10/18 09:47 Dose: 1 cap Lisinopril (Zestril) 5 mg PO DAILY [facility] Last Admin: 08/10/18 09:47 Dose: 5 mg Magnesium Hydroxide (Milk Of Magnesia) 60 ml PO BID PRN PRN Reason: Constipation Miconazole (Monistat 7 Vag Suppository) [address] [facility] Last Admin: 08/09/18 22:33 Dose: Not Given Rosuvastatin Calcium (Crestor) 2.[address] [facility] Last Admin: 08/09/18 21:32 Dose: Not Given Senna/Docusate Sodium (Senokot S 50 Mg-8.6 Mg) 2 tab PO BID [facility] Last Admin: 08/10/18 09:49 Dose: Not Given Simethicone (Mylicon Chew Tab) 80 mg PO Q4H PRN PRN Reason: GI distress Last Admin: 08/07/18 09:09 Dose: 80 mg Tramadol HCl (Ultram) 25 mg PO TID PRN PRN Reason: Pain, severe (8-10) Last Admin: 08/09/18 11:19 Dose: 25 mg - Labs Labs: 08/08/18 08:29 08/08/18 08:29 PT 13.6 SECONDS (9.7-12.2) H 07/25/18 12:54 INR 1.2 07/25/18 12:54 APTT 26 SECONDS (21-34) 07/25/18 12:54 Attending/Attestation - Attestation I have personally seen and examined this patient.: Yes I have fully participated in the care of the patient.: Yes I have reviewed all pertinent clinical information, including history, physical exam and plan: Yes Notes (Text): 08/10/18 13:53 Reviewed resident note findings and plan of care. Agree with plan of care and findings.
[2018-08-06] MEDS: Rosuvastatin Calcium 2.5 mg Tab PO SCH (21:38)
[2018-08-06] MEDS: Miconazole 100 MG Vaginal Supp VG SCH (21:41)
[2018-08-06] MEDS: (Lantus) Insulin Glargine, Recombinant SC SCH (22:05)
[2018-08-07] MEDS: Meropenem 1 GM in Sodium Chloride 0.9% 100 ML IVPB SCH ×4 (02:55→17:45)
[2018-08-07] MEDS: (Novolin 70/30) NPH/Regular 70/30 Units/ml 10 ml vial SC SCH ×2 (09:06→17:31)
[2018-08-07] MEDS: Lactobacillus Acidophilus 500 MU Cap PO SCH ×3 (09:09→17:32)
[2018-08-07] MEDS: Simethicone 80 mg Chewtab PO PRN (09:09)
[2018-08-07] MEDS: Docusate-Senna 50 mg-8.6 mg Tab PO SCH ×2 (09:09→20:13)
[2018-08-07] MEDS: Bisacodyl 5mg EC Tab PO SCH (09:09)
[2018-08-07] MEDS: Clotrimazole 1% Cream(30 gm) TOP SCH ×2 (09:11→17:31)
[2018-08-07] MEDS: guaiFENesin 600 mg ER Tab PO SCH ×2 (09:11→17:32)
--- NOTE | 2018-08-07 09:43 | CP.PCM.PN ---
Subjective - Date & Time of Evaluation Date of Evaluation: 08/06/18 Time of Evaluation: 18:00 - Subjective Subjective: Podiatry progress note - Dr. Fox 52F seen and evaluated POD#10 left foot partial 2nd ray amputation. No new lower extremity complaints. Denies n/v/f/d/c/sob/de leon/cp. Objective - Vital Signs/Intake and Output Vital Signs (last 24 hours): Temp Pulse Resp BP Pulse Ox 98 F 83 20 148/77 99 08/07/18 07:30 08/07/18 07:30 08/07/18 07:30 08/07/18 09:09 08/07/18 07:30 - Medications Medications: Current Medications Acetaminophen (Tylenol 325mg Tab) 975 mg PO ONCE PRN PRN Reason: Fever >100.4 F Last Admin: 07/30/18 07:43 Dose: 975 mg Acetaminophen (Tylenol 325mg Tab) 650 mg PO Q6 PRN PRN Reason: Pain, moderate (4-7) Last Admin: 08/07/18 06:30 Dose: 650 mg Alprazolam (Xanax) 0.5 mg PO TID PRN PRN Reason: Anxiety Last Admin: 08/01/18 00:59 Dose: 0.5 mg Artificial Tears (Artificial Tears) 0.3 ml OU Q4H PRN PRN Reason: Dry eyes Last Admin: 08/06/18 14:58 Dose: 1 drop Bisacodyl (Dulcolax) 10 mg PO DAILY [facility] Last Admin: 08/07/18 09:09 Dose: 10 mg Clotrimazole (Lotrimin 1%) 0 gm TOP BID [facility] Last Admin: 08/07/18 09:11 Dose: 1 appl Dextrose (Dextrose 50% Inj) 0 ml IV STAT PRN; Protocol PRN Reason: Hypoglycemia Protocol Dextrose (Glutose 15) 0 gm PO ONCE PRN; Protocol PRN Reason: Hypoglycemia Protocol Famotidine (Pepcid) 20 mg PO DAILY [facility] Last Admin: 08/07/18 09:10 Dose: 20 mg Furosemide (Lasix) 20 mg PO DAILY [facility] Last Admin: 08/07/18 09:09 Dose: 20 mg Gabapentin (Neurontin) 300 mg PO BID [facility] Last Admin: 08/07/18 09:09 Dose: 300 mg Glucagon (Glucagen Diagnostic Kit) 0 mg IM STAT PRN; Protocol PRN Reason: Hypoglycemia Protocol Guaifenesin (Mucinex La) 600 mg PO BID [facility] Last Admin: 08/07/18 09:11 Dose: 600 mg Guaifenesin/Dextromethorphan (Robitussin Dm) 5 ml PO Q4H PRN PRN Reason: Cough Last Admin: 08/02/18 09:17 Dose: 5 ml Heparin Sodium (Porcine) (Heparin) 5,000 units SC Q8 [facility] Last Admin: 08/07/18 06:35 Dose: Not Given Doxycycline Hyclate 100 mg/ (Sodium Chloride) 100 mls @ 100 mls/hr IVPB Q12H [facility]; Protocol Last Admin: 08/07/18 00:02 Dose: Not Given Meropenem 1 gm/ Sodium (Chloride) 100 mls @ 100 mls/hr IVPB Q8H [facility]; Protocol Last Admin: 08/07/18 02:55 Dose: Not Given Insulin Glargine (Lantus) 20 unit SC HS [facility] Last Admin: 08/06/18 22:05 Dose: 20 unit Insulin Human Isoph/Insulin Regular (Novolin 70/30 (70/30 Units/Ml) 10 Ml) 20 units SC BIDAC [facility] Last Admin: 08/07/18 09:06 Dose: 20 units Lactobacillus Acidophilus (Lactobacillus) 1 cap PO TID [facility] Last Admin: 08/07/18 09:09 Dose: 1 cap Lisinopril (Zestril) 5 mg PO DAILY [facility] Last Admin: 08/07/18 09:09 Dose: 5 mg Magnesium Hydroxide (Milk Of Magnesia) 60 ml PO BID PRN PRN Reason: Constipation Miconazole (Monistat 7 Vag Suppository) 100 mg VG [facility] Last Admin: 08/06/18 21:41 Dose: Not Given Rosuvastatin Calcium (Crestor) 2.5 mg PO [facility] Last Admin: 08/06/18 21:38 Dose: Not Given Senna/Docusate Sodium (Senokot S 50 Mg-8.6 Mg) 2 tab PO BID [facility] Last Admin: 08/07/18 09:09 Dose: 2 tab Simethicone (Mylicon Chew Tab) 80 mg PO Q4H PRN PRN Reason: GI distress Last Admin: 08/07/18 09:09 Dose: 80 mg Tramadol HCl (Ultram) 25 mg PO TID PRN PRN Reason: Pain, severe (8-10) Last Admin: 08/04/18 14:04 Dose: 25 mg - Labs Labs: 08/05/18 08:05 08/05/18 08:05 PT 13.6 SECONDS (9.7-12.2) H 07/25/18 12:54 INR 1.2 07/25/18 12:54 APTT 26 SECONDS (21-34) 07/25/18 12:54 - Extremities Exam Additional comments: LLE focused VASC: DP/PT pulses are palpable, cap refill time: < 3 sec to digit 4 and 5, Temp gradient warm to cool, diffuse non-pitting edema noted- improving DERM: surgical site exhibits normal healing, sutures intact, no pus or purulent discharge appreciated, mild serosanguinous drainage wound noted on the distal aspect of the surgical site with fibrogranular base, no malodor ORTHO: no pain on palpation present NEURO: gross and protective sensation absent - Neurological Exam Neurological Exam: Alert, Awake - Psychiatric Exam Psychiatric exam: Normal Affect, Normal Mood Assessment and Plan - Assessment and Plan (Free Text) Assessment: 52F POD#10 left second ray partial amputation (DOS 07/27/18) Plan: Patient seen and evaluated Discussed with attending, Dr. Dominique Bradley foot intra-op WCx (07/27): Beta hemolytic Strep group B Intra-op pathology: acute OM Continue local wound care: saline wet to dry, DSD, NICOLE Activity: PWB left heel with surgical shoe Continue PT/OT Continue abx per ID - continue abx for 6-8 weeks Stable for dc per podiatry Following discharge, patient to follow up with Dr. Fox at [facility] within 1 week Podiatry will continue to follow
--- NOTE | 2018-08-07 13:17 | CP.PCM.PN ---
<Ramy Jacobsen - Last Filed: 08/07/18 13:12> Subjective - Date & Time of Evaluation Date of Evaluation: 08/07/18 Time of Evaluation: 13:12 - Subjective Subjective: Ramy Jacobsen PGY1 Progress Note for Dr. Faulkner Pt was examined at bedside this morning. She reports worsening of her vision which she attributes to antibiotics. She says she is waiting for her daughter Ceci to come by. She says she prefers to continue care at outpatient wound care center at [facility]. Objective - Vital Signs/Intake and Output Vital Signs (last 24 hours): Temp Pulse Resp BP Pulse Ox 98 F 83 20 148/77 99 08/07/18 07:30 08/07/18 07:30 08/07/18 07:30 08/07/18 09:09 08/07/18 07:30 - Medications Medications: Current Medications Acetaminophen (Tylenol 325mg Tab) 975 mg PO ONCE PRN PRN Reason: Fever >100.4 F Last Admin: 07/30/18 07:43 Dose: 975 mg Acetaminophen (Tylenol 325mg Tab) 650 mg PO Q6 PRN PRN Reason: Pain, moderate (4-7) Last Admin: 08/07/18 06:30 Dose: 650 mg Alprazolam (Xanax) 0.5 mg PO TID PRN PRN Reason: Anxiety Last Admin: 08/01/18 00:59 Dose: 0.5 mg Artificial Tears (Artificial Tears) 0.3 ml OU Q4H PRN PRN Reason: Dry eyes Last Admin: 08/06/18 14:58 Dose: 1 drop Bisacodyl (Dulcolax) 10 mg PO DAILY [facility] Last Admin: 08/07/18 09:09 Dose: Not Given Clotrimazole (Lotrimin 1%) 0 gm TOP BID [facility] Last Admin: 08/07/18 09:11 Dose: 1 appl Dextrose (Dextrose 50% Inj) 0 ml IV STAT PRN; Protocol PRN Reason: Hypoglycemia Protocol Dextrose (Glutose 15) 0 gm PO ONCE PRN; Protocol PRN Reason: Hypoglycemia Protocol Famotidine (Pepcid) 20 mg PO DAILY [facility] Last Admin: 08/07/18 09:10 Dose: 20 mg Furosemide (Lasix) 20 mg PO DAILY [facility] Last Admin: 08/07/18 09:09 Dose: 20 mg Gabapentin (Neurontin) 300 mg PO BID [facility] Last Admin: 08/07/18 09:09 Dose: 300 mg Glucagon (Glucagen Diagnostic Kit) 0 mg IM STAT PRN; Protocol PRN Reason: Hypoglycemia Protocol Guaifenesin (Mucinex La) 600 mg PO BID [facility] Last Admin: 08/07/18 09:11 Dose: 600 mg Guaifenesin/Dextromethorphan (Robitussin Dm) 5 ml PO Q4H PRN PRN Reason: Cough Last Admin: 08/02/18 09:17 Dose: 5 ml Heparin Sodium (Porcine) (Heparin) 5,000 units SC Q8 [facility] Last Admin: 08/07/18 06:35 Dose: Not Given Doxycycline Hyclate 100 mg/ (Sodium Chloride) 100 mls @ 100 mls/hr IVPB Q12H [facility]; Protocol Last Admin: 08/07/18 12:36 Dose: 100 mls/hr Meropenem 1 gm/ Sodium (Chloride) 100 mls @ 100 mls/hr IVPB Q8H [facility]; Protocol Last Admin: 08/07/18 10:00 Dose: Not Given Insulin Glargine (Lantus) 20 unit SC HS [facility] Last Admin: 08/06/18 22:05 Dose: 20 unit Insulin Human Isoph/Insulin Regular (Novolin 70/30 (70/30 Units/Ml) 10 Ml) 20 units SC BIDAC [facility] Last Admin: 08/07/18 09:06 Dose: 20 units Lactobacillus Acidophilus (Lactobacillus) 1 cap PO TID [facility] Last Admin: 08/07/18 09:09 Dose: 1 cap Lisinopril (Zestril) 5 mg PO DAILY [facility] Last Admin: 08/07/18 09:09 Dose: 5 mg Magnesium Hydroxide (Milk Of Magnesia) 60 ml PO BID PRN PRN Reason: Constipation Miconazole (Monistat 7 Vag Suppository) 100 mg [facility] Last Admin: 08/06/18 21:41 Dose: Not Given Rosuvastatin Calcium (Crestor) 2.5 mg PO HS [facility] Last Admin: 08/06/18 21:38 Dose: Not Given Senna/Docusate Sodium (Senokot S 50 Mg-8.6 Mg) 2 tab PO BID [facility] Last Admin: 08/07/18 09:09 Dose: Not Given Simethicone (Mylicon Chew Tab) 80 mg PO Q4H PRN PRN Reason: GI distress Last Admin: 08/07/18 09:09 Dose: 80 mg Tramadol HCl (Ultram) 25 mg PO TID PRN PRN Reason: Pain, severe (8-10) Last Admin: 08/04/18 14:04 Dose: 25 mg - Labs Labs: 08/05/18 08:05 08/05/18 08:05 PT 13.6 SECONDS (9.7-12.2) H 07/25/18 12:54 INR 1.2 07/25/18 12:54 APTT 26 SECONDS (21-34) 07/25/18 12:54 - Additional Findings Additional findings: - Constitutional Appears: No Acute Distress, Chronically Ill - Head Exam Head Exam: ATRAUMATIC, NORMAL INSPECTION - Eye Exam Additional comments: complete - left eye; partial right eye - Respiratory Exam Respiratory Exam: Clear to Auscultation Bilateral, NORMAL BREATHING PATTERN, no wheezing, no stridor. - Cardiovascular Exam Cardiovascular Exam: REGULAR RHYTHM, +S1, +S2 - GI/Abdominal Exam GI & Abdominal Exam: Normal Bowel Sounds, Soft. absent: Tenderness - Extremities Exam Right midline seems to be leaking. Additional comments: Left foot is s/p 2nd ray amputation. Dressing is clean, dry, intact, no edema in the lower extremity. No active bleeding. - Neurological Exam Neurological exam: Alert, Oriented x3 - Psychiatric Exam Psychiatric exam: Anxious. Normal affect. - Skin Skin Exam: Rash (dark rash to lower extremities) Assessment and Plan - Assessment and Plan (Free Text) Assessment: 52 year old female with past medical history of diabetes type II, HTN, blindness (complete - left eye; partial right eye) who presented to the ER for a left foot infection. Underwent left second toe ray amputation on 07/27/18. Patient is hemodynamically stable for d/c, currently has PICC line. Patient refused Merem IV today. 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 Fox --> help appreciated - ID Consult: Dr. Davila --> help appreciated * Merem 1g IV q8h * Doxycycline 100 mg IVPB q12 * PICC line consented and inserted. * abx recs upon d/c: Rocephin 1g IV q2h and Doxy 100mg IVP q12h x 6 weeks - ICU was consulted --> help appreciated - Left foot wound culture shows beta hemolytic strep b sensitive to ampicilin, PCN, vanco - BCx negative to date - UCx shows erma negative kenyatta On Merem - Medications * Tylenol prn moderate pain * Tramadol 25mg TID PRN severe pain - Images: * Foot Xray: Findings related to prior resection distal 1st metatarsal. Amputation at the level of the proximal phalanx 5th digit. Ventral ulceration medial aspect of the left foot distally. Suggestion of air within the soft tissues. In the absence of recent surgical history gas-forming organism should be considered. * Ankle Xray: Presumed chronic changes midshaft left tibia. * Tibia/Fibula Xray: Unremarkable radiographs of the left tibia and fibula. * LE venous doppler: pt refused - Bandemia/leukocytosis resolved Elevated proBNP - proBNP: 1560 - Trop: negative - Chest Xray: No consolidative infiltrate. Mild cardiomegaly and mild pulmonary venous congestion suspect - ECHO: mild concentric LVH with normal EF of 65-70%, mild TR - Medications: * Lasix 20mg po daily History of Diabetes - HgbA1c 14 - Lipid panel: elevated TG, low HDL - Medications: * Novolin 70/30 20u SC BID * Lantus 20units SC HS * Lisinopril 5mg po daily * Crestor 2.5mg po HS - Hypoglycemia Protocol - Accuchecks Vaginal itching - Miconazole 100 mg VG [facility] to lower extremities - Clomitrazole cream to affected areas BID History of HTN - Continue Lisinopril 5mg po daily History of Neuropathy - Continue Gabapentin 300mg po bid Prophylaxis - Physical Therapy: recommending [facility] - Anti-coagulation - Lactobacillus 1 cap po tid, Sennakot, pepcid, Simethicone Dispo: Patient medically stable for d/c. Currently has PICC line in place. Patient not accepted to [facility] or outpatient infusion center. Must coordinate with daughter Ceci [phone] to 1) apply for [place] Medicaid OR 2) send back to [facility] for further treatment. Patient refused Doxycycline IV yesterday and Merem IV today. Spoke with patient today, explained that IV antibiotics are necessary and that she will be discharged if she continues to refuse our treatment plan. Patient understood and agreed. If pt continues to refuse IV antibiotics, will d/c. Case discussed with Dr. Faulkner <Salvatore Faulkner Jr. - Last Filed: 08/10/18 13:53> Objective - Vital Signs/Intake and Output Vital Signs (last 24 hours): Temp Pulse Resp BP Pulse Ox 97.5 F L 87 20 155/82 H 97 08/10/18 07:00 08/10/18 07:00 08/10/18 07:00 08/10/18 09:47 08/10/18 07:00 Intake and Output: 08/10/18 08/10/18 06:59 18:59 Intake Total 700 Balance 700 - Medications Medications: Current Medications Acetaminophen (Tylenol 325mg Tab) 975 mg PO ONCE PRN PRN Reason: Fever >100.4 F Last Admin: 07/30/18 07:43 Dose: 975 mg Acetaminophen (Tylenol 325mg Tab) 650 mg PO Q6 PRN PRN Reason: Pain, moderate (4-7) Last Admin: 08/09/18 21:30 Dose: 650 mg Alprazolam (Xanax) 0.5 mg PO TID PRN PRN Reason: Anxiety Last Admin: 08/01/18 00:59 Dose: 0.5 mg Artificial Tears (Artificial Tears) 0.3 ml OU Q4H PRN PRN Reason: Dry eyes Last Admin: 08/08/18 12:13 Dose: 1 drop Bisacodyl (Dulcolax) 10 mg PO DAILY [facility] Last Admin: 08/10/18 09:48 Dose: 10 mg Clotrimazole (Lotrimin 1%) 0 gm TOP BID [facility] Last Admin: 08/09/18 17:23 Dose: 1 appl Dextrose (Dextrose 50% Inj) 0 ml IV STAT PRN; Protocol PRN Reason: Hypoglycemia Protocol Dextrose (Glutose 15) 0 gm PO ONCE PRN; Protocol PRN Reason: Hypoglycemia Protocol Famotidine (Pepcid) 20 mg PO DAILY [facility] Last Admin: 08/10/18 09:47 Dose: 20 mg Furosemide (Lasix) 20 mg PO DAILY [facility] Last Admin: 08/10/18 09:47 Dose: 20 mg Gabapentin (Neurontin) 300 mg PO BID [facility] Last Admin: 08/10/18 09:47 Dose: 300 mg Glucagon (Glucagen Diagnostic Kit) 0 mg IM STAT PRN; Protocol PRN Reason: Hypoglycemia Protocol Guaifenesin (Mucinex La) 600 mg PO BID [facility] Last Admin: 08/10/18 09:47 Dose: 600 mg Guaifenesin/Dextromethorphan (Robitussin Dm) 5 ml PO Q4H PRN PRN Reason: Cough Last Admin: 08/02/18 09:17 Dose: 5 ml Heparin Sodium (Porcine) (Heparin) 5,000 units SC Q8 [facility] Last Admin: 08/09/18 21:32 Dose: Not Given Doxycycline Hyclate 100 mg/ (Sodium Chloride) 100 mls @ 100 mls/hr IVPB Q12H [facility]; Protocol Last Admin: 08/10/18 11:30 Dose: 100 mls/hr Meropenem 1 gm/ Sodium (Chloride) 100 mls @ 100 mls/hr IVPB Q8H [facility]; Protocol Last Admin: 08/10/18 09:49 Dose: 100 mls/hr Insulin Glargine (Lantus) 20 unit SC HS [facility] Last Admin: 08/09/18 21:32 Dose: Not Given Insulin Human Isoph/Insulin Regular (Novolin 70/30 (70/30 Units/Ml) 10 Ml) 20 units SC BIDAC [facility] Last Admin: 08/10/18 08:30 Dose: 20 units Lactobacillus Acidophilus (Lactobacillus) 1 cap PO TID [facility] Last Admin: 08/10/18 09:47 Dose: 1 cap Lisinopril (Zestril) 5 mg PO DAILY [facility] Last Admin: 08/10/18 09:47 Dose: 5 mg Magnesium Hydroxide (Milk Of Magnesia) 60 ml PO BID PRN PRN Reason: Constipation Miconazole (Monistat 7 Vag Suppository) 100 mg [facility] Last Admin: 08/09/18 22:33 Dose: Not Given Rosuvastatin Calcium (Crestor) 2.5 mg PO [facility] Last Admin: 08/09/18 21:32 Dose: Not Given Senna/Docusate Sodium (Senokot S 50 Mg-8.6 Mg) 2 tab PO BID [facility] Last Admin: 08/10/18 09:49 Dose: Not Given Simethicone (Mylicon Chew Tab) 80 mg PO Q4H PRN PRN Reason: GI distress Last Admin: 08/07/18 09:09 Dose: 80 mg Tramadol HCl (Ultram) 25 mg PO TID PRN PRN Reason: Pain, severe (8-10) Last Admin: 08/09/18 11:19 Dose: 25 mg - Labs Labs: 08/08/18 08:29 08/08/18 08:29 PT 13.6 SECONDS (9.7-12.2) H 07/25/18 12:54 INR 1.2 07/25/18 12:54 APTT 26 SECONDS (21-34) 07/25/18 12:54 Attending/Attestation - Attestation I have personally seen and examined this patient.: Yes I have fully participated in the care of the patient.: Yes I have reviewed all pertinent clinical information, including history, physical exam and plan: Yes Notes (Text): 08/10/18 13:53 Reviewed resident note findings and plan of care. Agree with plan of care and findings.
--- NOTE | 2018-08-07 16:22 | CP.PCM.PN ---
Subjective - Date & Time of Evaluation Date of Evaluation: 08/07/18 Time of Evaluation: 09:00 - Subjective Subjective: agreeing to iv rx now still has blurred vision long hx of retinopathy ophthalmology eval pending Objective - Vital Signs/Intake and Output Vital Signs (last 24 hours): Temp Pulse Resp BP Pulse Ox 98 F 83 20 148/77 99 08/07/18 07:30 08/07/18 07:30 08/07/18 07:30 08/07/18 09:09 08/07/18 07:30 Intake and Output: 08/07/18 08/07/18 06:59 18:59 Intake Total 900 Balance 900 - Medications Medications: Current Medications Acetaminophen (Tylenol 325mg Tab) 975 mg PO ONCE PRN PRN Reason: Fever >100.4 F Last Admin: 07/30/18 07:43 Dose: 975 mg Acetaminophen (Tylenol 325mg Tab) 650 mg PO Q6 PRN PRN Reason: Pain, moderate (4-7) Last Admin: 08/07/18 06:30 Dose: 650 mg Alprazolam (Xanax) 0.5 mg PO TID PRN PRN Reason: Anxiety Last Admin: 08/01/18 00:59 Dose: 0.5 mg Artificial Tears (Artificial Tears) 0.3 ml OU Q4H PRN PRN Reason: Dry eyes Last Admin: 08/06/18 14:58 Dose: 1 drop Bisacodyl (Dulcolax) 10 mg PO DAILY [facility] Last Admin: 08/07/18 09:09 Dose: Not Given Clotrimazole (Lotrimin 1%) 0 gm TOP BID [facility] Last Admin: 08/07/18 09:11 Dose: 1 appl Dextrose (Dextrose 50% Inj) 0 ml IV STAT PRN; Protocol PRN Reason: Hypoglycemia Protocol Dextrose (Glutose 15) 0 gm PO ONCE PRN; Protocol PRN Reason: Hypoglycemia Protocol Famotidine (Pepcid) 20 mg PO DAILY [facility] Last Admin: 08/07/18 09:10 Dose: 20 mg Furosemide (Lasix) 20 mg PO DAILY [facility] Last Admin: 08/07/18 09:09 Dose: 20 mg Gabapentin (Neurontin) 300 mg PO BID [facility] Last Admin: 08/07/18 09:09 Dose: 300 mg Glucagon (Glucagen Diagnostic Kit) 0 mg IM STAT PRN; Protocol PRN Reason: Hypoglycemia Protocol Guaifenesin (Mucinex La) 600 mg PO BID [facility] Last Admin: 08/07/18 09:11 Dose: 600 mg Guaifenesin/Dextromethorphan (Robitussin Dm) 5 ml PO Q4H PRN PRN Reason: Cough Last Admin: 08/02/18 09:17 Dose: 5 ml Heparin Sodium (Porcine) (Heparin) 5,000 units SC Q8 [facility] Last Admin: 08/07/18 13:28 Dose: Not Given Doxycycline Hyclate 100 mg/ (Sodium Chloride) 100 mls @ 100 mls/hr IVPB Q12H [facility]; Protocol Last Admin: 08/07/18 12:36 Dose: 100 mls/hr Meropenem 1 gm/ Sodium (Chloride) 100 mls @ 100 mls/hr IVPB Q8H [facility]; Protocol Last Admin: 08/07/18 10:00 Dose: Not Given Insulin Glargine (Lantus) 20 unit SC HS [facility] Last Admin: 08/06/18 22:05 Dose: 20 unit Insulin Human Isoph/Insulin Regular (Novolin 70/30 (70/30 Units/Ml) 10 Ml) 20 units SC BIDAC [facility] Last Admin: 08/07/18 09:06 Dose: 20 units Lactobacillus Acidophilus (Lactobacillus) 1 cap PO TID [facility] Last Admin: 08/07/18 13:27 Dose: 1 cap Lisinopril (Zestril) 5 mg PO DAILY [facility] Last Admin: 08/07/18 09:09 Dose: 5 mg Magnesium Hydroxide (Milk Of Magnesia) 60 ml PO BID PRN PRN Reason: Constipation Miconazole (Monistat 7 Vag Suppository) 100 mg VG [facility] Last Admin: 08/06/18 21:41 Dose: Not Given Rosuvastatin Calcium (Crestor) 2.5 mg PO [facility] Last Admin: 08/06/18 21:38 Dose: Not Given Senna/Docusate Sodium (Senokot S 50 Mg-8.6 Mg) 2 tab PO BID [facility] Last Admin: 08/07/18 09:09 Dose: Not Given Simethicone (Mylicon Chew Tab) 80 mg PO Q4H PRN PRN Reason: GI distress Last Admin: 08/07/18 09:09 Dose: 80 mg Tramadol HCl (Ultram) 25 mg PO TID PRN PRN Reason: Pain, severe (8-10) Last Admin: 08/04/18 14:04 Dose: 25 mg - Labs Labs: 08/05/18 08:05 08/05/18 08:05 PT 13.6 SECONDS (9.7-12.2) H 07/25/18 12:54 INR 1.2 07/25/18 12:54 APTT 26 SECONDS (21-34) 07/25/18 12:54 - Constitutional Appears: Well, Chronically Ill - Head Exam Head Exam: ATRAUMATIC, NORMAL INSPECTION, NORMOCEPHALIC - Eye Exam Eye Exam: EOMI. absent: Scleral icterus Pupil Exam: NORMAL ACCOMODATION, PERRL - ENT Exam ENT Exam: Mucous Membranes Moist, Normal Exam - Neck Exam Neck Exam: Full ROM, Normal Inspection. absent: Lymphadenopathy - Respiratory Exam Respiratory Exam: Clear to Ausculation Bilateral, NORMAL BREATHING PATTERN - Cardiovascular Exam Cardiovascular Exam: REGULAR RHYTHM, +S1, +S2. absent: Murmur - GI/Abdominal Exam GI & Abdominal Exam: Soft, Normal Bowel Sounds. absent: Tenderness - Rectal Exam Rectal Exam: Deferred - Exam Exam: NORMAL INSPECTION - Extremities Exam Extremities Exam: Full ROM, Normal Capillary Refill, Normal Inspection. absent: Joint Swelling, Pedal Edema - Back Exam Back Exam: NORMAL INSPECTION - Neurological Exam Neurological Exam: Alert, Awake, CN II-XII Intact, Normal Gait, Oriented x3 - Psychiatric Exam Psychiatric exam: Normal Affect, Normal Mood - Skin Skin Exam: Dry, Normal Color, Warm Additional comments: wound same Assessment and Plan (1) Cellulitis Status: Acute (2) Open wound Status: Acute (3) Sepsis Status: Acute (4) Uncontrolled diabetes mellitus Status: Acute (5) Osteomyelitis of foot, left, acute Status: Acute (6) Osteomyelitis of foot Status: Acute (7) Osteomyelitis of left foot Status: Acute (8) Gangrene of left foot Status: Acute - Assessment and Plan (Free Text) Assessment: cont iv rx and wound care
[2018-08-07] MEDS: Aritificial Tears (15ml) OU PRN (17:33)
[2018-08-07] MEDS: (Lantus) Insulin Glargine, Recombinant SC SCH (21:35)
[2018-08-07] MEDS: Rosuvastatin Calcium 2.5 mg Tab PO SCH (21:39)
[2018-08-07] MEDS: Miconazole 100 MG Vaginal Supp VG SCH (21:39)
[2018-08-08] MEDS: Meropenem 1 GM in Sodium Chloride 0.9% 100 ML IVPB SCH ×3 (03:27→17:31)
[2018-08-08] MEDS: (Novolin 70/30) NPH/Regular 70/30 Units/ml 10 ml vial SC SCH ×2 (08:36→17:30)
[2018-08-08 08:42] LABS: BASO % 0.8 % (0.0-2.0); EOS # 0.3 K/uL (0.0-0.7); EOS % 4.9 % (0.0-4.0); LYMPH # 1.9 K/uL (1.0-4.3); LYMPH % 34.1 % (20.0-40.0); MEAN CELL VOLUME 83.6 fL (81.0-99.0); MEAN CORPUSCULAR HEMOGLOBIN 27.1 pg (27.0-31.0); MEAN CORPUSCULAR HGB CONC 32.4 g/dL (33.0-37.0); MONO # 0.3 K/uL (0.0-0.8); NEUT # 3.1 K/uL (1.8-7.0); NEUT % 54.2 % (50.0-75.0); NRBC % 0.1 % (0.0-2.0); RBC 3.7 Mil/uL (3.80-5.20); RED CELL DISTRIBUTION WIDTH 16.5 % (11.5-14.5); WHITE BLOOD COUNT 5.6 K/uL (4.8-10.8)
[2018-08-08 08:58] LABS: ALB/GLOB RATIO 0.9 (1.0-2.1); ALBUMIN 3.8 g/dL (3.5-5.0); ALT/SGPT 12 U/L (9-52); AST/SGOT 31 U/L (14-36); BLOOD UREA NITROGEN 44 mg/dL (7-17); GFR NON-AFRICAN AMERICAN > 60
[2018-08-08] MEDS: Clotrimazole 1% Cream(30 gm) TOP SCH ×2 (10:13→17:31)
[2018-08-08] MEDS: Lactobacillus Acidophilus 500 MU Cap PO SCH ×3 (10:36→17:31)
[2018-08-08] MEDS: guaiFENesin 600 mg ER Tab PO SCH ×2 (10:36→17:31)
[2018-08-08] MEDS: Bisacodyl 5mg EC Tab PO SCH (10:37)
[2018-08-08] MEDS: Docusate-Senna 50 mg-8.6 mg Tab PO SCH ×2 (10:37→17:34)
--- NOTE | 2018-08-08 11:02 | CP.PCM.PN ---
<Ramy Jacobsen - Last Filed: 08/08/18 11:00> Subjective - Date & Time of Evaluation Date of Evaluation: 08/08/18 Time of Evaluation: 11:00 - Subjective Subjective: Ramy Jacobsen PGY1 Progress Note for Dr. Faulkner Pt was examined at bedside this morning. She reports improvement in her cough. She complains of her "blood going cold" in the morning which is relieved by tylenol. Pt is still waiting for her daughter Ceci to arrive. Objective - Vital Signs/Intake and Output Vital Signs (last 24 hours): Temp Pulse Resp BP Pulse Ox 97.7 F 83 20 135/80 99 08/08/18 07:07 08/08/18 07:07 08/08/18 07:07 08/08/18 10:36 08/08/18 07:07 - Medications Medications: Current Medications Acetaminophen (Tylenol 325mg Tab) 975 mg PO ONCE PRN PRN Reason: Fever >100.4 F Last Admin: 07/30/18 07:43 Dose: 975 mg Acetaminophen (Tylenol 325mg Tab) 650 mg PO Q6 PRN PRN Reason: Pain, moderate (4-7) Last Admin: 08/08/18 10:50 Dose: 650 mg Alprazolam (Xanax) 0.5 mg PO TID PRN PRN Reason: Anxiety Last Admin: 08/01/18 00:59 Dose: 0.5 mg Artificial Tears (Artificial Tears) 0.3 ml OU Q4H PRN PRN Reason: Dry eyes Last Admin: 08/07/18 17:33 Dose: 1 drop Bisacodyl (Dulcolax) 10 mg PO DAILY [facility] Last Admin: 08/08/18 10:37 Dose: Not Given Clotrimazole (Lotrimin 1%) 0 gm TOP BID [facility] Last Admin: 08/07/18 17:31 Dose: 1 appl Dextrose (Dextrose 50% Inj) 0 ml IV STAT PRN; Protocol PRN Reason: Hypoglycemia Protocol Dextrose (Glutose 15) 0 gm PO ONCE PRN; Protocol PRN Reason: Hypoglycemia Protocol Famotidine (Pepcid) 20 mg PO DAILY [facility] Last Admin: 08/08/18 10:36 Dose: 20 mg Furosemide (Lasix) 20 mg PO DAILY [facility] Last Admin: 02/28/19 10:36 Dose: 20 mg Gabapentin (Neurontin) 300 mg PO BID [facility] Last Admin: 08/08/18 10:36 Dose: 300 mg Glucagon (Glucagen Diagnostic Kit) 0 mg IM STAT PRN; Protocol PRN Reason: Hypoglycemia Protocol Guaifenesin (Mucinex La) 600 mg PO BID [facility] Last Admin: 08/08/18 10:36 Dose: 600 mg Guaifenesin/Dextromethorphan (Robitussin Dm) 5 ml PO Q4H PRN PRN Reason: Cough Last Admin: 08/02/18 09:17 Dose: 5 ml Heparin Sodium (Porcine) (Heparin) 5,000 units SC Q8 [facility] Last Admin: 08/08/18 06:08 Dose: Not Given Doxycycline Hyclate 100 mg/ (Sodium Chloride) 100 mls @ 100 mls/hr IVPB Q12H [facility]; Protocol Last Admin: 08/08/18 00:11 Dose: 100 mls/hr Meropenem 1 gm/ Sodium (Chloride) 100 mls @ 100 mls/hr IVPB Q8H [facility]; Protocol Last Admin: 08/08/18 10:37 Dose: 100 mls/hr Insulin Glargine (Lantus) 20 unit SC HS [facility] Last Admin: 08/07/18 21:35 Dose: 20 unit Insulin Human Isoph/Insulin Regular (Novolin 70/30 (70/30 Units/Ml) 10 Ml) 20 u nits SC BIDAC [facility] Last Admin: 08/08/18 08:36 Dose: 20 units Lactobacillus Acidophilus (Lactobacillus) 1 cap PO TID [facility] Last Admin: 08/08/18 10:36 Dose: 1 cap Lisinopril (Zestril) 5 mg PO DAILY [facility] Last Admin: 08/08/18 10:36 Dose: 5 mg Magnesium Hydroxide (Milk Of Magnesia) 60 ml PO BID PRN PRN Reason: Constipation Miconazole (Monistat 7 Vag Suppository) 100 mg VG [facility] Last Admin: 08/07/18 21:39 Dose: Not Given Rosuvastatin Calcium (Crestor) 2.5 mg PO [facility] Last Admin: 08/07/18 21:39 Dose: Not Given Senna/Docusate Sodium (Senokot S 50 Mg-8.6 Mg) 2 tab PO BID [facility] Last Admin: 08/08/18 10:37 Dose: Not Given Simethicone (Mylicon Chew Tab) 80 mg PO Q4H PRN PRN Reason: GI distress Last Admin: 08/07/18 09:09 Dose: 80 mg Tramadol HCl (Ultram) 25 mg PO TID PRN PRN Reason: Pain, severe (8-10) Last Admin: 08/04/18 14:04 Dose: 25 mg - Labs Labs: 08/08/18 08:29 08/08/18 08:29 PT 13.6 SECONDS (9.7-12.2) H 07/25/18 12:54 INR 1.2 07/25/18 12:54 APTT 26 SECONDS (21-34) 07/25/18 12:54 - Additional Findings Additional findings: - Constitutional Appears: No Acute Distress, Chronically Ill - Head Exam Head Exam: ATRAUMATIC, NORMAL INSPECTION - Eye Exam Additional comments: complete - left eye; partial right eye - Respiratory Exam Respiratory Exam: Clear to Auscultation Bilateral, NORMAL BREATHING PATTERN, no wheezing, no stridor. - Cardiovascular Exam Cardiovascular Exam: REGULAR RHYTHM, +S1, +S2 - GI/Abdominal Exam GI & Abdominal Exam: Normal Bowel Sounds, Soft. absent: Tenderness - Extremities Exam Right midline seems to be leaking. Additional comments: Left foot is s/p 2nd ray amputation. Dressing is clean, dry, intact, no edema in the lower extremity. No active bleeding. - Neurological Exam Neurological exam: Alert, Oriented x3 - Psychiatric Exam Psychiatric exam: Anxious. Normal affect. - Skin Skin Exam: Rash (dark rash to lower extremities) Assessment and Plan - Assessment and Plan (Free Text) Assessment: 52 year old female with past medical history of diabetes type II, HTN, blindness (complete - left eye; partial right eye) who presented to the ER for a left foot infection. Underwent left second toe ray amputation on 07/27/18. Patient is hemodynamically stable for d/c, currently has PICC line. Patient refused Merem IV today. 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 Fox --> help appreciated - ID Consult: Dr. Davila --> help appreciated * Merem 1g IV q8h * Doxycycline 100 mg IVPB q12 * PICC line consented and inserted * abx recs upon d/c: Rocephin 1g IV q2h and Doxy 100mg IVP q12h x 6 weeks - ICU was consulted --> help appreciated - Left foot wound culture shows beta hemolytic strep b sensitive to ampicilin, PCN, vanco - BCx negative to date - UCx shows erma negative kenyatta On Merem - Medications * Tylenol prn moderate pain * Tramadol 25mg TID PRN severe pain - Images: * Foot Xray: Findings related to prior resection distal 1st metatarsal. Amputation at the level of the proximal phalanx 5th digit. Ventral ulceration medial aspect of the left foot distally. Suggestion of air within the soft tissues. In the absence of recent surgical history gas-forming organism should be considered. * Ankle Xray: Presumed chronic changes midshaft left tibia. * Tibia/Fibula Xray: Unremarkable radiographs of the left tibia and fibula. * LE venous doppler: pt refused - Bandemia/leukocytosis resolved Elevated proBNP - proBNP: 1560 - Trop: negative - Chest Xray: No consolidative infiltrate. Mild cardiomegaly and mild pulmonary venous congestion suspect - ECHO: mild concentric LVH with normal EF of 65-70%, mild TR - Medications: * Lasix 20mg po daily History of Diabetes - HgbA1c 14 - Lipid panel: elevated TG, low HDL - Medications: * Novolin 70/30 20u SC BID * Lantus 20units SC HS * Lisinopril 5mg po daily * Crestor 2.5mg po HS - Hypoglycemia Protocol - Accuchecks Vaginal itching - Miconazole 100 mg VG [facility] to lower extremities - Clomitrazole cream to affected areas BID History of HTN - Lisinopril 5mg po daily History of Neuropathy - Gabapentin 300mg po bid Prophylaxis - Physical Therapy: recommending [facility] - Anti-coagulation: Heparin - Lactobacillus 1 cap po tid, Sennakot, pepcid, Simethicone Dispo: Patient medically stable for d/c. Currently has PICC line in place. Patient not accepted to [facility] or outpatient infusion center. Must coordinate with daughter Ceci [phone] to 1) apply for [place] Medicaid OR 2) send back to [facility] for further treatment. Case discussed with Dr. Faulkner <Salvatore Faulkner Jr. - Last Filed: 08/10/18 13:51> Objective - Vital Signs/Intake and Output Vital Signs (last 24 hours): Temp Pulse Resp BP Pulse Ox 97.5 F L 87 20 155/82 H 97 08/10/18 07:00 08/10/18 07:00 08/10/18 07:00 08/10/18 09:47 08/10/18 07:00 Intake and Output: 08/10/18 08/10/18 06:59 18:59 Intake Total 700 Balance 700 - Medications Medications: Current Medications Acetaminophen (Tylenol 325mg Tab) 975 mg PO ONCE PRN PRN Reason: Fever >100.4 F Last Admin: 07/30/18 07:43 Dose: 975 mg Acetaminophen (Tylenol 325mg Tab) 650 mg PO Q6 PRN PRN Reason: Pain, moderate (4-7) Last Admin: 08/09/18 21:30 Dose: 650 mg Alprazolam (Xanax) 0.5 mg PO TID PRN PRN Reason: Anxiety Last Admin: 08/01/18 00:59 Dose: 0.5 mg Artificial Tears (Artificial Tears) 0.3 ml OU Q4H PRN PRN Reason: Dry eyes Last Admin: 08/08/18 12:13 Dose: 1 drop Bisacodyl (Dulcolax) 10 mg PO DAILY [facility] Last Admin: 08/10/18 09:48 Dose: 10 mg Clotrimazole (Lotrimin 1%) 0 gm TOP BID [facility] Last Admin: 08/09/18 17:23 Dose: 1 appl Dextrose (Dextrose 50% Inj) 0 ml IV STAT PRN; Protocol PRN Reason: Hypoglycemia Protocol Dextrose (Glutose 15) 0 gm PO ONCE PRN; Protocol PRN Reason: Hypoglycemia Protocol Famotidine (Pepcid) 20 mg PO DAILY [facility] Last Admin: 08/10/18 09:47 Dose: 20 mg Furosemide (Lasix) 20 mg PO DAILY [facility] Last Admin: 08/10/18 09:47 Dose: 20 mg Gabapentin (Neurontin) 300 mg PO BID [facility] Last Admin: 08/10/18 09:47 Dose: 300 mg Glucagon (Glucagen Diagnostic Kit) 0 mg IM STAT PRN; Protocol PRN Reason: Hypoglycemia Protocol Guaifenesin (Mucinex La) 600 mg PO BID [facility] Last Admin: 08/10/18 09:47 Dose: 600 mg Guaifenesin/Dextromethorphan (Robitussin Dm) 5 ml PO Q4H PRN PRN Reason: Cough Last Admin: 08/02/18 09:17 Dose: 5 ml Heparin Sodium (Porcine) (Heparin) 5,000 units SC Q8 [facility] Last Admin: 08/09/18 21:32 Dose: Not Given Doxycycline Hyclate 100 mg/ (Sodium Chloride) 100 mls @ 100 mls/hr IVPB Q12H [facility]; Protocol Last Admin: 08/10/18 11:30 Dose: 100 mls/hr Meropenem 1 gm/ Sodium (Chloride) 100 mls @ 100 mls/hr IVPB Q8H [facility]; Protocol Last Admin: 08/10/18 09:49 Dose: 100 mls/hr Insulin Glargine (Lantus) 20 unit SC [facility] Last Admin: 08/09/18 21:32 Dose: Not Given Insulin Human Isoph/Insulin Regular (Novolin 70/30 (70/30 Units/Ml) 10 Ml) 20 units SC BIDAC [facility] Last Admin: 08/10/18 08:30 Dose: 20 units Lactobacillus Acidophilus (Lactobacillus) 1 cap PO TID [facility] Last Admin: 08/10/18 09:47 Dose: 1 cap Lisinopril (Zestril) 5 mg PO DAILY [facility] Last Admin: 08/10/18 09:47 Dose: 5 mg Magnesium Hydroxide (Milk Of Magnesia) 60 ml PO BID PRN PRN Reason: Constipation Miconazole (Monistat 7 Vag Suppository) 100 mg VG [facility] Last Admin: 08/09/18 22:33 Dose: Not Given Rosuvastatin Calcium (Crestor) 2.5 mg PO [facility] Last Admin: 08/09/18 21:32 Dose: Not Given Senna/Docusate Sodium (Senokot S 50 Mg-8.6 Mg) 2 tab PO BID [facility] Last Admin: 08/10/18 09:49 Dose: Not Given Simethicone (Mylicon Chew Tab) 80 mg PO Q4H PRN PRN Reason: GI distress Last Admin: 08/07/18 09:09 Dose: 80 mg Tramadol HCl (Ultram) 25 mg PO TID PRN PRN Reason: Pain, severe (8-10) Last Admin: 08/09/18 11:19 Dose: 25 mg - Labs Labs: 08/08/18 08:29 08/08/18 08:29 PT 13.6 SECONDS (9.7-12.2) H 07/25/18 12:54 INR 1.2 07/25/18 12:54 APTT 26 SECONDS (21-34) 07/25/18 12:54 Attending/Attestation - Attestation I have personally seen and examined this patient.: Yes I have fully participated in the care of the patient.: Yes I have reviewed all pertinent clinical information, including history, physical exam and plan: Yes Notes (Text): 08/10/18 13:50 Reviewed resident note findings and plan of care. Agree with plan of care and findings.
[2018-08-08] MEDS: Aritificial Tears (15ml) OU PRN (12:13)
--- NOTE | 2018-08-08 19:43 | CP.PCM.PN ---
Subjective - Date & Time of Evaluation Date of Evaluation: 08/08/18 Time of Evaluation: 10:00 - Subjective Subjective: events noted IV rx in [facility] Objective - Vital Signs/Intake and Output Vital Signs (last 24 hours): Temp Pulse Resp BP Pulse Ox 97.9 F 90 20 118/76 95 08/08/18 15:53 08/08/18 15:53 08/08/18 15:53 08/08/18 15:53 08/08/18 15:53 - Medications Medications: Current Medications Acetaminophen (Tylenol 325mg Tab) 975 mg PO ONCE PRN PRN Reason: Fever >100.4 F Last Admin: 07/30/18 07:43 Dose: 975 mg Acetaminophen (Tylenol 325mg Tab) 650 mg PO Q6 PRN PRN Reason: Pain, moderate (4-7) Last Admin: 08/08/18 10:50 Dose: 650 mg Alprazolam (Xanax) 0.5 mg PO TID PRN PRN Reason: Anxiety Last Admin: 08/01/18 00:59 Dose: 0.5 mg Artificial Tears (Artificial Tears) 0.3 ml OU Q4H PRN PRN Reason: Dry eyes Last Admin: 08/08/18 12:13 Dose: 1 drop Bisacodyl (Dulcolax) 10 mg PO DAILY [facility] Last Admin: 08/08/18 10:37 Dose: Not Given Clotrimazole (Lotrimin 1%) 0 gm TOP BID [facility] Last Admin: 08/08/18 17:31 Dose: 1 appl Dextrose (Dextrose 50% Inj) 0 ml IV STAT PRN; Protocol PRN Reason: Hypoglycemia Protocol Dextrose (Glutose 15) 0 gm PO ONCE PRN; Protocol PRN Reason: Hypoglycemia Protocol Famotidine (Pepcid) 20 mg PO DAILY [facility] Last Admin: 08/08/18 10:36 Dose: 20 mg Furosemide (Lasix) 20 mg PO DAILY [facility] Last Admin: 08/08/18 10:36 Dose: 20 mg Gabapentin (Neurontin) 300 mg PO BID [facility] Last Admin: 08/08/18 17:31 Dose: 300 mg Glucagon (Glucagen Diagnostic Kit) 0 mg IM STAT PRN; Protocol PRN Reason: Hypoglycemia Protocol Guaifenesin (Mucinex La) 600 mg PO BID [facility] Last Admin: 08/08/18 17:31 Dose: 600 mg Guaifenesin/Dextromethorphan (Robitussin Dm) 5 ml PO Q4H PRN PRN Reason: Cough Last Admin: 08/02/18 09:17 Dose: 5 ml Heparin Sodium (Porcine) (Heparin) 5,000 units SC Q8 [facility] Last Admin: 08/08/18 13:35 Dose: Not Given Doxycycline Hyclate 100 mg/ (Sodium Chloride) 100 mls @ 100 mls/hr IVPB Q12H [facility]; Protocol Last Admin: 08/08/18 12:12 Dose: 100 mls/hr Meropenem 1 gm/ Sodium (Chloride) 100 mls @ 100 mls/hr IVPB Q8H [facility]; Protocol Last Admin: 08/08/18 17:31 Dose: 100 mls/hr Insulin Glargine (Lantus) 20 unit SC [facility] Last Admin: 08/07/18 21:35 Dose: 20 unit Insulin Human Isoph/Insulin Regular (Novolin 70/30 (70/30 Units/Ml) 10 Ml) 20 units SC BIDAC [facility] Last Admin: 08/08/18 17:30 Dose: 20 units Lactobacillus Acidophilus (Lactobacillus) 1 cap PO TID [facility] Last Admin: 08/08/18 17:31 Dose: 1 cap Lisinopril (Zestril) 5 mg PO DAILY [facility] Last Admin: 08/08/18 10:36 Dose: 5 mg Magnesium Hydroxide (Milk Of Magnesia) 60 ml PO BID PRN PRN Reason: Constipation Miconazole (Monistat 7 Vag Suppository) 100 mg VG [facility] Last Admin: 08/07/18 21:39 Dose: Not Given Rosuvastatin Calcium (Crestor) 2.5 mg PO [facility] Last Admin: 08/07/18 21:39 Dose: Not Given Senna/Docusate Sodium (Senokot S 50 Mg-8.6 Mg) 2 tab PO BID [facility] Last Admin: 08/08/18 17:34 Dose: 2 tab Simethicone (Mylicon Chew Tab) 80 mg PO Q4H PRN PRN Reason: GI distress Last Admin: 08/07/18 09:09 Dose: 80 mg Tramadol HCl (Ultram) 25 mg PO TID PRN PRN Reason: Pain, severe (8-10) Last Admin: 08/04/18 14:04 Dose: 25 mg - Labs Labs: 02/28/19 08:29 08/08/18 08:29 PT 13.6 SECONDS (9.7-12.2) H 07/25/18 12:54 INR 1.2 07/25/18 12:54 APTT 26 SECONDS (21-34) 07/25/18 12:54 - Constitutional Appears: Well - Head Exam Head Exam: ATRAUMATIC, NORMAL INSPECTION, NORMOCEPHALIC - Eye Exam Eye Exam: EOMI, Normal appearance, PERRL Pupil Exam: NORMAL ACCOMODATION, PERRL - ENT Exam ENT Exam: Mucous Membranes Moist, Normal Exam - Neck Exam Neck Exam: Full ROM, Normal Inspection. absent: Lymphadenopathy - Respiratory Exam Respiratory Exam: Clear to Ausculation Bilateral, NORMAL BREATHING PATTERN - Cardiovascular Exam Cardiovascular Exam: REGULAR RHYTHM, +S1, +S2. absent: Murmur - GI/Abdominal Exam GI & Abdominal Exam: Soft, Normal Bowel Sounds. absent: Tenderness - Rectal Exam Rectal Exam: Deferred - Exam Exam: NORMAL INSPECTION - Extremities Exam Extremities Exam: Full ROM, Normal Capillary Refill, Normal Inspection. absent: Joint Swelling, Pedal Edema - Back Exam Back Exam: NORMAL INSPECTION - Neurological Exam Neurological Exam: Alert, Awake, CN II-XII Intact, Normal Gait, Oriented x3 - Psychiatric Exam Psychiatric exam: Normal Affect, Normal Mood - Skin Skin Exam: Dry, Intact, Normal Color, Warm Additional comments: left foot wound same Assessment and Plan (1) Cellulitis Status: Acute (2) Open wound Status: Acute (3) Sepsis Status: Acute (4) Uncontrolled diabetes mellitus Status: Acute (5) Osteomyelitis of foot, left, acute Status: Acute (6) Osteomyelitis of foot Status: Acute (7) Osteomyelitis of left foot Status: Acute (8) Gangrene of left foot Status: Acute - Assessment and Plan (Free Text) Assessment: renew IV rx cont wound care rx for 6 weeks
[2018-08-08] MEDS: Rosuvastatin Calcium 2.5 mg Tab PO SCH ×2 (22:01→22:05)
[2018-08-08] MEDS: Miconazole 100 MG Vaginal Supp VG SCH (22:02)
[2018-08-08] MEDS: (Lantus) Insulin Glargine, Recombinant SC SCH (22:02)
[2018-08-09] MEDS: Meropenem 1 GM in Sodium Chloride 0.9% 100 ML IVPB SCH ×3 (01:57→17:23)
[2018-08-09] MEDS: (Novolin 70/30) NPH/Regular 70/30 Units/ml 10 ml vial SC SCH ×2 (08:30→17:22)
--- NOTE | 2018-08-09 08:43 | CP.PCM.PN ---
<Ramy Jacobsen - Last Filed: 08/09/18 08:40> Subjective - Date & Time of Evaluation Date of Evaluation: 08/09/18 Time of Evaluation: 08:40 - Subjective Subjective: Ramy Jacobsen PGY1 Progress Note for Dr. Faulkner Pt was examined at bedside this morning. She reports cough overnight as well as her "blood going cold". Objective - Vital Signs/Intake and Output Vital Signs (last 24 hours): Temp Pulse Resp BP Pulse Ox 98 F 82 20 136/72 97 08/09/18 00:00 08/09/18 00:00 08/09/18 00:00 08/09/18 00:00 08/09/18 00:00 Intake and Output: 08/09/18 08/09/18 06:59 18:59 Intake Total 500 Balance 500 - Medications Medications: Current Medications Acetaminophen (Tylenol 325mg Tab) 975 mg PO ONCE PRN PRN Reason: Fever >100.4 F Last Admin: 07/30/18 07:43 Dose: 975 mg Acetaminophen (Tylenol 325mg Tab) 650 mg PO Q6 PRN PRN Reason: Pain, moderate (4-7) Last Admin: 08/09/18 04:43 Dose: 650 mg Alprazolam (Xanax) 0.5 mg PO TID PRN PRN Reason: Anxiety Last Admin: 08/01/18 00:59 Dose: 0.5 mg Artificial Tears (Artificial Tears) 0.3 ml OU Q4H PRN PRN Reason: Dry eyes Last Admin: 08/08/18 12:13 Dose: 1 drop Bisacodyl (Dulcolax) 10 mg PO DAILY [facility] Last Admin: 08/08/18 10:37 Dose: Not Given Clotrimazole (Lotrimin 1%) 0 gm TOP BID [facility] Last Admin: 08/08/18 17:31 Dose: 1 appl Dextrose (Dextrose 50% Inj) 0 ml IV STAT PRN; Protocol PRN Reason: Hypoglycemia Protocol Dextrose (Glutose 15) 0 gm PO ONCE PRN; Protocol PRN Reason: Hypoglycemia Protocol Famotidine (Pepcid) 20 mg PO DAILY [facility] Last Admin: 08/08/18 10:36 Dose: 20 mg Furosemide (Lasix) 20 mg PO DAILY [facility] Last Admin: 08/08/18 10:36 Dose: 20 mg Gabapentin (Neurontin) 300 mg PO BID [facility] Last Admin: 08/08/18 17:31 Dose: 300 mg Glucagon (Glucagen Diagnostic Kit) 0 mg IM STAT PRN; Protocol PRN Reason: Hypoglycemia Protocol Guaifenesin (Mucinex La) 600 mg PO BID [facility] Last Admin: 08/08/18 17:31 Dose: 600 mg Guaifenesin/Dextromethorphan (Robitussin Dm) 5 ml PO Q4H PRN PRN Reason: Cough Last Admin: 08/02/18 09:17 Dose: 5 ml Heparin Sodium (Porcine) (Heparin) 5,000 units SC Q8 [facility] Last Admin: 08/09/18 06:07 Dose: Not Given Doxycycline Hyclate 100 mg/ (Sodium Chloride) 100 mls @ 100 mls/hr IVPB Q12H [facility]; Protocol Last Admin: 08/08/18 23:42 Dose: 100 mls/hr Meropenem 1 gm/ Sodium (Chloride) 100 mls @ 100 mls/hr IVPB Q8H [facility]; Protocol Last Admin: 08/09/18 01:57 Dose: 100 mls/hr Insulin Glargine (Lantus) 20 unit SC HS [facility] Last Admin: 08/08/18 22:02 Dose: 20 unit Insulin Human Isoph/Insulin Regular (Novolin 70/30 (70/30 Units/Ml) 10 Ml) 20 units SC BIDAC [facility] Last Admin: 08/08/18 17:30 Dose: 20 units Lactobacillus Acidophilus (Lactobacillus) 1 cap PO TID [facility] Last Admin: 08/08/18 17:31 Dose: 1 cap Lisinopril (Zestril) 5 mg PO DAILY [facility] Last Admin: 08/08/18 10:36 Dose: 5 mg Magnesium Hydroxide (Milk Of Magnesia) 60 ml PO BID PRN PRN Reason: Constipation Miconazole (Monistat 7 Vag Suppository) 100 mg VG [facility] Last Admin: 08/08/18 22:02 Dose: Not Given Rosuvastatin Calcium (Crestor) 2.5 mg PO [facility] Last Admin: 08/08/18 22:05 Dose: Not Given Senna/Docusate Sodium (Senokot S 50 Mg-8.6 Mg) 2 tab PO BID [facility] Last Admin: 08/08/18 17:34 Dose: 2 tab Simethicone (Mylicon Chew Tab) 80 mg PO Q4H PRN PRN Reason: GI distress Last Admin: 08/07/18 09:09 Dose: 80 mg Tramadol HCl (Ultram) 25 mg PO TID PRN PRN Reason: Pain, severe (8-10) Last Admin: 08/04/18 14:04 Dose: 25 mg - Labs Labs: 08/08/18 08:29 08/08/18 08:29 PT 13.6 SECONDS (9.7-12.2) H 07/25/18 12:54 INR 1.2 07/25/18 12:54 APTT 26 SECONDS (21-34) 07/25/18 12:54 - Additional Findings Additional findings: - Constitutional Appears: No Acute Distress, Chronically Ill - Head Exam Head Exam: ATRAUMATIC, NORMAL INSPECTION - Eye Exam Additional comments: complete - left eye; partial right eye - Respiratory Exam Respiratory Exam: Clear to Auscultation Bilateral, NORMAL BREATHING PATTERN, no wheezing, no stridor. - Cardiovascular Exam Cardiovascular Exam: REGULAR RHYTHM, +S1, +S2 - GI/Abdominal Exam GI & Abdominal Exam: Normal Bowel Sounds, Soft. absent: Tenderness - Extremities Exam Right midline seems to be leaking. Additional comments: Left foot is s/p 2nd ray amputation. Dressing is clean, dry, intact, no edema in the lower extremity. No active bleeding. - Neurological Exam Neurological exam: Alert, Oriented x3 - Psychiatric Exam Psychiatric exam: Anxious. Normal affect. - Skin Skin Exam: Rash (dark rash to lower extremities Assessment and Plan - Assessment and Plan (Free Text) Assessment: 52 year old female with past medical history of diabetes type II, HTN, blindness (complete - left eye; partial right eye) who presented to the ER for a left foot infection. Underwent left second toe ray amputation on 07/27/18. Patient is hemodynamically stable for d/c, currently has PICC line. 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 Fox --> help appreciated - ID Consult: Dr. Davila --> help appreciated * Merem 1g IV q8h * Doxycycline 100 mg IVPB q12 * PICC line consented and inserted * abx recs upon d/c: Rocephin 1g IV q2h and Doxy 100mg IVP q12h x 6 weeks - ICU was consulted --> help appreciated - Left foot wound culture shows beta hemolytic strep b sensitive to ampicilin, PCN, vanco - BCx negative to date - UCx shows erma negative kenyatta On Merem - Medications * Tylenol prn moderate pain * Tramadol 25mg TID PRN severe pain - Images: * Foot Xray: Findings related to prior resection distal 1st metatarsal. Amputation at the level of the proximal phalanx 5th digit. Ventral ulceration medial aspect of the left foot distally. Suggestion of air within the soft tissues. In the absence of recent surgical history gas-forming organism should be considered. * Ankle Xray: Presumed chronic changes midshaft left tibia. * Tibia/Fibula Xray: Unremarkable radiographs of the left tibia and fibula. * LE venous doppler: pt refused - Bandemia/leukocytosis resolved Elevated proBNP - proBNP: 1560 - Trop: negative - Chest Xray: No consolidative infiltrate. Mild cardiomegaly and mild pulmonary venous congestion suspect - ECHO: mild concentric LVH with normal EF of 65-70%, mild TR - Medications: * Lasix 20mg po daily History of Diabetes - HgbA1c 14 - Lipid panel: elevated TG, low HDL - Medications: * Novolin 70/30 20u SC BID * Lantus 20units SC HS * Lisinopril 5mg po daily * Crestor 2.5mg po HS - Hypoglycemia Protocol - Accuchecks Vaginal itching - Miconazole 100 mg VG [facility] to lower extremities - Clomitrazole cream to affected areas BID History of HTN - Lisinopril 5mg po daily History of Neuropathy - Gabapentin 300mg po bid Prophylaxis - Physical Therapy: recommending [facility] - Anti-coagulation: Heparin - Lactobacillus 1 cap po tid, Sennakot, pepcid, Simethicone Dispo: Patient medically stable for d/c. Currently has PICC line in place. Patient not accepted to [facility] or outpatient infusion center. Daughter Ceci [phone] will apply for [place] Medicaid. Pt has right to go back to [facility] for further treatment at anytime upon request. Case discussed with Dr. Faulkner <Salvatore Faulkner Jr. - Last Filed: 08/10/18 13:50> Objective - Vital Signs/Intake and Output Vital Signs (last 24 hours): Temp Pulse Resp BP Pulse Ox 97.5 F L 87 20 155/82 H 97 08/10/18 07:00 08/10/18 07:00 08/10/18 07:00 08/10/18 09:47 08/10/18 07:00 Intake and Output: 08/10/18 08/10/18 06:59 18:59 Intake Total 700 Balance 700 - Medications Medications: Current Medications Acetaminophen (Tylenol 325mg Tab) 975 mg PO ONCE PRN PRN Reason: Fever >100.4 F Last Admin: 07/30/18 07:43 Dose: 975 mg Acetaminophen (Tylenol 325mg Tab) 650 mg PO Q6 PRN PRN Reason: Pain, moderate (4-7) Last Admin: 08/09/18 21:30 Dose: 650 mg Alprazolam (Xanax) 0.5 mg PO TID PRN PRN Reason: Anxiety Last Admin: 08/01/18 00:59 Dose: 0.5 mg Artificial Tears (Artificial Tears) 0.3 ml OU Q4H PRN PRN Reason: Dry eyes Last Admin: 08/08/18 12:13 Dose: 1 drop Bisacodyl (Dulcolax) 10 mg PO DAILY [facility] Last Admin: 08/10/18 09:48 Dose: 10 mg Clotrimazole (Lotrimin 1%) 0 gm TOP BID [facility] Last Admin: 08/09/18 17:23 Dose: 1 appl Dextrose (Dextrose 50% Inj) 0 ml IV STAT PRN; Protocol PRN Reason: Hypoglycemia Protocol Dextrose (Glutose 15) 0 gm PO ONCE PRN; Protocol PRN Reason: Hypoglycemia Protocol Famotidine (Pepcid) 20 mg PO DAILY [facility] Last Admin: 08/10/18 09:47 Dose: 20 mg Furosemide (Lasix) 20 mg PO DAILY [facility] Last Admin: 08/10/18 09:47 Dose: 20 mg Gabapentin (Neurontin) 300 mg PO BID [facility] Last Admin: 08/10/18 09:47 Dose: 300 mg Glucagon (Glucagen Diagnostic Kit) 0 mg IM STAT PRN; Protocol PRN Reason: Hypoglycemia Protocol Guaifenesin (Mucinex La) 600 mg PO BID [facility] Last Admin: 08/10/18 09:47 Dose: 600 mg Guaifenesin/Dextromethorphan (Robitussin Dm) 5 ml PO Q4H PRN PRN Reason: Cough Last Admin: 08/02/18 09:17 Dose: 5 ml Heparin Sodium (Porcine) (Heparin) 5,000 units SC Q8 [facility] Last Admin: 08/09/18 21:32 Dose: Not Given Doxycycline Hyclate 100 mg/ (Sodium Chloride) 100 mls @ 100 mls/hr IVPB Q12H [facility]; Protocol Last Admin: 08/10/18 11:30 Dose: 100 mls/hr Meropenem 1 gm/ Sodium (Chloride) 100 mls @ 100 mls/hr IVPB Q8H [facility]; Protocol Last Admin: 08/10/18 09:49 Dose: 100 mls/hr Insulin Glargine (Lantus) 20 unit SC [facility] Last Admin: 08/09/18 21:32 Dose: Not Given Insulin Human Isoph/Insulin Regular (Novolin 70/30 (70/30 Units/Ml) 10 Ml) 20 units SC BIDAC [facility] Last Admin: 08/10/18 08:30 Dose: 20 units Lactobacillus Acidophilus (Lactobacillus) 1 cap PO TID [facility] Last Admin: 08/10/18 09:47 Dose: 1 cap Lisinopril (Zestril) 5 mg PO DAILY [facility] Last Admin: 08/10/18 09:47 Dose: 5 mg Magnesium Hydroxide (Milk Of Magnesia) 60 ml PO BID PRN PRN Reason: Constipation Miconazole (Monistat 7 Vag Suppository) 100 mg VG [facility] Last Admin: 08/09/18 22:33 Dose: Not Given Rosuvastatin Calcium (Crestor) 2.5 mg PO [facility] Last Admin: 08/09/18 21:32 Dose: Not Given Senna/Docusate Sodium (Senokot S 50 Mg-8.6 Mg) 2 tab PO BID [facility] Last Admin: 08/10/18 09:49 Dose: Not Given Simethicone (Mylicon Chew Tab) 80 mg PO Q4H PRN PRN Reason: GI distress Last Admin: 08/07/18 09:09 Dose: 80 mg Tramadol HCl (Ultram) 25 mg PO TID PRN PRN Reason: Pain, severe (8-10) Last Admin: 08/09/18 11:19 Dose: 25 mg - Labs Labs: 08/08/18 08:29 08/08/18 08:29 PT 13.6 SECONDS (9.7-12.2) H 07/25/18 12:54 INR 1.2 07/25/18 12:54 APTT 26 SECONDS (21-34) 07/25/18 12:54 Attending/Attestation - Attestation I have personally seen and examined this patient.: Yes I have fully participated in the care of the patient.: Yes I have reviewed all pertinent clinical information, including history, physical exam and plan: Yes Notes (Text): 08/10/18 13:50 Reviewed resident note findings and plan of care. Agree with plan of care and findings.
[2018-08-09] MEDS: Lactobacillus Acidophilus 500 MU Cap PO SCH ×3 (10:00→17:21)
[2018-08-09] MEDS: Bisacodyl 5mg EC Tab PO SCH ×2 (10:00→10:06)
[2018-08-09] MEDS: guaiFENesin 600 mg ER Tab PO SCH ×2 (10:00→17:21)
[2018-08-09] MEDS: Docusate-Senna 50 mg-8.6 mg Tab PO SCH ×2 (10:01→17:21)
[2018-08-09] MEDS: Clotrimazole 1% Cream(30 gm) TOP SCH ×2 (10:02→17:23)
[2018-08-09] MEDS: Tramadol 25 mg PO PRN (11:19)
--- NOTE | 2018-08-09 12:04 | CP.PCM.PN ---
Subjective - Date & Time of Evaluation Date of Evaluation: 08/09/18 Time of Evaluation: 12:04 - Subjective Subjective: Podiatry progress note - Dr. Fox 52F seen and evaluated POD#13 left foot partial 2nd ray amputation. Patient denies any pain to left foot. Dressing intact. Patient complaining that her blood keeps running cold, and is requesting Tylenol to make her blood warm. Objective - Vital Signs/Intake and Output Vital Signs (last 24 hours): Temp Pulse Resp BP Pulse Ox 97.8 F 85 20 144/82 99 08/09/18 08:44 08/09/18 08:44 08/09/18 08:44 08/09/18 09:59 08/09/18 08:44 Intake and Output: 08/09/18 08/09/18 06:59 18:59 Intake Total 500 Balance 500 - Medications Medications: Current Medications Acetaminophen (Tylenol 325mg Tab) 975 mg PO ONCE PRN PRN Reason: Fever >100.4 F Last Admin: 07/30/18 07:43 Dose: 975 mg Acetaminophen (Tylenol 325mg Tab) 650 mg PO Q6 PRN PRN Reason: Pain, moderate (4-7) Last Admin: 08/09/18 04:43 Dose: 650 mg Alprazolam (Xanax) 0.5 mg PO TID PRN PRN Reason: Anxiety Last Admin: 08/01/18 00:59 Dose: 0.5 mg Artificial Tears (Artificial Tears) 0.3 ml OU Q4H PRN PRN Reason: Dry eyes Last Admin: 08/08/18 12:13 Dose: 1 drop Bisacodyl (Dulcolax) 10 mg PO DAILY [facility] Last Admin: 08/09/18 10:06 Dose: Not Given Clotrimazole (Lotrimin 1%) 0 gm TOP BID [facility] Last Admin: 08/09/18 10:02 Dose: 1 appl Dextrose (Dextrose 50% Inj) 0 ml IV STAT PRN; Protocol PRN Reason: Hypoglycemia Protocol Dextrose (Glutose 15) 0 gm PO ONCE PRN; Protocol PRN Reason: Hypoglycemia Protocol Famotidine (Pepcid) 20 mg PO DAILY [facility] Last Admin: 08/09/18 10:00 Dose: 20 mg Furosemide (Lasix) 20 mg PO DAILY [facility] Last Admin: 08/09/18 09:59 Dose: 20 mg Gabapentin (Neurontin) 300 mg PO BID [facility] Last Admin: 08/09/18 09:59 Dose: 300 mg Glucagon (Glucagen Diagnostic Kit) 0 mg IM STAT PRN; Protocol PRN Reason: Hypoglycemia Protocol Guaifenesin (Mucinex La) 600 mg PO BID [facility] Last Admin: 08/09/18 10:00 Dose: 600 mg Guaifenesin/Dextromethorphan (Robitussin Dm) 5 ml PO Q4H PRN PRN Reason: Cough Last Admin: 08/02/18 09:17 Dose: 5 ml Heparin Sodium (Porcine) (Heparin) 5,000 units SC Q8 [facility] Last Admin: 08/09/18 06:07 Dose: Not Given Doxycycline Hyclate 100 mg/ (Sodium Chloride) 100 mls @ 100 mls/hr IVPB Q12H [facility]; Protocol Last Admin: 08/08/18 23:42 Dose: 100 mls/hr Meropenem 1 gm/ Sodium (Chloride) 100 mls @ 100 mls/hr IVPB Q8H [facility]; Protocol Last Admin: 08/09/18 10:01 Dose: 100 mls/hr Insulin Glargine (Lantus) 20 unit SC HS [facility] Last Admin: 08/08/18 22:02 Dose: 20 unit Insulin Human Isoph/Insulin Regular (Novolin 70/30 (70/30 Units/Ml) 10 Ml) 20 units SC BIDAC [facility] Last Admin: 08/09/18 08:30 Dose: 20 units Lactobacillus Acidophilus (Lactobacillus) 1 cap PO TID [facility] Last Admin: 08/09/18 10:00 Dose: 1 cap Lisinopril (Zestril) 5 mg PO DAILY [facility] Last Admin: 08/09/18 09:59 Dose: 5 mg Magnesium Hydroxide (Milk Of Magnesia) 60 ml PO BID PRN PRN Reason: Constipation Miconazole (Monistat 7 Vag Suppository) 100 mg VG [facility] Last Admin: 08/08/18 22:02 Dose: Not Given Rosuvastatin Calcium (Crestor) 2.5 mg PO [facility] Last Admin: 08/08/18 22:05 Dose: Not Given Senna/Docusate Sodium (Senokot S 50 Mg-8.6 Mg) 2 tab PO BID [facility] Last Admin: 08/09/18 10:01 Dose: Not Given Simethicone (Mylicon Chew Tab) 80 mg PO Q4H PRN PRN Reason: GI distress Last Admin: 08/07/18 09:09 Dose: 80 mg Tramadol HCl (Ultram) 25 mg PO TID PRN PRN Reason: Pain, severe (8-10) Last Admin: 08/09/18 11:19 Dose: 25 mg - Labs Labs: 08/08/18 08:29 08/08/18 08:29 PT 13.6 SECONDS (9.7-12.2) H 07/25/18 12:54 INR 1.2 07/25/18 12:54 APTT 26 SECONDS (21-34) 07/25/18 12:54 - Constitutional Appears: Non-toxic, No Acute Distress - Extremities Exam Additional comments: LLE focused VASC: DP/PT pulses are palpable, cap refill time: < 3 sec to digit 4 and 5, Temp gradient warm to warm DERM: surgical site exhibits normal healing, sutures intact, no pus or purulent discharge appreciated, mild serosanguinous drainage wound noted on the distal aspect of the surgical site with fibrogranular base, no malodor ORTHO: no pain on palpation present NEURO: gross and protective sensation absent - Neurological Exam Neurological Exam: Alert, Awake - Psychiatric Exam Psychiatric exam: Anxious Assessment and Plan - Assessment and Plan (Free Text) Assessment: 52F POD#13 left second ray partial amputation (DOS 07/27/18) Plan: Patient seen and evaluated Discussed with attending, Dr. Dominique Bradley foot intra-op WCx (07/27): Beta hemolytic Strep group B Intra-op pathology: acute OM Continue local wound care QOD: saline wet to dry, DSD, NICOLE -Educated patient that surgical site appears stable and does not need to be changed daily Activity: PWB left heel with surgical shoe Continue PT/OT Continue abx per ID - continue abx for 6-8 weeks Stable for dc per podiatry Following discharge, patient to follow up with Dr. Fox at [facility] within 1 week Podiatry will continue to follow
--- NOTE | 2018-08-09 18:58 | CP.PCM.PN ---
Subjective - Date & Time of Evaluation Date of Evaluation: 08/09/18 Time of Evaluation: 09:00 - Subjective Subjective: 52F seen and evaluated POD#13 left foot partial 2nd ray amputation. Objective - Vital Signs/Intake and Output Vital Signs (last 24 hours): Temp Pulse Resp BP Pulse Ox 97.6 F 96 H 20 127/80 99 08/09/18 15:00 08/09/18 15:00 08/09/18 15:00 08/09/18 15:00 08/09/18 15:00 Intake and Output: 08/09/18 08/09/18 06:59 18:59 Intake Total 500 Balance 500 - Medications Medications: Current Medications Acetaminophen (Tylenol 325mg Tab) 975 mg PO ONCE PRN PRN Reason: Fever >100.4 F Last Admin: 07/30/18 07:43 Dose: 975 mg Acetaminophen (Tylenol 325mg Tab) 650 mg PO Q6 PRN PRN Reason: Pain, moderate (4-7) Last Admin: 08/09/18 04:43 Dose: 650 mg Alprazolam (Xanax) 0.5 mg PO TID PRN PRN Reason: Anxiety Last Admin: 08/01/18 00:59 Dose: 0.5 mg Artificial Tears (Artificial Tears) 0.3 ml OU Q4H PRN PRN Reason: Dry eyes Last Admin: 08/08/18 12:13 Dose: 1 drop Bisacodyl (Dulcolax) 10 mg PO DAILY [facility] Last Admin: 08/09/18 10:06 Dose: Not Given Clotrimazole (Lotrimin 1%) 0 gm TOP BID [facility] Last Admin: 08/09/18 17:23 Dose: 1 appl Dextrose (Dextrose 50% Inj) 0 ml IV STAT PRN; Protocol PRN Reason: Hypoglycemia Protocol Dextrose (Glutose 15) 0 gm PO ONCE PRN; Protocol PRN Reason: Hypoglycemia Protocol Famotidine (Pepcid) 20 mg PO DAILY [facility] Last Admin: 08/09/18 10:00 Dose: 20 mg Furosemide (Lasix) 20 mg PO DAILY [facility] Last Admin: 08/09/18 09:59 Dose: 20 mg Gabapentin (Neurontin) 300 mg PO BID [facility] Last Admin: 08/09/18 17:21 Dose: 300 mg Glucagon (Glucagen Diagnostic Kit) 0 mg IM STAT PRN; Protocol PRN Reason: Hypoglycemia Protocol Guaifenesin (Mucinex La) 600 mg PO BID [facility] Last Admin: 08/09/18 17:21 Dose: 600 mg Guaifenesin/Dextromethorphan (Robitussin Dm) 5 ml PO Q4H PRN PRN Reason: Cough Last Admin: 08/02/18 09:17 Dose: 5 ml Heparin Sodium (Porcine) (Heparin) 5,000 units SC Q8 [facility] Last Admin: 08/09/18 14:21 Dose: Not Given Doxycycline Hyclate 100 mg/ (Sodium Chloride) 100 mls @ 100 mls/hr IVPB Q12H [facility]; Protocol Last Admin: 08/09/18 12:09 Dose: 100 mls/hr Meropenem 1 gm/ Sodium (Chloride) 100 mls @ 100 mls/hr IVPB Q8H [facility]; Protocol Last Admin: 08/09/18 17:23 Dose: 100 mls/hr Insulin Glargine (Lantus) 20 unit SC HS [facility] Last Admin: 08/08/18 22:02 Dose: 20 unit Insulin Human Isoph/Insulin Regular (Novolin 70/30 (70/30 Units/Ml) 10 Ml) 20 units SC BIDAC [facility] Last Admin: 08/09/18 17:22 Dose: 20 units Lactobacillus Acidophilus (Lactobacillus) 1 cap PO TID [facility] Last Admin: 08/09/18 17:21 Dose: 1 cap Lisinopril (Zestril) 5 mg PO DAILY [facility] Last Admin: 08/09/18 09:59 Dose: 5 mg Magnesium Hydroxide (Milk Of Magnesia) 60 ml PO BID PRN PRN Reason: Constipation Miconazole (Monistat 7 Vag Suppository) 100 mg VG [facility] Last Admin: 08/08/18 22:02 Dose: Not Given Rosuvastatin Calcium (Crestor) 2.5 mg PO [facility] Last Admin: 08/08/18 22:05 Dose: Not Given Senna/Docusate Sodium (Senokot S 50 Mg-8.6 Mg) 2 tab PO BID [facility] Last Admin: 08/09/18 17:21 Dose: 2 tab Simethicone (Mylicon Chew Tab) 80 mg PO Q4H PRN PRN Reason: GI distress Last Admin: 08/07/18 09:09 Dose: 80 mg Tramadol HCl (Ultram) 25 mg PO TID PRN PRN Reason: Pain, severe (8-10) Last Admin: 08/09/18 11:19 Dose: 25 mg - Labs Labs: 08/08/18 08:29 08/08/18 08:29 PT 13.6 SECONDS (9.7-12.2) H 07/25/18 12:54 INR 1.2 07/25/18 12:54 APTT 26 SECONDS (21-34) 07/25/18 12:54 - Constitutional Appears: No Acute Distress, Chronically Ill - Head Exam Head Exam: ATRAUMATIC, NORMAL INSPECTION, NORMOCEPHALIC - Eye Exam Eye Exam: EOMI, Normal appearance, PERRL Pupil Exam: NORMAL ACCOMODATION, PERRL - ENT Exam ENT Exam: Mucous Membranes Moist, Normal Exam - Neck Exam Neck Exam: Full ROM, Normal Inspection. absent: Lymphadenopathy - Respiratory Exam Respiratory Exam: Clear to Ausculation Bilateral, NORMAL BREATHING PATTERN - Cardiovascular Exam Cardiovascular Exam: REGULAR RHYTHM, +S1, +S2. absent: Murmur - GI/Abdominal Exam GI & Abdominal Exam: Soft, Normal Bowel Sounds. absent: Tenderness - Rectal Exam Rectal Exam: Deferred - Exam Exam: NORMAL INSPECTION - Extremities Exam Extremities Exam: Full ROM, Normal Capillary Refill, Normal Inspection. absent: Joint Swelling, Pedal Edema - Back Exam Back Exam: NORMAL INSPECTION - Neurological Exam Neurological Exam: Alert, Awake, CN II-XII Intact, Normal Gait, Oriented x3 - Psychiatric Exam Psychiatric exam: Normal Affect, Normal Mood - Skin Skin Exam: Dry, Normal Color Additional comments: foot warm dressing dry Assessment and Plan (1) Cellulitis Status: Acute (2) Open wound Status: Acute (3) Sepsis Status: Acute (4) Uncontrolled diabetes mellitus Status: Acute (5) Osteomyelitis of foot, left, acute Status: Acute (6) Osteomyelitis of foot Status: Acute (7) Osteomyelitis of left foot Status: Acute (8) Gangrene of left foot Status: Acute - Assessment and Plan (Free Text) Assessment: IV rx renewed
[2018-08-09] MEDS: Rosuvastatin Calcium 2.5 mg Tab PO SCH (21:32)
[2018-08-09] MEDS: (Lantus) Insulin Glargine, Recombinant SC SCH (21:32)
[2018-08-09] MEDS: Miconazole 100 MG Vaginal Supp VG SCH (22:33)
--- NOTE | 2018-08-10 05:35 | CP.PCM.PN ---
<Ky Beavers - Last Filed: 08/10/18 06:37> Subjective - Date & Time of Evaluation Date of Evaluation: 08/10/18 Time of Evaluation: 05:35 - Subjective Subjective: PGY1 Medicine Progress Note for Dr. Faulkner Pt seen and examined at bedside. Pt has no acute complaints. Complains of some itchiness at the PICC line site in the past, but nothing right now. Reports improvement of her cough and congestion. Denies chest pain, sob, abdominal pain, n/v/d. Objective - Vital Signs/Intake and Output Vital Signs (last 24 hours): Temp Pulse Resp BP Pulse Ox 97.5 F L 87 20 135/78 95 08/09/18 23:00 08/09/18 23:00 08/09/18 23:00 08/09/18 23:00 08/09/18 23:00 Intake and Output: 08/09/18 08/10/18 18:59 06:59 Intake Total 700 Balance 700 - Medications Medications: Current Medications Acetaminophen (Tylenol 325mg Tab) 975 mg PO ONCE PRN PRN Reason: Fever >100.4 F Last Admin: 07/30/18 07:43 Dose: 975 mg Acetaminophen (Tylenol 325mg Tab) 650 mg PO Q6 PRN PRN Reason: Pain, moderate (4-7) Last Admin: 08/09/18 21:30 Dose: 650 mg Alprazolam (Xanax) 0.5 mg PO TID PRN PRN Reason: Anxiety Last Admin: 08/01/18 00:59 Dose: 0.5 mg Artificial Tears (Artificial Tears) 0.3 ml OU Q4H PRN PRN Reason: Dry eyes Last Admin: 08/08/18 12:13 Dose: 1 drop Bisacodyl (Dulcolax) 10 mg PO DAILY [facility] Last Admin: 08/09/18 10:06 Dose: Not Given Clotrimazole (Lotrimin 1%) 0 gm TOP BID [facility] Last Admin: 08/09/18 17:23 Dose: 1 appl Dextrose (Dextrose 50% Inj) 0 ml IV STAT PRN; Protocol PRN Reason: Hypoglycemia Protocol Dextrose (Glutose 15) 0 gm PO ONCE PRN; Protocol PRN Reason: Hypoglycemia Protocol Famotidine (Pepcid) 20 mg PO DAILY [facility] Last Admin: 08/09/18 10:00 Dose: 20 mg Furosemide (Lasix) 20 mg PO DAILY [facility] Last Admin: 08/09/18 09:59 Dose: 20 mg Gabapentin (Neurontin) 300 mg PO BID [facility] Last Admin: 08/09/18 17:21 Dose: 300 mg Glucagon (Glucagen Diagnostic Kit) 0 mg IM STAT PRN; Protocol PRN Reason: Hypoglycemia Protocol Guaifenesin (Mucinex La) 600 mg PO BID [facility] Last Admin: 08/09/18 17:21 Dose: 600 mg Guaifenesin/Dextromethorphan (Robitussin Dm) 5 ml PO Q4H PRN PRN Reason: Cough Last Admin: 08/02/18 09:17 Dose: 5 ml Heparin Sodium (Porcine) (Heparin) 5,000 units SC Q8 [facility] Last Admin: 08/09/18 21:32 Dose: Not Given Doxycycline Hyclate 100 mg/ (Sodium Chloride) 100 mls @ 100 mls/hr IVPB Q12H [facility]; Protocol Last Admin: 08/09/18 23:59 Dose: 100 mls/hr Meropenem 1 gm/ Sodium (Chloride) 100 mls @ 100 mls/hr IVPB Q8H [facility]; Protocol Last Admin: 08/09/18 17:23 Dose: 100 mls/hr Insulin Glargine (Lantus) 20 unit SC HS [facility] Last Admin: 08/09/18 21:32 Dose: Not Given Insulin Human Isoph/Insulin Regular (Novolin 70/30 (70/30 Units/Ml) 10 Ml) 20 units SC BIDAC [facility] Last Admin: 08/09/18 17:22 Dose: 20 units Lactobacillus Acidophilus (Lactobacillus) 1 cap PO TID [facility] Last Admin: 08/09/18 17:21 Dose: 1 cap Lisinopril (Zestril) 5 mg PO DAILY [facility] Last Admin: 08/09/18 09:59 Dose: 5 mg Magnesium Hydroxide (Milk Of Magnesia) 60 ml PO BID PRN PRN Reason: Constipation Miconazole (Monistat 7 Vag Suppository) 100 mg VG HS [facility] Last Admin: 08/09/18 22:33 Dose: Not Given Rosuvastatin Calcium (Crestor) 2.5 mg PO HS [facility] Last Admin: 08/09/18 21:32 Dose: Not Given Senna/Docusate Sodium (Senokot S 50 Mg-8.6 Mg) 2 tab PO BID [facility] Last Admin: 08/09/18 17:21 Dose: 2 tab Simethicone (Mylicon Chew Tab) 80 mg PO Q4H PRN PRN Reason: GI distress Last Admin: 08/07/18 09:09 Dose: 80 mg Tramadol HCl (Ultram) 25 mg PO TID PRN PRN Reason: Pain, severe (8-10) Last Admin: 08/09/18 11:19 Dose: 25 mg - Labs Labs: 08/08/18 08:29 08/08/18 08:29 PT 13.6 SECONDS (9.7-12.2) H 07/25/18 12:54 INR 1.2 07/25/18 12:54 APTT 26 SECONDS (21-34) 07/25/18 12:54 - Additional Findings Additional findings: - Constitutional Appears: No Acute Distress, Chronically Ill - Head Exam Head Exam: ATRAUMATIC, NORMAL INSPECTION - Eye Exam Additional comments: complete - left eye; partial right eye - Respiratory Exam Respiratory Exam: Clear to Auscultation Bilateral, NORMAL BREATHING PATTERN, no wheezing, no stridor. - Cardiovascular Exam Cardiovascular Exam: REGULAR RHYTHM, +S1, +S2 - GI/Abdominal Exam GI & Abdominal Exam: Normal Bowel Sounds, Soft. absent: Tenderness - Extremities Exam Additional comments: Left foot is s/p 2nd ray amputation. Dressing is clean, dry, intact, no edema in the lower extremity. No active bleeding. - Neurological Exam Neurological exam: Alert, Oriented x3 - Psychiatric Exam Psychiatric exam: Anxious. Normal affect. Pressure speech, disorganized speech, flight of ideas. - Skin Skin Exam: Rash (dark rash to lower extremities). Left PICC line site is clean, dry, intact. No leaking, no erythema, no swelling, nontender. No signs of infection Assessment and Plan - Assessment and Plan (Free Text) Assessment: 52 year old female with past medical history of diabetes type II, HTN, blindness (complete - left eye; partial right eye) who presented to the ER for a left foot infection. Underwent left second toe ray amputation on 07/27/18. Patient is hemodynamically stable for d/c, currently has PICC line. 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 Fox --> help appreciated - ID Consult: Dr. Davila --> help appreciated * Merem 1g IV q8h * Doxycycline 100 mg IVPB q12 * PICC line consented and inserted * abx recs upon d/c: Rocephin 1g IV q2h and Doxy 100mg IVP q12h x 6 weeks - ICU was consulted --> help appreciated - Left foot wound culture shows beta hemolytic strep b sensitive to ampicilin, PCN, vanco - BCx negative to date - UCx shows erma negative kenyatta On Merem - Medications * Tylenol prn moderate pain * Tramadol 25mg TID PRN severe pain - Images: * Foot Xray: Findings related to prior resection distal 1st metatarsal. Amputation at the level of the proximal phalanx 5th digit. Ventral ulceration medial aspect of the left foot distally. Suggestion of air within the soft tissues. In the absence of recent surgical history gas-forming organism should be considered. * Ankle Xray: Presumed chronic changes midshaft left tibia. * Tibia/Fibula Xray: Unremarkable radiographs of the left tibia and fibula. * LE venous doppler: pt refused - Bandemia/leukocytosis resolved - Tylenol 650 mg PO PRN for pain Elevated proBNP - proBNP: 1560 - Trop: negative - Chest Xray: No consolidative infiltrate. Mild cardiomegaly and mild pulmonary venous congestion suspect - ECHO: mild concentric LVH with normal EF of 65-70%, mild TR - Medications: * Lasix 20mg po daily History of Diabetes - HgbA1c 14 - Lipid panel: elevated TG, low HDL - Medications: * Novolin 70/30 20u SC BID * Lantus 20units SC HS * Lisinopril 5mg po daily * Crestor 2.5mg po HS - Hypoglycemia Protocol - Accuchecks Vaginal itching - Miconazole 100 mg VG HS [facility] to lower extremities - Clomitrazole cream to affected areas BID History of HTN - Lisinopril 5mg po daily History of Neuropathy - Gabapentin 300mg po bid Prophylaxis - Physical Therapy: recommending [facility] - Anti-coagulation: Heparin - Lactobacillus 1 cap po tid, Sennakot, pepcid, Simethicone Dispo: Patient medically stable for d/c. Currently has PICC line in place. Patient not accepted to [facility] or outpatient infusion center. Daughter Ceci [phone] will apply for [place] Medicaid. Pt has right to go back to [facility] for further treatment at anytime upon request. <Salvatore Faulkner Jr. - Last Filed: 08/10/18 13:47> Objective - Vital Signs/Intake and Output Vital Signs (last 24 hours): Temp Pulse Resp BP Pulse Ox 97.5 F L 87 20 155/82 H 97 08/10/18 07:00 08/10/18 07:00 08/10/18 07:00 08/10/18 09:47 08/10/18 07:00 Intake and Output: 08/10/18 08/10/18 06:59 18:59 Intake Total 700 Balance 700 - Medications Medications: Current Medications Acetaminophen (Tylenol 325mg Tab) 975 mg PO ONCE PRN PRN Reason: Fever >100.4 F Last Admin: 07/30/18 07:43 Dose: 975 mg Acetaminophen (Tylenol 325mg Tab) 650 mg PO Q6 PRN PRN Reason: Pain, moderate (4-7) Last Admin: 08/09/18 21:30 Dose: 650 mg Alprazolam (Xanax) 0.5 mg PO TID PRN PRN Reason: Anxiety Last Admin: 08/01/18 00:59 Dose: 0.5 mg Artificial Tears (Artificial Tears) 0.3 ml OU Q4H PRN PRN Reason: Dry eyes Last Admin: 08/08/18 12:13 Dose: 1 drop Bisacodyl (Dulcolax) 10 mg PO DAILY [facility] Last Admin: 08/10/18 09:48 Dose: 10 mg Clotrimazole (Lotrimin 1%) 0 gm TOP BID [facility] Last Admin: 08/09/18 17:23 Dose: 1 appl Dextrose (Dextrose 50% Inj) 0 ml IV STAT PRN; Protocol PRN Reason: Hypoglycemia Protocol Dextrose (Glutose 15) 0 gm PO ONCE PRN; Protocol PRN Reason: Hypoglycemia Protocol Famotidine (Pepcid) 20 mg PO DAILY [facility] Last Admin: 08/10/18 09:47 Dose: 20 mg Furosemide (Lasix) 20 mg PO DAILY [facility] Last Admin: 08/10/18 09:47 Dose: 20 mg Gabapentin (Neurontin) 300 mg PO BID [facility] Last Admin: 08/10/18 09:47 Dose: 300 mg Glucagon (Glucagen Diagnostic Kit) 0 mg IM STAT PRN; Protocol PRN Reason: Hypoglycemia Protocol Guaifenesin (Mucinex La) 600 mg PO BID [facility] Last Admin: 08/10/18 09:47 Dose: 600 mg Guaifenesin/Dextromethorphan (Robitussin Dm) 5 ml PO Q4H PRN PRN Reason: Cough Last Admin: 08/02/18 09:17 Dose: 5 ml Heparin Sodium (Porcine) (Heparin) 5,000 units SC Q8 [facility] Last Admin: 08/09/18 21:32 Dose: Not Given Doxycycline Hyclate 100 mg/ (Sodium Chloride) 100 mls @ 100 mls/hr IVPB Q12H [facility]; Protocol Last Admin: 08/10/18 11:30 Dose: 100 mls/hr Meropenem 1 gm/ Sodium (Chloride) 100 mls @ 100 mls/hr IVPB Q8H [facility]; Protocol Last Admin: 08/10/18 09:49 Dose: 100 mls/hr Insulin Glargine (Lantus) 20 unit SC HS [facility] Last Admin: 08/09/18 21:32 Dose: Not Given Insulin Human Isoph/Insulin Regular (Novolin 70/30 (70/30 Units/Ml) 10 Ml) 20 units SC BIDAC [facility] Last Admin: 08/10/18 08:30 Dose: 20 units Lactobacillus Acidophilus (Lactobacillus) 1 cap PO TID [facility] Last Admin: 08/10/18 09:47 Dose: 1 cap Lisinopril (Zestril) 5 mg PO DAILY [facility] Last Admin: 08/10/18 09:47 Dose: 5 mg Magnesium Hydroxide (Milk Of Magnesia) 60 ml PO BID PRN PRN Reason: Constipation Miconazole (Monistat 7 Vag Suppository) [address] [facility] Last Admin: 08/09/18 22:33 Dose: Not Given Rosuvastatin Calcium (Crestor) 2.[address] [facility] Last Admin: 08/09/18 21:32 Dose: Not Given Senna/Docusate Sodium (Senokot S 50 Mg-8.6 Mg) 2 tab PO BID [facility] Last Admin: 08/10/18 09:49 Dose: Not Given Simethicone (Mylicon Chew Tab) 80 mg PO Q4H PRN PRN Reason: GI distress Last Admin: 08/07/18 09:09 Dose: 80 mg Tramadol HCl (Ultram) 25 mg PO TID PRN PRN Reason: Pain, severe (8-10) Last Admin: 08/09/18 11:19 Dose: 25 mg - Labs Labs: 08/08/18 08:29 08/08/18 08:29 PT 13.6 SECONDS (9.7-12.2) H 07/25/18 12:54 INR 1.2 07/25/18 12:54 APTT 26 SECONDS (21-34) 07/25/18 12:54 Attending/Attestation - Attestation I have personally seen and examined this patient.: Yes I have fully participated in the care of the patient.: Yes I have reviewed all pertinent clinical information, including history, physical exam and plan: Yes Notes (Text): 08/10/18 13:46 Reviewed resident note findings and plan of care. Agree with plan of care and findings.
[2018-08-10] MEDS: (Novolin 70/30) NPH/Regular 70/30 Units/ml 10 ml vial SC SCH ×2 (08:30→18:24)
[2018-08-10] MEDS: Clotrimazole 1% Cream(30 gm) TOP SCH ×2 (09:47→18:29)
[2018-08-10] MEDS: Lactobacillus Acidophilus 500 MU Cap PO SCH ×3 (09:47→18:34)
[2018-08-10] MEDS: guaiFENesin 600 mg ER Tab PO SCH ×2 (09:47→18:24)
[2018-08-10] MEDS: Bisacodyl 5mg EC Tab PO SCH (09:48)
[2018-08-10] MEDS: Docusate-Senna 50 mg-8.6 mg Tab PO SCH ×2 (09:49→18:35)
[2018-08-10] MEDS: Meropenem 1 GM in Sodium Chloride 0.9% 100 ML IVPB SCH ×2 (09:49→18:24)
--- NOTE | 2018-08-10 17:13 | CP.PCM.PN ---
Subjective - Date & Time of Evaluation Date of Evaluation: 08/10/18 Time of Evaluation: 17:10 - Subjective Subjective: Podiatry progress note: Dr. Fox 52 year old female seen and evaluated POD#14 left foot partial 2nd ray amputation. Patient resting comfortably and in NAD. Patient states that she has no pain to her foot at this time. Denies nausea/vomiting/fever/shortness of breath/chest pain. Objective - Vital Signs/Intake and Output Vital Signs (last 24 hours): Temp Pulse Resp BP Pulse Ox 98.2 F 90 20 131/73 97 08/10/18 16:10 08/10/18 16:10 08/10/18 16:10 08/10/18 16:10 08/10/18 16:10 Intake and Output: 08/10/18 08/10/18 06:59 18:59 Intake Total 700 Balance 700 - Medications Medications: Current Medications Acetaminophen (Tylenol 325mg Tab) 975 mg PO ONCE PRN PRN Reason: Fever >100.4 F Last Admin: 07/30/18 07:43 Dose: 975 mg Acetaminophen (Tylenol 325mg Tab) 650 mg PO Q6 PRN PRN Reason: Pain, moderate (4-7) Last Admin: 08/09/18 21:30 Dose: 650 mg Alprazolam (Xanax) 0.5 mg PO TID PRN PRN Reason: Anxiety Last Admin: 08/01/18 00:59 Dose: 0.5 mg Artificial Tears (Artificial Tears) 0.3 ml OU Q4H PRN PRN Reason: Dry eyes Last Admin: 08/08/18 12:13 Dose: 1 drop Bisacodyl (Dulcolax) 10 mg PO DAILY [facility] Last Admin: 08/10/18 09:48 Dose: 10 mg Clotrimazole (Lotrimin 1%) 0 gm TOP BID [facility] Last Admin: 08/10/18 09:47 Dose: Not Given Dextrose (Dextrose 50% Inj) 0 ml IV STAT PRN; Protocol PRN Reason: Hypoglycemia Protocol Dextrose (Glutose 15) 0 gm PO ONCE PRN; Protocol PRN Reason: Hypoglycemia Protocol Famotidine (Pepcid) 20 mg PO DAILY [facility] Last Admin: 08/10/18 09:47 Dose: 20 mg Furosemide (Lasix) 20 mg PO DAILY [facility] Last Admin: 08/10/18 09:47 Dose: 20 mg Gabapentin (Neurontin) 300 mg PO BID [facility] Last Admin: 08/10/18 09:47 Dose: 300 mg Glucagon (Glucagen Diagnostic Kit) 0 mg IM STAT PRN; Protocol PRN Reason: Hypoglycemia Protocol Guaifenesin (Mucinex La) 600 mg PO BID [facility] Last Admin: 08/10/18 09:47 Dose: 600 mg Guaifenesin/Dextromethorphan (Robitussin Dm) 5 ml PO Q4H PRN PRN Reason: Cough Last Admin: 08/02/18 09:17 Dose: 5 ml Heparin Sodium (Porcine) (Heparin) 5,000 units SC Q8 [facility] Last Admin: 08/10/18 14:15 Dose: Not Given Doxycycline Hyclate 100 mg/ (Sodium Chloride) 100 mls @ 100 mls/hr IVPB Q12H [facility]; Protocol Last Admin: 08/10/18 11:30 Dose: 100 mls/hr Meropenem 1 gm/ Sodium (Chloride) 100 mls @ 100 mls/hr IVPB Q8H [facility]; Protocol Last Admin: 08/10/18 09:49 Dose: 100 mls/hr Insulin Glargine (Lantus) 20 unit SC HS [facility] Last Admin: 08/09/18 21:32 Dose: Not Given Insulin Human Isoph/Insulin Regular (Novolin 70/30 (70/30 Units/Ml) 10 Ml) 20 units SC BIDAC [facility] Last Admin: 08/10/18 08:30 Dose: 20 units Lactobacillus Acidophilus (Lactobacillus) 1 cap PO TID [facility] Last Admin: 08/10/18 14:15 Dose: 1 cap Lisinopril (Zestril) 5 mg PO DAILY [facility] Last Admin: 08/10/18 09:47 Dose: 5 mg Magnesium Hydroxide (Milk Of Magnesia) 60 ml PO BID PRN PRN Reason: Constipation Miconazole (Monistat 7 Vag Suppository) 100 mg VG [facility] Last Admin: 08/09/18 22:33 Dose: Not Given Rosuvastatin Calcium (Crestor) 2.5 mg PO HS [facility] Last Admin: 08/09/18 21:32 Dose: Not Given Senna/Docusate Sodium (Senokot S 50 Mg-8.6 Mg) 2 tab PO BID [facility] Last Admin: 08/10/18 09:49 Dose: Not Given Simethicone (Mylicon Chew Tab) 80 mg PO Q4H PRN PRN Reason: GI distress Last Admin: 08/07/18 09:09 Dose: 80 mg Tramadol HCl (Ultram) 25 mg PO TID PRN PRN Reason: Pain, severe (8-10) Last Admin: 08/09/18 11:19 Dose: 25 mg - Labs Labs: 08/08/18 08:29 08/08/18 08:29 PT 13.6 SECONDS (9.7-12.2) H 07/25/18 12:54 INR 1.2 07/25/18 12:54 APTT 26 SECONDS (21-34) 07/25/18 12:54 - Constitutional Appears: Non-toxic, No Acute Distress - Head Exam Head Exam: ATRAUMATIC, NORMOCEPHALIC - Extremities Exam Additional comments: LLE focused VASC: DP/PT pulses are palpable, cap refill time: < 3 sec to digit 4 and 5, Temp gradient warm to warm ORTHO: no pain on palpation present, MMT unable to be assessed at this time DERM: surgical site exhibits normal healing, skin well coapted, sutures intact, no pus or purulent discharge appreciated, mild serosanguinous drainage wound noted on the distal aspect of the surgical site with fibrogranular base, no malodor NEURO: gross and protective sensation absent - Neurological Exam Neurological Exam: Alert, Awake - Psychiatric Exam Psychiatric exam: Normal Affect, Normal Mood - Skin Skin Exam: Warm Assessment and Plan - Assessment and Plan (Free Text) Assessment: 52 year old female POD#14 left second ray partial amputation (DOS 07/27/18) Plan: Patient seen and evaluated with Dr. Dominique Bradley foot intra-op WCx (07/27): Beta hemolytic Strep group B Intra-op pathology: acute OM Continue local wound care QOD: saline wet to dry, DSD, NICOLE -Educated patient that surgical site appears stable and does not need to be changed daily Activity: PWB left heel with surgical shoe Continue PT/OT Continue abx per ID - continue abx for 6-8 weeks Stable for dc per podiatry Following discharge, patient to follow up with Dr. Fox at [facility] within 1 week Podiatry will continue to follow
--- NOTE | 2018-08-10 19:34 | CP.PCM.PN ---
Subjective - Date & Time of Evaluation Date of Evaluation: 08/11/18 Time of Evaluation: 08:02 - Subjective Subjective: PGY1 Medicine Progress Note for Dr. Faulkner Pt seen and examined at bedside. Pt complains of some itchiness at the PICC line, but denies any pain. I informed her to not scratch at the PICC line, she relays understanding. Denies fevers, chills, chest pain, sob, abdominal pain, n/v/d. Objective - Vital Signs/Intake and Output Vital Signs (last 24 hours): Temp Pulse Resp BP Pulse Ox 98.2 F 90 20 131/73 97 08/10/18 16:10 08/10/18 16:10 08/10/18 16:10 08/10/18 16:10 08/10/18 16:10 - Medications Medications: Current Medications Acetaminophen (Tylenol 325mg Tab) 975 mg PO ONCE PRN PRN Reason: Fever >100.4 F Last Admin: 07/30/18 07:43 Dose: 975 mg Acetaminophen (Tylenol 325mg Tab) 650 mg PO Q6 PRN PRN Reason: Pain, moderate (4-7) Last Admin: 08/10/18 18:28 Dose: 650 mg Alprazolam (Xanax) 0.5 mg PO TID PRN PRN Reason: Anxiety Last Admin: 08/01/18 00:59 Dose: 0.5 mg Artificial Tears (Artificial Tears) 0.3 ml OU Q4H PRN PRN Reason: Dry eyes Last Admin: 08/08/18 12:13 Dose: 1 drop Bisacodyl (Dulcolax) 10 mg PO DAILY [facility] Last Admin: 08/10/18 09:48 Dose: 10 mg Clotrimazole (Lotrimin 1%) 0 gm TOP BID [facility] Last Admin: 08/10/18 18:29 Dose: 1 appl Dextrose (Dextrose 50% Inj) 0 ml IV STAT PRN; Protocol PRN Reason: Hypoglycemia Protocol Dextrose (Glutose 15) 0 gm PO ONCE PRN; Protocol PRN Reason: Hypoglycemia Protocol Famotidine (Pepcid) 20 mg PO DAILY [facility] Last Admin: 08/10/18 09:47 Dose: 20 mg Furosemide (Lasix) 20 mg PO DAILY [facility] Last Admin: 08/10/18 09:47 Dose: 20 mg Gabapentin (Neurontin) 300 mg PO BID [facility] Last Admin: 08/10/18 18:24 Dose: 300 mg Glucagon (Glucagen Diagnostic Kit) 0 mg IM STAT PRN; Protocol PRN Reason: Hypoglycemia Protocol Guaifenesin (Mucinex La) 600 mg PO BID [facility] Last Admin: 08/10/18 18:24 Dose: 600 mg Guaifenesin/Dextromethorphan (Robitussin Dm) 5 ml PO Q4H PRN PRN Reason: Cough Last Admin: 08/02/18 09:17 Dose: 5 ml Heparin Sodium (Porcine) (Heparin) 5,000 units SC Q8 [facility] Last Admin: 08/10/18 14:15 Dose: Not Given Doxycycline Hyclate 100 mg/ (Sodium Chloride) 100 mls @ 100 mls/hr IVPB Q12H [facility]; Protocol Last Admin: 08/10/18 11:30 Dose: 100 mls/hr Meropenem 1 gm/ Sodium (Chloride) 100 mls @ 100 mls/hr IVPB Q8H [facility]; Protocol Last Admin: 08/10/18 18:24 Dose: 100 mls/hr Insulin Glargine (Lantus) 20 unit SC [facility] Last Admin: 08/09/18 21:32 Dose: Not Given Insulin Human Isoph/Insulin Regular (Novolin 70/30 (70/30 Units/Ml) 10 Ml) 20 units SC BIDAC [facility] Last Admin: 08/10/18 18:24 Dose: 20 units Lactobacillus Acidophilus (Lactobacillus) 1 cap PO TID [facility] Last Admin: 08/10/18 18:34 Dose: Not Given Lisinopril (Zestril) 5 mg PO DAILY [facility] Last Admin: 08/10/18 09:47 Dose: 5 mg Magnesium Hydroxide (Milk Of Magnesia) 60 ml PO BID PRN PRN Reason: Constipation Miconazole (Monistat 7 Vag Suppository) 100 mg VG [facility] Last Admin: 08/09/18 22:33 Dose: Not Given Rosuvastatin Calcium (Crestor) 2.5 mg PO [facility] Last Admin: 08/09/18 21:32 Dose: Not Given Senna/Docusate Sodium (Senokot S 50 Mg-8.6 Mg) 2 tab PO BID [facility] Last Admin: 08/10/18 18:35 Dose: Not Given Simethicone (Mylicon Chew Tab) 80 mg PO Q4H PRN PRN Reason: GI distress Last Admin: 08/07/18 09:09 Dose: 80 mg Tramadol HCl (Ultram) 25 mg PO TID PRN PRN Reason: Pain, severe (8-10) Last Admin: 08/09/18 11:19 Dose: 25 mg - Labs Labs: 08/08/18 08:29 08/08/18 08:29 PT 13.6 SECONDS (9.7-12.2) H 07/25/18 12:54 INR 1.2 07/25/18 12:54 APTT 26 SECONDS (21-34) 07/25/18 12:54 - Additional Findings Additional findings: - Constitutional Appears: No Acute Distress, Chronically Ill - Head Exam Head Exam: ATRAUMATIC, NORMAL INSPECTION - Eye Exam Additional comments: complete - left eye; partial right eye - Respiratory Exam Respiratory Exam: Clear to Auscultation Bilateral, NORMAL BREATHING PATTERN, no wheezing, no stridor. - Cardiovascular Exam Cardiovascular Exam: REGULAR RHYTHM, +S1, +S2 - GI/Abdominal Exam GI & Abdominal Exam: Normal Bowel Sounds, Soft. absent: Tenderness - Extremities Exam Additional comments: Left foot is s/p 2nd ray amputation. Dressing is clean, dry, intact, no edema in the lower extremity. No active bleeding. - Neurological Exam Neurological exam: Alert, Oriented x3 - Psychiatric Exam Psychiatric exam: Anxious. Normal affect. Pressure speech, disorganized speech, flight of ideas. - Skin Skin Exam: Rash (dark rash to lower extremities). Left PICC line site is clean, dry, intact. No leaking, no erythema, no swelling, nontender. No signs of infection Assessment and Plan - Assessment and Plan (Free Text) Assessment: 52 year old female with past medical history of diabetes type II, HTN, blindness (complete - left eye; partial right eye) who presented to the ER for a left foot infection. Underwent left second toe ray amputation on 07/27/18. Patient is hemodynamically stable for d/c, currently has PICC line. 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 Fox --> help appreciated - ID Consult: Dr. Davila --> help appreciated * Merem 1g IV q8h * Doxycycline 100 mg IVPB q12 * PICC line consented and inserted * abx recs upon d/c: Rocephin 1g IV q2h and Doxy 100mg IVP q12h x 6 weeks - ICU was consulted --> help appreciated - Left foot wound culture shows beta hemolytic strep b sensitive to ampicilin, PCN, vanco - BCx negative to date - UCx shows erma negative kenyatta On Merem - Medications * Tylenol prn moderate pain * Tramadol 25mg TID PRN severe pain - Images: * Foot Xray: Findings related to prior resection distal 1st metatarsal. Amputation at the level of the proximal phalanx 5th digit. Ventral ulceration medial aspect of the left foot distally. Suggestion of air within the soft tissues. In the absence of recent surgical history gas-forming organism should be considered. * Ankle Xray: Presumed chronic changes midshaft left tibia. * Tibia/Fibula Xray: Unremarkable radiographs of the left tibia and fibula. * LE venous doppler: pt refused - Bandemia/leukocytosis resolved - Tylenol 650 mg PO PRN for pain Elevated proBNP - proBNP: 1560 - Trop: negative - Chest Xray: No consolidative infiltrate. Mild cardiomegaly and mild pulmonary venous congestion suspect - ECHO: mild concentric LVH with normal EF of 65-70%, mild TR - Medications: * Lasix 20mg po daily History of Diabetes - HgbA1c 14 - Lipid panel: elevated TG, low HDL - Medications: * Novolin 70/30 20u SC BID * Lantus 20units SC HS * Lisinopril 5mg po daily * Crestor 2.5mg po HS - Hypoglycemia Protocol - Accuchecks Vaginal itching - Miconazole 100 mg VG [facility] Haleigh to lower extremities - Clomitrazole cream to affected areas BID History of HTN - Lisinopril 5mg po daily History of Neuropathy - Gabapentin 300mg po bid Prophylaxis - Physical Therapy: recommending CASTRO - Anti-coagulation: Heparin - Lactobacillus 1 cap po tid, Sennakot, pepcid, Simethicone Dispo: Patient medically stable for d/c. Continue IV abx. F/u for discharge planning. Following discharge, patient to follow up with Dr. Fox at [facility] within 1 week Daughter Ceci [phone] will apply for [place] Medicaid. Pt has right to go b ack to [facility] for further treatment at anytime upon request.
[2018-08-10] MEDS: Rosuvastatin Calcium 2.5 mg Tab PO SCH (21:41)
[2018-08-10] MEDS: (Lantus) Insulin Glargine, Recombinant SC SCH (21:42)
[2018-08-10] MEDS: Miconazole 100 MG Vaginal Supp VG SCH (21:42)
[2018-08-10] MEDS: Tramadol 25 mg PO PRN (21:44)
[2018-08-11] MEDS: Meropenem 1 GM in Sodium Chloride 0.9% 100 ML IVPB SCH ×3 (03:04→17:25)
[2018-08-11 07:36] LABS: BASO # 0.1 K/uL (0.0-0.2); EOS # 0.4 K/uL (0.0-0.7); EOS % 6.3 % (0.0-4.0); HEMOGLOBIN 9.6 g/dL (11.0-16.0); LYMPH # 1.7 K/uL (1.0-4.3); MEAN CELL VOLUME 84.6 fL (81.0-99.0); MEAN CORPUSCULAR HEMOGLOBIN 27.9 pg (27.0-31.0); MEAN PLATELET VOLUME 9.1 fL (7.2-11.7); MONO # 0.5 K/uL (0.0-0.8); MONO % 7.9 % (0.0-10.0); NEUT # 3.3 K/uL (1.8-7.0); NEUT % 55.8 % (50.0-75.0); NRBC % 0.1 % (0.0-2.0); RBC 3.44 Mil/uL (3.80-5.20); RED CELL DISTRIBUTION WIDTH 16.9 % (11.5-14.5); WHITE BLOOD COUNT 5.9 K/uL (4.8-10.8)
[2018-08-11 07:53] LABS: ALB/GLOB RATIO 0.9 (1.0-2.1); ALBUMIN 3.7 g/dL (3.5-5.0); ALT/SGPT 17 U/L (9-52); AST/SGOT 24 U/L (14-36); BLOOD UREA NITROGEN 38 mg/dL (7-17); CALCIUM 9.6 mg/dl (8.6-10.4); GFR NON-AFRICAN AMERICAN > 60
[2018-08-11] MEDS: (Novolin 70/30) NPH/Regular 70/30 Units/ml 10 ml vial SC SCH ×2 (08:20→17:14)
[2018-08-11 08:40] VITALS: RESP 20
[2018-08-11] MEDS: Lactobacillus Acidophilus 500 MU Cap PO SCH ×3 (09:23→17:22)
[2018-08-11] MEDS: guaiFENesin 600 mg ER Tab PO SCH ×2 (09:24→17:22)
[2018-08-11] MEDS: Bisacodyl 5mg EC Tab PO SCH ×2 (09:24→09:27)
[2018-08-11] MEDS: Docusate-Senna 50 mg-8.6 mg Tab PO SCH ×2 (09:25→17:35)
[2018-08-11] MEDS: Clotrimazole 1% Cream(30 gm) TOP SCH ×2 (09:25→17:43)
--- NOTE | 2018-08-11 12:56 | CP.PCM.PN ---
Subjective - Date & Time of Evaluation Date of Evaluation: 08/11/18 Time of Evaluation: 12:56 - Subjective Subjective: Podiatry progress note: Dr. Fox Patient seen and evaluated this AM, POD#15 left foot partial 2nd ray amputation. Patient resting comfortably and in NAD. Patient states that she has no pain to her foot at this time and there is no drainage through her bandage. Denies nausea/vomiting/fever/shortness of breath/chest pain, however admits to her "blood going cold at night, causing a chill". Objective - Vital Signs/Intake and Output Vital Signs (last 24 hours): Temp Pulse Resp BP Pulse Ox 97.6 F 82 20 131/83 97 08/11/18 12:00 08/11/18 12:00 08/11/18 12:00 08/11/18 12:00 08/11/18 12:00 - Medications Medications: Current Medications Acetaminophen (Tylenol 325mg Tab) 975 mg PO ONCE PRN PRN Reason: Fever >100.4 F Last Admin: 07/30/18 07:43 Dose: 975 mg Acetaminophen (Tylenol 325mg Tab) 650 mg PO Q6 PRN PRN Reason: Pain, moderate (4-7) Last Admin: 08/10/18 18:28 Dose: 650 mg Alprazolam (Xanax) 0.5 mg PO TID PRN PRN Reason: Anxiety Last Admin: 08/01/18 00:59 Dose: 0.5 mg Artificial Tears (Artificial Tears) 0.3 ml OU Q4H PRN PRN Reason: Dry eyes Last Admin: 08/08/18 12:13 Dose: 1 drop Bisacodyl (Dulcolax) 10 mg PO DAILY [facility] Last Admin: 08/11/18 09:27 Dose: Not Given Clotrimazole (Lotrimin 1%) 0 gm TOP BID [facility] Last Admin: 08/11/18 09:25 Dose: Not Given Dextrose (Dextrose 50% Inj) 0 ml IV STAT PRN; Protocol PRN Reason: Hypoglycemia Protocol Dextrose (Glutose 15) 0 gm PO ONCE PRN; Protocol PRN Reason: Hypoglycemia Protocol Famotidine (Pepcid) 20 mg PO DAILY [facility] Last Admin: 08/11/18 09:24 Dose: 20 mg Furosemide (Lasix) 20 mg PO DAILY [facility] Last Admin: 08/11/18 09:24 Dose: 20 mg Gabapentin (Neurontin) 300 mg PO BID [facility] Last Admin: 08/11/18 09:24 Dose: 300 mg Glucagon (Glucagen Diagnostic Kit) 0 mg IM STAT PRN; Protocol PRN Reason: Hypoglycemia Protocol Guaifenesin (Mucinex La) 600 mg PO BID [facility] Last Admin: 08/11/18 09:24 Dose: 600 mg Guaifenesin/Dextromethorphan (Robitussin Dm) 5 ml PO Q4H PRN PRN Reason: Cough Last Admin: 08/02/18 09:17 Dose: 5 ml Heparin Sodium (Porcine) (Heparin) 5,000 units SC Q8 [facility] Last Admin: 08/11/18 05:05 Dose: Not Given Doxycycline Hyclate 100 mg/ (Sodium Chloride) 100 mls @ 100 mls/hr IVPB Q12H [facility]; Protocol Last Admin: 08/11/18 12:33 Dose: 100 mls/hr Meropenem 1 gm/ Sodium (Chloride) 100 mls @ 100 mls/hr IVPB Q8H [facility]; Protocol Last Admin: 08/11/18 09:25 Dose: 100 mls/hr Insulin Glargine (Lantus) 20 unit SC [facility] Last Admin: 08/10/18 21:42 Dose: 20 unit Insulin Human Isoph/Insulin Regular (Novolin 70/30 (70/30 Units/Ml) 10 Ml) 20 units SC BIDAC [facility] Last Admin: 08/11/18 08:20 Dose: 20 units Lactobacillus Acidophilus (Lactobacillus) 1 cap PO TID [facility] Last Admin: 08/11/18 09:23 Dose: 1 cap Lisinopril (Zestril) 5 mg PO DAILY [facility] Last Admin: 08/11/18 09:24 Dose: 5 mg Magnesium Hydroxide (Milk Of Magnesia) 60 ml PO BID PRN PRN Reason: Constipation Miconazole (Monistat 7 Vag Suppository) 100 mg VG [facility] Last Admin: 08/10/18 21:42 Dose: Not Given Rosuvastatin Calcium (Crestor) 2.5 mg PO HS [facility] Last Admin: 08/10/18 21:41 Dose: Not Given Senna/Docusate Sodium (Senokot S 50 Mg-8.6 Mg) 2 tab PO BID [facility] Last Admin: 03/03/19 09:25 Dose: Not Given Simethicone (Mylicon Chew Tab) 80 mg PO Q4H PRN PRN Reason: GI distress Last Admin: 08/07/18 09:09 Dose: 80 mg Tramadol HCl (Ultram) 25 mg PO TID PRN PRN Reason: Pain, severe (8-10) Last Admin: 08/10/18 21:44 Dose: 25 mg - Labs Labs: 08/11/18 07:31 08/11/18 07:31 PT 13.6 SECONDS (9.7-12.2) H 07/25/18 12:54 INR 1.2 07/25/18 12:54 APTT 26 SECONDS (21-34) 07/25/18 12:54 - Constitutional Appears: Non-toxic, No Acute Distress - Head Exam Head Exam: ATRAUMATIC, NORMOCEPHALIC - Extremities Exam Additional comments: LLE focused Vasc: DP/PT pulses are palpable, cap refill time: < 3 sec to digit 4 and 5, Temp gradient warm to warm Ortho: no pain on palpation present, MMT unable to be assessed at this time Neruo: gross and protective sensation absent Derm: skin well coapted, sutures intact, no purulent discharge appreciated, mild serosanguinous drainage. Wound noted on the distal aspect of the surgical site with fibrogranular base, no malodor, no clinical signs of infection at this time - Neurological Exam Neurological Exam: Alert, Awake - Psychiatric Exam Psychiatric exam: Normal Affect Assessment and Plan - Assessment and Plan (Free Text) Assessment: 52 year old female POD#15 left second ray partial amputation (DOS 07/27/18) Plan: Patient seen and evaluated with Dr. Dominique Bradley foot intra-op WCx (07/27): Beta hemolytic Strep group B Intra-op pathology: acute OM Continue local wound care QOD: saline wet to dry, DSD, NICOLE -Educated patient that surgical site appears stable and does not need to be changed daily Activity: PWB left heel with surgical shoe Continue PT/OT Continue abx per ID - continue abx for 6-8 weeks Stable for dc per podiatry Following discharge, patient to follow up with Dr. Eddy Fox at [facility] within 1 week
--- NOTE | 2018-08-11 14:39 | CP.PCM.PN ---
Subjective - Date & Time of Evaluation Date of Evaluation: 08/11/18 Time of Evaluation: 10:00 - Subjective Subjective: no fever c/o pain Objective - Vital Signs/Intake and Output Vital Signs (last 24 hours): Temp Pulse Resp BP Pulse Ox 97.6 F 82 20 131/83 97 08/11/18 12:00 08/11/18 12:00 08/11/18 12:00 08/11/18 12:00 08/11/18 12:00 - Medications Medications: Current Medications Acetaminophen (Tylenol 325mg Tab) 975 mg PO ONCE PRN PRN Reason: Fever >100.4 F Last Admin: 07/30/18 07:43 Dose: 975 mg Acetaminophen (Tylenol 325mg Tab) 650 mg PO Q6 PRN PRN Reason: Pain, moderate (4-7) Last Admin: 08/10/18 18:28 Dose: 650 mg Alprazolam (Xanax) 0.5 mg PO TID PRN PRN Reason: Anxiety Last Admin: 08/01/18 00:59 Dose: 0.5 mg Artificial Tears (Artificial Tears) 0.3 ml OU Q4H PRN PRN Reason: Dry eyes Last Admin: 08/08/18 12:13 Dose: 1 drop Bisacodyl (Dulcolax) 10 mg PO DAILY [facility] Last Admin: 08/11/18 09:27 Dose: Not Given Clotrimazole (Lotrimin 1%) 0 gm TOP BID [facility] Last Admin: 08/11/18 09:25 Dose: Not Given Dextrose (Dextrose 50% Inj) 0 ml IV STAT PRN; Protocol PRN Reason: Hypoglycemia Protocol Dextrose (Glutose 15) 0 gm PO ONCE PRN; Protocol PRN Reason: Hypoglycemia Protocol Famotidine (Pepcid) 20 mg PO DAILY [facility] Last Admin: 08/11/18 09:24 Dose: 20 mg Furosemide (Lasix) 20 mg PO DAILY [facility] Last Admin: 08/11/18 09:24 Dose: 20 mg Gabapentin (Neurontin) 300 mg PO BID [facility] Last Admin: 08/11/18 09:24 Dose: 300 mg Glucagon (Glucagen Diagnostic Kit) 0 mg IM STAT PRN; Protocol PRN Reason: Hypoglycemia Protocol Guaifenesin (Mucinex La) 600 mg PO BID [facility] Last Admin: 08/11/18 09:24 Dose: 600 mg Guaifenesin/Dextromethorphan (Robitussin Dm) 5 ml PO Q4H PRN PRN Reason: Cough Last Admin: 08/02/18 09:17 Dose: 5 ml Heparin Sodium (Porcine) (Heparin) 5,000 units SC Q8 [facility] Last Admin: 08/11/18 14:08 Dose: 5,000 units Doxycycline Hyclate 100 mg/ (Sodium Chloride) 100 mls @ 100 mls/hr IVPB Q12H [facility]; Protocol Last Admin: 08/11/18 12:33 Dose: 100 mls/hr Meropenem 1 gm/ Sodium (Chloride) 100 mls @ 100 mls/hr IVPB Q8H [facility]; Protocol Last Admin: 08/11/18 09:25 Dose: 100 mls/hr Insulin Glargine (Lantus) 20 unit SC [facility] Last Admin: 08/10/18 21:42 Dose: 20 unit Insulin Human Isoph/Insulin Regular (Novolin 70/30 (70/30 Units/Ml) 10 Ml) 20 units SC BIDAC [facility] Last Admin: 08/11/18 08:20 Dose: 20 units Lactobacillus Acidophilus (Lactobacillus) 1 cap PO TID [facility] Last Admin: 08/11/18 14:07 Dose: 1 cap Lisinopril (Zestril) 5 mg PO DAILY [facility] Last Admin: 08/11/18 09:24 Dose: 5 mg Magnesium Hydroxide (Milk Of Magnesia) 60 ml PO BID PRN PRN Reason: Constipation Miconazole (Monistat 7 Vag Suppository) 100 mg VG [facility] Last Admin: 08/10/18 21:42 Dose: Not Given Rosuvastatin Calcium (Crestor) 2.5 mg PO [facility] Last Admin: 08/10/18 21:41 Dose: Not Given Senna/Docusate Sodium (Senokot S 50 Mg-8.6 Mg) 2 tab PO BID [facility] Last Admin: 08/11/18 09:25 Dose: Not Given Simethicone (Mylicon Chew Tab) 80 mg PO Q4H PRN PRN Reason: GI distress Last Admin: 08/07/18 09:09 Dose: 80 mg Tramadol HCl (Ultram) 25 mg PO TID PRN PRN Reason: Pain, severe (8-10) Last Admin: 08/10/18 21:44 Dose: 25 mg - Labs Labs: 03/03/19 07:31 08/11/18 07:31 PT 13.6 SECONDS (9.7-12.2) H 07/25/18 12:54 INR 1.2 07/25/18 12:54 APTT 26 SECONDS (21-34) 07/25/18 12:54 - Constitutional Appears: No Acute Distress - Head Exam Head Exam: ATRAUMATIC, NORMAL INSPECTION, NORMOCEPHALIC - Eye Exam Eye Exam: EOMI, Normal appearance, PERRL Pupil Exam: NORMAL ACCOMODATION, PERRL - ENT Exam ENT Exam: Mucous Membranes Moist, Normal Exam - Neck Exam Neck Exam: Full ROM, Normal Inspection. absent: Lymphadenopathy - Respiratory Exam Respiratory Exam: Clear to Ausculation Bilateral, NORMAL BREATHING PATTERN - Cardiovascular Exam Cardiovascular Exam: REGULAR RHYTHM, +S1, +S2. absent: Murmur - GI/Abdominal Exam GI & Abdominal Exam: Soft, Normal Bowel Sounds. absent: Tenderness - Rectal Exam Rectal Exam: Deferred - Exam Exam: NORMAL INSPECTION - Extremities Exam Extremities Exam: Full ROM, Normal Capillary Refill, Normal Inspection. absent: Joint Swelling, Pedal Edema - Back Exam Back Exam: NORMAL INSPECTION - Neurological Exam Neurological Exam: Alert, Awake, CN II-XII Intact, Normal Gait, Oriented x3 - Psychiatric Exam Psychiatric exam: Normal Affect, Normal Mood - Skin Skin Exam: Dry, Intact, Normal Color, Warm Assessment and Plan (1) Cellulitis Status: Acute (2) Open wound Status: Acute (3) Sepsis Status: Acute (4) Uncontrolled diabetes mellitus Status: Acute (5) Osteomyelitis of foot, left, acute Status: Acute (6) Osteomyelitis of foot Status: Acute (7) Osteomyelitis of left foot Status: Acute (8) Gangrene of left foot Status: Acute - Assessment and Plan (Free Text) Assessment: cont rx for OM x 6 weeks iv rx renewed
[2018-08-11] MEDS: Tramadol 25 mg PO PRN (15:13)
[2018-08-11] MEDS: Simethicone 80 mg Chewtab PO PRN (17:22)
[2018-08-11] MEDS: (Lantus) Insulin Glargine, Recombinant SC SCH (21:56)
[2018-08-11] MEDS: Miconazole 100 MG Vaginal Supp VG SCH (22:09)
[2018-08-11] MEDS: Rosuvastatin Calcium 2.5 mg Tab PO SCH (22:48)
[2018-08-12] MEDS: Meropenem 1 GM in Sodium Chloride 0.9% 100 ML IVPB SCH ×3 (01:35→19:00)
--- NOTE | 2018-08-12 08:20 | CP.PCM.PN ---
Subjective - Date & Time of Evaluation Date of Evaluation: 08/12/18 Time of Evaluation: 08:19 - Subjective Subjective: Ramy Jacobsen PGY1 Progress Note for Dr. Faulkner Pt was examined at bedside this morning. She reports improvement in her cough. She has no complaints at this time. Objective - Vital Signs/Intake and Output Vital Signs (last 24 hours): Temp Pulse Resp BP Pulse Ox 97.8 F 76 20 129/72 95 08/12/18 07:00 08/12/18 07:00 08/12/18 07:00 08/12/18 07:00 08/12/18 07:00 Intake and Output: 08/12/18 08/12/18 06:59 18:59 Intake Total 550 380 Balance 550 380 - Medications Medications: Current Medications Acetaminophen (Tylenol 325mg Tab) 975 mg PO ONCE PRN PRN Reason: Fever >100.4 F Last Admin: 07/30/18 07:43 Dose: 975 mg Acetaminophen (Tylenol 325mg Tab) 650 mg PO Q6 PRN PRN Reason: Pain, moderate (4-7) Last Admin: 08/12/18 03:44 Dose: 650 mg Alprazolam (Xanax) 0.5 mg PO TID PRN PRN Reason: Anxiety Last Admin: 08/01/18 00:59 Dose: 0.5 mg Artificial Tears (Artificial Tears) 0.3 ml OU Q4H PRN PRN Reason: Dry eyes Last Admin: 08/08/18 12:13 Dose: 1 drop Bisacodyl (Dulcolax) 10 mg PO DAILY [facility] Last Admin: 08/11/18 09:27 Dose: Not Given Clotrimazole (Lotrimin 1%) 0 gm TOP BID [facility] Last Admin: 08/11/18 17:43 Dose: 1 appl Dextrose (Dextrose 50% Inj) 0 ml IV STAT PRN; Protocol PRN Reason: Hypoglycemia Protocol Dextrose (Glutose 15) 0 gm PO ONCE PRN; Protocol PRN Reason: Hypoglycemia Protocol Famotidine (Pepcid) 20 mg PO DAILY [facility] Last Admin: 08/11/18 09:24 Dose: 20 mg Furosemide (Lasix) 20 mg PO DAILY [facility] Last Admin: 08/11/18 09:24 Dose: 20 mg Gabapentin (Neurontin) 300 mg PO BID [facility] Last Admin: 08/11/18 17:22 Dose: 300 mg Glucagon (Glucagen Diagnostic Kit) 0 mg IM STAT PRN; Protocol PRN Reason: Hypoglycemia Protocol Guaifenesin (Mucinex La) 600 mg PO BID [facility] Last Admin: 08/11/18 17:22 Dose: 600 mg Guaifenesin/Dextromethorphan (Robitussin Dm) 5 ml PO Q4H PRN PRN Reason: Cough Last Admin: 08/02/18 09:17 Dose: 5 ml Heparin Sodium (Porcine) (Heparin) 5,000 units SC Q8 [facility] Last Admin: 08/12/18 06:00 Dose: Not Given Doxycycline Hyclate 100 mg/ (Sodium Chloride) 100 mls @ 100 mls/hr IVPB Q12H [facility]; Protocol Last Admin: 08/12/18 00:31 Dose: 100 mls/hr Meropenem 1 gm/ Sodium (Chloride) 100 mls @ 100 mls/hr IVPB Q8H [facility]; Protocol Last Admin: 08/12/18 01:35 Dose: 100 mls/hr Insulin Glargine (Lantus) 20 unit SC HS [facility] Last Admin: 08/11/18 21:56 Dose: Not Given Insulin Human Isoph/Insulin Regular (Novolin 70/30 (70/30 Units/Ml) 10 Ml) 20 units SC BIDAC [facility] Last Admin: 08/11/18 17:14 Dose: 20 units Lactobacillus Acidophilus (Lactobacillus) 1 cap PO TID [facility] Last Admin: 08/11/18 17:22 Dose: 1 cap Lisinopril (Zestril) 5 mg PO DAILY [facility] Last Admin: 08/11/18 09:24 Dose: 5 mg Magnesium Hydroxide (Milk Of Magnesia) 60 ml PO BID PRN PRN Reason: Constipation Miconazole (Monistat 7 Vag Suppository) 100 mg VG [facility] Last Admin: 08/11/18 22:09 Dose: Not Given Rosuvastatin Calcium (Crestor) 2.5 mg PO [facility] Last Admin: 08/11/18 22:48 Dose: Not Given Senna/Docusate Sodium (Senokot S 50 Mg-8.6 Mg) 2 tab PO BID [facility] Last Admin: 08/11/18 17:35 Dose: 2 tab Simethicone (Mylicon Chew Tab) 80 mg PO Q4H PRN PRN Reason: GI distress Last Admin: 08/11/18 17:22 Dose: 80 mg Tramadol HCl (Ultram) 25 mg PO TID PRN PRN Reason: Pain, severe (8-10) Last Admin: 08/11/18 15:13 Dose: 25 mg - Labs Labs: 08/11/18 07:31 08/11/18 07:31 PT 13.6 SECONDS (9.7-12.2) H 07/25/18 12:54 INR 1.2 07/25/18 12:54 APTT 26 SECONDS (21-34) 07/25/18 12:54 - Additional Findings Additional findings: - Constitutional Appears: No Acute Distress, Chronically Ill - Head Exam Head Exam: ATRAUMATIC, NORMAL INSPECTION - Eye Exam Additional comments: complete - left eye; partial right eye - Respiratory Exam Respiratory Exam: Clear to Auscultation Bilateral, NORMAL BREATHING PATTERN, no wheezing, no stridor. - Cardiovascular Exam Cardiovascular Exam: REGULAR RHYTHM, +S1, +S2 - GI/Abdominal Exam GI & Abdominal Exam: Normal Bowel Sounds, Soft. absent: Tenderness - Extremities Exam Right midline seems to be leaking. Additional comments: Left foot is s/p 2nd ray amputation. Dressing is clean, dry, intact, no edema in the lower extremity. No active bleeding. - Neurological Exam Neurological exam: Alert, Oriented x3 - Psychiatric Exam Psychiatric exam: Anxious. Normal affect. - Skin Skin Exam: Rash (dark rash to lower extremities Assessment and Plan - Assessment and Plan (Free Text) Assessment: 52 year old female with past medical history of diabetes type II, HTN, blindness (complete - left eye; partial right eye) who presented to the ER for a left foot infection. Underwent left second toe ray amputation on 07/27/18. Patient is hemodynamically stable for d/c, currently has PICC line. 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 Fox --> help appreciated - ID Consult: Dr. Davila --> help appreciated * Merem 1g IV q8h * Doxycycline 100 mg IVPB q12 * PICC line consented and inserted * abx recs upon d/c: Rocephin 1g IV q2h and Doxy 100mg IVP q12h x 6 weeks - ICU was consulted --> help appreciated - Left foot wound culture shows beta hemolytic strep b sensitive to ampicilin, PCN, vanco - BCx negative to date - UCx shows erma negative kenyatta On Merem - Medications * Tylenol prn moderate pain * Tramadol 25mg TID PRN severe pain - Images: * Foot Xray: Findings related to prior resection distal 1st metatarsal. Amputation at the level of the proximal phalanx 5th digit. Ventral ulceration medial aspect of the left foot distally. Suggestion of air within the soft tissues. In the absence of recent surgical history gas-forming organism should be considered. * Ankle Xray: Presumed chronic changes midshaft left tibia. * Tibia/Fibula Xray: Unremarkable radiographs of the left tibia and fibula. * LE venous doppler: pt refused - Bandemia/leukocytosis resolved Elevated proBNP - proBNP: 1560 - Trop: negative - Chest Xray: No consolidative infiltrate. Mild cardiomegaly and mild pulmonary venous congestion suspect - ECHO: mild concentric LVH with normal EF of 65-70%, mild TR - Medications: * Lasix 20mg po daily History of Diabetes - HgbA1c 14 - Lipid panel: elevated TG, low HDL - Medications: * Novolin 70/30 20u SC BID * Lantus 20units SC HS * Lisinopril 5mg po daily * Crestor 2.5mg po HS - Hypoglycemia Protocol - Accuchecks Haleigh to lower extremities - Clomitrazole cream to affected areas BID History of HTN - Lisinopril 5mg po daily History of Neuropathy - Gabapentin 300mg po bid Prophylaxis - Physical Therapy: recommending CASTRO - Anti-coagulation: Heparin - Lactobacillus 1 cap po tid, Sennakot, pepcid, Simethicone Dispo: Patient medically stable for d/c. Currently has PICC line in place. Patient not accepted to [facility] or outpatient infusion center. Daughter Ceci [phone] will apply for [place] Medicaid. Pt has right to go back to [facility] for further treatment at anytime upon request. Case discussed with Dr. Faulkner
[2018-08-12] MEDS: (Novolin 70/30) NPH/Regular 70/30 Units/ml 10 ml vial SC SCH ×2 (08:25→18:09)
[2018-08-12] MEDS: Bisacodyl 5mg EC Tab PO SCH (10:22)
[2018-08-12] MEDS: Lactobacillus Acidophilus 500 MU Cap PO SCH ×2 (10:22→18:07)
[2018-08-12] MEDS: guaiFENesin 600 mg ER Tab PO SCH ×2 (10:22→18:06)
[2018-08-12] MEDS: Docusate-Senna 50 mg-8.6 mg Tab PO SCH ×2 (10:23→18:22)
[2018-08-12] MEDS: Clotrimazole 1% Cream(30 gm) TOP SCH ×2 (10:23→18:07)
--- NOTE | 2018-08-12 11:29 | CP.PCM.PN ---
Subjective - Date & Time of Evaluation Date of Evaluation: 08/12/18 Time of Evaluation: 11:25 - Subjective Subjective: Podiatry progress note for Dr. Fox 53F seen and evaluated at bedside 15 days s/p left partial second ray amputation. Patient is AAO x 3 and NAD, resting comfortably in bed. Denies any acute overnight events or new pedal complaints. States that she has no pain in the foot at this time. Denies any recent N/V/F/C/CP/SOB/D Objective - Vital Signs/Intake and Output Vital Signs (last 24 hours): Temp Pulse Resp BP Pulse Ox 97.8 F 76 20 129/72 95 08/12/18 07:00 08/12/18 07:00 08/12/18 07:00 08/12/18 10:24 08/12/18 07:00 Intake and Output: 08/12/18 08/12/18 06:59 18:59 Intake Total 550 380 Balance 550 380 - Medications Medications: Current Medications Acetaminophen (Tylenol 325mg Tab) 975 mg PO ONCE PRN PRN Reason: Fever >100.4 F Last Admin: 07/30/18 07:43 Dose: 975 mg Acetaminophen (Tylenol 325mg Tab) 650 mg PO Q6 PRN PRN Reason: Pain, moderate (4-7) Last Admin: 08/12/18 03:44 Dose: 650 mg Alprazolam (Xanax) 0.5 mg PO TID PRN PRN Reason: Anxiety Last Admin: 08/01/18 00:59 Dose: 0.5 mg Artificial Tears (Artificial Tears) 0.3 ml OU Q4H PRN PRN Reason: Dry eyes Last Admin: 08/08/18 12:13 Dose: 1 drop Bisacodyl (Dulcolax) 10 mg PO DAILY [facility] Last Admin: 08/12/18 10:22 Dose: 10 mg Clotrimazole (Lotrimin 1%) 0 gm TOP BID [facility] Last Admin: 08/12/18 10:23 Dose: 1 appl Dextrose (Dextrose 50% Inj) 0 ml IV STAT PRN; Protocol PRN Reason: Hypoglycemia Protocol Dextrose (Glutose 15) 0 gm PO ONCE PRN; Protocol PRN Reason: Hypoglycemia Protocol Famotidine (Pepcid) 20 mg PO DAILY [facility] Last Admin: 08/12/18 10:23 Dose: 20 mg Furosemide (Lasix) 20 mg PO DAILY [facility] Last Admin: 08/12/18 10:24 Dose: 20 mg Gabapentin (Neurontin) 300 mg PO BID [facility] Last Admin: 08/12/18 10:22 Dose: 300 mg Glucagon (Glucagen Diagnostic Kit) 0 mg IM STAT PRN; Protocol PRN Reason: Hypoglycemia Protocol Guaifenesin (Mucinex La) 600 mg PO BID [facility] Last Admin: 08/12/18 10:22 Dose: 600 mg Guaifenesin/Dextromethorphan (Robitussin Dm) 5 ml PO Q4H PRN PRN Reason: Cough Last Admin: 08/02/18 09:17 Dose: 5 ml Heparin Sodium (Porcine) (Heparin) 5,000 units SC Q8 [facility] Last Admin: 08/12/18 06:00 Dose: Not Given Doxycycline Hyclate 100 mg/ (Sodium Chloride) 100 mls @ 100 mls/hr IVPB Q12H [facility]; Protocol Last Admin: 08/12/18 00:31 Dose: 100 mls/hr Meropenem 1 gm/ Sodium (Chloride) 100 mls @ 100 mls/hr IVPB Q8H [facility]; Protocol Last Admin: 08/12/18 10:23 Dose: 100 mls/hr Insulin Glargine (Lantus) 20 unit SC [facility] Last Admin: 08/11/18 21:56 Dose: Not Given Insulin Human Isoph/Insulin Regular (Novolin 70/30 (70/30 Units/Ml) 10 Ml) 20 units SC BIDAC [facility] Last Admin: 08/12/18 08:25 Dose: 20 units Lactobacillus Acidophilus (Lactobacillus) 1 cap PO TID [facility] Last Admin: 08/12/18 10:22 Dose: 1 cap Lisinopril (Zestril) 5 mg PO DAILY [facility] Last Admin: 08/12/18 10:23 Dose: 5 mg Magnesium Hydroxide (Milk Of Magnesia) 60 ml PO BID PRN PRN Reason: Constipation Miconazole (Monistat 7 Vag Suppository) 100 mg VG [facility] Last Admin: 08/11/18 22:09 Dose: Not Given Rosuvastatin Calcium (Crestor) 2.5 mg PO [facility] Last Admin: 08/11/18 22:48 Dose: Not Given Senna/Docusate Sodium (Senokot S 50 Mg-8.6 Mg) 2 tab PO BID [facility] Last Admin: 08/12/18 10:23 Dose: 2 tab Simethicone (Mylicon Chew Tab) 80 mg PO Q4H PRN PRN Reason: GI distress Last Admin: 08/11/18 17:22 Dose: 80 mg Tramadol HCl (Ultram) 25 mg PO TID PRN PRN Reason: Pain, severe (8-10) Last Admin: 08/11/18 15:13 Dose: 25 mg - Labs Labs: 08/11/18 07:31 08/11/18 07:31 PT 13.6 SECONDS (9.7-12.2) H 07/25/18 12:54 INR 1.2 07/25/18 12:54 APTT 26 SECONDS (21-34) 07/25/18 12:54 - Constitutional Appears: Well, Non-toxic, No Acute Distress - Extremities Exam Additional comments: LLE focused Vasc: DP/PT pulses are palpable 2/4, cap refill time: < 3 sec to digit 4 and 5, Temp gradient warm to warm from proximal to distal. Minimal edema noted to surg ical site WNL for postoperative state Ortho: no pain on palpation present, MMT unable to be assessed at this time Neruo: Epicritic and protective sensation grossly diminished at this time Derm: skin well coapted, sutures intact, no purulent discharge appreciated, mild serosanguinous drainage. Wound noted on the distal aspect of the surgical site with fibrogranular base, no malodor, no clinical signs of infection at this time - Neurological Exam Neurological Exam: Alert, Awake, Oriented x3 - Psychiatric Exam Psychiatric exam: Normal Affect, Normal Mood Assessment and Plan - Assessment and Plan (Free Text) Assessment: 53F seen and evaluated at bedside 15 days s/p left partial second ray amputation. Plan: Patient seen and evaluated Plan discussed with Dr. Fox Afebrile Continue abx Surgical site dressed with saline wet to dry, DSD, NICOLE No plan for further surgical intervention at this time Podiatry will continue to follow while patient in house
[2018-08-12] MEDS: Rosuvastatin Calcium 2.5 mg Tab PO SCH (21:49)
[2018-08-12] MEDS: Miconazole 100 MG Vaginal Supp VG SCH (21:51)
[2018-08-12] MEDS: (Lantus) Insulin Glargine, Recombinant SC SCH (21:51)
[2018-08-13] MEDS: Meropenem 1 GM in Sodium Chloride 0.9% 100 ML IVPB SCH ×3 (02:04→18:29)
--- NOTE | 2018-08-13 07:41 | CP.PCM.PN ---
Subjective - Date & Time of Evaluation Date of Evaluation: 08/13/18 Time of Evaluation: 07:39 - Subjective Subjective: Gencyrillos Veracarolealemnixon PGY1 Progress Note for Dr. Faulkner Pt was examined at bedside this morning. She reports feeling achy in her left arm. Objective - Vital Signs/Intake and Output Vital Signs (last 24 hours): Temp Pulse Resp BP Pulse Ox 98.1 F 89 20 147/81 96 08/13/18 01:00 08/13/18 01:00 08/13/18 01:00 08/13/18 01:00 08/13/18 01:00 Intake and Output: 08/13/18 08/13/18 06:59 18:59 Intake Total 900 Balance 900 - Medications Medications: Current Medications Acetaminophen (Tylenol 325mg Tab) 975 mg PO ONCE PRN PRN Reason: Fever >100.4 F Last Admin: 07/30/18 07:43 Dose: 975 mg Acetaminophen (Tylenol 325mg Tab) 650 mg PO Q6 PRN PRN Reason: Pain, moderate (4-7) Last Admin: 08/13/18 05:54 Dose: 650 mg Alprazolam (Xanax) 0.5 mg PO TID PRN PRN Reason: Anxiety Last Admin: 08/01/18 00:59 Dose: 0.5 mg Artificial Tears (Artificial Tears) 0.3 ml OU Q4H PRN PRN Reason: Dry eyes Last Admin: 08/08/18 12:13 Dose: 1 drop Bisacodyl (Dulcolax) 10 mg PO DAILY [facility] Last Admin: 08/12/18 10:22 Dose: 10 mg Clotrimazole (Lotrimin 1%) 0 gm TOP BID [facility] Last Admin: 08/12/18 18:07 Dose: 1 appl Dextrose (Dextrose 50% Inj) 0 ml IV STAT PRN; Protocol PRN Reason: Hypoglycemia Protocol Dextrose (Glutose 15) 0 gm PO ONCE PRN; Protocol PRN Reason: Hypoglycemia Protocol Famotidine (Pepcid) 20 mg PO DAILY [facility] Last Admin: 08/12/18 10:23 Dose: 20 mg Furosemide (Lasix) 20 mg PO DAILY [facility] Last Admin: 08/12/18 10:24 Dose: 20 mg Gabapentin (Neurontin) 300 mg PO BID [facility] Last Admin: 08/12/18 18:06 Dose: 300 mg Glucagon (Glucagen Diagnostic Kit) 0 mg IM STAT PRN; Protocol PRN Reason: Hypoglycemia Protocol Guaifenesin (Mucinex La) 600 mg PO BID [facility] Last Admin: 08/12/18 18:06 Dose: 600 mg Guaifenesin/Dextromethorphan (Robitussin Dm) 5 ml PO Q4H PRN PRN Reason: Cough Last Admin: 08/02/18 09:17 Dose: 5 ml Heparin Sodium (Porcine) (Heparin) 5,000 units SC Q8 [facility] Last Admin: 08/12/18 21:49 Dose: Not Given Doxycycline Hyclate 100 mg/ (Sodium Chloride) 100 mls @ 100 mls/hr IVPB Q12H [facility]; Protocol Last Admin: 08/13/18 00:15 Dose: 100 mls/hr Meropenem 1 gm/ Sodium (Chloride) 100 mls @ 100 mls/hr IVPB Q8H [facility]; Protocol Last Admin: 08/13/18 02:04 Dose: 100 mls/hr Insulin Glargine (Lantus) 20 unit SC HS [facility] Last Admin: 08/12/18 21:51 Dose: 20 unit Insulin Human Isoph/Insulin Regular (Novolin 70/30 (70/30 Units/Ml) 10 Ml) 20 units SC BIDAC [facility] Last Admin: 08/12/18 18:09 Dose: Not Given Lactobacillus Acidophilus (Lactobacillus) 1 cap PO TID [facility] Last Admin: 08/12/18 18:07 Dose: 1 cap Lisinopril (Zestril) 5 mg PO DAILY [facility] Last Admin: 08/12/18 10:23 Dose: 5 mg Magnesium Hydroxide (Milk Of Magnesia) 60 ml PO BID PRN PRN Reason: Constipation Miconazole (Monistat 7 Vag Suppository) 100 mg VG [facility] Last Admin: 08/12/18 21:51 Dose: Not Given Rosuvastatin Calcium (Crestor) 2.5 mg PO [facility] Last Admin: 08/12/18 21:49 Dose: Not Given Senna/Docusate Sodium (Senokot S 50 Mg-8.6 Mg) 2 tab PO BID [facility] Last Admin: 08/12/18 18:22 Dose: Not Given Simethicone (Mylicon Chew Tab) 80 mg PO Q4H PRN PRN Reason: GI distress Last Admin: 08/11/18 17:22 Dose: 80 mg Tramadol HCl (Ultram) 25 mg PO TID PRN PRN Reason: Pain, severe (8-10) Last Admin: 08/11/18 15:13 Dose: 25 mg - Labs Labs: 08/11/18 07:31 08/11/18 07:31 PT 13.6 SECONDS (9.7-12.2) H 07/25/18 12:54 INR 1.2 07/25/18 12:54 APTT 26 SECONDS (21-34) 07/25/18 12:54 - Additional Findings Additional findings: - Constitutional Appears: No Acute Distress, Chronically Ill - Head Exam Head Exam: ATRAUMATIC, NORMAL INSPECTION - Eye Exam Additional comments: complete - left eye; partial right eye - Respiratory Exam Respiratory Exam: Clear to Auscultation Bilateral, NORMAL BREATHING PATTERN, no wheezing, no stridor. - Cardiovascular Exam Cardiovascular Exam: REGULAR RHYTHM, +S1, +S2 - GI/Abdominal Exam GI & Abdominal Exam: Normal Bowel Sounds, Soft. absent: Tenderness - Extremities Exam Right midline seems to be leaking. Additional comments: Left foot is s/p 2nd ray amputation. Dressing is clean, dry, intact, no edema in the lower extremity. No active bleeding. - Neurological Exam Neurological exam: Alert, Oriented x3 - Psychiatric Exam Psychiatric exam: Anxious. Normal affect. - Skin Skin Exam: Rash (dark rash to lower extremities Assessment and Plan - Assessment and Plan (Free Text) Assessment: 52 year old female with past medical history of diabetes type II, HTN, blindness (complete - left eye; partial right eye) who presented to the ER for a left foot infection. Underwent left second toe ray amputation on 07/27/18. Patient is hemodynamically stable for d/c, currently has PICC line. 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 Fox --> help appreciated - ID Consult: Dr. Davila --> help appreciated * Merem 1g IV q8h * Doxycycline 100 mg IVPB q12 * PICC line consented and inserted * abx recs upon d/c: Rocephin 1g IV q2h and Doxy 100mg IVP q12h x 6 weeks - ICU was consulted --> help appreciated - Left foot wound culture shows beta hemolytic strep b sensitive to ampicilin, PCN, vanco - BCx negative to date - UCx shows erma negative kenyatta On Merem - Medications * Tylenol prn moderate pain * Tramadol 25mg TID PRN severe pain - Images: * Foot Xray: Findings related to prior resection distal 1st metatarsal. Amputation at the level of the proximal phalanx 5th digit. Ventral ulceration medial aspect of the left foot distally. Suggestion of air within the soft tissues. In the absence of recent surgical history gas-forming organism should be considered. * Ankle Xray: Presumed chronic changes midshaft left tibia. * Tibia/Fibula Xray: Unremarkable radiographs of the left tibia and fibula. * LE venous doppler: pt refused - Bandemia/leukocytosis resolved Elevated proBNP - proBNP: 1560 - Trop: negative - Chest Xray: No consolidative infiltrate. Mild cardiomegaly and mild pulmonary venous congestion suspect - ECHO: mild concentric LVH with normal EF of 65-70%, mild TR - Medications: * Lasix 20mg po daily History of Diabetes - HgbA1c 14 - Lipid panel: elevated TG, low HDL - Medications: * Novolin 70/30 20u SC BID * Lantus 20units SC HS * Lisinopril 5mg po daily * Crestor 2.5mg po HS - Hypoglycemia Protocol - Accuchecks Haleigh to lower extremities - Clomitrazole cream to affected areas BID History of HTN - Lisinopril 5mg po daily History of Neuropathy - Gabapentin 300mg po bid Prophylaxis - Physical Therapy: recommending CASTRO - Anti-coagulation: Heparin - Lactobacillus 1 cap po tid, Sennakot, pepcid, Simethicone Dispo: Patient medically stable for d/c. Currently has PICC line in place. Patient not accepted to [facility] or outpatient infusion center. Daughter Ceci [phone] will apply for [place] Medicaid. Pt has right to go back to [facility] for further treatment at anytime upon request. Case discussed with Dr. Faulkner
[2018-08-13] MEDS: (Novolin 70/30) NPH/Regular 70/30 Units/ml 10 ml vial SC SCH ×2 (08:17→17:50)
[2018-08-13] MEDS: guaiFENesin 600 mg ER Tab PO SCH ×2 (10:07→18:27)
[2018-08-13] MEDS: Lactobacillus Acidophilus 500 MU Cap PO SCH ×3 (10:09→18:27)
[2018-08-13] MEDS: Clotrimazole 1% Cream(30 gm) TOP SCH ×2 (10:10→18:00)
[2018-08-13] MEDS: Docusate-Senna 50 mg-8.6 mg Tab PO SCH ×2 (10:11→18:26)
[2018-08-13] MEDS: Bisacodyl 5mg EC Tab PO SCH (10:11)
--- NOTE | 2018-08-13 11:23 | CP.PCM.PN ---
Subjective - Date & Time of Evaluation Date of Evaluation: 08/13/18 Time of Evaluation: 09:00 - Subjective Subjective: afeb nad Objective - Vital Signs/Intake and Output Vital Signs (last 24 hours): Temp Pulse Resp BP Pulse Ox 97.6 F 90 20 110/70 98 08/13/18 08:12 08/13/18 08:12 08/13/18 08:12 08/13/18 10:08 08/13/18 08:12 Intake and Output: 08/13/18 08/13/18 06:59 18:59 Intake Total 900 440 Balance 900 440 - Medications Medications: Current Medications Acetaminophen (Tylenol 325mg Tab) 975 mg PO ONCE PRN PRN Reason: Fever >100.4 F Last Admin: 07/30/18 07:43 Dose: 975 mg Acetaminophen (Tylenol 325mg Tab) 650 mg PO Q6 PRN PRN Reason: Pain, moderate (4-7) Last Admin: 08/13/18 05:54 Dose: 650 mg Alprazolam (Xanax) 0.5 mg PO TID PRN PRN Reason: Anxiety Last Admin: 08/01/18 00:59 Dose: 0.5 mg Artificial Tears (Artificial Tears) 0.3 ml OU Q4H PRN PRN Reason: Dry eyes Last Admin: 08/08/18 12:13 Dose: 1 drop Bisacodyl (Dulcolax) 10 mg PO DAILY [facility] Last Admin: 08/13/18 10:11 Dose: Not Given Clotrimazole (Lotrimin 1%) 0 gm TOP BID [facility] Last Admin: 08/13/18 10:10 Dose: 1 appl Dextrose (Dextrose 50% Inj) 0 ml IV STAT PRN; Protocol PRN Reason: Hypoglycemia Protocol Dextrose (Glutose 15) 0 gm PO ONCE PRN; Protocol PRN Reason: Hypoglycemia Protocol Famotidine (Pepcid) 20 mg PO DAILY [facility] Last Admin: 08/13/18 10:09 Dose: 20 mg Furosemide (Lasix) 20 mg PO DAILY [facility] Last Admin: 08/13/18 10:08 Dose: 20 mg Gabapentin (Neurontin) 300 mg PO BID [facility] Last Admin: 08/13/18 10:07 Dose: 300 mg Glucagon (Glucagen Diagnostic Kit) 0 mg IM STAT PRN; Protocol PRN Reason: Hypoglycemia Protocol Guaifenesin (Mucinex La) 600 mg PO BID [facility] Last Admin: 08/13/18 10:07 Dose: 600 mg Guaifenesin/Dextromethorphan (Robitussin Dm) 5 ml PO Q4H PRN PRN Reason: Cough Last Admin: 08/02/18 09:17 Dose: 5 ml Heparin Sodium (Porcine) (Heparin) 5,000 units SC Q8 [facility] Last Admin: 08/13/18 06:00 Dose: Not Given Doxycycline Hyclate 100 mg/ (Sodium Chloride) 100 mls @ 100 mls/hr IVPB Q12H [facility]; Protocol Last Admin: 08/13/18 00:15 Dose: 100 mls/hr Meropenem 1 gm/ Sodium (Chloride) 100 mls @ 100 mls/hr IVPB Q8H [facility]; Protocol Last Admin: 08/13/18 10:14 Dose: 100 mls/hr Insulin Glargine (Lantus) [address] [facility] Last Admin: 08/12/18 21:51 Dose: 20 unit Insulin Human Isoph/Insulin Regular (Novolin 70/30 (70/30 Units/Ml) 10 Ml) 20 units SC BIDAC [facility] Last Admin: 08/13/18 08:17 Dose: 20 units Lactobacillus Acidophilus (Lactobacillus) 1 cap PO TID [facility] Last Admin: 08/13/18 10:09 Dose: 1 cap Lisinopril (Zestril) 5 mg PO DAILY [facility] Last Admin: 08/13/18 10:09 Dose: 5 mg Magnesium Hydroxide (Milk Of Magnesia) 60 ml PO BID PRN PRN Reason: Constipation Miconazole (Monistat 7 Vag Suppository) [address] [facility] Last Admin: 08/12/18 21:51 Dose: Not Given Rosuvastatin Calcium (Crestor) 2.[address] [facility] Last Admin: 08/12/18 21:49 Dose: Not Given Senna/Docusate Sodium (Senokot S 50 Mg-8.6 Mg) 2 tab PO BID [facility] Last Admin: 08/13/18 10:11 Dose: Not Given Simethicone (Mylicon Chew Tab) 80 mg PO Q4H PRN PRN Reason: GI distress Last Admin: 08/11/18 17:22 Dose: 80 mg Tramadol HCl (Ultram) 25 mg PO TID PRN PRN Reason: Pain, severe (8-10) Last Admin: 08/11/18 15:13 Dose: 25 mg - Labs Labs: 08/11/18 07:31 08/11/18 07:31 PT 13.6 SECONDS (9.7-12.2) H 07/25/18 12:54 INR 1.2 07/25/18 12:54 APTT 26 SECONDS (21-34) 07/25/18 12:54 Assessment and Plan (1) Cellulitis Status: Acute (2) Open wound Status: Acute (3) Sepsis Status: Acute (4) Uncontrolled diabetes mellitus Status: Acute (5) Osteomyelitis of foot, left, acute Status: Acute (6) Osteomyelitis of foot Status: Acute (7) Osteomyelitis of left foot Status: Acute (8) Gangrene of left foot Status: Acute
--- NOTE | 2018-08-13 14:21 | CP.PCM.PN ---
Subjective - Date & Time of Evaluation Date of Evaluation: 08/13/18 Time of Evaluation: 14:18 - Subjective Subjective: Podiatry progress note for Dr. Fox 53F seen and evaluated at bedside 16 days s/p left partial second ray amputation. Patient is AAO x 3 and NAD, resting comfortably in bed. Denies any acute overnight events or new pedal complaints. States that she has no pain in the foot at this time but is experiencing pain in her arm where her PICC line is inserted. Denies any recent N/V/F/C/CP/SOB/D Objective - Vital Signs/Intake and Output Vital Signs (last 24 hours): Temp Pulse Resp BP Pulse Ox 97.6 F 90 20 110/70 98 08/13/18 08:12 08/13/18 08:12 08/13/18 08:12 08/13/18 10:08 08/13/18 08:12 Intake and Output: 08/13/18 08/13/18 06:59 18:59 Intake Total 900 440 Balance 900 440 - Medications Medications: Current Medications Acetaminophen (Tylenol 325mg Tab) 975 mg PO ONCE PRN PRN Reason: Fever >100.4 F Last Admin: 07/30/18 07:43 Dose: 975 mg Acetaminophen (Tylenol 325mg Tab) 650 mg PO Q6 PRN PRN Reason: Pain, moderate (4-7) Last Admin: 08/13/18 12:36 Dose: 650 mg Alprazolam (Xanax) 0.5 mg PO TID PRN PRN Reason: Anxiety Last Admin: 08/01/18 00:59 Dose: 0.5 mg Artificial Tears (Artificial Tears) 0.3 ml OU Q4H PRN PRN Reason: Dry eyes Last Admin: 08/08/18 12:13 Dose: 1 drop Bisacodyl (Dulcolax) 10 mg PO DAILY [facility] Last Admin: 08/13/18 10:11 Dose: Not Given Clotrimazole (Lotrimin 1%) 0 gm TOP BID [facility] Last Admin: 08/13/18 10:10 Dose: 1 appl Dextrose (Dextrose 50% Inj) 0 ml IV STAT PRN; Protocol PRN Reason: Hypoglycemia Protocol Dextrose (Glutose 15) 0 gm PO ONCE PRN; Protocol PRN Reason: Hypoglycemia Protocol Famotidine (Pepcid) 20 mg PO DAILY [facility] Last Admin: 08/13/18 10:09 Dose: 20 mg Furosemide (Lasix) 20 mg PO DAILY [facility] Last Admin: 08/13/18 10:08 Dose: 20 mg Gabapentin (Neurontin) 300 mg PO BID [facility] Last Admin: 08/13/18 10:07 Dose: 300 mg Glucagon (Glucagen Diagnostic Kit) 0 mg IM STAT PRN; Protocol PRN Reason: Hypoglycemia Protocol Guaifenesin (Mucinex La) 600 mg PO BID [facility] Last Admin: 08/13/18 10:07 Dose: 600 mg Guaifenesin/Dextromethorphan (Robitussin Dm) 5 ml PO Q4H PRN PRN Reason: Cough Last Admin: 08/02/18 09:17 Dose: 5 ml Heparin Sodium (Porcine) (Heparin) 5,000 units SC Q8 [facility] Last Admin: 08/13/18 06:00 Dose: Not Given Doxycycline Hyclate 100 mg/ (Sodium Chloride) 100 mls @ 100 mls/hr IVPB Q12H [facility]; Protocol Last Admin: 08/13/18 12:37 Dose: 100 mls/hr Meropenem 1 gm/ Sodium (Chloride) 100 mls @ 100 mls/hr IVPB Q8H [facility]; Protocol Last Admin: 08/13/18 10:14 Dose: 100 mls/hr Insulin Glargine (Lantus) 20 unit SC HS [facility] Last Admin: 08/12/18 21:51 Dose: 20 unit Insulin Human Isoph/Insulin Regular (Novolin 70/30 (70/30 Units/Ml) 10 Ml) 20 units SC BIDAC [facility] Last Admin: 08/13/18 08:17 Dose: 20 units Lactobacillus Acidophilus (Lactobacillus) 1 cap PO TID [facility] Last Admin: 08/13/18 10:09 Dose: 1 cap Lisinopril (Zestril) 5 mg PO DAILY [facility] Last Admin: 08/13/18 10:09 Dose: 5 mg Magnesium Hydroxide (Milk Of Magnesia) 60 ml PO BID PRN PRN Reason: Constipation Miconazole (Monistat 7 Vag Suppository) 100 mg VG HS [facility] Last Admin: 08/12/18 21:51 Dose: Not Given Rosuvastatin Calcium (Crestor) 2.5 mg PO [facility] Last Admin: 08/12/18 21:49 Dose: Not Given Senna/Docusate Sodium (Senokot S 50 Mg-8.6 Mg) 2 tab PO BID [facility] Last Admin: 08/13/18 10:11 Dose: Not Given Simethicone (Mylicon Chew Tab) 80 mg PO Q4H PRN PRN Reason: GI distress Last Admin: 08/11/18 17:22 Dose: 80 mg Tramadol HCl (Ultram) 25 mg PO TID PRN PRN Reason: Pain, severe (8-10) Last Admin: 08/11/18 15:13 Dose: 25 mg - Labs Labs: 08/11/18 07:31 08/11/18 07:31 PT 13.6 SECONDS (9.7-12.2) H 07/25/18 12:54 INR 1.2 07/25/18 12:54 APTT 26 SECONDS (21-34) 07/25/18 12:54 - Constitutional Appears: Well, Non-toxic, No Acute Distress - Extremities Exam Additional comments: LLE focused Vasc: DP/PT pulses are palpable 2/4, cap refill time: < 3 sec to digit 4 and 5, Temp gradient warm to warm from proximal to distal. Minimal edema noted to surgical site WNL for postoperative state and improving Ortho: no pain on palpation present, MMT unable to be assessed at this time Neruo: Epicritic and protective sensation grossly diminished at this time Derm: skin well coapted, sutures intact, no purulent discharge appreciated, mild serosanguinous drainage. Wound noted on the distal aspect of the surgical site with fibrogranular base, no malodor, no clinical signs of infection at this time - Neurological Exam Neurological Exam: Alert, Awake, Oriented x3 - Psychiatric Exam Psychiatric exam: Normal Affect, Normal Mood Assessment and Plan - Assessment and Plan (Free Text) Assessment: 53F seen and evaluated at bedside 16 days s/p left partial second ray amputation Plan: Patient seen and evaluated with Dr. Fox Afebrijordin Continue abx Surgical site dressed with saline wet to dry, DSD, NICOLE Bactroban ordered No plan for further surgical intervention at this time Podiatry will continue to follow while patient in house
[2018-08-13] MEDS: Rosuvastatin Calcium 2.5 mg Tab PO SCH (21:40)
[2018-08-13] MEDS: Miconazole 100 MG Vaginal Supp VG SCH (21:41)
[2018-08-13] MEDS: (Lantus) Insulin Glargine, Recombinant SC SCH (21:57)
--- NOTE | 2018-08-13 22:57 | CP.PCM.PN ---
Subjective - Date & Time of Evaluation Date of Evaluation: 08/13/18 Time of Evaluation: 07:00 - Subjective Subjective: 16 days s/p left partial second ray amputation. Patient is AAO x 3 and NAD, Objective - Vital Signs/Intake and Output Vital Signs (last 24 hours): Temp Pulse Resp BP Pulse Ox 98.5 F 82 20 118/73 97 08/13/18 16:56 08/13/18 16:56 08/13/18 16:56 08/13/18 16:56 08/13/18 16:56 Intake and Output: 08/13/18 08/14/18 18:59 06:59 Intake Total 840 Balance 840 - Medications Medications: Current Medications Acetaminophen (Tylenol 325mg Tab) 975 mg PO ONCE PRN PRN Reason: Fever >100.4 F Last Admin: 07/30/18 07:43 Dose: 975 mg Acetaminophen (Tylenol 325mg Tab) 650 mg PO Q6 PRN PRN Reason: Pain, moderate (4-7) Last Admin: 08/13/18 22:00 Dose: 650 mg Alprazolam (Xanax) 0.5 mg PO TID PRN PRN Reason: Anxiety Last Admin: 08/01/18 00:59 Dose: 0.5 mg Artificial Tears (Artificial Tears) 0.3 ml OU Q4H PRN PRN Reason: Dry eyes Last Admin: 08/08/18 12:13 Dose: 1 drop Bisacodyl (Dulcolax) 10 mg PO DAILY [facility] Last Admin: 08/13/18 10:11 Dose: Not Given Clotrimazole (Lotrimin 1%) 0 gm TOP BID [facility] Last Admin: 08/13/18 10:10 Dose: 1 appl Dextrose (Dextrose 50% Inj) 0 ml IV STAT PRN; Protocol PRN Reason: Hypoglycemia Protocol Dextrose (Glutose 15) 0 gm PO ONCE PRN; Protocol PRN Reason: Hypoglycemia Protocol Famotidine (Pepcid) 20 mg PO DAILY [facility] Last Admin: 08/13/18 10:09 Dose: 20 mg Furosemide (Lasix) 20 mg PO DAILY [facility] Last Admin: 08/13/18 10:08 Dose: 20 mg Gabapentin (Neurontin) 300 mg PO BID [facility] Last Admin: 08/13/18 18:27 Dose: 300 mg Glucagon (Glucagen Diagnostic Kit) 0 mg IM STAT PRN; Protocol PRN Reason: Hypoglycemia Protocol Guaifenesin (Mucinex La) 600 mg PO BID [facility] Last Admin: 08/13/18 18:27 Dose: 600 mg Guaifenesin/Dextromethorphan (Robitussin Dm) 5 ml PO Q4H PRN PRN Reason: Cough Last Admin: 08/02/18 09:17 Dose: 5 ml Heparin Sodium (Porcine) (Heparin) 5,000 units SC Q8 [facility] Last Admin: 08/13/18 21:41 Dose: Not Given Doxycycline Hyclate 100 mg/ (Sodium Chloride) 100 mls @ 100 mls/hr IVPB Q12H [facility]; Protocol Last Admin: 08/13/18 12:37 Dose: 100 mls/hr Meropenem 1 gm/ Sodium (Chloride) 100 mls @ 100 mls/hr IVPB Q8H [facility]; Protocol Last Admin: 08/13/18 18:29 Dose: 100 mls/hr Insulin Glargine (Lantus) 20 unit SC HS [facility] Last Admin: 08/13/18 21:57 Dose: 20 unit Insulin Human Isoph/Insulin Regular (Novolin 70/30 (70/30 Units/Ml) 10 Ml) 20 units SC BIDAC [facility] Last Admin: 08/13/18 17:50 Dose: Not Given Lactobacillus Acidophilus (Lactobacillus) 1 cap PO TID [facility] Last Admin: 08/13/18 18:27 Dose: 1 cap Lisinopril (Zestril) 5 mg PO DAILY [facility] Last Admin: 08/13/18 10:09 Dose: 5 mg Magnesium Hydroxide (Milk Of Magnesia) 60 ml PO BID PRN PRN Reason: Constipation Miconazole (Monistat 7 Vag Suppository) 100 mg VG [facility] Last Admin: 08/13/18 21:41 Dose: Not Given Mupirocin (Bactroban Ointment) 0 gm TOP DAILY [facility] Rosuvastatin Calcium (Crestor) 2.5 mg PO [facility] Last Admin: 08/13/18 21:40 Dose: Not Given Senna/Docusate Sodium (Senokot S 50 Mg-8.6 Mg) 2 tab PO BID [facility] Last Admin: 08/13/18 18:26 Dose: Not Given Simethicone (Mylicon Chew Tab) 80 mg PO Q4H PRN PRN Reason: GI distress Last Admin: 08/11/18 17:22 Dose: 80 mg Tramadol HCl (Ultram) 25 mg PO TID PRN PRN Reason: Pain, severe (8-10) Last Admin: 08/11/18 15:13 Dose: 25 mg - Labs Labs: 08/11/18 07:31 08/11/18 07:31 PT 13.6 SECONDS (9.7-12.2) H 07/25/18 12:54 INR 1.2 07/25/18 12:54 APTT 26 SECONDS (21-34) 07/25/18 12:54 - Constitutional Appears: Non-toxic, Chronically Ill - Head Exam Head Exam: NORMOCEPHALIC - Eye Exam Eye Exam: absent: Scleral icterus - ENT Exam ENT Exam: Mucous Membranes Dry - Neck Exam Neck Exam: absent: Lymphadenopathy - Respiratory Exam Respiratory Exam: Decreased Breath Sounds - Cardiovascular Exam Cardiovascular Exam: REGULAR RHYTHM - GI/Abdominal Exam GI & Abdominal Exam: Distended, Soft - Rectal Exam Rectal Exam: Deferred - Exam Exam: NORMAL INSPECTION - Extremities Exam Extremities Exam: Pedal Edema - Back Exam Back Exam: absent: CVA tenderness (L), CVA tenderness (R) - Neurological Exam Neurological Exam: Alert, Awake, Oriented x3 - Psychiatric Exam Psychiatric exam: Normal Mood - Skin Skin Exam: Dry Assessment and Plan (1) Cellulitis Status: Acute (2) Open wound Status: Acute (3) Sepsis Status: Acute (4) Uncontrolled diabetes mellitus Status: Acute (5) Osteomyelitis of foot, left, acute Status: Acute (6) Osteomyelitis of foot Status: Acute (7) Osteomyelitis of left foot Status: Acute (8) Gangrene of left foot Status: Acute - Assessment and Plan (Free Text) Assessment: v16 days s/p left partial second ray amputation. Patient requires 6 -8 weeks IV antibiotics
[2018-08-14] MEDS: Meropenem 1 GM in Sodium Chloride 0.9% 100 ML IVPB SCH ×2 (02:10→10:03)
[2018-08-14 06:27] LABS: BASO % 0.2 % (0.0-2.0); EOS # 0.2 K/uL (0.0-0.7); EOS % 4.3 % (0.0-4.0); HEMOGLOBIN 9.7 g/dL (11.0-16.0); LYMPH # 1.2 K/uL (1.0-4.3); LYMPH % 26.6 % (20.0-40.0); MEAN CELL VOLUME 84.6 fL (81.0-99.0); MEAN CORPUSCULAR HEMOGLOBIN 27.6 pg (27.0-31.0); MEAN CORPUSCULAR HGB CONC 32.6 g/dL (33.0-37.0); MEAN PLATELET VOLUME 8.5 fL (7.2-11.7); MONO # 0.3 K/uL (0.0-0.8); MONO % 7.2 % (0.0-10.0); NEUT # 2.9 K/uL (1.8-7.0); NEUT % 61.7 % (50.0-75.0); NRBC % 0.1 % (0.0-2.0); RBC 3.52 Mil/uL (3.80-5.20); RED CELL DISTRIBUTION WIDTH 17.7 % (11.5-14.5); WHITE BLOOD COUNT 4.7 K/uL (4.8-10.8)
--- NOTE | 2018-08-14 07:45 | CP.PCM.PN ---
Subjective - Date & Time of Evaluation Date of Evaluation: 08/14/18 Time of Evaluation: 07:44 - Subjective Subjective: Ramy Jacobsen PGY1 Progress Note for Dr. Faulkner Pt was examined at bedside this morning. She reports feeling light headed. She also complains of itchiness in the L arm where the PICC line is placed. Objective - Vital Signs/Intake and Output Vital Signs (last 24 hours): Temp Pulse Resp BP Pulse Ox 98.1 F 81 20 129/64 95 08/14/18 00:18 08/14/18 00:18 08/14/18 00:18 08/14/18 00:18 08/14/18 00:18 Intake and Output: 08/14/18 08/14/18 06:59 18:59 Intake Total 900 380 Balance 900 380 - Medications Medications: Current Medications Acetaminophen (Tylenol 325mg Tab) 975 mg PO ONCE PRN PRN Reason: Fever >100.4 F Last Admin: 07/30/18 07:43 Dose: 975 mg Acetaminophen (Tylenol 325mg Tab) 650 mg PO Q6 PRN PRN Reason: Pain, moderate (4-7) Last Admin: 08/13/18 22:00 Dose: 650 mg Alprazolam (Xanax) 0.5 mg PO TID PRN PRN Reason: Anxiety Last Admin: 08/01/18 00:59 Dose: 0.5 mg Alteplase, Recombinant (Cathflo 2 Mg Inj) 2 mg IV ONCE ONE Stop: 08/14/18 09:01 Artificial Tears (Artificial Tears) 0.3 ml OU Q4H PRN PRN Reason: Dry eyes Last Admin: 08/08/18 12:13 Dose: 1 drop Bisacodyl (Dulcolax) 10 mg PO DAILY [facility] Last Admin: 08/13/18 10:11 Dose: Not Given Clotrimazole (Lotrimin 1%) 0 gm TOP BID [facility] Last Admin: 08/13/18 18:00 Dose: Not Given Dextrose (Dextrose 50% Inj) 0 ml IV STAT PRN; Protocol PRN Reason: Hypoglycemia Protocol Dextrose (Glutose 15) 0 gm PO ONCE PRN; Protocol PRN Reason: Hypoglycemia Protocol Famotidine (Pepcid) 20 mg PO DAILY [facility] Last Admin: 08/13/18 10:09 Dose: 20 mg Furosemide (Lasix) 20 mg PO DAILY [facility] Last Admin: 08/13/18 10:08 Dose: 20 mg Gabapentin (Neurontin) 300 mg PO BID [facility] Last Admin: 08/13/18 18:27 Dose: 300 mg Glucagon (Glucagen Diagnostic Kit) 0 mg IM STAT PRN; Protocol PRN Reason: Hypoglycemia Protocol Guaifenesin (Mucinex La) 600 mg PO BID [facility] Last Admin: 08/13/18 18:27 Dose: 600 mg Guaifenesin/Dextromethorphan (Robitussin Dm) 5 ml PO Q4H PRN PRN Reason: Cough Last Admin: 08/02/18 09:17 Dose: 5 ml Heparin Sodium (Porcine) (Heparin) 5,000 units SC Q8 [facility] Last Admin: 08/14/18 06:00 Dose: Not Given Doxycycline Hyclate 100 mg/ (Sodium Chloride) 100 mls @ 100 mls/hr IVPB Q12H [facility]; Protocol Last Admin: 08/14/18 00:24 Dose: 100 mls/hr Meropenem 1 gm/ Sodium (Chloride) 100 mls @ 100 mls/hr IVPB Q8H [facility]; Protocol Last Admin: 08/14/18 02:10 Dose: 100 mls/hr Insulin Glargine (Lantus) 20 unit SC HS [facility] Last Admin: 08/13/18 21:57 Dose: 20 unit Insulin Human Isoph/Insulin Regular (Novolin 70/30 (70/30 Units/Ml) 10 Ml) 20 units SC BIDAC [facility] Last Admin: 08/13/18 17:50 Dose: Not Given Lactobacillus Acidophilus (Lactobacillus) 1 cap PO TID [facility] Last Admin: 08/13/18 18:27 Dose: 1 cap Lisinopril (Zestril) 5 mg PO DAILY [facility] Last Admin: 08/13/18 10:09 Dose: 5 mg Magnesium Hydroxide (Milk Of Magnesia) 60 ml PO BID PRN PRN Reason: Constipation Miconazole (Monistat 7 Vag Suppository) 100 mg VG [facility] Last Admin: 08/13/18 21:41 Dose: Not Given Mupirocin (Bactroban Ointment) 0 gm TOP DAILY [facility] Rosuvastatin Calcium (Crestor) 2.5 mg PO [facility] Last Admin: 08/13/18 21:40 Dose: Not Given Senna/Docusate Sodium (Senokot S 50 Mg-8.6 Mg) 2 tab PO BID [facility] Last Admin: 08/13/18 18:26 Dose: Not Given Simethicone (Mylicon Chew Tab) 80 mg PO Q4H PRN PRN Reason: GI distress Last Admin: 08/11/18 17:22 Dose: 80 mg Tramadol HCl (Ultram) 25 mg PO TID PRN PRN Reason: Pain, severe (8-10) Last Admin: 08/11/18 15:13 Dose: 25 mg - Labs Labs: 08/14/18 06:24 08/11/18 07:31 PT 13.6 SECONDS (9.7-12.2) H 07/25/18 12:54 INR 1.2 07/25/18 12:54 APTT 26 SECONDS (21-34) 07/25/18 12:54 - Additional Findings Additional findings: - Constitutional Appears: No Acute Distress, Chronically Ill - Head Exam Head Exam: ATRAUMATIC, NORMAL INSPECTION - Eye Exam Additional comments: complete - left eye; partial right eye - Respiratory Exam Respiratory Exam: Clear to Auscultation Bilateral, NORMAL BREATHING PATTERN, no wheezing, no stridor. - Cardiovascular Exam Cardiovascular Exam: REGULAR RHYTHM, +S1, +S2 - GI/Abdominal Exam GI & Abdominal Exam: Normal Bowel Sounds, Soft. absent: Tenderness - Extremities Exam Right midline seems to be leaking. Additional comments: Left foot is s/p 2nd ray amputation. Dressing is clean, dry, intact, no edema in the lower extremity. No active bleeding. - Neurological Exam Neurological exam: Alert, Oriented x3 - Psychiatric Exam Psychiatric exam: Anxious. Normal affect. - Skin Skin Exam: Rash (dark rash to lower extremities Assessment and Plan - Assessment and Plan (Free Text) Assessment: 52 year old female with past medical history of diabetes type II, HTN, blindness (complete - left eye; partial right eye) who presented to the ER for a left foot infection. Underwent left second toe ray amputation on 07/27/18. Patient is hemodynamically stable for d/c, currently has PICC line. 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 Fox --> help appreciated - ID Consult: Dr. Davila --> help appreciated * Merem 1g IV q8h * Doxycycline 100 mg IVPB q12 * PICC line consented and inserted * abx recs upon d/c: Rocephin 1g IV q2h and Doxy 100mg IVP q12h x 6 weeks - ICU was consulted --> help appreciated - Left foot wound culture shows beta hemolytic strep b sensitive to ampicilin, PCN, vanco - BCx negative to date - UCx shows erma negative kenyatta On Merem - Medications * Tylenol prn moderate pain * Tramadol 25mg TID PRN severe pain - Images: * Foot Xray: Findings related to prior resection distal 1st metatarsal. Amputation at the level of the proximal phalanx 5th digit. Ventral ulceration medial aspect of the left foot distally. Suggestion of air within the soft tissues. In the absence of recent surgical history gas-forming organism should be considered. * Ankle Xray: Presumed chronic changes midshaft left tibia. * Tibia/Fibula Xray: Unremarkable radiographs of the left tibia and fibula. * LE venous doppler: pt refused - Bandemia/leukocytosis resolved Elevated proBNP - proBNP: 1560 - Trop: negative - Chest Xray: No consolidative infiltrate. Mild cardiomegaly and mild pulmonary venous congestion suspect - ECHO: mild concentric LVH with normal EF of 65-70%, mild TR - Medications: * Lasix 20mg po daily History of Diabetes - HgbA1c 14 - Lipid panel: elevated TG, low HDL - Medications: * Novolin 70/30 20u SC BID * Lantus 20units SC HS * Lisinopril 5mg po daily * Crestor 2.5mg po HS - Hypoglycemia Protocol - Accuchecks Haleigh to lower extremities - Clomitrazole cream to affected areas BID History of HTN - Lisinopril 5mg po daily History of Neuropathy - Gabapentin 300mg po bid Prophylaxis - Physical Therapy: recommending [facility] - Anti-coagulation: Heparin - Lactobacillus 1 cap po tid, Sennakot, pepcid, Simethicone Dispo: Patient medically stable for d/c. Currently has PICC line in place. Patient not accepted to [facility] or outpatient infusion center. Daughter Ceci [phone] will apply for [place] Medicaid. Pt has right to go back to [facility] for further treatment at anytime upon request. Case discussed with Dr. Faulkner
[2018-08-14 08:02] LABS: ALB/GLOB RATIO 0.9 (1.0-2.1); ALBUMIN 3.5 g/dL (3.5-5.0); ALT/SGPT 13 U/L (9-52); AST/SGOT 25 U/L (14-36); BLOOD UREA NITROGEN 36 mg/dL (7-17); CALCIUM 9.3 mg/dl (8.6-10.4); GFR NON-AFRICAN AMERICAN > 60
[2018-08-14] MEDS: (Novolin 70/30) NPH/Regular 70/30 Units/ml 10 ml vial SC SCH (08:15)
[2018-08-14] MEDS: Bisacodyl 5mg EC Tab PO SCH (09:54)
[2018-08-14] MEDS: Lactobacillus Acidophilus 500 MU Cap PO SCH (10:02)
[2018-08-14] MEDS: Docusate-Senna 50 mg-8.6 mg Tab PO SCH (10:03)
[2018-08-14] MEDS: guaiFENesin 600 mg ER Tab PO SCH (10:03)
[2018-08-14] MEDS: Clotrimazole 1% Cream(30 gm) TOP SCH (10:03)
[2018-08-14 10:33] VITALS: BP 120/70; PULSE 88; TEMP 97.6; O2SAT 97
--- NOTE | 2018-08-14 11:53 | CP.PCM.DIS ---
Provider - Provider Date of Admission: 07/25/18 15:20 Attending physician: Salvatore Faulkner Jr, MD Consults: 07/25/18 12:03 Podiatry Consult Stat Comment: Consulting Provider: Eddy Fox Consulting Physician: Eddy Fox Reason for Consult: open wound left foot 07/25/18 14:15 Infectious Disease Consult Stat Comment: Consulting Provider: Shawn Davila Consulting Physician: Shawn Davila Reason for Consult: left foot OM with soft tissue emphysema 07/25/18 16:15 Physician Consult Stat Comment: Consulting Provider: Shawn Davila Consulting Physician: Shawn Davila Reason for Consult: Left foot diabetic ulcer, sepsis 07/25/18 19:12 Inpatient LOG PREPARER Core Measures Referral Routine Comment: Physician Instructions: Reason For Exam: CHF Nursing Referral for Wound Care Routine Comment: Physician Instructions: Reason For Exam: L. foot diabetic foot ulcer, risk skin breakdown 07/26/18 16:00 Psychiatry Consult Routine Comment: Consulting Provider: Zafar Montgomery Consulting Physician: Zafar Montgomery Reason for Consult: pt with poor comprehension and insight into health situation Time Spent in preparation of Discharge (in minutes): 70 Diagnosis - Discharge Diagnosis (1) Osteomyelitis of foot Status: Acute (2) Uncontrolled diabetes mellitus Status: Chronic Hospital Course - Lab Results Lab Results: Micro Results 07/25/18 12:30 Blood Blood Culture - Final NO GROWTH AFTER 5 DAYS 07/25/18 12:30 Blood Gram Stain - Final TEST NOT PERFORMED 07/25/18 12:45 Blood Blood Culture - Final NO GROWTH AFTER 5 DAYS 07/25/18 12:45 Blood Gram Stain - Final TEST NOT PERFORMED 07/27/18 10:04 Foot - Left Gram Stain - Final 07/27/18 10:04 Foot - Left Wound Culture - Final Beta Hemolytic Strep Group B 07/25/18 15:04 Foot - Left Gram Stain - Final 07/25/18 15:04 Foot - Left Wound Culture - Final Proteus Mirabilis Beta Hemolytic Strep Group B 07/26/18 00:35 Urine,Clean Catch Urine Culture - Final Gram Negative Tim Most Recent Lab Values WBC 4.7 K/uL (4.8-10.8) L 08/14/18 06:24 RBC 3.52 Mil/uL (3.80-5.20) L 08/14/18 06:24 Hgb 9.7 g/dL (11.0-16.0) L 08/14/18 06:24 Hct 29.8 % (34.0-47.0) L 08/14/18 06:24 MCV 84.6 fL (81.0-99.0) 08/14/18 06:24 MCH 27.6 pg (27.0-31.0) 08/14/18 06:24 MCHC 32.6 g/dL (33.0-37.0) L 08/14/18 06:24 RDW 17.7 % (11.5-14.5) H 08/14/18 06:24 Plt Count 327 K/uL (130-400) 08/14/18 06:24 MPV 8.5 fL (7.2-11.7) 08/14/18 06:24 Neut % (Auto) 61.7 % (50.0-75.0) 08/14/18 06:24 Lymph % (Auto) 26.6 % (20.0-40.0) 08/14/18 06:24 [place] % (Auto) 7.2 % (0.0-10.0) 08/14/18 06:24 Eos % (Auto) 4.3 % (0.0-4.0) H 08/14/18 06:24 Baso % (Auto) 0.2 % (0.0-2.0) 08/14/18 06:24 Neut # (Auto) 2.9 K/uL (1.8-7.0) 08/14/18 06:24 Lymph # (Auto) 1.2 K/uL (1.0-4.3) 08/14/18 06:24 [place] # (Auto) 0.3 K/uL (0.0-0.8) 08/14/18 06:24 Eos # (Auto) 0.2 K/uL (0.0-0.7) 08/14/18 06:24 Baso # (Auto) 0.0 K/uL (0.0-0.2) 08/14/18 06:24 Neutrophils % (Manual) 75 % (50-75) 07/25/18 12:54 Band Neutrophils % 19 % (0-2) H* 07/25/18 12:54 Lymphocytes % (Manual) 4 % (20-40) L 07/25/18 12:54 Monocytes % (Manual) 2 % (0-10) 07/25/18 12:54 Platelet Estimate Normal (NORMAL) 07/25/18 12:54 Plt Clumps, EDTA Digital Pre Press Operator 07/25/18 12:54 Large Platelets Present 07/25/18 12:54 Giant Platelets Present 07/25/18 12:54 Hypochromasia (manual) Slight 07/25/18 12:54 Anisocytosis (manual) Slight 07/25/18 12:54 ESR 98 mm/hr (0-20) H 07/25/18 16:42 PT 13.6 SECONDS (9.7-12.2) H 07/25/18 12:54 INR 1.2 07/25/18 12:54 APTT 26 SECONDS (21-34) 07/25/18 12:54 Puncture Site Rradial 07/25/18 13:30 pCO2 24 mm/Hg (35-45) L 07/25/18 13:30 pO2 86 mm/Hg (80-100) 07/25/18 13:30 HCO3 17.2 mmol/L (21-28) L 07/25/18 13:30 ABG pH 7.36 (7.35-7.45) 07/25/18 13:30 ABG Total CO2 14.3 mmol/L (22-28) L 07/25/18 13:30 ABG O2 Saturation 98.9 % (95-98) H 07/25/18 13:30 ABG Base Excess -9.9 mmol/L (-2.0-3.0) L 07/25/18 13:30 Josias Test Pos 07/25/18 13:30 ABG Potassium 2.7 mmol/L (3.6-5.2) L 07/25/18 13:30 VBG pH 7.33 (7.32-7.43) 07/25/18 12:40 VBG pCO2 31 mmHg (40-60) L 07/25/18 12:40 VBG HCO3 18.1 mmol/L 07/25/18 12:40 VBG Total CO2 17.3 mmol/L (22-28) L 07/25/18 12:40 VBG O2 Sat (Calc) 89.9 % (40-65) H 07/25/18 12:40 VBG Base Excess -8.4 mmol/L (0.0-2.0) L 07/25/18 12:40 VBG Potassium 3.7 mmol/L (3.6-5.2) 07/25/18 12:40 A-a O2 Difference 34.0 mm/Hg 07/25/18 13:30 Respiratory Index 0.4 07/25/18 13:30 Sodium 142.0 mmol/l (132-148) 07/25/18 13:30 Chloride 113.0 mmol/L (98-107) H 07/25/18 13:30 Glucose 357 mg/dl (65-105) H 07/25/18 13:30 Lactate 1.1 mmol/L (0.7-2.1) 07/25/18 13:30 FiO2 21.0 % 07/25/18 13:30 Crit Value Called To ponce Joyce 07/25/18 12:40 Crit Value Called By rt Kelly 07/25/18 12:40 Crit Value Read Back Y 07/25/18 12:40 Blood Gas Notified Time 1249 07/25/18 12:40 Sodium 138 mmol/L (132-148) 08/14/18 06:24 Potassium 4.1 mmol/L (3.6-5.2) 08/14/18 06:24 Chloride 101 mmol/L (98-107) 08/14/18 06:24 Carbon Dioxide 31 mmol/L (22-30) H 08/14/18 06:24 Anion Gap 10 (10-20) 08/14/18 06:24 BUN 36 mg/dL (7-17) H 08/14/18 06:24 Creatinine 0.9 mg/dL (0.7-1.2) 08/14/18 06:24 Est GFR ( Amer) > 60 08/14/18 06:24 Est GFR (Non-Af Amer) > 60 08/14/18 06:24 POC Glucose (mg/dL) 207 mg/dL (65-110) H 08/14/18 11:06 Random Glucose 110 mg/dL (65-105) H D 08/14/18 06:24 Hemoglobin A1c > 14.0 % (4.2-6.5) H 07/26/18 06:22 Calcium 9.3 mg/dl (8.6-10.4) 08/14/18 06:24 Phosphorus 3.8 mg/dL (2.5-4.5) 07/29/18 07:05 Magnesium 1.7 mg/dL (1.6-2.3) 07/29/18 07:05 Total Bilirubin 0.2 mg/dL (0.2-1.3) 08/14/18 06:24 AST 25 U/L (14-36) 08/14/18 06:24 ALT 13 U/L (9-52) 08/14/18 06:24 Alkaline Phosphatase 119 U/L (38-126) 08/14/18 06:24 Troponin I < 0.0120 ng/mL (0.00-0.120) 07/25/18 12:54 C-Reactive Protein 218.80 mg/L (0.0-9.9) H 07/25/18 16:42 C-React Prot High Sens > 15.00 mg/L (1.00-3.00) H 07/25/18 16:42 NT-Pro-B Natriuret Pep 1560 pg/mL (0-900) H 07/25/18 12:54 Total Protein 7.4 g/dL (6.3-8.3) 08/14/18 06:24 Albumin 3.5 g/dL (3.5-5.0) 08/14/18 06:24 Globulin 3.9 gm/dL (2.2-3.9) 08/14/18 06:24 Albumin/Globulin Ratio 0.9 (1.0-2.1) L 08/14/18 06:24 Triglycerides 220 mg/dL (0-149) H 07/26/18 06:22 Cholesterol 108 mg/dL (0-199) 07/26/18 06:22 LDL Cholesterol Direct 62 mg/dL (0-129) 07/26/18 06:22 HDL Cholesterol 16 mg/dL (30-70) L 07/26/18 06:22 Procalcitonin 167.52 NG/ML (0.19-0.49) H 07/25/18 16:42 Beta HCG, Quant < 2.39 mIU/ML 07/26/18 06:22 Arterial Blood Potassium 2.7 mmol/L (3.6-5.2) L 07/25/18 13:30 Venous Blood Potassium 3.7 mmol/L (3.6-5.2) 07/25/18 12:40 Urine Color Yellow (YELLOW) 07/26/18 00:34 Urine Clarity Hazy (Clear) 07/26/18 00:34 Urine pH 5.0 (5.0-8.0) 07/26/18 00:34 Ur Specific [place] 1.020 (1.003-1.030) 07/26/18 00:34 Urine Protein 1+ mg/dL (NEGATIVE) H 07/26/18 00:34 Urine Glucose (UA) 3+ mg/dL (Normal) H 07/26/18 00:34 Urine Ketones 1+ mg/dL (NEGATIVE) H 07/26/18 00:34 Urine Blood Negative (NEGATIVE) 07/26/18 00:34 Urine Nitrate Negative (NEGATIVE) 07/26/18 00:34 Urine Bilirubin Negative (NEGATIVE) 07/26/18 00:34 Urine Urobilinogen Normal mg/dL (0.2-1.0) 07/26/18 00:34 Ur Leukocyte Esterase 1+ [place]/uL (Negative) H 07/26/18 00:34 Urine WBC (Auto) 11 /hpf (0-5) H 07/26/18 00:34 Urine RBC (Auto) 3 /hpf (0-3) 07/26/18 00:34 Ur Squamous Epith Cells 4 /hpf (0-5) 07/26/18 00:34 Urine Bacteria Rare (<OCC) 07/26/18 00:34 Hyaline Casts 3-5 /lpf (0-2) H 07/26/18 00:34 Hepatitis A IgM Ab Negative (NEGATIVE) 07/31/18 06:54 Hep Bs Antigen Negative (NEGATIVE) 07/31/18 06:54 Hep B Core IgM Ab Negative (NEGATIVE) 07/31/18 06:54 Hepatitis C Antibody Negative (NEGATIVE) 07/31/18 06:54 HIV 1&2 Antibody Screen Negative (NEGATIVE) 07/31/18 06:54 Influenza Typ A,B (EIA) Negative for flu a/b (NEGATIVE) 07/25/18 11:53 - Hospital Course Hospital Course: Upon Admission: 52-year-old female with past medical history of diabetes type II, HTN, blindness (complete - left eye; partial right eye) who presented to the ER for a left foot infection. Patient [place] because her daughter bought a new house here. She was previously living in [place] where she was being treated for a left foot infection at [facility] and in [facility] for many years. Patient reports that she was almost healed and was transferred to a [place] [facility] [place] before she was asked to move to [place] by her daughter. States that since then she was lost to follow up and her foot became worst in the past 5 days. Patient states she was previously receiving Doxycycline at the [facility] and was feeling a lot better at the time. Patient states she decided to come to the ER today because she has been having fever, chills, nausea, vomiting and her foot was starting to smell and was starting to drain yellow fluid. Patient states it is hard for her to take care of herself as because she cannot see very well, and her daughter is not home all the time to help her. Pt was admitted for lower extremity wound. Hospital Course: IV antibiotics and home medications were started. Podiatry was consulted and performed bedside I&D. - Imaging were as follows: * Foot Xray: Findings related to prior resection distal 1st metatarsal. Amputation at the level of the proximal phalanx 5th digit. Ventral ulceration medial aspect of the left foot distally. Suggestion of air within the soft tissues. In the absence of recent surgical history gas-forming organism should be considered. * Ankle Xray: Presumed chronic changes midshaft left tibia. * Tibia/Fibula Xray: Unremarkable radiographs of the left tibia and fibula. On 07/27 podiatry performed amputation of left second digit and second metatarsal head Wound cultures showed beta hemolytic strep b sensitive to ampicilin, PCN, vanco Infectious disease was consulted and patient was started on Merem 1g IV q8h and Doxycycline 100 mg IVPB q12 * PICC line consented and inserted * patient was to complete 6 weeks of IV antibiotics ICU was consulted and recommended continuation of medical management. Patient was deemed stable for discharge, awaiting placement. Upon Discharge: Patient was deemed stable for discharge to rehab facility with instructions to obtain IV antibiotics Merem 1g IV q8h and Doxycycline 100 mg IVPB q12 for 3 more weeks. Pt agreed. Discharge Exam - Head Exam Head Exam: NORMOCEPHALIC - Additional Findings Additional findings: - Constitutional Appears: No Acute Distress, Chronically Ill - Head Exam Head Exam: ATRAUMATIC, NORMAL INSPECTION - Eye Exam Additional comments: complete - left eye; partial right eye - Respiratory Exam Respiratory Exam: Clear to Auscultation Bilateral, NORMAL BREATHING PATTERN, no wheezing, no stridor. - Cardiovascular Exam Cardiovascular Exam: REGULAR RHYTHM, +S1, +S2 - GI/Abdominal Exam GI & Abdominal Exam: Normal Bowel Sounds, Soft. absent: Tenderness - Extremities Exam Right midline seems to be leaking. Additional comments: Left foot is s/p 2nd ray amputation. Dressing is clean, dry, intact, no edema in the lower extremity. No active bleeding. - Neurological Exam Neurological exam: Alert, Oriented x3 - Psychiatric Exam Psychiatric exam: Anxious. Normal affect. - Skin Skin Exam: Rash (dark rash to lower extremities Discharge Plan - Follow Up Plan Condition: SERIOUS Disposition: REHAB FACILITY/REHAB UNIT Instructions: Cellulitis (DC), Sepsis (DC) Additional Instructions: To receive IV antibiotics as follows: Merem 1g IV q8hrs for 3 weeks Doxycyline 100mg IV q12hrs for 3 weeks If symptoms worsen, please return to the Emergency Department. Take care and be well.
== END 2018-08-14 14:42 ==
LOC: C.ER 11:00 → C.9E 15:20 → C.5S 16:49 → C.3T 08-11 10:51
PROVIDERS: ADMIT Internal Medicine; ATTEND Internal Medicine
PROC: 0Y6S0Z0 Detachment at Left 2nd Toe, Complete, Open Approach (ICD-10-PCS; principal; 2018-07-27 08:00)
PROC: GZHZZZZ Group Psychotherapy (ICD-10-PCS; 2018-07-29)
PROC: GZ56ZZZ Individual Psychotherapy, Supportive (ICD-10-PCS; 2018-07-29)
PROC: 02HV33Z Insertion of Infusion Device into Superior Vena Cava, Percutaneous Approach (ICD-10-PCS; 2018-08-01)
DX: E11.69 Type 2 diabetes mellitus with other specified complication (principal); M86.172 Other acute osteomyelitis, left ankle and foot; A41.9 Sepsis, unspecified organism; A48.0 Gas gangrene; E11.319 Type 2 diabetes mellitus with unspecified diabetic retinopathy without macular edema; L97.529 Non-pressure chronic ulcer of other part of left foot with unspecified severity; I11.0 Hypertensive heart disease with heart failure; I50.9 Heart failure, unspecified; E11.40 Type 2 diabetes mellitus with diabetic neuropathy, unspecified; E11.65 Type 2 diabetes mellitus with hyperglycemia; E11.621 Type 2 diabetes mellitus with foot ulcer; F43.22 Adjustment disorder with anxiety; E11.52 Type 2 diabetes mellitus with diabetic peripheral angiopathy with gangrene